=== PATIENT | female | born 1950 | race Caucasian/White ===

== ENCOUNTER → 2017-10-14 | Outpatient (CLI) | payer MEDICARE ==
[2017-10-14 16:10] LABS: HEMATOCRIT 29.8 % (36.0-47.0); HEMOGLOBIN 10.3 g/dL (12.0-15.5); HGB HCT DIFFERENCE 1.1; MEAN CORPUSCULAR HEMOGLOBIN 31.5 pg (27.0-33.4); MEAN CORPUSCULAR HGB CONC 34.5 g/dL (32.0-36.0); MEAN CORPUSCULAR VOLUME 91 fl (80-97); RED BLOOD COUNT 3.27 10^6/uL (3.72-5.28); WHITE BLOOD COUNT 6.5 10^3/uL (4.0-10.5)
[2017-10-14 16:18] LABS: APPEARANCE,URINE CLEAR; BILIRUBIN,URINE NEGATIVE (NEGATIVE); GLUCOSE, URINE 50 mg/dL (NEGATIVE); KETONES,URINE NEGATIVE (NEGATIVE); LEUKOCYTE ESTERASE,URINE NEGATIVE (NEGATIVE); NITRITE,URINE NEGATIVE (NEGATIVE); PROTEIN,URINE NEGATIVE (NEGATIVE); URINE SPECIFIC GRAVITY 1.005; UROBILINOGEN,URINE NEGATIVE mg/dL (<2.0)
[2017-10-14 16:31] LABS: ANION GAP 13 (5-19); BLOOD UREA NITROGEN 40 mg/dL (7-20); CALCIUM 9.9 mg/dL (8.4-10.2); CARBON DIOXIDE 27 mmol/L (22-30); CHLORIDE 99 mmol/L (98-107); CREATININE RESULT 2.53 mg/dL (0.52-1.25); GLUCOSE 91 mg/dL (75-110); POTASSIUM 4.1 mmol/L (3.6-5.0); SODIUM 139.1 mmol/L (137-145)
== END ==
LOC: OD 15:23
PROVIDERS: ATTEND Internal Medicine Nephrology
DX: I12.9 Hypertensive chronic kidney disease with stage 1 through stage 4 chronic kidney disease, or unspecified chronic kidney disease (principal); N18.4 Chronic kidney disease, stage 4 (severe)
CPT/HCPCS: 36415; 80048; 81001; 85027

== ENCOUNTER → 2017-11-11 | Outpatient (CLI) | payer MEDICARE ==
[2017-11-11 18:18] LABS: ABSOLUTE EOSINOPHILS # (AUTO) 0.3 10^3/uL (0.0-0.6); ABSOLUTE LYMPHOCYTES (AUTO) 2.2 10^3/uL (0.5-4.7); ABSOLUTE MONOCYTES (AUTO) 0.4 10^3/uL (0.1-1.4); ABSOLUTE NEUT (AUTO) 3.5 10^3/uL (1.7-8.2); APPEARANCE,URINE SLIGHTLY-CLOUDY; BASOPHILS % (AUTO) 0.7 % (0-2); BILIRUBIN,URINE NEGATIVE (NEGATIVE); EOSINOPHILS % (AUTO) 4.8 % (0-6); GLUCOSE, URINE 50 mg/dL (NEGATIVE); HEMATOCRIT 28.6 % (36.0-47.0); HEMOGLOBIN 9.6 g/dL (12.0-15.5); HGB HCT DIFFERENCE 0.2; KETONES,URINE NEGATIVE (NEGATIVE); LEUKOCYTE ESTERASE,URINE TRACE (NEGATIVE); LYMPHOCYTES % (AUTO) 34.2 % (13-45); MEAN CORPUSCULAR HEMOGLOBIN 31.2 pg (27.0-33.4); MEAN CORPUSCULAR HGB CONC 33.6 g/dL (32.0-36.0); MEAN CORPUSCULAR VOLUME 93 fl (80-97); MONOCYTES % (AUTO) 5.9 % (3-13); NITRITE,URINE NEGATIVE (NEGATIVE); PROTEIN,URINE NEGATIVE (NEGATIVE); RED BLOOD COUNT 3.09 10^6/uL (3.72-5.28); RED CELL DISTRIBUTION WIDTH 16.4 % (11.5-14.0); SEGMENTED NEUTROPHILS % (AUTO) 54.4 % (42-78); URINE SPECIFIC GRAVITY 1.009; UROBILINOGEN,URINE NEGATIVE mg/dL (<2.0); WHITE BLOOD COUNT 6.4 10^3/uL (4.0-10.5)
[2017-11-11 18:35] LABS: ALANINE AMINOTRANSFERASE 22 U/L (9-52); ALKALINE PHOSPHATASE 99 U/L (38-126); ANION GAP 13 (5-19); ASPARTATE AMINO TRANSFERASE 21 U/L (14-36); BILIRUBIN,DIRECT 0.4 mg/dL (0.0-0.4); BILIRUBIN,TOTAL 0.4 mg/dL (0.2-1.3); BLOOD UREA NITROGEN 40 mg/dL (7-20); CALCIUM 10.5 mg/dL (8.4-10.2); CARBON DIOXIDE 27 mmol/L (22-30); CHLORIDE 101 mmol/L (98-107); CREATININE RESULT 2.64 mg/dL (0.52-1.25); GLUCOSE 107 mg/dL (75-110); PHOSPHORUS 4.5 mg/dL (2.5-4.5); POTASSIUM 3.5 mmol/L (3.6-5.0); SODIUM 141.3 mmol/L (137-145); TOTAL PROTEIN 6.8 g/dL (6.3-8.2)
[2017-11-14 15:38] LABS: A/G RATIO 1.3 (0.7-1.7); ALPHA-1-GLOBULIN 2 0.3 g/dL (0.0-0.4); GAMMA GLOBULIN 1.2 g/dL (0.4-1.8); PROTEIN TOTAL SERUM 6.7 g/dL (6.0-8.5)
== END ==
LOC: OD 17:06
PROVIDERS: ATTEND Internal Medicine Nephrology
DX: N18.4 Chronic kidney disease, stage 4 (severe) (principal); D64.9 Anemia, unspecified
CPT/HCPCS: 36415; 80053; 81001; 82728; 83540; 83550; 83970; 84100; 84165; 84443; 85025

== ENCOUNTER 2017-12-01 09:26 | Day surgery (SDC) | payer MEDICARE ==
[2017-12-01] MEDS ORDERED: OXYCODONE-ACETAMINOPHEN 5-325 MG TABLET ONE (09:44)
[2017-12-01] MEDS ORDERED: DIAZEPAM 5 MG TABLET ONE (09:45)
[2017-12-01] MEDS ORDERED: LIDOCAINE 0.5% INJ-PF (5 MG/ML) 50 ML SDV ONE (09:53)
[2017-12-01] MEDS ORDERED: HEPARIN SOD (PORCINE) 5,000 UNIT/ML 1 ML SYRINGE ONE (10:12)
[2017-12-01] MEDS ORDERED: MIDAZOLAM 2 MG/2 ML INJ ONE (10:12)
[2017-12-01] MEDS ORDERED: FENTANYL CITRATE INJ/PF 100 MCG/2 ML AMPUL ONE (10:12)
[2017-12-01 10:21] LABS: HEMOGLOBIN 8.8 g/dL (12.0-15.5); MEAN CORPUSCULAR HGB CONC 33.7 g/dL (32.0-36.0); MEAN CORPUSCULAR VOLUME 95 fl (80-97); PLATELET COUNT 234 10^3/uL (150-450); RED BLOOD COUNT 2.74 10^6/uL (3.72-5.28); RED CELL DISTRIBUTION WIDTH 15.7 % (11.5-14.0); WHITE BLOOD COUNT 6.8 10^3/uL (4.0-10.5)
[2017-12-01 10:43] LABS: ANION GAP 11 (5-19); BLOOD UREA NITROGEN 44 mg/dL (7-20); CALCIUM 10.9 mg/dL (8.4-10.2); CARBON DIOXIDE 26 mmol/L (22-30); CHLORIDE 103 mmol/L (98-107); GLUCOSE 104 mg/dL (75-110); POTASSIUM 3.9 mmol/L (3.6-5.0); SODIUM 139.5 mmol/L (137-145)
[2017-12-01 15:08] VITALS: BP 134/62
--- NOTE | 2017-12-01 15:35 | RADIOLOGY REPORT (SQ) ---
EXAM DESCRIPTION: FISTULAGRAM W/PLASTY; ANGIOPLASTY BRACHIOCEPHALIC COMPLETED DATE/TIME: 12/01/2017 11:53 am; 12/01/2017 11:52 am REASON FOR STUDY: T82.858A T82.858A STENOSIS OF OTHER VASCULAR PROSTH DEV/GRFT, INIT T82.858 STENO SIS OF OTHER VASCULAR PROSTH DEV/GRFT * DO NOT COMPARISON: None. FLUOROSCOPY TIME: 0.8 minutes Multiple fluoroscopic images saved to PACS. TECHNIQUE: Intra-operative images acquired during surgical procedure to evaluate progress. NUMBER OF IMAGES: Multiple fluoroscopic LIMITATIONS: None. FINDINGS: Selected images from left upper extremity arteriogram and angioplasty. IMPRESSION: IMAGE(S) OBTAINED DURING PROCEDURE. COMMENT: Quality ID [id number]: Final reports for procedures using fluoroscopy that document radiation exp osure indices, or exposure time and number of fluorographic images (if radiation exposure indices are not available) Please consult full operative report of the attending physician for description of the procedure. TECHNICAL DOCUMENTATION: JOB ID: [id number] [employer]- All Rights Reserved
--- NOTE | 2017-12-02 18:37 | PDOC DISCHARGE SUMMARY ---
Discharge Summary (SDC) - Discharge Final Diagnosis: #1 malfunctioning AV fistula left brachiocephalic. 2. Chronic kidney disease stage III. 3. COPD. 4. Hypertension. Date of Surgery: 12/02/17 Discharge Date: 12/02/17 Condition: Fair Forms: ASU Anesthesia D/C Instruction, Discharge POC-Surgical Service Referrals: RAJAN TA MD [Primary Care Provider] - MARGO HARTMANN MD [ACTIVE STAFF] - (Follow up with Dr Hartmann as instructed on .) Respiratory Treatments at Home: Deep Breathing/Coughing Discharge Activity: Activity As Tolerated, No Driving Home Care Assistance: Provided by Family Report the Following to Your Physician Immediately: Shortness of Breath, Increase in Pain, Fever over 101 Degrees, Unusual Bleeding, Redness, Swelling, Warmth, Increased Soreness, IV Site Infection Signs
--- NOTE | 2017-12-02 18:43 | Operative Report ---
Operative Report DATE OF SURGERY: 12/02/17 PREOPERATIVE DIAGNOSIS: #1 malfunctioning AV fistula left brachiocephalic. 2. Chronic kidney disease stage III. 3. COPD. 4. Hypertension. POSTOPERATIVE DIAGNOSIS: #1 malfunctioning AV fistula left brachiocephalic. Post angioplasty, central. 2. Chronic kidney disease stage III. 3. COPD. 4. Hypertension. OPERATION: 1. Needle introduction into left arm radiocephalic fistula. 2. Central angioplasty, venous. 3. Angiogram and interpretation. SURGEON: MARGO FOY INCLINOMETER TESTER: None ANESTHESIA: Moderate Sedation TISSUE REMOVED OR ALTERED: Not applicable. COMPLICATIONS: None. ESTIMATED BLOOD LOSS: 2 mL. INTRAOPERATIVE FINDINGS: Of a large, hyper pulsatile brachiocephalic fistula on the left. Well-established. Congruent findings of a covered stent, probably a Viahban brand. Situated in the cephalad cephalic with entry into the subclavian. There was also a larger stent in the innominate left innominate vein, apparently a bare metal. A stenosis was appreciated in the central portion of the innominate stent approximately 70% of the adjacent lumen. This was corrected by angioplasty. Its significance is indicated by the presence of significant collaterals going up into the jugular veins. These did not appreciably change after angioplasty. The patient did require a suture to the entry site of a 7 Japanese introducer. PROCEDURE: PROCEDURE: After verifying the procedure and having obtained informed consent, the patient's left arm was prepared with Chlorhexidine and draped out with sterile linen. Local anesthesia infiltrated. Percutaneous access into the fistula ,[ antegrade], obtained about [6 cm] from the arteriovenous anastomosis using a micro puncture needle followed by micro puncture wire and then a micro puncture catheter. A 0.035 [place] wire was inserted, and over this, a 7 Japanese short introducer was placed.,Angiogram demonstrated the aforementioned findings. Angioplasty was elected. this was followed by a [10-mm] angioplasty balloon . Angioplasty was Done from the superior vena cava up into the innominate stents. Inflating with a 3 mils syringe, for 2 minutes at each location. The balloon was deflated and brought up into the subclavian covered stent junction and gently partially inflated for 1 minutes.]. Completion angiogram demonstrated [satisfactory result]. The instrumentation was now withdrawn over a 5-0 Prolene suture. This was done after initial pressure for 15 minutes was unsuccessful in controlling oozing from the introducer exercise. Dressings applied, procedure concluded. Exposure time: 0.8 minutes Radiation: 10.44 Geeta quiros. Contrast: 10 mL of Isovue-300, low osmolality. DICTATING PHYSICIAN: MARGO HAQUE M.D. cc: MARGO HAQUE M.D. ([id number]) >>
== END 2017-12-01 14:15 | disposition home or self-care (01) ==
LOC: CCL 09:26
PROVIDERS: ATTEND Surgery
PROC: 057F3DZ Dilation of Left Cephalic Vein with Intraluminal Device, Percutaneous Approach (ICD-10-PCS; principal; 2017-12-01)
DX: T82.858A Stenosis of other vascular prosthetic devices, implants and grafts, initial encounter (principal); Y83.2 Surgical operation with anastomosis, bypass or graft as the cause of abnormal reaction of the patient, or of later complication, without mention of misadventure at the time of the procedure; I12.9 Hypertensive chronic kidney disease with stage 1 through stage 4 chronic kidney disease, or unspecified chronic kidney disease; N18.3 Chronic kidney disease, stage 3 (moderate); J44.9 Chronic obstructive pulmonary disease, unspecified; I25.10 Atherosclerotic heart disease of native coronary artery without angina pectoris; F17.210 Nicotine dependence, cigarettes, uncomplicated; Z88.2 Allergy status to sulfonamides; Z79.899 Other long term (current) drug therapy; Z79.82 Long term (current) use of aspirin; Z90.5 Acquired absence of kidney
CPT/HCPCS: 36415; 85027; 80048; 36907; 36902; C1725; C1887; C1894; Q9967; C1769; J2250; J1644 ×2; A9270 ×2; J3010; J3490; C1752

== ENCOUNTER → 2017-12-19 | Outpatient (CLI) | payer MEDICARE ==
--- NOTE | 2017-12-19 13:37 | RADIOLOGY REPORT (SQ) ---
EXAM DESCRIPTION: MRA ABDOMEN WITHOUT COMPLETED DATE/TIME: 12/19/2017 12:58 pm REASON FOR STUDY: CKD STAGE 4 COMPARISON: None. TECHNIQUE: 3D tdzk-of-uuhtor noncontrast MRA exam of the abdominal aorta and renal arteries was perf ormed. Source data, axial T2 limited images, maximum intensity projected images were reviewed. LIMITATIONS: None. FINDINGS: Left kidney surgically absent. On the right side, high-grade stenosis of the proximal right renal artery with a gap in flow signal i s seen at the ostium indicating 80+ percent stenosis. This is best shown on series 502 images 37 thr ough 45. Remainder of the visualized right renal artery is unremarkable. The abdominal aorta is normal caliber at the level of the renal arteries with profound atheroscleroti c change, and luminal irregularity. No dissection is identified. Post cholecystectomy. Large left pleural effusion. There is heterogeneous T2 signal in the right kidney, question infarct anterior half of the right kid adalid. IMPRESSION: Post left nephrectomy High-grade proximal right renal artery stenosis Abnormal increased signal in the ventral half of the right kidney worrisome for infarct. TECHNICAL DOCUMENTATION: JOB ID: [id number] [employer]- All Rights Reserved
== END ==
LOC: RAD 11:46
PROVIDERS: ATTEND Internal Medicine Nephrology
DX: N18.4 Chronic kidney disease, stage 4 (severe) (principal); I70.1 Atherosclerosis of renal artery; Z90.5 Acquired absence of kidney
CPT/HCPCS: C8901

== ENCOUNTER → 2017-12-26 | Outpatient (CLI) | payer MEDICARE ==
[2017-12-26 19:12] LABS: ANION GAP 11 (5-19); BLOOD UREA NITROGEN 49 mg/dL (7-20); CALCIUM 10.4 mg/dL (8.4-10.2); CARBON DIOXIDE 25 mmol/L (22-30); CHLORIDE 99 mmol/L (98-107); GLUCOSE 98 mg/dL (75-110); POTASSIUM 5.3 mmol/L (3.6-5.0); SODIUM 134.6 mmol/L (137-145)
== END ==
LOC: OD 17:48
PROVIDERS: ATTEND Internal Medicine Nephrology
DX: I12.9 Hypertensive chronic kidney disease with stage 1 through stage 4 chronic kidney disease, or unspecified chronic kidney disease (principal); N18.4 Chronic kidney disease, stage 4 (severe); D64.9 Anemia, unspecified
CPT/HCPCS: 36415; 80048

== ENCOUNTER → 2018-01-23 | Outpatient (CLI) | payer MEDICARE ==
[2018-01-23 17:08] LABS: HEMATOCRIT 26.8 % (36.0-47.0); MEAN CORPUSCULAR HEMOGLOBIN 30.8 pg (27.0-33.4); MEAN CORPUSCULAR HGB CONC 33.4 g/dL (32.0-36.0); MEAN CORPUSCULAR VOLUME 92 fl (80-97); PLATELET COUNT 307 10^3/uL (150-450); RED BLOOD COUNT 2.91 10^6/uL (3.72-5.28); RED CELL DISTRIBUTION WIDTH 18.1 % (11.5-14.0); WHITE BLOOD COUNT 7.1 10^3/uL (4.0-10.5)
[2018-01-23 17:38] LABS: ALANINE AMINOTRANSFERASE 13 U/L (9-52); ALBUMIN 3.7 g/dL (3.5-5.0); ALKALINE PHOSPHATASE 97 U/L (38-126); ANION GAP 10 (5-19); ASPARTATE AMINO TRANSFERASE 15 U/L (14-36); BILIRUBIN,DIRECT 0.3 mg/dL (0.0-0.4); BILIRUBIN,TOTAL 0.3 mg/dL (0.2-1.3); BLOOD UREA NITROGEN 37 mg/dL (7-20); CALCIUM 9.8 mg/dL (8.4-10.2); CARBON DIOXIDE 25 mmol/L (22-30); CHLORIDE 102 mmol/L (98-107); GLUCOSE 87 mg/dL (75-110); PHOSPHORUS 4.3 mg/dL (2.5-4.5); POTASSIUM 4.5 mmol/L (3.6-5.0); SODIUM 136.9 mmol/L (137-145); TOTAL PROTEIN 6.5 g/dL (6.3-8.2)
== END ==
LOC: OD 16:09
PROVIDERS: ATTEND Internal Medicine Nephrology
DX: I12.9 Hypertensive chronic kidney disease with stage 1 through stage 4 chronic kidney disease, or unspecified chronic kidney disease (principal); N18.4 Chronic kidney disease, stage 4 (severe); D64.9 Anemia, unspecified
CPT/HCPCS: 36415; 80053; 83970; 84100; 85027

== ENCOUNTER → 2018-02-10 | Outpatient (CLI) | payer MEDICARE ==
[2018-02-10 18:37] LABS: HEMATOCRIT 27.1 % (36.0-47.0); MEAN CORPUSCULAR HEMOGLOBIN 30.8 pg (27.0-33.4); MEAN CORPUSCULAR HGB CONC 33.3 g/dL (32.0-36.0); MEAN CORPUSCULAR VOLUME 92 fl (80-97); PLATELET COUNT 261 10^3/uL (150-450); RED BLOOD COUNT 2.93 10^6/uL (3.72-5.28); WHITE BLOOD COUNT 7.9 10^3/uL (4.0-10.5)
== END ==
LOC: OD 17:55
PROVIDERS: ATTEND Internal Medicine Nephrology
DX: D64.9 Anemia, unspecified (principal); N18.4 Chronic kidney disease, stage 4 (severe)
CPT/HCPCS: 36415; 82728; 83540; 83550; 85027

== ENCOUNTER → 2018-03-24 | Outpatient (CLI) | payer MEDICARE ==
[2018-03-24 17:43] LABS: HEMATOCRIT 28.3 % (36.0-47.0); HEMOGLOBIN 9.4 g/dL (12.0-15.5); MEAN CORPUSCULAR HEMOGLOBIN 32.2 pg (27.0-33.4); MEAN CORPUSCULAR HGB CONC 33.2 g/dL (32.0-36.0); MEAN CORPUSCULAR VOLUME 97 fl (80-97); PLATELET COUNT 239 10^3/uL (150-450); RED BLOOD COUNT 2.92 10^6/uL (3.72-5.28)
[2018-03-24 17:54] LABS: APPEARANCE,URINE SLIGHTLY-CLOUDY; BILIRUBIN,URINE NEGATIVE (NEGATIVE); COLOR,URINE YELLOW; GLUCOSE, URINE 50 mg/dL (NEGATIVE); KETONES,URINE NEGATIVE (NEGATIVE); LEUKOCYTE ESTERASE,URINE NEGATIVE (NEGATIVE); NITRITE,URINE NEGATIVE (NEGATIVE); PROTEIN,URINE 100 mg/dL (NEGATIVE); URINE SPECIFIC GRAVITY 1.011; UROBILINOGEN,URINE NEGATIVE mg/dL (<2.0)
[2018-03-24 18:05] LABS: ANION GAP 18 (5-19); BLOOD UREA NITROGEN 76 mg/dL (7-20); CALCIUM 10.7 mg/dL (8.4-10.2); CARBON DIOXIDE 20 mmol/L (22-30); CHLORIDE 102 mmol/L (98-107); GLUCOSE 90 mg/dL (75-110); POTASSIUM 4.5 mmol/L (3.6-5.0); SODIUM 139.5 mmol/L (137-145)
== END ==
LOC: OD 16:07
PROVIDERS: ATTEND Internal Medicine Nephrology
DX: I12.9 Hypertensive chronic kidney disease with stage 1 through stage 4 chronic kidney disease, or unspecified chronic kidney disease (principal); N18.4 Chronic kidney disease, stage 4 (severe); D64.9 Anemia, unspecified
CPT/HCPCS: 36415; 80048; 81001; 85027

== ENCOUNTER 2018-03-25 15:47 | Emergency (ER) | payer MEDICARE ==
[2018-03-25] MEDS ORDERED: ONDANSETRON HCL INJ/PF 4 MG/2 ML SDV IV ONE (16:02)
[2018-03-25] MEDS ORDERED: NORMAL SALINE 1000 ML 1,000 ML IV ONE (16:02)
--- NOTE | 2018-03-25 16:03 | ER Document Report ---
ED Medical Screen (RME) - General Chief Complaint: Nausea/Vomiting Stated Complaint: WEAKNESS Time Seen by Provider: 03/25/18 15:59 TRAVEL OUTSIDE OF THE [place] IN LAST 30 DAYS: No - HPI Notes: 03/25/18 16:03 Generalized weakness - Related Data Allergies/Adverse Reactions: ASAD Inhibitors Allergy (Verified 11/28/17 13:29) Sulfa (Sulfonamide Antibiotics) Allergy (Verified 11/28/17 13:29) Past Medical History - Past Medical History Cardiac Medical History: Reports: Hx Coronary Artery Disease, Hx Hypertension Denies: Hx Heart Attack Pulmonary Medical History: Reports: Hx COPD Denies: Hx Asthma, Hx Bronchitis, Hx Pneumonia Neurological Medical History: Denies: Hx Cerebrovascular Accident, Hx Seizures Musculoskeltal Medical History: Denies Hx Arthritis - Immunizations Hx Diphtheria, Pertussis, Tetanus Vaccination: No History of Influenza Vaccine for 08/2017 - 01/2018 Season: Yes Influenza Administration Date for 08/2017 - 01/2018 Season: 08/20/17 Review of Systems - Review of Systems Constitutional: Weakness Physical Exam - Vital signs Vitals: Temp Pulse Resp BP Pulse Ox 98.1 F 61 18 179/65 H 94 03/25/18 15:57 03/25/18 15:57 03/25/18 15:57 03/25/18 15:57 03/25/18 15:57 - HEENT Head: Normocephalic Eyes: Normal Conjunctiva: Normal Cornea: Normal Eyelashes: Normal Pupils: PERRL Course - Vital Signs Vital signs: Temp Pulse Resp BP Pulse Ox 98.1 F 61 18 179/65 H 94 03/25/18 15:57 03/25/18 15:57 03/25/18 15:57 03/25/18 15:57 03/25/18 15:57
[2018-03-25 16:57] LABS: ABSOLUTE EOSINOPHILS # (AUTO) 0.2 10^3/uL (0.0-0.6); ABSOLUTE LYMPHOCYTES (AUTO) 1.3 10^3/uL (0.5-4.7); ABSOLUTE MONOCYTES (AUTO) 0.3 10^3/uL (0.1-1.4); ABSOLUTE NEUT (AUTO) 4.3 10^3/uL (1.7-8.2); BASOPHILS % (AUTO) 0.7 % (0-2); EOSINOPHILS % (AUTO) 3.2 % (0-6); HEMATOCRIT 30.1 % (36.0-47.0); LYMPHOCYTES % (AUTO) 21.8 % (13-45); MEAN CORPUSCULAR HEMOGLOBIN 32.1 pg (27.0-33.4); MEAN CORPUSCULAR HGB CONC 33.1 g/dL (32.0-36.0); MEAN CORPUSCULAR VOLUME 97 fl (80-97); MONOCYTES % (AUTO) 4.6 % (3-13); PLATELET COUNT 223 10^3/uL (150-450); RED CELL DISTRIBUTION WIDTH 23.2 % (11.5-14.0); SEGMENTED NEUTROPHILS % (AUTO) 69.7 % (42-78); TOTAL CELLS COUNTED % (AUTO) 100 %; WHITE BLOOD COUNT 6.2 10^3/uL (4.0-10.5)
[2018-03-25 17:18] LABS: ALANINE AMINOTRANSFERASE 9 U/L (9-52); ALBUMIN 3.7 g/dL (3.5-5.0); ALKALINE PHOSPHATASE 82 U/L (38-126); ANION GAP 18 (5-19); ASPARTATE AMINO TRANSFERASE 15 U/L (14-36); BLOOD UREA NITROGEN 76 mg/dL (7-20); CARBON DIOXIDE 20 mmol/L (22-30); CHLORIDE 104 mmol/L (98-107); GLUCOSE 97 mg/dL (75-110); LIPASE 301.5 U/L (23-300); SODIUM 141.8 mmol/L (137-145)
[2018-03-25 17:30] LABS: BILIRUBIN,TOTAL 0.5 mg/dL (0.2-1.3)
[2018-03-25 17:32] LABS: ANISOCYTOSIS 3+; BURR CELLS 1+; OVALOCYTES 1+; PLATELET COMMENT ADEQUATE; POIKILOCYTOSIS 2+; SCHISTOCYTES 2+
[2018-03-25 17:34] LABS: BILIRUBIN,DIRECT 0.5 mg/dL (0.0-0.4); CREATINE KINASE < 20 U/L (30-135)
[2018-03-25 17:45] LABS: APPEARANCE,URINE SLIGHTLY-CLOUDY; BILIRUBIN,URINE NEGATIVE (NEGATIVE); COLOR,URINE YELLOW; GLUCOSE, URINE 50 mg/dL (NEGATIVE); KETONES,URINE NEGATIVE (NEGATIVE); LEUKOCYTE ESTERASE,URINE SMALL (NEGATIVE); NITRITE,URINE NEGATIVE (NEGATIVE); PROTEIN,URINE 100 mg/dL (NEGATIVE); URINE SPECIFIC GRAVITY 1.011; UROBILINOGEN,URINE NEGATIVE mg/dL (<2.0)
--- NOTE | 2018-03-25 17:51 | RADIOLOGY REPORT (SQ) ---
EXAM DESCRIPTION: CHEST SINGLE VIEW COMPLETED DATE/TIME: 03/25/2018 5:43 pm REASON FOR STUDY: weakness COMPARISON: None. EXAM PARAMETERS: NUMBER OF VIEWS: One view. TECHNIQUE: Single frontal radiographic view of the chest acquired. RADIATION DOSE: NA LIMITATIONS: None. FINDINGS: LUNGS AND PLEURA: Consolidative process is identified in the left lower lung field which h as the appearance of a left pleural effusion with associated atelectasis or infiltrate. Remaining natalie ng acosta are clear. MEDIASTINUM AND HILAR STRUCTURES: No masses. Contour normal. HEART AND VASCULAR STRUCTURES: Cardiac silhouette is at the upper limits of normal in size BONES: No acute findings. HARDWARE: Vascular stent is identified overlying the left lung apex. OTHER: No other significant finding. IMPRESSION: Left basilar density as noted above. TECHNICAL DOCUMENTATION: JOB ID: [id number] [employer]- All Rights Reserved Reading location - IP/workstation name: [email or web address]
--- NOTE | 2018-03-25 18:19 | EKG REPORT ---
SEVERITY:- ABNORMAL ECG - SINUS RHYTHM FIRST DEGREE AV BLOCK RBBB AND LAFB TALL PEAKED T WAVES , NEED TO R/O HYPERKALEMIA : Confirmed by: Favio Alva MD 25-Mar-2018 18:18:37
[2018-03-25 18:26] LABS: VENOUS BLOOD HCO3 18.7 mmol/L (20-32); VENOUS BLOOD PCO2 48.5 mmHg (35-63); VENOUS BLOOD PH 7.21 (7.30-7.42)
--- NOTE | 2018-03-25 18:53 | ER Document Report ---
ED General <HAKAN VILLARREAL - Last Filed: 03/26/18 02:47> - General Mode of Arrival: Ambulatory Information source: Patient TRAVEL OUTSIDE OF THE [place]. IN LAST 30 DAYS: No <CLAUDIA PRICE - Last Filed: 03/30/18 21:59> - General Chief Complaint: Nausea/Vomiting Stated Complaint: WEAKNESS Time Seen by Provider: 03/25/18 15:59 Notes: Patient is a 67 year old female with a history of end renal disease, CAD, 2 renal stents, cardiac stents, GERD and hypertension presents to the emergency department complaining of worsening weakness onset 3 weeks. Patient states she saw her Technical Staff Assistant, Dr. Abdullahi today and was sent to the ER for further work up. According to [facility] records, patient had a creatinine of 2.35 on January 23, 2018 and 6.13 yesterday. Patient states she had a shunt placed in her left upper arm 3 years ago. Patient is currently prescribed Clonidine and oral nitrates. Patient's primary care physician is Dr. Ta. (CLAUDIA PRICE) - Related Data Allergies/Adverse Reactions: ASAD Inhibitors Allergy (Verified 03/25/18 17:52) Sulfa (Sulfonamide Antibiotics) Allergy (Verified 03/25/18 17:52) Past Medical History - General Information source: Patient - Social History Smoking Status: Current Every Day Smoker Cigarette use (# per day): Yes - over 1 pack a day. Chew tobacco use (# tins/day): No Frequency of alcohol use: None Drug Abuse: None Family History: Reviewed & Not Pertinent Patient has suicidal ideation: No Patient has homicidal ideation: No - Past Medical History Cardiac Medical History: Reports: Hx Coronary Artery Disease, Hx Hypertension Pulmonary Medical History: Reports: Hx COPD - Immunizations Hx Diphtheria, Pertussis, Tetanus Vaccination: No <CLAUDIA PRICE - Last Filed: 03/30/18 21:59> Review of Systems - Review of Systems Constitutional: See HPI, Weakness EENT: No symptoms reported Cardiovascular: No symptoms reported Respiratory: No symptoms reported Gastrointestinal: No symptoms reported Genitourinary: No symptoms reported Female Genitourinary: No symptoms reported Musculoskeletal: No symptoms reported Skin: No symptoms reported Hematologic/Lymphatic: No symptoms reported Neurological/Psychological: No symptoms reported -: Yes All other systems reviewed and negative <CLAUDIA PRICE - Last Filed: 03/30/18 21:59> Physical Exam <HAKAN VILLARREAL - Last Filed: 03/26/18 02:47> <CLAUDIA PRICE - Last Filed: 03/30/18 21:59> - Vital signs Vitals: Temp Pulse Resp BP Pulse Ox 98.1 F 61 18 179/65 H 94 03/25/18 15:57 03/25/18 15:57 03/25/18 15:57 03/25/18 15:57 03/25/18 15:57 - Notes Notes: GENERAL: Alert, interacts well. No acute distress. Cachetic. HEAD: Normocephalic, atraumatic. EYES: Pupils equal, round, and reactive to light. Extraocular movements intact. ENT: Oral mucosa moist, tongue midline. NECK: Full range of motion. Supple. Trachea midline. LUNGS: Rhonchi and wheezes. Decreased breath sounds in the left lower lobe. No respiratory distress. HEART: Regular rate and rhythm. No murmurs, gallops, or rubs. ABDOMEN: Soft, non-tender. Non-distended. Bowel sounds present in all 4 quadrants. EXTREMITIES: Moves all 4 extremities spontaneously. Tremors in the BUE, patient states this is new onset, due to her not feeling well. 1+ pitting edema in BLE. Radial and dorsalis pedis pulses 2/4 bilaterally. No cyanosis. NEUROLOGICAL: Alert and oriented x3. Normal speech. PSYCH: Normal affect, normal mood. SKIN: Warm, dry, normal turgor. No rashes or lesions noted. (CLAUDIA PRICE) Course - Laboratory Result Diagrams: 03/25/18 16:39 03/25/18 16:39 - Diagnostic Test Radiology reviewed: Image reviewed, Reports reviewed - Borderline enlarged heart , left basilar density appears to be pleural effusion with possible atelectasis - EKG Interpretation by Me EKG shows normal: Sinus rhythm, [place], Intervals, QRS Complexes, ST-T Waves Rate: Normal - 66 [place]/QRS: RBBB, LAHB/LAFB Heart block present: 1st Degree When compared to previous EKG there are: Previous EKG unavailable - Consults Dr. Abdullahi Time consulted: 19:20 Consulted provider: will see as inpatient - Request PCP admission, renal ultrasound with Dopplers Dr. Zamudio Consulted provider: other <HAKAN VILLARREAL - Last Filed: 03/26/18 02:47> - Laboratory Result Diagrams: 03/25/18 16:39 03/25/18 16:39 <CLAUDIA PRICE - Last Filed: 03/30/18 21:59> - Re-evaluation Re-evalutation: 03/25/18 22:50 Radiology results were discussed with Dr. Abdullahi. The dialysis schedule for [facility] is packed tomorrow. Patient most likely needs to be seen by interventional radiology for possible renal artery stent recannulization. We will transfer to [facility] where she had her renal artery stents earlier this year. 03/26/18 01:34 Transport is here for the patient at this time. Her blood pressure has been trending up so she has been getting doses of hydralazine IV. He was having some heartburn type symptoms which she related was due to her empty stomach, she was given a GI cocktail which improved those symptoms. (HAKAN VILLARREAL) - Vital Signs Vital signs: Temp Pulse Resp BP Pulse Ox 97.8 F 61 20 185/65 H 98 03/26/18 01:25 03/25/18 15:57 03/26/18 01:25 03/26/18 01:25 03/26/18 01:25 - Laboratory Laboratory results interpreted by me: 03/25/18 03/25/18 03/25/18 16:39 16:39 17:26 RBC 3.10 L Hgb 10.0 L Hct 30.1 L RDW 23.2 H VBG pH VBG HCO3 Carbon Dioxide 20 L BUN 76 H Creatinine 6.14 H Est GFR ( Amer) 8 L Est GFR (Non-Af Amer) 7 L Calcium 11.0 H Direct Bilirubin 0.5 H Creatine Kinase < 20 L Lipase 301.5 H Urine Protein 100 H Urine Glucose (UA) 50 H Ur Leukocyte Esterase SMALL H 03/25/18 18:00 RBC Hgb Hct RDW VBG pH 7.21 L VBG HCO3 18.7 L Carbon Dioxide BUN Creatinine Est GFR ( Amer) Est GFR (Non-Af Amer) Calcium Direct Bilirubin Creatine Kinase Lipase Urine Protein Urine Glucose (UA) Ur Leukocyte Esterase Critical Care Note - Critical Care Note Total time excluding time spent on procedures (mins): 35 <HAKAN VILLARREAL - Last Filed: 03/26/18 02:47> Discharge <HAKAN VILLARREAL - Last Filed: 03/26/18 02:47> <CLAUDIA PRICE - Last Filed: 03/30/18 21:59> - Discharge Clinical Impression: Renal artery stenosis, Solitary kidney, acquired Acute renal failure Qualifiers: Acute renal failure type: unspecified Qualified Code(s): N17.9 - Acute kidney failure, unspecified COPD (chronic obstructive pulmonary disease) Qualifiers: COPD type: unspecified COPD Qualified Code(s): J44.9 - Chronic obstructive pulmonary disease, unspecified High blood pressure Qualifiers: Hypertension type: renovascular hypertension Qualified Code(s): I15.0 - Renovascular hypertension Condition: Stable Disposition: Critical access hospital Referrals: RAJAN TA MD [Primary Care Provider] - Follow up as needed Scribe Attestation: 03/25/18 19:27 I personally performed the services described in the documentation, reviewed and edited the documentation which was dictated to the scribe in my presence, and it accurately records my words and actions. (HAKAN VILLARREAL) Scribe Documentation - Scribe Written by Luis Albertoibe:: Taj Medina, 03/25/2018 18:56 acting as scribe for :: Ysabel <CLAUDIA PRICE - Last Filed: 03/30/18 21:59>
--- NOTE | 2018-03-25 21:22 | RADIOLOGY REPORT (SQ) ---
EXAM DESCRIPTION: U/S RETROPERITON LTD COMPLETED DATE/TIME: 03/25/2018 9:11 pm REASON FOR STUDY: w/ doppler--acute creatinine rise COMPARISON: None. TECHNIQUE: Dynamic and static grayscale images acquired of the kidneys and bladder and recorded on P ACS. Additional selected color Doppler and spectral images recorded. LIMITATIONS: None. FINDINGS: RIGHT KIDNEY: Normal size, 10.8 cm. Normal echogenicity. No solid or suspicious ryan s. No hydronephrosis. No calcifications. LEFT KIDNEY: Left nephrectomy. BLADDER: The bladder was not filled and not evaluated. OTHER FINDINGS: No other significant finding. IMPRESSION: Normal right renal ultrasound. TECHNICAL DOCUMENTATION: JOB ID: [id number] [employer]- All Rights Reserved Reading location - IP/workstation name: [email or web address]
--- NOTE | 2018-03-25 21:25 | RADIOLOGY REPORT (SQ) ---
EXAM DESCRIPTION: U/S LTD DUPLEX ART/NOEL FLOW COMPLETED DATE/TIME: 03/25/2018 9:11 pm REASON FOR STUDY: ACUTE CREATININE RISE COMPARISON: Resistive index in kidneys TECHNIQUE: Realtime and static grayscale images acquired. Selected color Doppler, velocities and spe ctral images recorded. LIMITATIONS: None. FINDINGS: Limited arterial evaluation of the right kidney shows normal arterial flow. IMPRESSION: Arterial flow was present in the right kidney. TECHNICAL DOCUMENTATION: JOB ID: [id number] [employer]- All Rights Reserved Reading location - IP/workstation name: [email or web address]
[2018-03-25] MEDS ORDERED: HYDRALAZINE HCL INJ/PF 20 MG/1 ML SDV IV ONE (22:53)
[2018-03-26] MEDS ORDERED: LIDOCAINE 2% VISCOUS SOLN 20 ML UDCUP PO ONE (01:09)
[2018-03-26] MEDS ORDERED: HYDRALAZINE HCL INJ/PF 20 MG/1 ML SDV IV ONE (01:09)
[2018-03-26] MEDS ORDERED: MAG HYDROX/AL HYDROX/SIMETH SUSP 30 ML UDCUP PO ONE (01:09)
[2018-03-26 01:35] VITALS: BP 185/65
== END 2018-03-26 01:38 | disposition short-term general hospital (02) ==
LOC: ER 15:47
DX: I70.1 Atherosclerosis of renal artery (principal); I12.0 Hypertensive chronic kidney disease with stage 5 chronic kidney disease or end stage renal disease; N18.6 End stage renal disease; N17.9 Acute kidney failure, unspecified; Z90.5 Acquired absence of kidney; I25.10 Atherosclerotic heart disease of native coronary artery without angina pectoris; J44.9 Chronic obstructive pulmonary disease, unspecified; F17.210 Nicotine dependence, cigarettes, uncomplicated; R11.2 Nausea with vomiting, unspecified; R53.1 Weakness; Z95.5 Presence of coronary angioplasty implant and graft; Z96.0 Presence of urogenital implants
CPT/HCPCS: 93005; 96376; 99285; 96361; 96374; 96375; 36415; 82550; 83690; 85025; 80053; 81001; 82803; 71045; 76775; 93976; 93010; J0360; J3490; J2405; J7030

== ENCOUNTER → 2018-05-29 | Outpatient (CLI) | payer MEDICARE ==
[2018-05-29 13:52] LABS: ABSOLUTE BASOPHILS # (AUTO) 0.1 10^3/uL (0.0-0.2); ABSOLUTE EOSINOPHILS # (AUTO) 0.2 10^3/uL (0.0-0.6); ABSOLUTE LYMPHOCYTES (AUTO) 2.1 10^3/uL (0.5-4.7); ABSOLUTE MONOCYTES (AUTO) 0.6 10^3/uL (0.1-1.4); ABSOLUTE NEUT (AUTO) 4.5 10^3/uL (1.7-8.2); BASOPHILS % (AUTO) 0.7 % (0-2); EOSINOPHILS % (AUTO) 2.9 % (0-6); HEMATOCRIT 39.7 % (36.0-47.0); HEMOGLOBIN 13.4 g/dL (12.0-15.5); MEAN CORPUSCULAR HEMOGLOBIN 33.3 pg (27.0-33.4); MEAN CORPUSCULAR HGB CONC 33.8 g/dL (32.0-36.0); MEAN CORPUSCULAR VOLUME 99 fl (80-97); MONOCYTES % (AUTO) 8.1 % (3-13); PLATELET COUNT 270 10^3/uL (150-450); RED BLOOD COUNT 4.02 10^6/uL (3.72-5.28); RED CELL DISTRIBUTION WIDTH 15.6 % (11.5-14.0); SEGMENTED NEUTROPHILS % (AUTO) 60.3 % (42-78); TOTAL CELLS COUNTED % (AUTO) 100 %; WHITE BLOOD COUNT 7.5 10^3/uL (4.0-10.5)
--- NOTE | 2018-05-29 14:02 | RADIOLOGY REPORT (SQ) ---
EXAM DESCRIPTION: CHEST SINGLE VIEW COMPLETED DATE/TIME: 05/29/2018 1:39 pm REASON FOR STUDY: PNEUMOTHORAX, UNSPECIFIED COMPARISON: 03/25/2018 EXAM PARAMETERS: NUMBER OF VIEWS: One view. TECHNIQUE: Single frontal radiographic view of the chest acquired. RADIATION DOSE: NA LIMITATIONS: None. FINDINGS: LUNGS AND PLEURA: Small bilateral pleural effusions with improvement in left effusion sinc e prior study. No evidence of pneumothorax. Mild increased interstitial densities most prominently in the upper lobes which appear more prominent than on the prior study suggesting interstitial edema or interstitial pneumonitis rather than chronic interstitial change. Apical pleural thickening. MEDIASTINUM AND HILAR STRUCTURES: No masses. Contour normal. HEART AND VASCULAR STRUCTURES: Mild cardiomegaly. Vasculature within normal limits. BONES: No acute findings. HARDWARE: Left brachiocephalic and left subclavian stents. OTHER: No other significant finding. IMPRESSION: 1. Mild cardiomegaly, small bilateral effusion and mild interstitial changes suggesting mild congestive failure. No pneumothorax. TECHNICAL DOCUMENTATION: JOB ID: [id number] [employer]- All Rights Reserved Reading location - IP/workstation name: [email or web address]
[2018-05-29 14:14] LABS: ALANINE AMINOTRANSFERASE 17 U/L (9-52); ALBUMIN 3.8 g/dL (3.5-5.0); ALKALINE PHOSPHATASE 93 U/L (38-126); ANION GAP 15 (5-19); ASPARTATE AMINO TRANSFERASE 18 U/L (14-36); BILIRUBIN,DIRECT 0.6 mg/dL (0.0-0.4); BILIRUBIN,TOTAL 0.6 mg/dL (0.2-1.3); BLOOD UREA NITROGEN 28 mg/dL (7-20); CALCIUM 9.7 mg/dL (8.4-10.2); CARBON DIOXIDE 29 mmol/L (22-30); CHLORIDE 94 mmol/L (98-107); CHOLESTEROL 140.28 mg/dL (0-200); GLUCOSE 106 mg/dL (75-110); POTASSIUM 3.8 mmol/L (3.6-5.0); SODIUM 137.9 mmol/L (137-145); TRIGLYCERIDES 80 mg/dL (<150)
[2018-05-29 14:29] LABS: DIRECT LDL 63 mg/dL (<100)
== END ==
LOC: OD 13:14
PROVIDERS: ATTEND Internal Medicine
DX: N18.9 Chronic kidney disease, unspecified (principal); I25.10 Atherosclerotic heart disease of native coronary artery without angina pectoris; R60.9 Edema, unspecified; J44.9 Chronic obstructive pulmonary disease, unspecified
CPT/HCPCS: 36415; 71045; 80053; 80061; 84443; 85025

== ENCOUNTER 2018-06-01 06:09 | Day surgery (SDC) | payer MEDICARE ==
[2018-06-01 07:18] LABS: INTERNATIONAL RATION (INR) 0.95; PROTHROMBIN TIME 13.2 SEC (11.4-15.4)
[2018-06-01 07:19] LABS: PARTIAL THROMBOPLASTIN TIME 36.3 SEC (23.5-35.8)
[2018-06-01 07:59] LABS: ABSOLUTE BASOPHILS # (AUTO) 0.1 10^3/uL (0.0-0.2); ABSOLUTE EOSINOPHILS # (AUTO) 0.4 10^3/uL (0.0-0.6); ABSOLUTE LYMPHOCYTES (AUTO) 2.2 10^3/uL (0.5-4.7); ABSOLUTE MONOCYTES (AUTO) 0.6 10^3/uL (0.1-1.4); ABSOLUTE NEUT (AUTO) 3.4 10^3/uL (1.7-8.2); BASOPHILS % (AUTO) 0.8 % (0-2); EOSINOPHILS % (AUTO) 5.6 % (0-6); HEMATOCRIT 38.7 % (36.0-47.0); LYMPHOCYTES % (AUTO) 32.4 % (13-45); MEAN CORPUSCULAR HGB CONC 33.6 g/dL (32.0-36.0); MEAN CORPUSCULAR VOLUME 98 fl (80-97); MONOCYTES % (AUTO) 9.5 % (3-13); PLATELET COUNT 258 10^3/uL (150-450); RED BLOOD COUNT 3.94 10^6/uL (3.72-5.28); RED CELL DISTRIBUTION WIDTH 15.8 % (11.5-14.0); SEGMENTED NEUTROPHILS % (AUTO) 51.7 % (42-78); TOTAL CELLS COUNTED % (AUTO) 100 %; WHITE BLOOD COUNT 6.6 10^3/uL (4.0-10.5)
[2018-06-01 08:00] LABS: ANION GAP 14 (5-19); BLOOD UREA NITROGEN 39 mg/dL (7-20); CALCIUM 9.9 mg/dL (8.4-10.2); CARBON DIOXIDE 28 mmol/L (22-30); CHLORIDE 96 mmol/L (98-107); GLUCOSE 103 mg/dL (75-110); POTASSIUM 3.5 mmol/L (3.6-5.0); SODIUM 137.6 mmol/L (137-145)
[2018-06-01] MEDS ORDERED: HEPARIN SOD (PORCINE) 5,000 UNIT/ML 1 ML SYRINGE ONE (08:09)
[2018-06-01] MEDS ORDERED: FENTANYL CITRATE INJ/PF 100 MCG/2 ML AMPUL ONE (08:09)
[2018-06-01] MEDS ORDERED: MIDAZOLAM 2 MG/2 ML INJ ONE (08:09)
[2018-06-01] MEDS ORDERED: LIDOCAINE 0.5% INJ-PF (5 MG/ML) 50 ML SDV ONE (08:10)
--- NOTE | 2018-06-01 09:51 | EKG REPORT ---
SEVERITY:- ABNORMAL ECG - SINUS RHYTHM FIRST DEGREE AV BLOCK RBBB AND LAFB LEFT VENTRICULAR HYPERTROPHY : Confirmed by: Sameer Causey 01-Jun-2018 09:51:34
--- NOTE | 2018-06-01 09:58 | Discharge Summary ---
Discharge Summary (SDC) - Discharge Final Diagnosis: #1 malfunctioning arteriovenous fistula. 2. End-stage renal disease on hemodialysis Date of Surgery: 06/01/18 Discharge Date: 06/01/18 Condition: Fair Treatment or Instructions: Discharge home [after recovery per ASU criteria]. Diet , [renal],as tolerated, when fully awake advance as tolerated. Activities within moderation encouraged. Follow up in my office by appointment in about 1 month. Call for appointment. Leave wounds [covered], [keep clean and dry, until hemodialysis]. Hold of on school/work [until evaluation in office]. Meds per med rec. May shower [in 48 hrs], [try to keep operated area as dry as possible]. Referrals: RJAAN TA MD [Primary Care Provider] - Discharge Diet: Other (Comments) - Renal. Respiratory Treatments at Home: Deep Breathing/Coughing Discharge Activity: Activity As Tolerated Report the Following to Your Physician Immediately: Unusual Bleeding
--- NOTE | 2018-06-01 10:06 | Operative Report ---
Operative Report DATE OF SURGERY: 06/01/18 PREOPERATIVE DIAGNOSIS: #1 malfunctioning arteriovenous fistula. 2. End-stage renal disease on hemodialysis POSTOPERATIVE DIAGNOSIS: #1 malfunctioning arteriovenous fistula. 2. End- stage renal disease on hemodialysis OPERATION: 1. Needle access and AV fistula left brachiocephalic. 2. Angioplasty, central, drug-eluting balloon. 3. Angiogram and interpretation. SURGEON: MARGO FOY SILK PRESSER: None. ANESTHESIA: Moderate Sedation TISSUE REMOVED OR ALTERED: Not applicable. COMPLICATIONS: None. ESTIMATED BLOOD LOSS: 2 mL. INTRAOPERATIVE FINDINGS: Of a well founded, hyper pulsatile AV fistula, left brachiocephalic. Somewhat tortuous. 3 stents noted. 1 probably covered in the proximal cephalic and subclavian. 2, bare-metal in the left innominate. Culprit lesion is just central to the innominate stent estimated 70% stenosis of the upper SVC, proximal left innominate. Marked reflux noted cephalad to stent. Much improved with balloon dilatation up to 12 mm and use of a drug- eluting balloon. Some residual rebound appreciated. The fistula was appropriately softer after balloon dilatation of these affected lesions. The covered stents is widely patent. PROCEDURE: PROCEDURE: After verifying the procedure and having obtained informed consent, the patient's left arm was prepared with Chlorhexidine and draped out with sterile linen. Local anesthesia infiltrated. Percutaneous access into the fistula ,[ antegrade], obtained about 10 cm] from the arteriovenous anastomosis using a micro puncture needle followed by micro puncture wire and then a micro puncture catheter. . A 0.035 [place] wire was inserted, and over this, a 7 [place] short introducer was placed, this was followed by a [place] cath which allowed central angioplasty of the peripheral angioplasty through the introducer. A 10-mm] by 6 angioplasty balloon, high-pressure was inserted. Angioplasty was serially done fr at the culprit area. Inflating using a 3 mils syringe.]. Completion angiogram demonstrated [satisfactory result]. A 9 Cym[place] introducer was now substituted and a 12 mm angioplasty balloon, 6 mm length placed over the cold lesion and inflated for 3 minutes using an insufflator. The catheter was now replaced with a drug-eluting catheter 12 mm x 4 mm. Balloon was placed at the culprit lesion and inflated to 11 inocencia and sustained for 3 minutes. A completion angiogram was done and the results accepted. The instrumentation was now withdrawn over hand pressure for 10 minutes. Dressings applied, procedure concluded. Exposure time: 2.8 minutes Radiation: 53.78 Geeta quiros. Contrast: 25 mL of Isovue-300, low osmolality. DICTATING PHYSICIAN: MARGO HAQUE M.D. cc: MARGO HAQUE M.D. ([id number]) >>
[2018-06-01 11:13] VITALS: BP 167/84
--- NOTE | 2018-06-01 16:43 | RADIOLOGY REPORT (SQ) ---
EXAM DESCRIPTION: FISTULAGRAM W/PLASTY COMPLETED DATE/TIME: 06/01/2018 11:39 am REASON FOR STUDY: T82.858A T82.858A STENOSIS OF OTHER VASCULAR PROSTH DEV/GRFT, INIT Z79.01 LONG T ERM (CURRENT) USE OF ANTICOAGULANTS COMPARISON: 12/01/2017 FLUOROSCOPY TIME: 2.8 minutes 212 images saved to PACS. TECHNIQUE: Intra-operative images acquired during surgical procedure to evaluate progress. NUMBER OF IMAGES: 212 images saved to pac's LIMITATIONS: None. FINDINGS: Intra procedural imaging and fluoro during left upper extremity dialysis access and plasty by Dr. Hartmann IMPRESSION: Intra procedural imaging and fluoro. Please see the operative report for further detail s COMMENT: Quality ID 145: Final reports for procedures using fluoroscopy that document radiation exp osure indices, or exposure time and number of fluorographic images (if radiation exposure indices are not available) Please consult full operative report of the attending physician for description of the procedure. TECHNICAL DOCUMENTATION: JOB ID: [id number] [employer]- All Rights Reserved Reading location - IP/workstation name: [email or web address]
== END 2018-06-01 11:00 | disposition home or self-care (01) ==
LOC: CCL 06:09
PROVIDERS: ATTEND Surgery
DX: T82.858A Stenosis of other vascular prosthetic devices, implants and grafts, initial encounter (principal); Y83.2 Surgical operation with anastomosis, bypass or graft as the cause of abnormal reaction of the patient, or of later complication, without mention of misadventure at the time of the procedure; N18.6 End stage renal disease; F17.210 Nicotine dependence, cigarettes, uncomplicated; Z79.01 Long term (current) use of anticoagulants; Z99.2 Dependence on renal dialysis
CPT/HCPCS: 36415; 85025; 85610; 85730; 80048; 36907; 36902; 93005; 93010; C1725; C1752; C1887; C1894; Q9967; C1769; J2250; J1644 ×2; J3010; J3490

== ENCOUNTER → 2018-06-17 | Outpatient (CLI) | payer MEDICARE ==
[~2018-06-17] MED LIST: REGADENOSON INJ 0.4 MG/5 ML DISP.SYRIN IV ONE
--- NOTE | 2018-06-23 23:27 | DRAGON STRESS TEST REPORT ---
Intravenous Lexiscan Cardiolite stress test using single photon emmision computerized tomography. Date of procedure: 06/17/2018. Ordering Provider: Dr. Ginger Mayer. Patient's status: Out Patient. Indication: Chest pain. Coronary risk factors: Age, hypertension, dyslipidemia , and end-stage renal disease on dialysis. Resting EKG: Sinus Rhythm. LVH by voltage. Stress EKG: No changes of ischemia. The patient had no chest pain or discomfort, and there were no arrhythmias seen. Reason for termination: Protocol. Conclusions: Normal EKG and hemodynamic response to IV Lexiscan. Nuclear data: At rest the patient was given 10.90 millicuries of technetium 99m sestamibi injected intravenously. As per protocol rest non gated SPECT images were obtained. Subsequently the patient was given intravenous Lexiscan at a dose of 0.4 mg in 5 mL intravenously, followed by flush with normal saline. Subsequently the stress dose of 31.8 millicuries of technetium 99m sestamibi was injected intravenously. As per protocol stress gated images were obtained. Nuclear interpretation: Review of images showed that all segments of the myocardium had normal perfusion at rest, and normal perfusion post stress with IV Lexiscan. All segments of the myocardium had normal motion, contraction, and thickening by gated study. T. I D. ratio was normal at 0.91. Computer read rest, and stress left ventricular ejection fraction were 62 %, and 60 %, respectively. Conclusion: 1. There is no scintigraphic evidence of Lexiscan induced myocardial ischemia. 2. There is no scintigraphic evidence of myocardial infarction/scar. Recommendations: Aggressive risk factor modification, and treating the underlying co- morbidities. MTDD
== END ==
LOC: RAD 08:28
PROVIDERS: ATTEND Specialist
DX: R07.9 Chest pain, unspecified (principal)
CPT/HCPCS: 93017; 78452; A9500; J2785; Q9969

== ENCOUNTER → 2018-06-22 | Outpatient (CLI) | payer MEDICARE ==
--- NOTE | 2018-06-22 19:42 | XCELERA REPORT ---
[address] [address] Transthoracic Echocardiogram Report Name: JUSTINE CHRISTENSEN Age: 67 yrs Gender: Female : 1950 Patient Status: Outpatient Patient Location: Study Date: 06/22/2018 10:30 AM Height: 66 in Weight: 94 lb BSA: 1.5 m2 Procedure: A two-dimensional transthoracic echocardiogram with color flow Doppler was performed. Study Quality: Fair. Reason For Study: CP History: Chest pain. Ordering Physician: RONALD DUARTE Performed By: Yogesh Bundy Interpretation Summary The left ventricle is normal in size. There is mild concentric left ventricular hypertrophy. LV EF is >than 60% Doppler measurements suggest impaired left ventricular relaxation, which is associated with grade I/IV or mild diastolic dysfunction The left ventricular wall motion is normal. There is no thrombus. There is no ventricular septal defect visualized. The right ventricle is normal in size and function. The right atrium is normal. The left atrial size is normal. The interatrial septum is intact with no evidence for an atrial septal defect. There is mild mitral annular calcification. There is no evidence of mitral valve prolapse. There is no mitral valve stenosis. There is a mild amount of mitral regurgitation The aortic valve is trileaflet. The aortic valve opens well. The aortic valve is mildly calcified There is no aortic valvular vegetation. There is mild aortic stenosis There is a peak gradient of 18 mm of Hg. There is no LVOT obstruction. No hemodynamically significant valvular aortic stenosis. There is a trace amount of aortic regurgitation There is no tricuspid stenosis. There is a trace amount of tricuspid regurgitation Right ventricular systolic pressure is normal. RVSP is 22 to 27 mm of Hg , with RA mean of 5 to 10. There is no pulmonic valvular stenosis. There is a trace amount of pulmonic regurgitation The aortic root is normal size. There is no pericardial effusion. MMode/2D Measurements & Calculations RVDd: 2.5 cm LVIDd: 5.0 cmFS: 34.5 % Ao root diam: 2.8 cm IVSd: 1.2 cm LVIDs: 3.3 cmEDV(Teich): 119.0 ml LVPWd: 1.2 cmESV(Teich): 43.5 ml Ao root area: 6.1 cm2 EF(Teich): 63.4 % LA dimension: 3.5 cm LVOT diam: 1.9 cm LVOT area: 3.0 cm2 Doppler Measurements & Calculations MV E max zeny: MV P1/2t max zeny: Ao V2 max: LV V1 max P.9 cm/sec 97.7 cm/sec 210.7 cm/sec 6.3 mmHg MV A max zeny: MV P1/2t: 94.4 msec Ao max PG: LV V1 max: 111.6 cm/sec MVA(P1/2t): 2.3 cm2 17.8 mmHg 125.4 cm/sec MV E/A: 0.79 MV dec slope: ERNESTO(V,D): 1.8 cm2 303.3 cm/sec2 MV dec time: 0.23 sec PA V2 max: PI end-d zeny: TR max zeny: 112.3 cm/sec 71.2 cm/sec 208.5 cm/sec PA max PG: TR max P.0 mmHg 17.4 mmHg Left Ventricle The left ventricle is normal in size. There is mild concentric left ventricular hypertrophy. LV EF is >than 60%. Left ventricular systolic function is normal. Doppler measurements suggest impaired left ventricular relaxation, which is associated with grade I/IV or mild diastolic dysfunction. The left ventricular wall motion is normal. There is no thrombus. There is no ventricular septal defect visualized. Right Ventricle The right ventricle is normal in size and function. Atria The right atrium is normal. The left atrial size is normal. The interatrial septum is intact with no evidence for an atrial septal defect. Mitral Valve There is mild mitral annular calcification. There is no evidence of mitral valve prolapse. There is no vegetation seen on the mitral valve. There is no mitral valve stenosis. There is a mild amount of mitral regurgitation. Aortic Valve The aortic valve is trileaflet. The aortic valve opens well. The aortic valve is mildly calcified. There is no aortic valvular vegetation. There is mild aortic stenosis. There is a peak gradient of 18 mm of Hg. There is no LVOT obstruction. No hemodynamically significant valvular aortic stenosis. There is a trace amount of aortic regurgitation. Tricuspid Valve There is no tricuspid stenosis. There is a trace amount of tricuspid regurgitation. Right ventricular systolic pressure is normal. RVSP is 22 to 27 mm of Hg , with RA mean of 5 to 10. Pulmonic Valve There is no pulmonic valvular stenosis. There is a trace amount of pulmonic regurgitation. Great Vessels The aortic root is normal size. Effusions There is no pericardial effusion. : RONALD DUARTE > Darius Hartmann
== END ==
LOC: SP 10:07
PROVIDERS: ATTEND Specialist
DX: R07.9 Chest pain, unspecified (principal)
CPT/HCPCS: 93306

== ENCOUNTER 2018-08-24 11:41 | Day surgery (SDC) | payer MEDICARE ==
[~2018-08-24 11:41] MED LIST changes: +DIAZEPAM 5 MG TABLET PO PRN; +OXYCODONE-ACETAMINOPHEN 5-325 MG TABLET PO PRN; -REGADENOSON INJ 0.4 MG/5 ML DISP.SYRIN IV ONE
[2018-08-24] MEDS ORDERED: DIAZEPAM 5 MG TABLET ONE (12:17)
[2018-08-24] MEDS ORDERED: OXYCODONE-ACETAMINOPHEN 5-325 MG TABLET ONE (12:18)
[2018-08-24 12:23] LABS: HEMATOCRIT 35.3 % (36.0-47.0); HEMOGLOBIN 11.9 g/dL (12.0-15.5); MEAN CORPUSCULAR HEMOGLOBIN 33.7 pg (27.0-33.4); MEAN CORPUSCULAR HGB CONC 33.7 g/dL (32.0-36.0); MEAN CORPUSCULAR VOLUME 100 fl (80-97); PLATELET COUNT 207 10^3/uL (150-450); RED BLOOD COUNT 3.53 10^6/uL (3.72-5.28); RED CELL DISTRIBUTION WIDTH 18.9 % (11.5-14.0); WHITE BLOOD COUNT 6.9 10^3/uL (4.0-10.5)
[2018-08-24 13:00] LABS: ANION GAP 12 (5-19); BLOOD UREA NITROGEN 32 mg/dL (7-20); CALCIUM 9.8 mg/dL (8.4-10.2); CARBON DIOXIDE 29 mmol/L (22-30); CHLORIDE 98 mmol/L (98-107); GLUCOSE 103 mg/dL (75-110); POTASSIUM 3.8 mmol/L (3.6-5.0); SODIUM 138.5 mmol/L (137-145)
[2018-08-24] MEDS ORDERED: LIDOCAINE 0.5% INJ-PF (5 MG/ML) 50 ML SDV ONE (13:06)
[2018-08-24] MEDS ORDERED: MIDAZOLAM 2 MG/2 ML INJ ONE (13:10)
[2018-08-24] MEDS ORDERED: FENTANYL CITRATE INJ/PF 100 MCG/2 ML AMPUL ONE (13:10)
[2018-08-24] MEDS ORDERED: HEPARIN SOD (PORCINE) 5,000 UNIT/ML 1 ML SYRINGE ONE (13:11)
--- NOTE | 2018-08-24 14:31 | Discharge Summary ---
Discharge Summary (SDC) - Discharge Final Diagnosis: #1 malfunctioning arteriovenous fistula, left brachiocephalic. 2. End-stage renal disease on hemodialysis 3. COPD. 4. Coronary artery disease. 5. Hypertension. Date of Surgery: 08/24/18 Discharge Date: 08/24/18 Condition: Fair Treatment or Instructions: Discharge home [after recovery per ASU criteria]. Diet , [renal],as tolerated, when fully awake advance as tolerated. Activities within moderation encouraged. Follow up in my office by appointment in about [1 week]. Call for appointment. Leave wounds [covered], [keep clean and dry, until hemodialysis. May remove suture in hemodialysis tomorrow.]. Hold of on school/work [until evaluation in office]. Meds per med rec. May shower [in 48 hrs], [try to keep operated area as dry as possible]. Referrals: RAJAN TA MD [Primary Care Provider] - Discharge Diet: Other (Comments) - Renal. Respiratory Treatments at Home: Deep Breathing/Coughing Discharge Activity: Activity As Tolerated Report the Following to Your Physician Immediately: Unusual Bleeding
--- NOTE | 2018-08-24 14:36 | Operative Report ---
Operative Report DATE OF SURGERY: 08/24/18 PREOPERATIVE DIAGNOSIS: #1 malfunctioning arteriovenous fistula, left brachiocephalic. 2. End-stage renal disease on hemodialysis. 3. COPD. 4. Coronary artery disease. 5. Hypertension. POSTOPERATIVE DIAGNOSIS: #1 malfunctioning arteriovenous fistula, left brachiocephalic. 2. End-stage renal disease on hemodialysis. 3. COPD. 4. Coronary artery disease. 5. Hypertension. OPERATION: 1. Needle introduction into the fistula. 2. Balloon angioplasty and central veins. 3. Angiogram and interpretation. SURGEON: MARGO FOY MARKETING ADMINISTRATOR: None. ANESTHESIA: Moderate Sedation TISSUE REMOVED OR ALTERED: Not applicable. COMPLICATIONS: None. ESTIMATED BLOOD LOSS: 5 mL. INTRAOPERATIVE FINDINGS: Of a quite high pressure arteriovenous fistula as evidenced by firmness and vigorous backflow. This was partially ameliorated by angioplasty. The culprit lesions are about 1 cm area at the end just distal to the most central part of an apparent bare-metal stent. Just about at the upper superior vena cava. This was resolved with angioplasty of the 12 mm. A secondary stenosis in the mid subclavian was also addressed with a 10 mm successfully. This area may well need to be addressed in the future and consideration to be given to using a 12 or even 14 mm drug-eluting balloon. The objective would be prolonged successful use of fistula. PROCEDURE: PROCEDURE: After verifying the procedure and having obtained informed consent, the patient's left arm was prepared with Chlorhexidine and draped out with sterile linen. Local anesthesia infiltrated. Percutaneous access into the fistula ,[ antegrade], obtained about [2 cm] from the arteriovenous anastomosis using a micro puncture needle followed by micro puncture wire and then a micro puncture catheter. A 0.035 [place] wire was inserted, and over this, a 7 Fijian short introducer was placed., Angiogram demonstrated the aforementioned findings. Angioplasty was elected.this was followed by a [10 -mm] angioplasty balloon . Angioplasty was serially done f at the culprit areas starting centrally and working peripherally. Inflating up to 18 atmospheres for 2 minutes at the time. Residual stenosis was noted in the innominate/superior vena cava area. A 12 mm angioplasty balloon was therefore inserted over the Glidewire, after switching up to a 9 Fijian introducer. This allowed angioplasty of the central culprit region up to 16 inocencia for 2 minutes. A waist was noted right at the most central part of the bare-metal stent and this was completely resolved by angioplasty. Completion angiogram demonstrated [satisfactory result]. The instrumentation was now withdrawn over a short piece of catheter and a 4-0 Prolene suture. Dressings applied, procedure concluded. Exposure time: 2 minutes. Radiation: 9.63 dawson-quiros. Contrast: 25 mils of Isovue-300, low osmolality. DICTATING PHYSICIAN: MARGO HAQUE M.D. cc: MARGO HAQUE M.D. ([id number]) >>
--- NOTE | 2018-08-24 14:40 | PDOC H&P ---
General Chief Complaint: This patient was referred across from the dialysis center because of malfunctioning arteriovenous fistula. She is known to have a covered stent cephalad cephalic vein and the omental stents centrally in the left innominate and into the superior vena cava. She was last intervened in May 2018 including with a 12 mm drug-eluting balloon. - Diagnosis (1) Dialysis AV fistula malfunction Is this a Current Diagnosis?: Yes (2) End-stage renal disease on hemodialysis Is this a Current Diagnosis?: Yes - Current Medications/Allergies Home Medications: Carvedilol 25 mg PO BID 11/28/17 Clonazepam 0.5 tab PO BID PRN 11/28/17 Famotidine [Pepcid 10 mg Tablet] 10 mg PO DAILY 11/28/17 Hydralazine HCl 100 mg PO TID 11/28/17 Pravastatin Sodium 40 mg PO QHS 11/28/17 Clonidine HCl 0.3 mg PO 5XD 03/25/18 Loratadine [Claritin] 10 mg PO DAILY PRN 03/25/18 Sertraline HCl 100 mg PO DAILY 03/25/18 Umeclidinium Brm/Vilanterol Tr [Anoro Ellipta 62.5-25 Mcg INH] 1 puff IH DAILY 08/21/18 Allergies/Adverse Reactions: ASAD Inhibitors Allergy (Verified 06/01/18 06:45) "Red from chin to chest" Sulfa (Sulfonamide Antibiotics) Allergy (Verified 06/01/18 06:45) Hives Past Medical History Cardiac Medical History: Reports: Coronary Artery Disease, Hypertension Denies: Myocardial Infarction Pulmonary Medical History: Reports: Chronic Obstructive Pulmonary Disease (COPD ) - "slight", Pneumonia - "Years ago" Denies: Asthma, Bronchitis Neurological Medical History: Denies: Seizures Musculoskeltal Medical History: Denies: Arthritis Hematology: Reports: Anemia - r/t kidney failure Family History Family History: Reviewed & Not Pertinent Parental Family History Reviewed: No Children Family History Reviewed: No Sibling(s) Family History Reviewed.: No Social History Smoking Status: Current Every Day Smoker Physical Exam Vital Signs: Temp Pulse Resp BP Pulse Ox 98.4 F 66 16 178/78 H 97 08/24/18 12:53 08/24/18 12:53 08/24/18 12:53 08/24/18 12:53 08/24/18 12:53 Intake & Output 08/23/18 08/24/18 08/25/18 06:59 06:59 06:59 Weight 43.545 kg Additional comments: Constitutional: Well-developed well-nourished lady. No apparent acute distress. Eyes: Mucous membranes pink and moist, pupils equal and reactive to light. Conjunctiva normal. Cornea normal. ENT: Hearing grossly normal. External pinna normal to inspection. Teeth intact. Tongue normal to inspection. Cardiac: Heart sounds normal. Respiratory breath sounds are present bilaterally, normal. Normal respiratory effort. Psychiatric: Judgment, memory, insight seem normal. Mood is pleasant and appropriate. Extremities: Upper extremities show normal range of movement. Pulses present noted to the radial arteries. Capillary refill normal. No cyanosis noted. No muscle wasting noted. Left arm, tortuous brachiocephalic fistula noted. Impression/Plan Plan: In this patient with a left brachiobasilic vein and several stents, intervention is warranted as higher pressures of been noted on dialysis recently. The procedure, its risks, benefits, expected outcome and alternatives are familiar to the patient who was had several such interventions. She wishes to proceed.
--- NOTE | 2018-08-24 14:53 | RADIOLOGY REPORT (SQ) ---
EXAM DESCRIPTION: FISTULAGRAM W/PLASTY COMPLETED DATE/TIME: 08/24/2018 2:30 pm REASON FOR STUDY: T82.858A T82.858A STENOSIS OF OTHER VASCULAR PROSTH DEV/GRFT, INIT COMPARISON: 06/01/2018 FLUOROSCOPY TIME: 2 minutes 60 digital images saved to PACS. TECHNIQUE: Intra-operative images acquired during surgical procedure to evaluate progress. NUMBER OF IMAGES: 60 digital images saved to pac's LIMITATIONS: None. FINDINGS: Intra procedural imaging and fluoro during evaluation and plasty of left upper extremity d ialysis access by Dr. Hartmann IMPRESSION: Intra procedural imaging and fluoro COMMENT: Quality ID [id number]: Final reports for procedures using fluoroscopy that document radiation exp osure indices, or exposure time and number of fluorographic images (if radiation exposure indices are not available) Please consult full operative report of the attending physician for description of the procedure. TECHNICAL DOCUMENTATION: JOB ID: [id number] [employer]- All Rights Reserved Reading location - IP/workstation name: [email or web address]
[2018-08-24 16:12] VITALS: BP 156/69
--- NOTE | 2018-08-24 18:04 | EKG REPORT ---
SEVERITY:- ABNORMAL ECG - SINUS RHYTHM FIRST DEGREE AV BLOCK PROBABLE LEFT ATRIAL ABNORMALITY RBBB AND LAFB LEFT VENTRICULAR HYPERTROPHY : Confirmed by: Ginger Mayer MD 24-Aug-2018 18:03:48
== END 2018-08-24 16:10 | disposition home or self-care (01) ==
LOC: CCL 11:41
PROVIDERS: ATTEND Surgery
DX: T82.858A Stenosis of other vascular prosthetic devices, implants and grafts, initial encounter (principal); Y83.2 Surgical operation with anastomosis, bypass or graft as the cause of abnormal reaction of the patient, or of later complication, without mention of misadventure at the time of the procedure; I12.0 Hypertensive chronic kidney disease with stage 5 chronic kidney disease or end stage renal disease; N18.6 End stage renal disease; Z99.2 Dependence on renal dialysis; I25.10 Atherosclerotic heart disease of native coronary artery without angina pectoris; F17.210 Nicotine dependence, cigarettes, uncomplicated; J44.9 Chronic obstructive pulmonary disease, unspecified; Z79.899 Other long term (current) drug therapy; Z88.8 Allergy status to other drugs, medicaments and biological substances; Z88.2 Allergy status to sulfonamides; Z79.82 Long term (current) use of aspirin; Z01.818 Encounter for other preprocedural examination; Z90.5 Acquired absence of kidney
CPT/HCPCS: 36415; 85027; 80048; 36907; 36902; 93005; 93010; C1725; C1894; Q9967; C1769; J2250; J1644 ×2; A9270 ×2; J3010; J3490

== ENCOUNTER 2018-09-09 21:00 | Emergency (ER) | payer MEDICARE ==
--- NOTE | 2018-09-09 22:37 | EKG REPORT ---
SEVERITY:- ABNORMAL ECG - SINUS RHYTHM VENTRICULAR PREMATURE COMPLEX FIRST DEGREE AV BLOCK RBBB AND LAFB LEFT VENTRICULAR HYPERTROPHY : Confirmed by: Sameer Causey 09-Sep-2018 22:37:01
[2018-09-09] MEDS ORDERED: CLONIDINE HCL 0.1 MG TABLET PO ONE (22:38)
--- NOTE | 2018-09-09 22:41 | ER Document Report ---
ED General - General Chief Complaint: High Blood Pressure Stated Complaint: BLOOD PRESSURE PROBLEM Time Seen by Provider: 09/09/18 22:26 Mode of Arrival: Ambulatory Information source: Patient Notes: 67 year old female with a history of hypertension and chronic renal failure presents emergency department with hypertension. Patient states that she has been taking her blood pressure throughout the day and has noticed it to be elevated. Patient is currently on clonidine and hydralazine. Patient states that she is been taking her medication as directed but her blood pressure remains increased. Patient states that she was just taken off clonazepam on Friday. She states that she has been on this medication for the last 4 years. Patient is concerned that she is having withdrawals. She denies any chest pain , shortness of breath, nausea, vomiting, diarrhea, abdominal pain. Patient does go to dialysis. She is scheduled Friday, , Friday. Patient states that she missed her Friday appointment and had dialysis today. She is scheduled for dialysis tomorrow morning as well. TRAVEL OUTSIDE OF THE [place] IN LAST 30 DAYS: No - HPI Onset: This afternoon Onset/Duration: Gradual Severity: None Pain Level: Denies Associated symptoms: None Exacerbated by: Denies Relieved by: Denies Similar symptoms previously: No Recently seen / treated by doctor: Yes - Related Data Allergies/Adverse Reactions: ASAD Inhibitors Allergy (Verified 06/01/18 06:45) "Red from chin to chest" Sulfa (Sulfonamide Antibiotics) Allergy (Verified 06/01/18 06:45) Hives Past Medical History - Social History Smoking Status: Current Every Day Smoker Family History: Reviewed & Not Pertinent - Past Medical History Cardiac Medical History: Reports: Hx Coronary Artery Disease, Hx Hypertension Denies: Hx Heart Attack Pulmonary Medical History: Reports: Hx COPD - "slight", Hx Pneumonia - "Years ago" Denies: Hx Asthma, Hx Bronchitis Neurological Medical History: Denies: Hx Cerebrovascular Accident, Hx Seizures Renal/ Medical History: Denies: Hx Peritoneal Dialysis Musculoskeletal Medical History: Denies Hx Arthritis - Immunizations Hx Diphtheria, Pertussis, Tetanus Vaccination: Yes Review of Systems - Review of Systems Constitutional: No symptoms reported EENT: No symptoms reported Cardiovascular: No symptoms reported Respiratory: No symptoms reported Gastrointestinal: No symptoms reported Genitourinary: No symptoms reported Female Genitourinary: No symptoms reported Musculoskeletal: No symptoms reported Skin: No symptoms reported Hematologic/Lymphatic: No symptoms reported Neurological/Psychological: No symptoms reported -: Yes All other systems reviewed and negative Physical Exam - Vital signs Vitals: Temp Pulse Resp BP Pulse Ox 98.6 F 76 16 210/72 H 92 09/09/18 21:06 09/09/18 21:06 09/09/18 21:06 09/09/18 21:06 09/09/18 21:06 - General Notes: PHYSICAL EXAMINATION: GENERAL: Frail. Cachetic. HEAD: Atraumatic, normocephalic. EYES: Pupils equal round and reactive to light, extraocular movements intact, conjunctiva are normal. ENT: Nares patent, oropharynx clear without exudates. Moist mucous membranes. NECK: Normal range of motion, supple without lymphadenopathy LUNGS: Breath sounds clear to auscultation bilaterally and equal. No wheezes rales or rhonchi. HEART: Regular rate and rhythm without murmurs ABDOMEN: Soft, nontender, nondistended abdomen. No guarding, no rebound. No masses appreciated. Female : deferred Musculoskeletal: Normal range of motion, no pitting or edema. No cyanosis. NEUROLOGICAL: Cranial nerves grossly intact. Normal speech, normal gait. Normal sensory, motor exams PSYCH: Normal mood, normal affect. SKIN: Warm, Dry, normal turgor, no rashes or lesions noted. Course - Re-evaluation Re-evalutation: 09/09/18 22:44 EKG: Ventricular rate 70, AL interval 232, castration 168, QTc 484, sinus rhythm , premature ventricular complexes, EKG similar to 08/24/18 09/10/18 00:10 Patient given clonidine and ativan in the ED. On re-evaluation, patient says she 's feeling better. BP is decreasing. Currently 185/61. Labs drawn to evaluate for potassium as the patient gets dialysis. Potassium is normal. I will discharge the patient home. She has an appointment in the AM for dialysis. I instructed her to go to dialysis as scheduled, to take her medication as directed, and to follow up with her PCP this week regarding her clonazepam prescription and HTN. Patient is agreeable with the plan of care. 09/10/18 00:15 - Vital Signs Vital signs: Temp Pulse Resp BP Pulse Ox 98.6 F 76 25 H 204/72 H 95 09/09/18 21:06 09/09/18 21:06 09/10/18 00:00 09/09/18 23:02 09/10/18 00:00 - Laboratory Result Diagrams: 09/09/18 22:50 09/09/18 22:50 Laboratory results interpreted by me: 09/09/18 09/09/18 22:50 22:50 RBC 3.67 L MCV 100 H RDW 15.5 H BUN 21 H Creatinine 2.50 H Est GFR ( Amer) 23 L Est GFR (Non-Af Amer) 19 L Direct Bilirubin 0.5 H Discharge - Discharge Clinical Impression: Benzodiazepine dependence Hypertension Qualifiers: Hypertension type: unspecified Qualified Code(s): I10 - Essential (primary) hypertension Condition: Good Disposition: HOME, SELF-CARE Instructions: Clonidine (Catapres) ([facility]LY [facility], 1928–1983), High Blood Pressure, Requiring Treatment (FORM[facility]LY [facility], 1928–1983), Benzodiazepines (FORM[facility]LY [facility], 1928–1983) Referrals: RAJAN TA MD [Primary Care Provider] - Follow up as needed
[2018-09-09 23:07] LABS: ABSOLUTE EOSINOPHILS # (AUTO) 0.1 10^3/uL (0.0-0.6); ABSOLUTE LYMPHOCYTES (AUTO) 1.6 10^3/uL (0.5-4.7); ABSOLUTE MONOCYTES (AUTO) 0.5 10^3/uL (0.1-1.4); ABSOLUTE NEUT (AUTO) 4.3 10^3/uL (1.7-8.2); BASOPHILS % (AUTO) 0.6 % (0-2); EOSINOPHILS % (AUTO) 1.3 % (0-6); HEMATOCRIT 36.8 % (36.0-47.0); HEMOGLOBIN 12.2 g/dL (12.0-15.5); MEAN CORPUSCULAR HEMOGLOBIN 33.3 pg (27.0-33.4); MEAN CORPUSCULAR HGB CONC 33.3 g/dL (32.0-36.0); MEAN CORPUSCULAR VOLUME 100 fl (80-97); MONOCYTES % (AUTO) 7.5 % (3-13); PLATELET COUNT 224 10^3/uL (150-450); RED BLOOD COUNT 3.67 10^6/uL (3.72-5.28); RED CELL DISTRIBUTION WIDTH 15.5 % (11.5-14.0); SEGMENTED NEUTROPHILS % (AUTO) 65.6 % (42-78); TOTAL CELLS COUNTED % (AUTO) 100 %; WHITE BLOOD COUNT 6.5 10^3/uL (4.0-10.5)
[2018-09-09 23:24] LABS: ALANINE AMINOTRANSFERASE 11 U/L (9-52); ALBUMIN 3.6 g/dL (3.5-5.0); ALKALINE PHOSPHATASE 111 U/L (38-126); ANION GAP 14 (5-19); ASPARTATE AMINO TRANSFERASE 22 U/L (14-36); BILIRUBIN,DIRECT 0.5 mg/dL (0.0-0.4); BILIRUBIN,TOTAL 0.6 mg/dL (0.2-1.3); BLOOD UREA NITROGEN 21 mg/dL (7-20); CALCIUM 9.2 mg/dL (8.4-10.2); CARBON DIOXIDE 24 mmol/L (22-30); CHLORIDE 100 mmol/L (98-107); GLUCOSE 109 mg/dL (75-110); POTASSIUM 3.8 mmol/L (3.6-5.0); SODIUM 138.4 mmol/L (137-145); TOTAL PROTEIN 6.5 g/dL (6.3-8.2)
[2018-09-09] MEDS ORDERED: HYDRALAZINE HCL INJ/PF 20 MG/1 ML SDV IV ONE (23:55)
[2018-09-09] MEDS ORDERED: LORAZEPAM INJ 2 MG/1 ML VIAL IV ONE (23:55)
[2018-09-10 00:31] VITALS: BP 179/58
== END 2018-09-10 00:31 | disposition home or self-care (01) ==
LOC: ER 21:00
DX: I10 Essential (primary) hypertension (principal); Z79.899 Other long term (current) drug therapy; F17.200 Nicotine dependence, unspecified, uncomplicated; I25.10 Atherosclerotic heart disease of native coronary artery without angina pectoris; F19.10 Other psychoactive substance abuse, uncomplicated; N18.9 Chronic kidney disease, unspecified; Z99.2 Dependence on renal dialysis
CPT/HCPCS: 93005; 99284; 96374; 36415; 85025; 80053; 93010; A9270; J2060

== ENCOUNTER → 2018-10-16 | Outpatient (CLI) | payer MEDICARE ==
--- NOTE | 2018-10-16 14:36 | RADIOLOGY REPORT (SQ) ---
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 TECHNIQUE: CT scan performed of the chest without intravenous contrast. Images reviewed with lung, soft tissue and bone windows. Reconstructed coronal and sagittal MPR images reviewed. All images st ored on PACS. All CT scanners at this facility use dose modulation, iterative reconstruction, and/or weight based d osing when appropriate to reduce radiation dose to as low as reasonably achievable (ALARA). [facility]: Dose Right [facility]: CareDose [facility]: Dose Right [facility]: Teradose 4D [facility]: [employer] RADIATION DOSE: CT Rad equipment meets quality standard of care and radiation dose reduction techniq ues were employed. CTDIvol: 3.0 mGy. DLP: 124 mGy-cm. mGy. LIMITATIONS: No technical limitations. FINDINGS: LUNGS AND PLEURA: There is bilateral subpleural interstitial airspace disease. There are emphysematous changes. There is a masslike infiltrate in the right upper lobe. This could be neopla stic, scarring or infectious. Probable scarring in the left lung apex. There are subpleural blebs. There is collapse of the right lower lobe with a small right pleural effusion. There appears to be mucous plugging in the right lower lobe. HILAR AND MEDIASTINAL STRUCTURES: No identified masses or abnormal nodes. No obvious aneurysm. HEART AND VASCULAR STRUCTURES: No aneurysm. No pericardial effusion. UPPER ABDOMEN: No significant findings. Limited exam. THYROID AND OTHER SOFT TISSUES: No masses. No adenopathy. BONES: No significant finding. HARDWARE: None in the chest. OTHER: No other significant findings. IMPRESSION: 1. COPD with mild subpleural fibrosis. This is most marked in the apices. 2. Masslike pleural-based opacity in the right upper lobe. This could represent scar, neoplasm or i nfectious process. 3. Collapse of the right lower lobe with what appears to be mucous plugging and a moderate right pleu ral effusion. TECHNICAL DOCUMENTATION: JOB ID: [id number] Quality ID # [id number]: Final reports with documentation of one or more dose reduction techniques (e.g., Au tomated exposure control, adjustment of the mA and/or kV according to patient size, use of iterative reconstruction technique) 2010 [employer]- All Rights Reserved Reading location - IP/workstation name: [email or web address]
== END ==
LOC: RAD 12:56
PROVIDERS: ATTEND Internal Medicine Pulmonary Disease
DX: J84.9 Interstitial pulmonary disease, unspecified (principal)
CPT/HCPCS: 71250

== ENCOUNTER → 2018-11-15 | Outpatient (CLI) | payer MEDICARE ==
--- NOTE | 2018-11-16 09:29 | RADIOLOGY REPORT (SQ) ---
EXAM DESCRIPTION: PET CT SKULL/THIGH COMPLETED DATE/TIME: 11/15/2018 6:24 pm REASON FOR STUDY: ABNORMAL FINDINGS OF LUNG FIELD R91.8 OTHER NONSPECIFIC ABNORMAL FINDING OF LUNG FIELD COMPARISON: CT chest dated 10/16/2018. RADIONUCLIDE AND DOSE: 10 mCi F18 FDG The route of agent administration: Intravenous FASTING BLOOD SUGAR: 106 mg/dl CONTRAST TYPE AND DOSE: No CT contrast given. TECHNIQUE: Blood glucose level was verified. Above dose of FDG was injected intravenously. 2-D seg mented attenuation correction images were obtained from the base of the skull to the midthighs. Nonc ontrast CT images were obtained for attenuation correction and fusion with emission images. CT image s were performed without oral or intravenous contrast and are not sensitive for parenchymal lesions. A series of overlapping emission PET images were obtained. Images reviewed and manipulated at [email or web address] work station by the radiologist. Images stored on PACS. LIMITATIONS: None. FINDINGS: HEAD AND NECK: No areas of abnormal metabolic activity in the soft tissues of the head and neck. CHEST: No areas of abnormal metabolic activity in the chest. Again seen are chronic emphysematous ch anges with scarring, particularly in the right upper lobe. Moderately large right pleural effusion. There is right lower lobe collapse with improved aeration compared to the previous chest CT. ABDOMEN AND PELVIS: No areas of abnormal metabolic activity in the abdomen or pelvis. Expected physi ologic activity is present in the genitourinary system and bowel. PROXIMAL LOWER EXTREMITIES: No areas of abnormal metabolic activity in the soft tissues of the lower extremities. BONES: No abnormal metabolic activity in the visualized skeleton. ADDITIONAL CT FINDINGS: Vascular calcifications. Left subclavian stent. 2.5 cm low-attenuation nodu le in the left lobe of the thyroid. OTHER: No other significant findings. IMPRESSION: 1. UNREMARKABLE PET SCAN. NO AREAS OF ABNORMAL ACTIVITY. AGAIN SEEN ARE EMPHYSEMATOUS CHANGES WITH SCARRING, PARTICULARLY IN THE RIGHT UPPER LOBE. MODERATE RIGHT PLEURAL EFFUSION WITH RIGHT LOWER LOB E COLLAPSE WHICH HAS IMPROVED. NO ACTIVITY ON PET IMAGING AND THEREFORE INVOLVEMENT WITH MALIGNANCY OR SIGNIFICANT INFECTION UNLIKELY. 2. 2.5 CM LOW-ATTENUATION NODULE IN THE LEFT LOBE OF THE THYROID. SHOULD CONSIDER ULTRASOUND OF THE THYROID IF THIS IS NOT BEEN PREVIOUSLY EVALUATED ELSEWHERE. TECHNICAL DOCUMENTATION: JOB ID: [id number] [employer]- All Rights Reserved Reading location - IP/workstation name: [facility]
== END ==
LOC: RAD 15:49
PROVIDERS: ATTEND Internal Medicine Pulmonary Disease
DX: R91.8 Other nonspecific abnormal finding of lung field (principal); J90 Pleural effusion, not elsewhere classified; E04.1 Nontoxic single thyroid nodule; J98.4 Other disorders of lung
CPT/HCPCS: 78815; A9552

== ENCOUNTER → 2018-12-16 | Outpatient (CLI) | payer MEDICARE | LOC: OD 15:48 | PROVIDERS: ATTEND Family Medicine | DX: E04.1 Nontoxic single thyroid nodule (principal) | CPT/HCPCS: 36415; 84443 ==

== ENCOUNTER → 2018-12-18 | Outpatient (CLI) | payer MEDICARE ==
--- NOTE | 2018-12-18 14:52 | RADIOLOGY REPORT (SQ) ---
EXAM DESCRIPTION: U/S THYROID/SFT TISS HD NECK COMPLETED DATE/TIME: 12/18/2018 2:42 pm REASON FOR STUDY: E04.1 NONTOXIC SINGLE THYROID NODULE E04.1 NONTOXIC SINGLE THYROID NODULE COMPARISON: None. TECHNIQUE: Dynamic and static quiros-scale images acquired of the thyroid gland. Selected additional c olor/power Doppler images recorded. All images stored to PACS. LIMITATIONS: None. FINDINGS: RIGHT LOBE: Normal size. Heterogeneous echotexture. No cystic or solid masses. LEFT LOBE: Normal size. Heterogeneous echotexture. There is a complex nodule in left lobe measured 4.1 x 2.8 x 2.0 cm. ISTHMUS: Normal size. Homogeneous echotexture. No cystic or solid masses. OTHER: No other significant finding. IMPRESSION: Complex 4.1 x 2.8 x 2.0 cm nodule in the left lobe of the thyroid gland. Further evalua tion with FNA is recommended. TECHNICAL DOCUMENTATION: JOB ID: [id number] [employer]- All Rights Reserved Reading location - IP/workstation name: [email or web address]
== END ==
LOC: RAD 14:15
PROVIDERS: ATTEND Family Medicine
DX: E04.1 Nontoxic single thyroid nodule (principal)
CPT/HCPCS: 76536

== ENCOUNTER → 2019-01-27 | Day surgery (SDC) | payer MEDICARE ==
--- NOTE | 2019-01-27 12:33 | RADIOLOGY REPORT (SQ) ---
EXAM DESCRIPTION: U/S BIOPSY THYROID COMPLETED DATE/TIME: 01/27/2019 12:02 pm REASON FOR STUDY: NONTOXIC SINGLE THYROID NODULE (E04.1) E04.1 NONTOXIC SINGLE THYROID NODULE COMPARISON: 12/18/2018. TECHNIQUE: The procedure was discussed with the patient and written informed consent obtained. A ti meout was performed to confirm the procedure and patient's identity. The skin of the neck was preppe d and draped in sterile fashion and 10 mL 1% lidocaine administered for local anesthesia. Under sono graphic guidance, fine needle aspiration biopsy was performed of the mass in the left lobe of the thy roid. Three separate aspirations were performed. The samples were evaluated in the room by the cytotechnol ogist and Dr. Montague for adequacy. Hemostasis was obtained with direct manual compression. There wer e no immediate complications. LIMITATIONS: None. FINDINGS: PATHOLOGY: Pending. IMPRESSION: ULTRASOUND-GUIDED BIOPSY PERFORMED OF A MASS IN THE LEFT LOBE OF THE THYROID. PATHOLOGY PENDING AT THE TIME OF DICTATION. COMMENT: Patient medication list reviewed: Yes- Quality ID# [id number]:Eligible professional attests to doc umenting in the medical record they obtained, updated, or reviewed the patient's current medications. TECHNICAL DOCUMENTATION: JOB ID: [id number] [employer] All Rights Reserved Reading location - IP/workstation name: [email or web address]
== END ==
LOC: RAD 09:46
PROVIDERS: ATTEND Otolaryngology
DX: E04.1 Nontoxic single thyroid nodule (principal)
CPT/HCPCS: 60100; 88173

== ENCOUNTER → 2019-02-09 | Outpatient (CLI) | payer MEDICARE ==
--- NOTE | 2019-02-10 08:59 | RADIOLOGY REPORT (SQ) ---
EXAM DESCRIPTION: CHEST 2 VIEWS COMPLETED DATE/TIME: 02/09/2019 6:11 pm REASON FOR STUDY: J18.1 LOBAR PNEUMONIA, UNSPECIFIED ORGANISM COMPARISON: Chest films 05/29/2018, 03/25/2018 PET-CT 11/15/2018 EXAM PARAMETERS: NUMBER OF VIEWS: two views TECHNIQUE: Digital Frontal and Lateral radiographic views of the chest acquired. RADIATION DOSE: NA LIMITATIONS: none FINDINGS: LUNGS AND PLEURA: Small chronic right pleural effusion, similar compared to PET-CT 018. Adjacent basilar airspace disease is present likely atelectasis. Pneumonia could not entirely be excluded. There is persistent right apical nodular pleuroparenchymal scarring, similar compared to 11/15/2018. On the left side, there is interval development of a trace pleural effusion. No airspace disease. S table left apical pleural thickening. MEDIASTINUM AND HILAR STRUCTURES: No masses or contour abnormalities. HEART AND VASCULAR STRUCTURES: No cardiomegaly. Old left subclavian and brachiocephalic vein stents BONES: Osteopenic HARDWARE: None in the chest. OTHER: No other significant finding. IMPRESSION: New trace left pleural effusion Chronic appearing small right pleural effusion with basilar atelectasis and right apical nodular scar ring TECHNICAL DOCUMENTATION: JOB ID: [id number] [employer]- All Rights Reserved Reading location - IP/workstation name: [email or web address]
== END ==
LOC: RAD 17:56
PROVIDERS: ATTEND Internal Medicine
DX: J18.1 Lobar pneumonia, unspecified organism (principal); J90 Pleural effusion, not elsewhere classified
CPT/HCPCS: 71046

== ENCOUNTER 2019-03-01 21:11 | Emergency (ER) | payer MEDICARE ==
[2019-03-01] MEDS ORDERED: ASPIRIN 81 MG TABLET, CHEWABLE PO ONE (21:20)
--- NOTE | 2019-03-01 21:46 | RADIOLOGY REPORT (SQ) ---
EXAM DESCRIPTION: XR CHEST 1 VIEW COMPLETED DATE/TME: 03/01/2019 21:20 CLINICAL HISTORY: 68 years, Female, cp Compared to chest radiograph dated 02/09/2019. Findings: Heart is mildly enlarged. No consolidation. Moderate right pleural effusion is mildly worse than the prior study. No pneumothorax. No pulmonary edema. Left upper chest vascular stents noted in place. IMPRESSION: Moderate right pleural effusion is worse.
--- NOTE | 2019-03-01 22:02 | ER Document Report ---
ED General - General Chief Complaint: Shortness Of Breath Stated Complaint: Shortness of breath Time Seen by Provider: 03/01/19 21:42 Primary Care Provider: VANNESA VICK MD [ACTIVE STAFF] - Follow up as needed Notes: Patient is a 68-year-old female with past medical history of end-stage renal disease with dialysis dependency, COPD, actively smokes but does not use home oxygen who presents with concerns of shortness of breath. Patient states that she knows her blood pressure was very high at home, felt like her fluid is not being retained and that she needed to come to the hospital. States her shortness of breath was gradual onset regards that is being moderate to severe. She states that has improved somewhat since she took her blood pressure medications. No obvious worsening factor. States this feels similar to when she has had pulmonary edema in the past. Has not seen her primary care doctor regarding today's concerns. She is scheduled for dialysis tomorrow morning. No fever or constitutional symptoms. Denies any cough. TRAVEL OUTSIDE OF THE [place] IN LAST 30 DAYS: No - Related Data Allergies/Adverse Reactions: ASAD Inhibitors Allergy (Verified 03/01/19 21:47) "Red from chin to chest" Sulfa (Sulfonamide Antibiotics) Allergy (Verified 03/01/19 21:47) Hives Past Medical History - General Information source: Patient - Social History Smoking Status: Current Every Day Smoker Frequency of alcohol use: None Drug Abuse: None Lives with: Family Family History: Reviewed & Not Pertinent Patient has suicidal ideation: No Patient has homicidal ideation: No - Past Medical History Cardiac Medical History: Reports: Hx Congestive Heart Failure - during renal failure, Hx Coronary Artery Disease, Hx Hypertension Denies: Hx Heart Attack Pulmonary Medical History: Reports: Hx COPD - "slight", no home O2, Hx Pneumonia - "Years ago" Denies: Hx Asthma, Hx Bronchitis Neurological Medical History: Denies: Hx Cerebrovascular Accident, Hx Seizures Renal/ Medical History: Reports: Hx End Stage Renal DiseaseComment Only: Hx Peritoneal Dialysis - [facility] Musculoskeletal Medical History: Denies Hx Arthritis Past Surgical History: Reports: Hx Cholecystectomy - Immunizations Hx Diphtheria, Pertussis, Tetanus Vaccination: Yes Review of Systems - Review of Systems Notes: Constitutional: Negative for fever. HENT: Negative for sore throat. Eyes: Negative for visual changes. Cardiovascular: Negative for chest pain. Respiratory: Positive for shortness of breath. Gastrointestinal: Negative for abdominal pain, vomiting or diarrhea. Genitourinary: Negative for dysuria. Musculoskeletal: Negative for back pain. Skin: Negative for rash. Neurological: Negative for headaches, weakness or numbness. 10 point ROS negative except as marked above and in HPI. Physical Exam - Vital signs Vitals: Temp Pulse Resp BP Pulse Ox 98.3 F 86 26 H 203/65 H 88 L 03/01/19 21:24 03/01/19 21:24 03/01/19 21:24 03/01/19 21:24 03/01/19 21:24 Interpretation: Hypoxic, Tachypneic Notes: PHYSICAL EXAMINATION: GENERAL: Elderly female, somewhat frail but in no acute distress HEAD: Atraumatic, normocephalic. EYES: Pupils equal round and reactive to light, extraocular movements intact, sclera anicteric, conjunctiva are normal. ENT: nares patent, oropharynx clear without exudates. Moderately dry mucous membranes. NECK: Normal range of motion, supple without lymphadenopathy LUNGS: Slightly diminished at the right base otherwise unremarkable HEART: Regular rate and rhythm without murmurs ABDOMEN: Soft, nontender, normoactive bowel sounds. No guarding, no rebound. No masses appreciated. EXTREMITIES: Normal range of motion, no pitting or edema. No cyanosis. NEUROLOGICAL: No focal neurological deficits. Moves all extremities spontaneously and on command. PSYCH: Normal mood, normal affect. SKIN: Warm, Dry, normal turgor, no rashes or lesions noted. Course - Re-evaluation Re-evalutation: 03/01/19 22:01 Patient presents with chest tightness, feeling short of breath started earlier today and got progressively worse. Patient was initially noted to be mildly hypoxic to 88% on room air. Does not usually use home oxygen at home. On exam the patient is on BiPAP that was placed by nursing staff talking in complete sentences, in no distress. BiPAP was removed as patient did not appear to need this, placed on nasal cannula at 2 L and now saturating 99%. Her heart rate is normal, blood pressure has down trended significantly to 161/60 without intervention. Chest x-ray shows moderate platelet right pleural effusion somewhat worse than in January labs otherwise pending. Will obtain labs, EKG, reassess the patient. 03/02/19 03:07 VQ scan obtained given patient's complaint of chest discomfort with breathing and is noted to be normal. Repeat troponin remains negative. Patient has been maintaining saturations on room air between 92 and 93% which is her baseline. If she falls asleep her saturations do fall to 8889% which I do suspect is baseline given her underlying COPD as well as her moderate right pleural effusion which will hopefully decrease in size after she receives dialysis tomorrow. She states she overall feels much better. Exact etiology of the patient's presentation is uncertain but she appears to be acting at her baseline states that she feels like her normal self. She is requesting to go home stating she would rather go home and follow-up for dialysis in the morning then remain in the hospital. Hospitalization was offered and declined. We did revie w her mild hypoxemia when she sleeps she states that she is willing to accept that risk and would very much so prefer to go home. At this time will discharge with return precautions and follow-up recommendations. Verbal discharge instructions given a the bedside and opportunity for questions given. Medication warnings reviewed. Patient is in agreement with this plan and has verbalized understanding of return precautions and the need for primary care doctor in the next 24 hours. - Vital Signs Vital signs: Temp Pulse Resp BP Pulse Ox 98.2 F 86 9 L 147/57 H 91 L 03/02/19 01:28 03/01/19 21:24 03/02/19 03:01 03/02/19 03:01 03/02/19 03:23 - Laboratory Result Diagrams: 03/01/19 21:35 03/01/19 21:35 Laboratory results interpreted by me: 03/01/19 03/01/19 21:35 21:35 RBC 3.47 L Hgb 11.6 L Hct 34.5 L MCV 99 H RDW 16.9 H Chloride 96 L Carbon Dioxide 31 H BUN 52 H Creatinine 3.49 H Est GFR ( Amer) 16 L Est GFR (Non-Af Amer) 13 L Glucose 115 H Direct Bilirubin 0.6 H Alkaline Phosphatase 133 H Creatine Kinase < 20 L - Diagnostic Test Radiology reviewed: Image reviewed, Reports reviewed Radiology results interpreted by me: 03/02/19 03:08 Chest x-ray: Right pleural effusion somewhat worse than previous scan 2 weeks ago Discharge - Discharge Clinical Impression: Pleural effusion, right, End-stage renal disease on hemodialysis COPD (chronic obstructive pulmonary disease) Qualifiers: COPD type: unspecified COPD Qualified Code(s): J44.9 - Chronic obstructive pulmonary disease, unspecified Condition: Stable Disposition: HOME, SELF-CARE Additional Instructions: Please follow-up with your primary doctor within the next 24-48 hours. Please return if you worsening pain, increased shortness of breath, pass out, develop a fever, or have any other symptoms that are worrisome to you. Referrals: VANNESA VICK MD [ACTIVE STAFF] - Follow up as needed
[2019-03-01 22:09] LABS: ABSOLUTE EOSINOPHILS # (AUTO) 0.3 10^3/uL (0.0-0.6); ABSOLUTE LYMPHOCYTES (AUTO) 1.9 10^3/uL (0.5-4.7); ABSOLUTE MONOCYTES (AUTO) 0.6 10^3/uL (0.1-1.4); ABSOLUTE NEUT (AUTO) 4.2 10^3/uL (1.7-8.2); BASOPHILS % (AUTO) 0.6 % (0-2); EOSINOPHILS % (AUTO) 4.3 % (0-6); HEMATOCRIT 34.5 % (36.0-47.0); HEMOGLOBIN 11.6 g/dL (12.0-15.5); LYMPHOCYTES % (AUTO) 27.3 % (13-45); MEAN CORPUSCULAR HEMOGLOBIN 33.3 pg (27.0-33.4); MEAN CORPUSCULAR HGB CONC 33.6 g/dL (32.0-36.0); MEAN CORPUSCULAR VOLUME 99 fl (80-97); MONOCYTES % (AUTO) 8.1 % (3-13); PLATELET COUNT 310 10^3/uL (150-450); RED BLOOD COUNT 3.47 10^6/uL (3.72-5.28); RED CELL DISTRIBUTION WIDTH 16.9 % (11.5-14.0); SEGMENTED NEUTROPHILS % (AUTO) 59.7 % (42-78); TOTAL CELLS COUNTED % (AUTO) 100 %
[2019-03-01 22:16] LABS: ALANINE AMINOTRANSFERASE 13 U/L (9-52); ALBUMIN 3.8 g/dL (3.5-5.0); ALKALINE PHOSPHATASE 133 U/L (38-126); ANION GAP 10 (5-19); ASPARTATE AMINO TRANSFERASE 24 U/L (14-36); BILIRUBIN,DIRECT 0.6 mg/dL (0.0-0.4); BILIRUBIN,TOTAL 0.6 mg/dL (0.2-1.3); BLOOD UREA NITROGEN 52 mg/dL (7-20); CALCIUM 9.8 mg/dL (8.4-10.2); CARBON DIOXIDE 31 mmol/L (22-30); CHLORIDE 96 mmol/L (98-107); GLUCOSE 115 mg/dL (75-110); POTASSIUM 3.9 mmol/L (3.6-5.0); SODIUM 137.3 mmol/L (137-145); TOTAL PROTEIN 7.5 g/dL (6.3-8.2)
[2019-03-01 22:18] LABS: CREATINE KINASE < 20 U/L (30-135)
[2019-03-01 22:28] LABS: CREATINE KINASE MB 0.57 ng/mL (<4.55)
[2019-03-01 22:31] LABS: TROPONIN I < 0.012 ng/mL
--- NOTE | 2019-03-02 01:40 | RADIOLOGY REPORT (SQ) ---
EXAM DESCRIPTION: NM LUNG VENTILATION PERFUSION COMPLETED DATE/TME: 03/01/2019 23:07 CLINICAL HISTORY: 68 years, Female, sob COMPARISON: Chest x-ray 03/01/2019. RADIONUCLIDE AND DOSE: 30 mCi of technetium 99 M DTPA, 5 mCi technetium 99m MAA ADDITIONAL DRUGS AND DOSES: None TECHNIQUE: Following the IV administration of technetium 99m AA and inhalation of technetium 99m DTPA aerosol, a VQ scan was performed with multiple projections over both lung acosta. RADIATION DOSE: Unknown LIMITATIONS: None. FINDINGS: There is significantly poor radiotracer uptake on the ventilation portion of the exam reflecting severe air trapping. No definitive ventilation/perfusion mismatch. Linear, matched defect in the right midlung. IMPRESSION: Low probability for PE. Severe air trapping. copyright 2010 [employer]- All Rights Reserved
[2019-03-02 04:03] VITALS: BP 156/60
--- NOTE | 2019-03-02 10:13 | EKG REPORT ---
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
== END 2019-03-02 04:29 | disposition home or self-care (01) ==
LOC: ER 21:11
DX: J90 Pleural effusion, not elsewhere classified (principal); J44.9 Chronic obstructive pulmonary disease, unspecified; I13.2 Hypertensive heart and chronic kidney disease with heart failure and with stage 5 chronic kidney disease, or end stage renal disease; N18.6 End stage renal disease; I50.9 Heart failure, unspecified; Z99.2 Dependence on renal dialysis; R06.02 Shortness of breath; F17.200 Nicotine dependence, unspecified, uncomplicated
CPT/HCPCS: 93005; 99285; 36415; 82553; 82550; 85025; 80053; 84484; 71045; 78582; 93010; 94660; A9540; A9567; Q9969

== ENCOUNTER → 2019-03-08 | Outpatient (CLI) | payer MEDICARE | LOC: OD 14:11 | PROVIDERS: ATTEND Family Medicine Geriatric Medicine | DX: Z53.9 Procedure and treatment not carried out, unspecified reason (principal) ==

== ENCOUNTER → 2019-03-10 | Outpatient (CLI) | payer MEDICARE ==
[2019-03-10 11:15] LABS: ANION GAP 9 (5-19); BLOOD UREA NITROGEN 35 mg/dL (7-20); CALCIUM 9.3 mg/dL (8.4-10.2); CARBON DIOXIDE 30 mmol/L (22-30); CHLORIDE 97 mmol/L (98-107); GLUCOSE 100 mg/dL (75-110); POTASSIUM 4.2 mmol/L (3.6-5.0); SODIUM 136.1 mmol/L (137-145)
== END ==
LOC: OD 09:47
PROVIDERS: ATTEND Family Medicine Geriatric Medicine
DX: N18.6 End stage renal disease (principal)
CPT/HCPCS: 36415; 80048

== ENCOUNTER 2019-03-14 22:42 | Observation (INO) | payer MEDICARE ==
[2019-03-15] MEDS ORDERED: ONDANSETRON HCL INJ/PF 4 MG/2 ML SDV IV ONE (00:44)
[2019-03-15] MEDS ORDERED: MORPHINE SULFATE 10 MG/ML INJ IV ONE (00:45)
--- NOTE | 2019-03-15 01:03 | ER Document Report ---
ED GI/ <RICKI LEON - Last Filed: 03/15/19 03:05> - General Information source: Patient TRAVEL OUTSIDE OF THE [place] IN LAST 30 DAYS: No <MARICARMEN HUBER - Last Filed: 03/15/19 07:11> - General Chief Complaint: Abdominal Pain >50 Stated Complaint: ABDOMINAL PAIN Time Seen by Provider: 03/15/19 00:29 - HPI Notes: 03/15/19 00:59 Patient is a 68-year-old female with a history of end-stage renal disease with dialysis and hypertension who presents to the emergency department with a chief complaint of "severe abdominal pain." States that the abdominal pain started yesterday and has gradually gotten worse. Patient states it is located in the mid to lower abdomen. Patient states that she has been constipated. States she has had 2 bowel movements today with first movement she describes as hard and very small. Patient states the second one started out hard but change to her normal soft. Patient does complain of nausea. Patient denies vomiting. Patient states she did not notice attempted to take Gas-X and Tums with no relief. Patient did have a left kidney removed in 2015. Patient does state that she produces urine and has had frequent urination. Patient is a dialysis patient receives treatment Tuesdays and Saturdays patient did receive dialysis yesterday. 03/15/19 Patient is a 68-year-old female presents to the emergency department with a 24-hour history of abdominal pain. Patient reports that it is a throbbing constant type pain. States that she has similar pain in the past when she had colitis. Patient has had nausea, which she took her prescription of Zofran for, and has had no vomiting. Patient reports that she feels like she is constipated. Patient had 2 small bowel movements a day. Patient states the first 1 was light brown and "hard "the second one was "hard, but towards the end it was normal."Patient does report a history of constipation as well as kidney stones. Patient is a dialysis patient and has dialysis Tuesdays and Saturdays. Her last dialysis was yesterday for the full treatment. Patient does have one kidney on the right. States that she had her left kidney removed in 2015 due to "swelling of her kidney."Patient denies fever. Patient did attempt to take [id number] Gas-X and Tums without relief. Patient reports of belching. Patient also states she has had urinary frequency. Her primary care physician prescribed her Levaquin which she just finished 1 day ago. Denies blood in her stool or dark tarry stools. (MARICARMEN HUBER) - Related Data Allergies/Adverse Reactions: ASAD Inhibitors Allergy (Verified 03/01/19 21:47) "Red from chin to chest" Sulfa (Sulfonamide Antibiotics) Allergy (Verified 03/01/19 21:47) Hives Past Medical History - General Information source: Patient - Social History Smoking Status: Current Every Day Smoker Frequency of alcohol use: None Drug Abuse: None Family History: Reviewed & Not Pertinent - Past Medical History Cardiac Medical History: Reports: Hx Congestive Heart Failure - during renal failure, Hx Coronary Artery Disease, Hx Hypertension Denies: Hx Heart Attack Pulmonary Medical History: Reports: Hx COPD - "slight", no home O2, Hx Pneumonia - "Years ago" Denies: Hx Asthma, Hx Bronchitis Neurological Medical History: Denies: Hx Cerebrovascular Accident, Hx Seizures Endocrine Medical History: Reports: None Renal/ Medical History: Reports: Hx End Stage Renal DiseaseComment Only: Hx Peritoneal Dialysis - Jab-Ajdh-Anys Malignancy Medical History: Reports: None GI Medical History: Reports: Hx Diverticulitis Musculoskeletal Medical History: Reports None, Denies Hx Arthritis Skin Medical History: Reports None Psychiatric Medical History: Reports: None Traumatic Medical History: Reports: None Infectious Medical History: Reports: None Past Surgical History: Reports: Hx Cholecystectomy - Immunizations Hx Diphtheria, Pertussis, Tetanus Vaccination: Yes <MARICARMEN HUBER - Last Filed: 03/15/19 07:11> Review of Systems - Review of Systems Constitutional: See HPI EENT: No symptoms reported Cardiovascular: No symptoms reported Respiratory: No symptoms reported Gastrointestinal: See HPI Genitourinary: See HPI Female Genitourinary: No symptoms reported Musculoskeletal: No symptoms reported Skin: No symptoms reported Hematologic/Lymphatic: No symptoms reported Neurological/Psychological: No symptoms reported <MARICARMEN HUBER - Last Filed: 03/15/19 07:11> Physical Exam - Vital signs Interpretation: Hypertensive <MARICARMEN HUBER - Last Filed: 03/15/19 07:11> - Vital signs Vitals: Temp Pulse Resp BP Pulse Ox 98.4 F 74 20 165/61 H 97 04/28/19 23:04 03/14/19 23:04 03/14/19 23:04 03/14/19 23:04 03/14/19 23:04 - Notes Notes: GENERAL: Ill-appearing, uncomfortable HEAD: Atraumatic, normocephalic. EYES: Pupils equal round and reactive to light, extraocular movements intact, sclera anicteric, conjunctiva are normal. ENT: TMs normal, nares patent, oropharynx clear without exudates. Moist mucous membranes. NECK: Normal range of motion, supple without lymphadenopathy or JVD. LUNGS: Breath sounds clear to auscultation bilaterally and equal. No wheezes rales or rhonchi. HEART: Regular rate and rhythm without murmurs, rubs or gallops. ABDOMEN: Distended, firm, lower abdominal tenderness, hypoactive bowel sounds. No masses appreciated. EXTREMITIES: Normal range of motion, no pitting or edema. No clubbing or cyanosis. NEUROLOGICAL: Cranial nerves II through XII grossly intact. Normal speech PSYCH: Normal mood, normal affect. SKIN: Warm, Dry, normal turgor, no rashes or lesions noted. (MARICARMEN HUBER) Course - Laboratory Result Diagrams: 03/15/19 00:54 03/15/19 00:54 <RICKI LEON - Last Filed: 03/15/19 03:05> - Laboratory Result Diagrams: 03/15/19 00:54 03/15/19 00:54 - Diagnostic Test Radiology reviewed: Image reviewed, Reports reviewed <MARICARMEN HUBER - Last Filed: 03/15/19 07:11> - Re-evaluation Re-evalutation: 03/15/19 03:05 Patient has significant abdominal pain. She does require further CT scan imaging to determine why she has some much abdominal pain. Would like to do with IV contrast. interventional radiology technologist says that he gets protocol to scan her with IV contrast wanted to go to be more than 124 hours before her next dialysis. I did call and speak with [facility] and informed her that the patient drinks almost no urine and therefore I am not concerned about doing further damage her kidneys as she is already end-stage renal disease and on dialysis and therefore this does not make sense to withhold contrast at this time. She says that she is still not allowed to give the contrast despite me requesting it even if I went to sign a form taking responsibility for her. She said it would have to be cleared by her call center operations manager. She did try to call her call center operations manager who was not picking up their phone and therefore the interventional radiology technologist says that she is not allowed to give the patient contrast and therefore despite my best efforts there is nothing I can do about it and the patient cannot receive it per the hospital protocol. Patient therefore will be scanned without IV contrast. (RICKI LEON) - Vital Signs Vital signs: Temp Pulse Resp BP Pulse Ox 98.3 F 74 17 152/58 H 95 03/15/19 04:31 03/14/19 23:04 03/15/19 06:01 03/15/19 06:01 03/15/19 06:01 - Laboratory Laboratory results interpreted by me: 03/15/19 03/15/19 03/15/19 00:54 00:54 02:14 WBC 11.8 H MCV 99 H RDW 17.2 H Absolute Neutrophils 9.0 H Chloride 95 L Carbon Dioxide 32 H BUN 44 H Creatinine 3.04 H Est GFR ( Amer) 18 L Est GFR (Non-Af Amer) 15 L Lactic Acid 0.6 L Calcium 10.5 H Direct Bilirubin 0.6 H Alkaline Phosphatase 149 H Urine Protein Urine Glucose (UA) Ur Leukocyte Esterase 03/15/19 03:23 WBC MCV RDW Absolute Neutrophils Chloride Carbon Dioxide BUN Creatinine Est GFR ( Amer) Est GFR (Non-Af Amer) Lactic Acid Calcium Direct Bilirubin Alkaline Phosphatase Urine Protein 100 H Urine Glucose (UA) 50 H Ur Leukocyte Esterase TRACE H - Diagnostic Test Radiology results interpreted by me: 03/15/19 CT impression reveals colitis, which is likely to be infectious. It also shows mild increased stool in the colon suggesting constipation. Also showed a chronic right pleural effusion minimal left pleural effusion. Soon as CT results were back consulted with Dr. Haddad the hospitalist who was in the emergency department. After receiving dose of fentanyl patient more comfortable but remains in pain. Dr. Haddad at bedside for patient evaluation. (MARICARMEN HUBER) Discharge <RICKI LEON - Last Filed: 03/15/19 03:05> - Discharge Admitting Provider: Boo (Hospitalist) Unit Admitted: Telemetry <MARICARMEN HUBER - Last Filed: 04/29/19 07:11> - Discharge Clinical Impression: Colitis Abdominal pain Qualifiers: Abdominal location: lower abdomen, unspecified Qualified Code(s): R10.30 - Lower abdominal pain, unspecified Constipation Qualifiers: Constipation type: other constipation type Qualified Code(s): K59.09 - Other constipation Condition: Stable Disposition: ADMITTED INPATIENT
[2019-03-15 01:12] LABS: ABSOLUTE BASOPHILS # (AUTO) 0.1 10^3/uL (0.0-0.2); ABSOLUTE EOSINOPHILS # (AUTO) 0.2 10^3/uL (0.0-0.6); ABSOLUTE LYMPHOCYTES (AUTO) 1.6 10^3/uL (0.5-4.7); ABSOLUTE MONOCYTES (AUTO) 0.9 10^3/uL (0.1-1.4); EOSINOPHILS % (AUTO) 1.8 % (0-6); LYMPHOCYTES % (AUTO) 13.2 % (13-45); MEAN CORPUSCULAR HEMOGLOBIN 32.3 pg (27.0-33.4); MEAN CORPUSCULAR HGB CONC 32.5 g/dL (32.0-36.0); MEAN CORPUSCULAR VOLUME 99 fl (80-97); MONOCYTES % (AUTO) 7.9 % (3-13); PLATELET COUNT 224 10^3/uL (150-450); RED BLOOD COUNT 3.72 10^6/uL (3.72-5.28); RED CELL DISTRIBUTION WIDTH 17.2 % (11.5-14.0); SEGMENTED NEUTROPHILS % (AUTO) 76.1 % (42-78); TOTAL CELLS COUNTED % (AUTO) 100 %; WHITE BLOOD COUNT 11.8 10^3/uL (4.0-10.5)
[2019-03-15 01:27] LABS: ALANINE AMINOTRANSFERASE 13 U/L (9-52); ALBUMIN 3.9 g/dL (3.5-5.0); ALKALINE PHOSPHATASE 149 U/L (38-126); ANION GAP 11 (5-19); ASPARTATE AMINO TRANSFERASE 23 U/L (14-36); BILIRUBIN,DIRECT 0.6 mg/dL (0.0-0.4); BILIRUBIN,TOTAL 0.6 mg/dL (0.2-1.3); BLOOD UREA NITROGEN 44 mg/dL (7-20); CALCIUM 10.5 mg/dL (8.4-10.2); CARBON DIOXIDE 32 mmol/L (22-30); CHLORIDE 95 mmol/L (98-107); GLUCOSE 107 mg/dL (75-110); LIPASE 47.2 U/L (23-300); POTASSIUM 3.8 mmol/L (3.6-5.0); SODIUM 138.1 mmol/L (137-145); TOTAL PROTEIN 7.4 g/dL (6.3-8.2)
[2019-03-15] MEDS ORDERED: FENTANYL CITRATE INJ/PF 100 MCG/2 ML AMPUL IV ONE (03:31)
--- NOTE | 2019-03-15 03:42 | RADIOLOGY REPORT (SQ) ---
CT abdomen and pelvis without contrast on 03/15/2019 at 3:09 AM CLINICAL INDICATION: Generalized abdominal pain, constipation TECHNIQUE: Multiple axial images are obtained throughout the abdomen and pelvis without the administration of contrast. This exam was performed according to our departmental dose-optimization program, which includes automated exposure control, adjustment of the mA and/or kV according to patient size and/or use of iterative reconstruction technique. Total DLP is 233.33 mGy*cm. COMPARISON: PET/CT from 11/15/2018 FINDINGS: Abdomen: There is small to moderate-sized chronic right pleural effusion with adjacent rounded atelectasis in the right lower lobe. There is trace left pleural effusion with minimal left basilar atelectasis. Vascular calcifications are noted. The patient is status post cholecystectomy. The patient is status post left nephrectomy. No right-sided renal or ureteral stone or hydronephrosis is noted. There is bowel wall thickening of the descending colon consistent with a left-sided colitis. Most likely this represents an infectious colitis with Crohn's disease or ischemia also possible. Mild increased stool in the colon is suggestive of mild constipation. The abdominal portion of the GI tract is otherwise unremarkable. Pelvis: No free fluid is noted in the pelvis. Pelvic organs appear unremarkable by unenhanced CT. There is no pelvic adenopathy. Pelvic portion of the GI tract including the appendix is otherwise unremarkable. Degenerative changes are noted in the spine. IMPRESSION: 1. Findings consistent with a left-sided colitis, most likely an infectious colitis but please correlate clinically. 2. Mild increased stool in the colon suggesting constipation. 3. Chronic right pleural effusion with adjacent rounded atelectasis with minimal left pleural effusion.
[2019-03-15 03:50] LABS: APPEARANCE,URINE CLEAR; BILIRUBIN,URINE NEGATIVE (NEGATIVE); COLOR,URINE YELLOW; GLUCOSE, URINE 50 mg/dL (NEGATIVE); KETONES,URINE NEGATIVE (NEGATIVE); LEUKOCYTE ESTERASE,URINE TRACE (NEGATIVE); NITRITE,URINE NEGATIVE (NEGATIVE); PROTEIN,URINE 100 mg/dL (NEGATIVE); URINE SPECIFIC GRAVITY 1.013; UROBILINOGEN,URINE NEGATIVE mg/dL (<2.0)
[2019-03-15] MEDS ORDERED: LACTULOSE SYRUP 20 GM/30 ML UDCUP PR ONE (04:25)
[2019-03-15] MEDS ORDERED: SIMETHICONE 125 MG PO PRN (04:29)
[2019-03-15] MEDS: CIPROFLOXACIN 400 MG/D5W RTU 400 MG/200 ML RTUPB IV SCH ×4 (04:32→18:23)
[2019-03-15] MEDS: METRONIDAZOLE 500 MG/NS RTU 500 MG/100 ML RTUPB IV SCH ×5 (04:32→19:53)
[2019-03-15] MEDS ORDERED: NORMAL SALINE 1000 ML 1,000 ML IV ONE (05:20)
--- NOTE | 2019-03-15 05:32 | PDOC H&P ---
History of Present Illness Admission Date/PCP: 03/15/19 04:18 ORTEGA LEWIS MD Patient complains of: Abdominal pain History of Present Illness: JUSTINE CHRISTENSEN is a 68 year old female with a past medical history of nonoliguric end-stage renal failure with hemodialysis Friday, COPD, tobacco dependence, malignant hypertension, chronic right pleural effusion, chronic constipation and recent diagnosis of UTI prescribed ciprofloxacin. She presents with 48 hours of abdominal pain which is dull in nature, associated with nausea without vomiting or diarrhea, nonradiating, exacerbated by p.o. intake she has attempted several [id number] me dications without relief prompting her to seek evaluation in the emergency room where she is found to have significant constipation with colitis. She is referred to the hospitalist for admission. Past Medical History Cardiac Medical History: Reports: Congestive Heart Failure - during renal failure, Coronary Artery Disease, Hypertension Denies: Myocardial Infarction Pulmonary Medical History: Reports: Chronic Obstructive Pulmonary Disease (COPD) - "slight", no home O2, Pneumonia - "Years ago" Denies: Asthma, Bronchitis Neurological Medical History: Denies: Seizures Endocrine Medical History: Reports: None Renal/ Medical History: Reports: End Stage Renal Disease, Other - Status post nephrectomy Malignancy Medical History: Reports: None GI Medical History: Reports: Diverticulitis Musculoskeltal Medical History: Reports: None Denies: Arthritis Skin Medical History: Reports: None Psychiatric Medical History: Reports: None Traumatic Medical History: Reports: None Hematology: Reports: Anemia - r/t kidney failure Infectious Medical History: Reports: None Past Surgical History Past Surgical History: Reports: Cholecystectomy, Vascular Surgery, Other - Status post nephrectomy Social History Information Source: Patient Smoking Status: Current Every Day Smoker Frequency of Alcohol Use: None Drugs: None - Advance Directive Resuscitation Status: Full Code Family History Family History: Hypertension Parental Family History Reviewed: Yes Children Family History Reviewed: Yes Sibling(s) Family History Reviewed.: Yes Medication/Allergy Home Medications: Aspirin [Adult Low Dose Aspirin EC] 81 mg PO DAILY 03/02/19 Carvedilol 25 mg PO BID 03/02/19 Clonazepam [Klonopin] 0.25 mg PO TID 03/02/19 Clonidine HCl 0.3 mg PO Q4H 03/02/19 Doxazosin Mesylate [Cardura] 2 mg PO BID 03/02/19 Gabapentin [Neurontin 100 mg Capsule] 100 mg PO TID 03/02/19 Hydralazine HCl 100 mg PO TID 03/02/19 Loratadine 10 mg PO DAILY 03/02/19 Neomy Sulf/Polymyx B Sulf/Hc [Vuiuyfab-Udemgnxil-Gs Ear Susp] 4 drop OT TID 03/02/19 Ondansetron HCl [Zofran 4 mg Tablet] 1 - 2 tab PO Q4H PRN 03/02/19 Pravastatin Sodium 40 mg PO DAILY 03/02/19 Sertraline HCl 150 mg PO DAILY 03/02/19 Simethicone 125 mg PO ASDIR PRN 03/02/19 Torsemide [Demadex 20 mg Tablet] 20 mg PO BID 03/02/19 Vit B Comp No.3/Folic/C/Biotin [Nephro-Bernard Rx Tablet] 1 each PO DAILY 03/02/19 Allergies/Adverse Reactions: ASAD Inhibitors Allergy (Verified 03/01/19 21:47) "Red from chin to chest" Sulfa (Sulfonamide Antibiotics) Allergy (Verified 03/01/19 21:47) Hives Review of Systems Constitutional: PRESENT: as per HPI, anorexia, fatigue. ABSENT: chills, fever(s), headache(s), weight gain, weight loss Eyes: ABSENT: visual disturbances Ears: ABSENT: hearing changes Cardiovascular: ABSENT: chest pain, dyspnea on exertion, edema, orthropnea, palpitations Respiratory: ABSENT: cough, hemoptysis Gastrointestinal: PRESENT: as per HPI, abdominal pain, bloating, constipation, nausea. ABSENT: diarrhea, hematemesis, hematochezia, vomiting Genitourinary: PRESENT: as per HPI. ABSENT: difficulty urinating, dysuria, hem aturia Musculoskeletal: ABSENT: joint swelling Integumentary: ABSENT: rash, wounds Neurological: ABSENT: abnormal gait, abnormal speech, confusion, dizziness, focal weakness, syncope Psychiatric: ABSENT: anxiety, depression, homidical ideation, suicidal ideation Endocrine: ABSENT: cold intolerance, heat intolerance, polydipsia, polyuria Hematologic/Lymphatic: ABSENT: easy bleeding, easy bruising Physical Exam Vital Signs: Temp Pulse Resp BP Pulse Ox 98.4 F 74 10 L 143/59 H 97 03/14/19 23:04 03/14/19 23:04 03/15/19 05:01 03/15/19 05:01 03/15/19 05:01 Intake & Output 03/13/19 03/14/19 03/15/19 11:59 11:59 11:59 Weight 42.3 kg General appearance: PRESENT: cooperative, mild distress, thin. ABSENT: disheveled Head exam: PRESENT: atraumatic, normocephalic Eye exam: PRESENT: conjunctiva pink, EOMI, PERRLA. ABSENT: scleral icterus Ear exam: PRESENT: normal external ear exam Mouth exam: PRESENT: moist, tongue midline Neck exam: ABSENT: carotid bruit, JVD, lymphadenopathy, thyromegaly Respiratory exam: PRESENT: clear to auscultation irina. ABSENT: rales, rhonchi, wheezes Cardiovascular exam: PRESENT: RRR. ABSENT: diastolic murmur, rubs, systolic murmur Pulses: PRESENT: normal dorsalis pedis pul Vascular exam: PRESENT: normal capillary refill GI/Abdominal exam: PRESENT: diminished bowel sounds, distended, hypoactive bowel sounds, soft, tenderness. ABSENT: firm, guarding, rigid Rectal exam: PRESENT: deferred Extremities exam: PRESENT: full ROM. ABSENT: calf tenderness, clubbing, pedal edema Neurological exam: PRESENT: alert, awake, oriented to person, oriented to place, oriented to time, oriented to situation, CN II-XII grossly intact. ABSENT: motor sensory deficit Psychiatric exam: PRESENT: appropriate affect, normal mood. ABSENT: homicidal ideation, suicidal ideation Skin exam: PRESENT: dry, intact, warm. ABSENT: cyanosis, rash Results Laboratory Results: 03/15/19 00:54 03/15/19 00:54 03/15/19 03/15/19 03/15/19 00:54 00:54 02:14 WBC 11.8 H RBC 3.72 Hgb 12.0 Hct 37.0 MCV 99 H MCH 32.3 MCHC 32.5 RDW 17.2 H Plt Count 224 Seg Neutrophils % 76.1 Lymphocytes % 13.2 Monocytes % 7.9 Eosinophils % 1.8 Basophils % 1.0 Absolute Neutrophils 9.0 H Absolute Lymphocytes 1.6 Absolute Monocytes 0.9 Absolute Eosinophils 0.2 Absolute Basophils 0.1 Sodium 138.1 Potassium 3.8 Chloride 95 L Carbon Dioxide 32 H Anion Gap 11 BUN 44 H Creatinine 3.04 H Est GFR ( Amer) 18 L Est GFR (Non-Af Amer) 15 L Glucose 107 Lactic Acid 0.6 L Calcium 10.5 H Total Bilirubin 0.6 AST 23 ALT 13 Alkaline Phosphatase 149 H Total Protein 7.4 Albumin 3.9 Lipase 47.2 Urine Color Urine Appearance Urine pH Ur Specific [place] Urine Protein Urine Glucose (UA) Urine Ketones Urine Blood Urine Nitrite Ur Leukocyte Esterase Urine WBC (Auto) Urine RBC (Auto) 03/15/19 03:23 WBC RBC Hgb Hct MCV MCH MCHC RDW Plt Count Seg Neutrophils % Lymphocytes % Monocytes % Eosinophils % Basophils % Absolute Neutrophils Absolute Lymphocytes Absolute Monocytes Absolute Eosinophils Absolute Basophils Sodium Potassium Chloride Carbon Dioxide Anion Gap BUN Creatinine Est GFR ( Amer) Est GFR (Non-Af Amer) Glucose Lactic Acid Calcium Total Bilirubin AST ALT Alkaline Phosphatase Total Protein Albumin Lipase Urine Color YELLOW Urine Appearance CLEAR Urine pH 7.0 Ur Specific [place] 1.013 Urine Protein 100 H Urine Glucose (UA) 50 H Urine Ketones NEGATIVE Urine Blood NEGATIVE Urine Nitrite NEGATIVE Ur Leukocyte Esterase TRACE H Urine WBC (Auto) 8 Urine RBC (Auto) 1 Impressions: Abdomen/Pelvis CT 03/15/19 02:10 IMPRESSION: 1. Findings consistent with a left-sided colitis, most likely an infectious colitis but please correlate clinically. 2. Mild increased stool in the colon suggesting constipation. 3. Chronic right pleural effusion with adjacent rounded atelectasis with minimal left pleural effusion. Assessment and Plan - Diagnosis (1) Colitis Is this a current diagnosis for this admission?: Yes Plan: Complicated by constipation, bowel rest, lactulose enema, IV Cipro and Flagyl. Follow-up CBC and blood culture (2) COPD (chronic obstructive pulmonary disease) Qualifiers: COPD type: unspecified COPD Qualified Code(s): J44.9 - Chronic obstructive pulmonary disease, unspecified Is this a current diagnosis for this admission?: Yes Plan: Incentive spirometry, albuterol and Atrovent, continue outpatient regiment (3) End-stage renal disease on hemodialysis Is this a current diagnosis for this admission?: Yes Plan: Nephrology consult if inpatient dialysis anticipated Friday schedule. - Time Time Spent with patient: 35 or more minutes - Inpatient Certification Medical Necessity: Need Close Monitoring Due to Risk of Patient Decompensation
[2019-03-15] MEDS ORDERED: IPRATROPIUM/ALBUTEROL 0.5-2.5 MG/3 ML AMPUL NEB PRN (05:33)
[2019-03-15] MEDS: DOXAZOSIN MESYLATE 2 MG TABLET PO SCH ×3 (07:09→18:31)
[2019-03-15] MEDS: CLONIDINE HCL 0.2 MG TABLET PO SCH ×5 (07:18→22:31)
[2019-03-15] MEDS: IPRATROPIUM/ALBUTEROL 0.5-2.5 MG/3 ML AMPUL NEB SCH ×2 (08:15→20:11)
[2019-03-15] MEDS ORDERED: SIMETHICONE 80 MG TAB.CHEW PO PRN (09:54)
[2019-03-15] MEDS ORDERED: HYDRALAZINE HCL 50 MG TABLET PO SCH (10:00)
[2019-03-15] MEDS ORDERED: CARVEDILOL 12.5 MG TABLET PO SCH (10:00)
[2019-03-15] MEDS ORDERED: GABAPENTIN 100 MG CAPSULE PO SCH (10:00)
[2019-03-15] MEDS ORDERED: CIPROFLOXACIN 400 MG/D5W RTU 400 MG/200 ML RTUPB IV SCH (10:00)
[2019-03-15] MEDS: OXYCODONE-ACETAMINOPHEN 5-325 MG TABLET PO PRN ×2 (10:32→19:53)
[2019-03-15] MEDS: ASPIRIN 81 MG TABLET, ENT COATED PO SCH (10:32)
[2019-03-15] MEDS: LACTULOSE SYRUP 20 GM/30 ML UDCUP PR SCH ×2 (10:32→22:34)
[2019-03-15] MEDS: SERTRALINE HCL 50 MG TABLET PO SCH (10:33)
[2019-03-15] MEDS: CLONAZEPAM 1 MG TABLET PO SCH ×3 (10:33→18:23)
[2019-03-15] MEDS: CARVEDILOL 12.5 MG TABLET PO SCH ×2 (10:33→22:33)
[2019-03-15] MEDS: TORSEMIDE 20 MG TABLET PO SCH ×2 (10:40→18:31)
--- NOTE | 2019-03-15 13:11 | Physician Advisory Note ---
Physician Advisor ProgressNote .: Pursuant to the plan for Kush Caballero, I have reviewed the medical record for this patient. Physician Advisor Statement: Pt 68yo with BMI 16.0. GLIM criteria for malnutrition state age 70+ w/BMI <20 indicates severe malnutrition when there is consistent hx. 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 DOcumentation this adm states PMH "CHF" with renal failure. ECHO 06/2018 = LV EF >60%, mild conc LVH, gr 1 diast dysfn. Attending, please document: 1. whether or not you feel pt has (mild/mod/sev) malnutrition. 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 Is she cachectic? 2. type CHF present (chronic diastolic CHF? or ...?) - Do you believe "chronic Pleural Effusion(s), suspect due to " is present, or not? (CT report) Thanks! CK Status: approp to start as Obs today (Medicare pt, no MNs captured yet), discharging or changing to Inpatient on 03/16 depending on response to tx.
[2019-03-15] MEDS: GABAPENTIN 100 MG CAPSULE PO SCH ×3 (13:53→22:00)
[2019-03-15] MEDS: HYDRALAZINE HCL 50 MG TABLET PO SCH ×2 (13:54→22:32)
[2019-03-16] MEDS: METRONIDAZOLE 500 MG/NS RTU 500 MG/100 ML RTUPB IV SCH ×4 (00:59→18:38)
[2019-03-16] MEDS: CLONIDINE HCL 0.2 MG TABLET PO SCH ×6 (02:04→21:29)
[2019-03-16] MEDS: OXYCODONE-ACETAMINOPHEN 5-325 MG TABLET PO PRN (02:10)
[2019-03-16] MEDS: HYDRALAZINE HCL 50 MG TABLET PO SCH ×3 (05:21→21:29)
[2019-03-16] MEDS: GABAPENTIN 100 MG CAPSULE PO SCH ×3 (05:31→21:30)
[2019-03-16 06:10] LABS: ABSOLUTE EOSINOPHILS # (AUTO) 0.3 10^3/uL (0.0-0.6); ABSOLUTE LYMPHOCYTES (AUTO) 1.9 10^3/uL (0.5-4.7); ABSOLUTE MONOCYTES (AUTO) 0.5 10^3/uL (0.1-1.4); ABSOLUTE NEUT (AUTO) 5.8 10^3/uL (1.7-8.2); BASOPHILS % (AUTO) 0.3 % (0-2); EOSINOPHILS % (AUTO) 3.1 % (0-6); HEMATOCRIT 31.6 % (36.0-47.0); HEMOGLOBIN 10.2 g/dL (12.0-15.5); LYMPHOCYTES % (AUTO) 22.6 % (13-45); MEAN CORPUSCULAR HEMOGLOBIN 32.5 pg (27.0-33.4); MEAN CORPUSCULAR HGB CONC 32.3 g/dL (32.0-36.0); MEAN CORPUSCULAR VOLUME 101 fl (80-97); MONOCYTES % (AUTO) 6.2 % (3-13); PLATELET COUNT 168 10^3/uL (150-450); RED BLOOD COUNT 3.14 10^6/uL (3.72-5.28); RED CELL DISTRIBUTION WIDTH 17.1 % (11.5-14.0); SEGMENTED NEUTROPHILS % (AUTO) 67.8 % (42-78); TOTAL CELLS COUNTED % (AUTO) 100 %; WHITE BLOOD COUNT 8.6 10^3/uL (4.0-10.5)
[2019-03-16] MEDS: CIPROFLOXACIN 400 MG/D5W RTU 400 MG/200 ML RTUPB IV SCH ×2 (06:24→17:36)
[2019-03-16 06:37] LABS: ALANINE AMINOTRANSFERASE 16 U/L (9-52); ALBUMIN 2.6 g/dL (3.5-5.0); ALKALINE PHOSPHATASE 118 U/L (38-126); ANION GAP 11 (5-19); ASPARTATE AMINO TRANSFERASE 16 U/L (14-36); BILIRUBIN,DIRECT 0.5 mg/dL (0.0-0.4); BILIRUBIN,TOTAL 0.5 mg/dL (0.2-1.3); BLOOD UREA NITROGEN 53 mg/dL (7-20); CALCIUM 8.8 mg/dL (8.4-10.2); CARBON DIOXIDE 26 mmol/L (22-30); CHLORIDE 98 mmol/L (98-107); GLUCOSE 81 mg/dL (75-110); PHOSPHORUS 5.3 mg/dL (2.5-4.5); POTASSIUM 4.1 mmol/L (3.6-5.0); SODIUM 135.2 mmol/L (137-145); TOTAL PROTEIN 5.2 g/dL (6.3-8.2)
[2019-03-16] MEDS: IPRATROPIUM/ALBUTEROL 0.5-2.5 MG/3 ML AMPUL NEB SCH ×2 (08:18→20:33)
--- NOTE | 2019-03-16 09:33 | PDOC CONSULTATION ---
Consultation Consult Date: 03/16/19 Attending physician:: GUERLINE SANTA Consult reason:: I was asked to see the patient to supervised hemodialysis while here in the hospital. History of Present Illness Admission Date/PCP: 03/15/19 04:18 ORTEGA LEWIS MD History of Present Illness: JUSTINE CHRISTENSEN is a 68 year old female known to me with end-stage renal disease on maintenance hemodialysis on Tuesdays, , and Saturdays, COPD, hypertension, chronic right pleural effusion, and chronic constipation who presented to the emergency room on Friday night because of severe abdominal pain. Patient relates that she experience progressively worsening and severe abdominal pain after dialysis 3 days ago last Friday. This was associated with nausea without vomiting nor diarrhea, nonradiating and exacerbated by oral intake. She also has severe constipation. She tried [id number] medic ations but provided no relief. She took her Zofran for the nausea. She denied any fever. When she could not bear the pain anymore she went to the emergency room. CT scan of the abdomen without contrast revealed left-sided colitis and confirmed constipation. She was started on antibiotics yesterday with IV IV ciprofloxacin and metronidazole. She also had enema and has had good bowel movement. Today she tells me that she feels much better. She reports she is passing gas. She said her abdomen is still sore but unlike what she experienced. She just feels tired today. Patient's last hemodialysis treatment was last Friday. She does make some urine and tells me that she at least goes to make urine about 6 times a day. Her labs today did not reveal any electrolyte abnormalities or severe acidosis other than the elevated BUN and creatinine. She is otherwise feeling okay. He does not have any shortness of breathing nor any signs of fluid overload. Past Medical History Cardiac Medical History: Reports: CHF-Diastolic, Coronary Artery Disease, Hypertension-primary Pulmonary Medical History: Reports: Chronic Obstructive Pulmonary Disease (COPD) - "slight", no home O2, Pneumonia - "Years ago" Renal/ Medical History: Reports: End Stage Renal Disease, Other - Status post nephrectomy, 2016 GI Medical History: Reports: Diverticulitis Musculoskeltal Medical History: Reports: None Denies: Arthritis Hematology Medical History: Reports Anemia of Chronic Kidney Disease Past Surgical History Past Surgical History: Reports: Cholecystectomy, Dialysis Access Surgery AVF, Nephrectomy - 2016 Social History Information Source: Patient Smoking Status: Current Every Day Smoker Number of Years Smokin Last Time Smoked: 03/14/19 Frequency of Alcohol Use: None Hx Recreational Drug Use: No Drugs: None Hx Prescription Drug Abuse: No - Advance Directive Resuscitation Status: Do Not Resuscitate Family History Family History: Hypertension Parental Family History Reviewed: Yes Children Family History Reviewed: Yes Sibling(s) Family History Reviewed.: Yes Medication/Allergy Home Medications: Aspirin [Adult Low Dose Aspirin EC] 81 mg PO DAILY 03/02/19 Carvedilol 25 mg PO Q12 03/02/19 Clonazepam [Klonopin] 0.25 mg PO Q8HP PRN MDD 2 MG 03/02/19 Clonidine HCl 0.3 mg PO 6XD 03/02/19 Doxazosin Mesylate [Cardura] 2 mg PO Q12 03/02/19 Hydralazine HCl 100 mg PO Q8 03/02/19 Loratadine 10 mg PO DAILY 03/02/19 Ondansetron HCl [Zofran 4 mg Tablet] 4 mg PO Q6HP PRN 03/02/19 Pravastatin Sodium 40 mg PO DAILY 03/02/19 Sertraline HCl 150 mg PO DAILY 03/02/19 Torsemide [Demadex 20 mg Tablet] 20 mg PO BID 03/02/19 Parenteral Amino Acid 15% No.5 [Clinisol] 500 ml IV .DIALYSIS 03/15/19 Umeclidinium Brm/Vilanterol Tr [Anoro Ellipta 62.5-25 Mcg INH] 1 puff IH DAILY 03/15/19 Allergies/Adverse Reactions: ASAD Inhibitors Allergy (Verified 03/01/19 21:47) "Red from chin to chest" Sulfa (Sulfonamide Antibiotics) Allergy (Verified 03/01/19 21:47) Hives Review of Systems All systems: reviewed and no additional remarkable complaints except as stated Review of Systems: Constitutional: ABSENT: chills, fatigue, fever(s), headache(s), weight gain, weight loss Eyes: ABSENT: visual disturbances Ears: ABSENT: hearing changes Cardiovascular: ABSENT: chest pain, dyspnea on exertion, edema, orthropnea, palpitations Respiratory: ABSENT: cough, dyspnea, hemoptysis Gastrointestinal: ABSENT: Diarrhea, hematemesis, hematochezia, vomiting; admits abdominal pain, constipation, and nausea Genitourinary: ABSENT: dysuria, hematuria Musculoskeletal: ABSENT: joint swelling Integumentary: ABSENT: rash, wounds Neurological: ABSENT: abnormal gait, abnormal speech, confusion, dizziness, focal weakness, numbness, syncope Psychiatric: ABSENT: anxiety, depression Endocrine: ABSENT: cold intolerance, heat intolerance, polydipsia, polyuria Hematologic/Lymphatic: ABSENT: easy bleeding, easy bruising, lymphadenopathy Physical Exam Vital Signs: Temp Pulse Resp BP Pulse Ox 97.9 F 58 L 16 116/45 L 95 03/16/19 03:04 03/16/19 08:18 03/16/19 08:18 03/16/19 03:04 03/16/19 08:18 Intake & Output 03/15/19 03/16/19 03/17/19 06:59 06:59 06:59 Intake Total 2630 200 Output Total 4 Balance 2626 200 Weight 45.1 kg 45.9 kg Exam: General appearance: No acute distress, cooperative, well-developed, well- nourished Head exam: PRESENT: atraumatic, normocephalic Eye exam: PRESENT: Conjunctiva [place], EOMI, PERRLA. ABSENT: conjunctival injection, scleral icterus Mouth exam: PRESENT: moist, neck supple, tongue midline Neck exam: PRESENT: full ROM. Left carotid bruit ABSENT: carotid bruit, JVD, lymphadenopathy, thyromegaly Respiratory exam: PRESENT: Diminished to auscultation bilaterally. ABSENT: rales, rhonchi, stridor, wheezes Cardiovascular exam: PRESENT: RRR, +S1, +S2. Grade 2/6 systolic murmur Pulses: PRESENT: normal radial pulses, normal dorsalis pedis pulses GI/Abdominal exam: PRESENT: normal bowel sounds, soft. Positive tenderness to palpation on the whole left side of the abdomen, epigastric area and suprapubic area, positive soft abdominal bruit ABSENT: guarding, mass Rectal exam: Deferred Extremities exam: PRESENT: full ROM. ABSENT: calf tenderness, pedal edema Musculoskeletal: PRESENT: full ROM. ABSENT: deformity Neurological exam: PRESENT: alert, Awake, Oriented to person, Oriented to place, Oriented to time, reflexes normal, CN II-XII grossly intact. ABSENT: motor sensory deficit Psychiatric exam: PRESENT: appropriate affect, normal mood. ABSENT: homicidal ideation, suicidal ideation Skin exam: PRESENT: intact, dry, warm. ABSENT: rash Results Laboratory Results: 03/16/19 05:15 03/16/19 05:15 03/16/19 03/16/19 05:15 05:15 WBC 8.6 RBC 3.14 L Hgb 10.2 L Hct 31.6 L MCV 101 H MCH 32.5 MCHC 32.3 RDW 17.1 H Plt Count 168 Seg Neutrophils % 67.8 Lymphocytes % 22.6 Monocytes % 6.2 Eosinophils % 3.1 Basophils % 0.3 Absolute Neutrophils 5.8 Absolute Lymphocytes 1.9 Absolute Monocytes 0.5 Absolute Eosinophils 0.3 Absolute Basophils 0.0 Sodium 135.2 L Potassium 4.1 Chloride 98 Carbon Dioxide 26 Anion Gap 11 BUN 53 H Creatinine 3.51 H Est GFR ( Amer) 16 L Est GFR (Non-Af Amer) 13 L Glucose 81 Calcium 8.8 Phosphorus 5.3 H Magnesium 1.8 Total Bilirubin 0.5 AST 16 ALT 16 Alkaline Phosphatase 118 Total Protein 5.2 L Albumin 2.6 L Impressions: Abdomen/Pelvis CT 03/15/19 02:10 IMPRESSION: 1. Findings consistent with a left-sided colitis, most likely an infectious colitis but please correlate clinically. 2. Mild increased stool in the colon suggesting constipation. 3. Chronic right pleural effusion with adjacent rounded atelectasis with minimal left pleural effusion. Assessment & Plan - Diagnosis (1) Colitis Is this a current diagnosis for this admission?: Yes Plan: Patient currently on IV metronidazole and ciprofloxacin with appropriate doses. Continue current management. (2) End-stage renal disease on hemodialysis Is this a current diagnosis for this admission?: Yes Plan: There is no urgent indication for acute emergent hemodialysis treatment today. We only do emergency dialysis on Tuesdays and here in the hospital. We will plan to do dialysis treatment tomorrow. (3) Anemia in chronic kidney disease (CKD) Is this a current diagnosis for this admission?: Yes (4) Hypertension Is this a current diagnosis for this admission?: Yes Plan: Currently controlled. (5) Hyperphosphatemia Is this a current diagnosis for this admission?: Yes - Notes Notes: Thank you very much for this consultation. We will supervise the hemodialysis with the patient's [facility]. - Time Time Spent: 50 to 70 Minutes
[2019-03-16] MEDS: SERTRALINE HCL 50 MG TABLET PO SCH (10:25)
[2019-03-16] MEDS: CARVEDILOL 12.5 MG TABLET PO SCH ×2 (10:25→21:29)
[2019-03-16] MEDS: ASPIRIN 81 MG TABLET, ENT COATED PO SCH (10:27)
[2019-03-16] MEDS: CLONAZEPAM 1 MG TABLET PO SCH ×3 (10:27→17:37)
[2019-03-16] MEDS: LACTULOSE SYRUP 20 GM/30 ML UDCUP PR SCH (10:28)
[2019-03-16] MEDS: DOXAZOSIN MESYLATE 2 MG TABLET PO SCH ×2 (10:32→17:38)
[2019-03-16] MEDS: TORSEMIDE 20 MG TABLET PO SCH ×2 (11:08→18:38)
--- NOTE | 2019-03-16 14:04 | PDOC PROGRESS REPORT ---
Subjective Progress Note for:: 03/16/19 Subjective:: 89 y.o. F with a PMH of CHF, COPD (no home O2), ESRD, anemia. She is admitted to the hospitalist service for colitis. The patient was seen this morning on rounds, she is resting comfortably in bed on room air. The patient endorses "feeling much better" today. According to nursing staff, the patient had 2 bowel movements overnight. She continues to receive Flagyl and Cipro for her colitis. The patient was seen by Dr. Garza this morning, who recommends dialysis tomorrow. Lab work relatively benign today. Vital signs remain WNL. Plan for dialysis tomorrow and likely discharge home. Reason For Visit: COLITIS Physical Exam Vital Signs: Temp Pulse Resp BP Pulse Ox 97.5 F 72 16 155/60 H 94 03/16/19 11:17 03/16/19 11:17 03/16/19 11:17 03/16/19 11:17 03/16/19 11:17 Intake & Output 03/15/19 03/16/19 03/17/19 06:59 06:59 06:59 Intake Total 2630 437 Output Total 4 Balance 2626 437 Weight 45.1 kg 45.9 kg General appearance: PRESENT: thin Eye exam: PRESENT: PERRLA Mouth exam: PRESENT: moist, tongue midline Teeth exam: PRESENT: poor dentation Neck exam: PRESENT: full ROM Respiratory exam: PRESENT: clear to auscultation irina, symmetrical, unlabored Cardiovascular exam: PRESENT: RRR Pulses: PRESENT: normal radial pulses, normal dorsalis pedis pul Vascular exam: PRESENT: normal capillary refill GI/Abdominal exam: PRESENT: soft. ABSENT: distended, tenderness Rectal exam: PRESENT: deferred Extremities exam: PRESENT: full ROM. ABSENT: pedal edema Musculoskeletal exam: PRESENT: ambulatory, full ROM Neurological exam: PRESENT: alert, awake, oriented to person, oriented to place, oriented to time, oriented to situation Psychiatric exam: PRESENT: appropriate affect Skin exam: PRESENT: dry, intact, normal color Results Laboratory Results: 03/16/19 05:15 03/16/19 05:15 03/16/19 03/16/19 05:15 05:15 WBC 8.6 RBC 3.14 L Hgb 10.2 L Hct 31.6 L MCV 101 H MCH 32.5 MCHC 32.3 RDW 17.1 H Plt Count 168 Seg Neutrophils % 67.8 Lymphocytes % 22.6 Monocytes % 6.2 Eosinophils % 3.1 Basophils % 0.3 Absolute Neutrophils 5.8 Absolute Lymphocytes 1.9 Absolute Monocytes 0.5 Absolute Eosinophils 0.3 Absolute Basophils 0.0 Sodium 135.2 L Potassium 4.1 Chloride 98 Carbon Dioxide 26 Anion Gap 11 BUN 53 H Creatinine 3.51 H Est GFR ( Amer) 16 L Est GFR (Non-Af Amer) 13 L Glucose 81 Calcium 8.8 Phosphorus 5.3 H Magnesium 1.8 Total Bilirubin 0.5 AST 16 ALT 16 Alkaline Phosphatase 118 Total Protein 5.2 L Albumin 2.6 L Impressions: Abdomen/Pelvis CT 03/15/19 02:10 IMPRESSION: 1. Findings consistent with a left-sided colitis, most likely an infectious colitis but please correlate clinically. 2. Mild increased stool in the colon suggesting constipation. 3. Chronic right pleural effusion with adjacent rounded atelectasis with minimal left pleural effusion. Status: Imported from PACS Assessment and Plan - Diagnosis (1) Colitis Is this a current diagnosis for this admission?: Yes Plan: Seen on CT - bowel wall thickening of the descending colon, consistent with left-sided colitis Mild/amount of stool in the colon Abdomen is S/ND but LUQ & LLQ TTP Afebrile. No leukocytosis Continue Cipro & Flagyl Administered lactulose enema yesterday, 2 BM in last 24hrs (2) COPD (chronic obstructive pulmonary disease) Qualifiers: COPD type: unspecified COPD Qualified Code(s): J44.9 - Chronic obstructive pulmonary disease, unspecified Is this a current diagnosis for this admission?: Yes Plan: History of COPD She is currently without exacerbation PRN albuterol and Atrovent Patient is currently on Anoro Ellipta, unfortunately not on formulary Initiate scheduled Spiriva and Serevent (3) End-stage renal disease on hemodialysis Is this a current diagnosis for this admission?: Yes Plan: Consult Dr. Garza Plan for dialysis tomorrow Creatinine 3.5 today, patient's range in last 2 years is 2.2-6.1 Avoid nephrotoxic medications - Time Time Spent with patient: 15-24 minutes Medications reviewed and adjusted accordingly: Yes Anticipated discharge: Home Within: within 24 hours, within 48 hours - Inpatient Certification Based on my medical assessment, after consideration of the patient's comor bidities, presenting symptoms, or acuity I expect that the services needed warrant INPATIENT care.: Yes I certify that my determination is in accordance with my understanding of Medicare's requirements for reasonable and necessary INPATIENT services [42 CFR 412.3e].: Yes Medical Necessity: Need for IV Antibiotics
[2019-03-16] MEDS: TIOTROPIUM BROMIDE DPI 5 CAP/KIT (18 MCG/CAP) IH SCH (15:55)
[2019-03-16] MEDS: ACETAMINOPHEN 325 MG TABLET PO PRN (18:45)
[2019-03-16] MEDS: SALMETEROL XINAFOATE DISKUS 50 MCG/1 DOSE 28 DOSE IH SCH (21:31)
[2019-03-17] MEDS: METRONIDAZOLE 500 MG/NS RTU 500 MG/100 ML RTUPB IV SCH ×3 (00:39→12:11)
[2019-03-17] MEDS: CLONIDINE HCL 0.2 MG TABLET PO SCH ×4 (02:04→14:39)
[2019-03-17] MEDS: ACETAMINOPHEN 325 MG TABLET PO PRN (03:37)
[2019-03-17] MEDS ORDERED: NORMAL SALINE 1000 ML 1,000 ML IV PRN (05:00)
[2019-03-17 06:30] LABS: ABSOLUTE EOSINOPHILS # (AUTO) 0.3 10^3/uL (0.0-0.6); ABSOLUTE LYMPHOCYTES (AUTO) 1.5 10^3/uL (0.5-4.7); ABSOLUTE MONOCYTES (AUTO) 0.6 10^3/uL (0.1-1.4); ABSOLUTE NEUT (AUTO) 5.1 10^3/uL (1.7-8.2); BASOPHILS % (AUTO) 0.4 % (0-2); EOSINOPHILS % (AUTO) 3.7 % (0-6); HEMATOCRIT 32.1 % (36.0-47.0); HEMOGLOBIN 10.5 g/dL (12.0-15.5); MEAN CORPUSCULAR HEMOGLOBIN 32.7 pg (27.0-33.4); MEAN CORPUSCULAR HGB CONC 32.5 g/dL (32.0-36.0); MEAN CORPUSCULAR VOLUME 100 fl (80-97); PLATELET COUNT 165 10^3/uL (150-450); RED CELL DISTRIBUTION WIDTH 16.9 % (11.5-14.0); SEGMENTED NEUTROPHILS % (AUTO) 67.9 % (42-78); TOTAL CELLS COUNTED % (AUTO) 100 %; WHITE BLOOD COUNT 7.5 10^3/uL (4.0-10.5)
[2019-03-17] MEDS: CIPROFLOXACIN 400 MG/D5W RTU 400 MG/200 ML RTUPB IV SCH (06:38)
[2019-03-17] MEDS: HYDRALAZINE HCL 50 MG TABLET PO SCH ×2 (06:38→14:39)
[2019-03-17 06:50] LABS: ANION GAP 14 (5-19); BLOOD UREA NITROGEN 57 mg/dL (7-20); CALCIUM 8.6 mg/dL (8.4-10.2); CARBON DIOXIDE 22 mmol/L (22-30); CHLORIDE 98 mmol/L (98-107); GLUCOSE 117 mg/dL (75-110); POTASSIUM 3.7 mmol/L (3.6-5.0); SODIUM 133.9 mmol/L (137-145)
[2019-03-17] MEDS: GABAPENTIN 100 MG CAPSULE PO SCH ×2 (07:36→14:41)
--- NOTE | 2019-03-17 09:32 | PDOC PROGRESS REPORT ---
Subjective Progress Note for:: 03/17/19 Subjective:: I am seeing the patient urine dialysis treatment this morning. She said she is still feeling much better. Her abdomen is sore but not painful compared to when she came in. She denies any nausea or vomiting. She does not like the hospital food so she is not eating much here but she claims she will eat better at home and wanted to go home. Currently she is tolerating dialysis without any problems. Her weight is almost at her dry weight so her not getting ultr afiltration. Reason For Visit: COLITIS Physical Exam Vital Signs: Temp Pulse Resp BP Pulse Ox 98.4 F 65 18 145/56 H 90 L 03/17/19 03:34 03/17/19 07:00 03/17/19 03:34 03/17/19 03:34 03/17/19 03:34 Intake & Output 03/16/19 03/17/19 03/18/19 06:59 06:59 06:59 Intake Total 2630 1037 Output Total 4 300 Balance 2626 737 Weight 45.9 kg 46.2 kg Vitals during dialysis: Blood pressure 172/74, heart rate of 62, blood flow rate of 400 mL/min, dialysate flow rate of 800 mL/min. Exam: General appearance: PRESENT: no acute distress, cooperative, well-developed, well-nourished Head exam: PRESENT: atraumatic, normocephalic Eye exam: PRESENT: conjunctiva slightly pale, PERRLA. ABSENT: scleral icterus Neck exam: ABSENT: JVD Respiratory exam: PRESENT: Diminished breath sounds. ABSENT: crackles, rales, rhonchi, unlabored, wheezes Cardiovascular exam: PRESENT: Regular rate rhythm -+S1, +S2. Grade 3/6 systolic murmur GI/Abdominal exam: PRESENT: normal bowel sounds, soft. Mild tenderness in the left upper and lower quadrants. ABSENT: guarding, mass, tenderness Extremities exam: ABSENT: No edema Neurological exam: PRESENT: alert, awake, oriented to person, place and time. Skin exam: PRESENT: dry, warm, Results Laboratory Results: 03/17/19 06:00 03/17/19 06:00 03/17/19 03/17/19 06:00 06:00 WBC 7.5 RBC 3.20 L Hgb 10.5 L Hct 32.1 L MCV 100 H MCH 32.7 MCHC 32.5 RDW 16.9 H Plt Count 165 Seg Neutrophils % 67.9 Lymphocytes % 20.0 Monocytes % 8.0 Eosinophils % 3.7 Basophils % 0.4 Absolute Neutrophils 5.1 Absolute Lymphocytes 1.5 Absolute Monocytes 0.6 Absolute Eosinophils 0.3 Absolute Basophils 0.0 Sodium 133.9 L Potassium 3.7 Chloride 98 Carbon Dioxide 22 Anion Gap 14 BUN 57 H Creatinine 3.75 H Est GFR ( Amer) 14 L Est GFR (Non-Af Amer) 12 L Glucose 117 H Calcium 8.6 Impressions: Abdomen/Pelvis CT 03/15/19 02:10 IMPRESSION: 1. Findings consistent with a left-sided colitis, most likely an infectious colitis but please correlate clinically. 2. Mild increased stool in the colon suggesting constipation. 3. Chronic right pleural effusion with adjacent rounded atelectasis with minimal left pleural effusion. Assessment & Plan - Diagnosis (1) End-stage renal disease on hemodialysis Is this a current diagnosis for this admission?: Yes Plan: We will do dialysis today for 2.5 hours, using the patient's AV fistula, with 3 potassium bath, blood flow rate of 400 mL per minute, dialysate flow rate of 800 mL per minute, ultrafiltration none, no heparin and no Procrit. Treatment plan discussed with her dialysis nurse. Patient will be monitored throughout dialysis treatment. If patient will be discharged home today as she wanted to, her next outpatient dialysis treatment will be tomorrow on her regular scheduled time at [facility]. If she stays here in the hospital her next dialysis will be Friday. From nephrology standpoint there is no contraindication for her to go home if everything else is stable. (2) Colitis Is this a current diagnosis for this admission?: Yes Plan: Continue antibiotics. (3) Anemia in chronic kidney disease (CKD) Is this a current diagnosis for this admission?: Yes (4) Hypertension Is this a current diagnosis for this admission?: Yes Plan: Suboptimally controlled. Continue home blood pressure medications. (5) Hyperphosphatemia Is this a current diagnosis for this admission?: Yes Plan: Patient to resume her phosphorus binders once she is eating well. - Time Time with patient: 15-25 minutes
[2019-03-17] MEDS: IPRATROPIUM/ALBUTEROL 0.5-2.5 MG/3 ML AMPUL NEB SCH (09:53)
[2019-03-17] MEDS: CLONAZEPAM 1 MG TABLET PO SCH ×2 (12:04→14:40)
[2019-03-17] MEDS: ASPIRIN 81 MG TABLET, ENT COATED PO SCH (12:05)
[2019-03-17] MEDS: CARVEDILOL 12.5 MG TABLET PO SCH (12:05)
[2019-03-17] MEDS: SERTRALINE HCL 50 MG TABLET PO SCH (12:05)
[2019-03-17] MEDS: TORSEMIDE 20 MG TABLET PO SCH (12:06)
[2019-03-17] MEDS: DOXAZOSIN MESYLATE 2 MG TABLET PO SCH (12:10)
[2019-03-17] MEDS: SALMETEROL XINAFOATE DISKUS 50 MCG/1 DOSE 28 DOSE IH SCH (12:11)
[2019-03-17] MEDS: TIOTROPIUM BROMIDE DPI 5 CAP/KIT (18 MCG/CAP) IH SCH (12:11)
[2019-03-17] MEDS ORDERED: ONDANSETRON 4 MG TAB.RAPDIS PO ONE (14:00)
[2019-03-17 15:24] VITALS: BP 145/56
--- NOTE | 2019-03-26 13:33 | PDOC DISCHARGE SUMMARY ---
General - Admit/Disc Date/PCP Admission Date/Primary Care Provider: 03/15/19 04:18 ORTEGA LEWIS MD Discharge Date: 03/17/19 - Discharge Diagnosis (1) Colitis Is this a current diagnosis for this admission?: Yes (2) COPD (chronic obstructive pulmonary disease) Is this a current diagnosis for this admission?: Yes (3) End-stage renal disease on hemodialysis Is this a current diagnosis for this admission?: Yes - Additional Information Resuscitation Status: Do Not Resuscitate Discharge Diet: As Tolerated Discharge Activity: Activity As Tolerated, Balance Activity w/Rest Prescriptions: Ciprofloxacin HCl [Cipro 500 mg Tablet] 500 mg PO BID #9 tablet Metronidazole [Flagyl 500 mg Tablet] 500 mg PO TID #9 tablet Home Medications: Aspirin [Adult Low Dose Aspirin EC] 81 mg PO DAILY 03/02/19 Carvedilol 25 mg PO Q12 03/02/19 Clonazepam [Klonopin] 0.25 mg PO Q8HP PRN MDD 2 MG 03/02/19 Clonidine HCl 0.3 mg PO 6XD 03/02/19 Doxazosin Mesylate [Cardura] 2 mg PO Q12 03/02/19 Hydralazine HCl 100 mg PO Q8 03/02/19 Loratadine 10 mg PO DAILY 03/02/19 Ondansetron HCl [Zofran 4 mg Tablet] 4 mg PO Q6HP PRN 03/02/19 Pravastatin Sodium 40 mg PO DAILY 03/02/19 Sertraline HCl 150 mg PO DAILY 03/02/19 Torsemide [Demadex 20 mg Tablet] 20 mg PO BID 03/02/19 Parenteral Amino Acid 15% No.5 [Clinisol] 500 ml IV .DIALYSIS 03/15/19 Umeclidinium Brm/Vilanterol Tr [Anoro Ellipta 62.5-25 Mcg INH] 1 puff IH DAILY 03/15/19 Ciprofloxacin HCl [Cipro 500 mg Tablet] 500 mg PO BID #9 tablet 03/17/19 Gabapentin [Neurontin 100 mg Capsule] 100 mg PO Q8 capsule 03/17/19 Metronidazole [Flagyl 500 mg Tablet] 500 mg PO TID #9 tablet 03/17/19 Simethicone [Mylicon 80 mg Chewable Tablet] 160 mg PO QIDP PRN tab.chew 03/17/19 History of Present Illness History of Present Illness: JUSTINE CHRISTENSEN is a 68 year old female with a past medical history of nonoliguric end-stage renal failure with hemodialysis Friday, COPD, tobacco dependence, malignant hypertension, chronic right pleural effusion, chronic constipation and recent diagnosis of UTI prescribed ciprofloxacin. She presents with 48 hours of abdominal pain which is dull in nature, associated with nausea without vomiting or diarrhea, nonradiating, exacerbated by p.o. intake she has attempted several [id number] medications without relief prompting her to seek evaluation in the emergency room where she is found to have significant constipation with colitis. She is referred to the hospitalist for admission. Hospital Course Hospital Course: 68 y.o. F with a PMH of CHF, COPD (no home O2), ESRD, anemia. The patient pr esented with a chief complaint of abdominal pain. CT Abd/Pelvis indicative of bowel wall thickening in the area of the descending colon, consistent with colitis. The patient is admitted to the hospitalist service for colitis and started on Cipro & Flagyl. She was seen by Dr. Garza while inpatient. Ms. Christensen normally receives HD Fri//Fri. She was unable to receive HD on Friday (day of admission) so she was scheduled to be dialyzed on Saturday 03/17. The patient reported feeling 'much better.' Her abdominal pain and nausea had subsided by hospital day #2. She was discharged home following her dialysis session. Of note, the patient was told to keep her scheduled HD appt. She was sent home with prescriptions for Cipro and Flagyl to complete her antibiotic treatment regimen. Physical Exam Vital Signs: Temp Pulse Resp BP Pulse Ox 98.5 F 64 20 145/56 H 95 03/17/19 15:22 03/17/19 15:22 03/17/19 15:22 03/17/19 15:22 03/17/19 15:22 General appearance: PRESENT: thin Head exam: PRESENT: atraumatic Eye exam: PRESENT: conjunctiva pink, PERRLA Mouth exam: PRESENT: moist, tongue midline Teeth exam: PRESENT: poor dentation Neck exam: PRESENT: full ROM Respiratory exam: PRESENT: clear to auscultation [place], symmetrical, unlabored Cardiovascular exam: PRESENT: RRR Pulses: PRESENT: normal radial pulses GI/Abdominal exam: PRESENT: soft, tenderness - mild. ABSENT: distended, firm Rectal exam: PRESENT: deferred Extremities exam: PRESENT: full ROM Musculoskeletal exam: PRESENT: ambulatory, full ROM Neurological exam: PRESENT: alert, awake, oriented to person, oriented to place, oriented to time, oriented to situation Psychiatric exam: PRESENT: appropriate affect Skin exam: PRESENT: dry, intact, normal color Results Laboratory Results: 03/17/19 06:00 03/17/19 06:00 Impressions: Abdomen/Pelvis CT 03/15/19 02:10 IMPRESSION: 1. Findings consistent with a left-sided colitis, most likely an infectious colitis but please correlate clinically. 2. Mild increased stool in the colon suggesting constipation. 3. Chronic right pleural effusion with adjacent rounded atelectasis with minimal left pleural effusion. Qualifiers - * PATIENT BEING DISCHARGED WITH ANY OF THE FOLLOWING DIAGNOSIS: No Acute Heart Failure Is this a Heart Failure Patient?: No
== END 2019-03-17 16:16 | disposition home or self-care (01) ==
LOC: ER 22:42 → EH 03-15 04:18 → INTOOBSV 03-15 04:18 → 3W 03-15 06:21
PROVIDERS: ADMIT Internal Medicine; ATTEND Internal Medicine
PROC: 5A1D70Z Performance of Urinary Filtration, Intermittent, Less than 6 Hours Per Day (ICD-10-PCS; principal; 2019-03-17)
DX: K52.9 Noninfective gastroenteritis and colitis, unspecified (principal); J44.9 Chronic obstructive pulmonary disease, unspecified; N18.6 End stage renal disease; I13.2 Hypertensive heart and chronic kidney disease with heart failure and with stage 5 chronic kidney disease, or end stage renal disease; I50.30 Unspecified diastolic (congestive) heart failure; K59.09 Other constipation; J90 Pleural effusion, not elsewhere classified; I25.10 Atherosclerotic heart disease of native coronary artery without angina pectoris; E83.39 Other disorders of phosphorus metabolism; D63.1 Anemia in chronic kidney disease; R63.0 Anorexia; Z99.2 Dependence on renal dialysis; R14.2 Eructation; R35.0 Frequency of micturition; Z66 Do not resuscitate; Z79.82 Long term (current) use of aspirin; Z79.899 Other long term (current) drug therapy; Z87.440 Personal history of urinary (tract) infections; Z90.49 Acquired absence of other specified parts of digestive tract; F17.210 Nicotine dependence, cigarettes, uncomplicated; Z90.5 Acquired absence of kidney; Z82.49 Family history of ischemic heart disease and other diseases of the circulatory system; Z87.442 Personal history of urinary calculi
CPT/HCPCS: 99285; 96374; 96375; 36415 ×3; 87040; 83605; 83690; 83735; 84100; 85025 ×3; 80048; 80053 ×2; 81001; 74176; 94799; 94640 ×3; G0378 ×3; A9270 ×32; J3010; J3490 ×2; J2270; J2405; J7030; J0744 ×2; G0257; J7620; S0119

== ENCOUNTER → 2019-04-19 | Outpatient (CLI) | payer MEDICARE ==
--- NOTE | 2019-04-19 19:56 | XCELERA REPORT ---
[address] [address] Transthoracic Echocardiogram Report Name: JUSTINE CHRISTENSEN Age: 68 yrs Gender: Female : 1950 Patient Status: Outpatient Patient Location: [facility] Study Date: 04/19/2019 11:14 AM Height: 66 in Weight: 94 lb BSA: 1.5 m2 Procedure: A two-dimensional transthoracic echocardiogram with color flow and Doppler was performed. Study Quality: Fair. Reason For Study: SEALS History: SEALS. Ordering Physician: GINGER DUARTE Performed By: Patricia Carty Interpretation Summary The left ventricle is normal in size. There is mild concentric left ventricular hypertrophy. LV EF is 65% Left ventricular systolic function is normal. Doppler measurements suggest normal left ventricular diastolic function The left ventricular wall motion is normal. There is no thrombus. There is no ventricular septal defect visualized. The right ventricle is normal in size and function. The right atrium is normal. The left atrial size is normal. The interatrial septum is intact with no evidence for an atrial septal defect. There is no Doppler evidence for an interatrial shunt There is no evidence of mitral valve prolapse. There is no vegetation seen on the mitral valve. There is no mitral valve stenosis. There is a trace amount of mitral regurgitation There is no aortic valvular vegetation. There is mild aortic stenosis There is a peak gradient of 21 mm of Hg. No hemodynamically significant valvular aortic stenosis. There is no LVOT obstruction. There is a trace amount of aortic regurgitation There is no tricuspid stenosis. There is a trace amount of tricuspid regurgitation There is mild pulmonary hypertension by echo RVSP is 33 to 38 mm of Hg , with RA mean of 5 to 10. There is no pulmonic valvular stenosis. There is no pulmonic valvular regurgitation. The aortic root is normal size. The inferior vena cava appeared normal and decreased > 50% with respiration (RAP 5-10 mmHg) There is no pericardial effusion. MMode/2D Measurements & Calculations RVDd: 2.4 cm LVIDd: 4.3 cm FS: 35.0 % Ao root diam: 3.1 cm IVSd: 1.0 cm LVIDs: 2.8 cm EDV(Teich): LVPWd: 1.4 cm 83.5 ml Ao root area: ESV(Teich): 7.7 cm2 29.6 ml EF(Teich): 64.5 % EDV(MOD-sp4): SV(MOD-sp4): 137.9 ml 69.0 ml ESV(MOD-sp4): 68.9 ml EF(MOD-sp4): 50.0 % Doppler Measurements & Calculations MV E max zeny: MV dec slope: Ao V2 max: LV V1 max P.1 cm/sec 229.6 cm/sec 5.0 mmHg MV A max zeny: 402.1 cm/sec2 Ao max PG: LV V1 max: 94.1 cm/sec MV dec time: 0.24 sec 21.1 mmHg 111.3 cm/sec MV E/A: 1.0 PA V2 max: TR max zeny: 97.6 cm/sec 250.4 cm/sec PA max P.8 mmHgTR max P.3 mmHg Left Ventricle The left ventricle is normal in size. There is mild concentric left ventricular hypertrophy. LV EF is 65%. Left ventricular systolic function is normal. Doppler measurements suggest normal left ventricular diastolic function. The left ventricular wall motion is normal. There is no thrombus. There is no ventricular septal defect visualized. Right Ventricle The right ventricle is normal in size and function. Atria The right atrium is normal. The left atrial size is normal. The interatrial septum is intact with no evidence for an atrial septal defect. There is no Doppler evidence for an interatrial shunt. Mitral Valve There is no evidence of mitral valve prolapse. There is no vegetation seen on the mitral valve. There is no mitral valve stenosis. There is a trace amount of mitral regurgitation. Aortic Valve There is no aortic valvular vegetation. There is mild aortic stenosis. There is a peak gradient of 21 mm of Hg. No hemodynamically significant valvular aortic stenosis. There is no LVOT obstruction. There is a trace amount of aortic regurgitation. Tricuspid Valve There is no tricuspid stenosis. There is a trace amount of tricuspid regurgitation. There is mild pulmonary hypertension by echo. RVSP is 33 to 38 mm of Hg , with RA mean of 5 to 10. Pulmonic Valve There is no pulmonic valvular stenosis. There is no pulmonic valvular regurgitation. Great Vessels The aortic root is normal size. The inferior vena cava appeared normal and decreased > 50% with respiration (RAP 5-10 mmHg). Effusions There is no pericardial effusion. : GINGER DUARTE > Ginger Duarte
== END ==
LOC: SP 10:47
PROVIDERS: ATTEND Specialist
DX: R06.00 Dyspnea, unspecified (principal)
CPT/HCPCS: 93306

== ENCOUNTER 2019-04-22 15:39 | Emergency (ER) | payer MEDICARE ==
--- NOTE | 2019-04-22 17:07 | ER Document Report ---
ED Medical Screen (RME) - General Chief Complaint: Palpitations Stated Complaint: PALPITATIONS Time Seen by Provider: 04/22/19 16:53 Primary Care Provider: RONALD DUARTE MD [Primary Care Provider] - Follow up as needed Mode of Arrival: Ambulatory Information source: Patient Notes: Patient is a 68-year-old female dialysis patient who skipped dialysis today markos use she was having palpitations. Patient denies any chest pain but states that she is been having fatigue lately. She states she called Dr. Shanks's office and explained her symptoms and they told her to come to the emergency department. Exam: Skin pale. Patient alert, oriented and answering all questions appropriately. I have greeted and performed a rapid initial assessment of this patient. A comprehensive ED assessment and evaluation of the patient, analysis of test results and completion of the medical decision making process will be conducted by additional ED providers. Dictation of this chart was performed using voice recognition software; therefore, there may be some unintended grammatical errors. TRAVEL OUTSIDE OF THE [place] IN LAST 30 DAYS: No - Related Data Allergies/Adverse Reactions: ASAD Inhibitors Allergy (Verified 04/22/19 15:41) "Red from chin to chest" Sulfa (Sulfonamide Antibiotics) Allergy (Verified 04/22/19 15:41) Hives Past Medical History - Past Medical History Cardiac Medical History: Reports: Hx Congestive Heart Failure - during renal failure, Hx Coronary Artery Disease, Hx Hypertension Denies: Hx Heart Attack Pulmonary Medical History: Reports: Hx COPD - "slight", no home O2, Hx Pneumonia - "Years ago" Denies: Hx Asthma, Hx Bronchitis Neurological Medical History: Denies: Hx Cerebrovascular Accident, Hx Seizures Renal/ Medical History: Reports: Hx End Stage Renal Disease. Denies: Hx Peritoneal Dialysis GI Medical History: Reports: Hx Diverticulitis Musculoskeltal Medical History: Denies Hx Arthritis Psychiatric Medical History: Reports: Hx Depression Past Surgical History: Reports: Hx Cholecystectomy, Hx Vascular Surgery, Other - Status post nephrectomy - Immunizations Hx Diphtheria, Pertussis, Tetanus Vaccination: Yes History of Influenza Vaccine for 08/2017 - 01/2018 Season: Yes Influenza Administration Date for 08/2017 - 01/2018 Season: 08/17/17 Physical Exam - Vital signs Vitals: Temp Pulse Resp BP Pulse Ox 98.0 F 63 16 144/61 H 92 04/22/19 15:42 04/22/19 15:42 04/22/19 15:42 04/22/19 15:42 04/22/19 15:42 Course - Vital Signs Vital signs: Temp Pulse Resp BP Pulse Ox 98.0 F 63 16 144/61 H 92 04/22/19 15:42 04/22/19 15:42 04/22/19 15:42 04/22/19 15:42 04/22/19 15:42 Doctor's Discharge - Discharge Referrals: RONALD DUARTE MD [Primary Care Provider] - Follow up as needed
[2019-04-22 17:52] LABS: ABSOLUTE EOSINOPHILS # (AUTO) 0.2 10^3/uL (0.0-0.6); ABSOLUTE LYMPHOCYTES (AUTO) 1.7 10^3/uL (0.5-4.7); ABSOLUTE MONOCYTES (AUTO) 0.4 10^3/uL (0.1-1.4); ABSOLUTE NEUT (AUTO) 3.6 10^3/uL (1.7-8.2); BASOPHILS % (AUTO) 0.6 % (0-2); EOSINOPHILS % (AUTO) 3.5 % (0-6); HEMATOCRIT 35.2 % (36.0-47.0); HEMOGLOBIN 11.4 g/dL (12.0-15.5); LYMPHOCYTES % (AUTO) 28.3 % (13-45); MEAN CORPUSCULAR HEMOGLOBIN 31.2 pg (27.0-33.4); MEAN CORPUSCULAR HGB CONC 32.4 g/dL (32.0-36.0); MEAN CORPUSCULAR VOLUME 96 fl (80-97); MONOCYTES % (AUTO) 7.3 % (3-13); PLATELET COUNT 193 10^3/uL (150-450); RED BLOOD COUNT 3.66 10^6/uL (3.72-5.28); RED CELL DISTRIBUTION WIDTH 16.2 % (11.5-14.0); SEGMENTED NEUTROPHILS % (AUTO) 60.3 % (42-78); TOTAL CELLS COUNTED % (AUTO) 100 %; WHITE BLOOD COUNT 5.9 10^3/uL (4.0-10.5)
[2019-04-22 18:10] LABS: ALANINE AMINOTRANSFERASE 17 U/L (9-52); ALBUMIN 3.8 g/dL (3.5-5.0); ALKALINE PHOSPHATASE 123 U/L (38-126); ANION GAP 11 (5-19); ASPARTATE AMINO TRANSFERASE 20 U/L (14-36); BILIRUBIN,DIRECT 0.5 mg/dL (0.0-0.4); BILIRUBIN,TOTAL 0.5 mg/dL (0.2-1.3); BLOOD UREA NITROGEN 42 mg/dL (7-20); CALCIUM 9.6 mg/dL (8.4-10.2); CARBON DIOXIDE 28 mmol/L (22-30); CHLORIDE 99 mmol/L (98-107); GLUCOSE 79 mg/dL (75-110); POTASSIUM 3.9 mmol/L (3.6-5.0); SODIUM 138.3 mmol/L (137-145); TOTAL PROTEIN 7.1 g/dL (6.3-8.2)
--- NOTE | 2019-04-22 18:16 | RADIOLOGY REPORT (SQ) ---
EXAM DESCRIPTION: CHEST SINGLE VIEW COMPLETED DATE/TIME: 04/22/2019 5:42 pm REASON FOR STUDY: chest pain COMPARISON: 03/01/2019 NUMBER OF VIEWS: One view. TECHNIQUE: Single frontal radiographic image of the chest acquired. LIMITATIONS: None. FINDINGS: LUNGS AND PLEURA: Stable appearance. Chronic right lower lobe collapse. Chronic right pl eural effusion. Unchanged pleural-based density right apex. Unchanged bilateral apical pleural thic kening. MEDIASTINUM AND HEART: Stable heart size and mediastinal structures. BONY STRUCTURES: No acute findings. HARDWARE: None. OTHER: Unchanged vascular stents. IMPRESSION: Stable, chronic changes. TECHNICAL DOCUMENTATION: JOB ID: [id number] Reading location - IP/workstation name: [email or web address]
--- NOTE | 2019-04-22 19:43 | ER Document Report ---
ED Cardiac - General Chief Complaint: Palpitations Stated Complaint: PALPITATIONS Time Seen by Provider: 04/22/19 16:53 Primary Care Provider: RONALD DUARTE MD [ACTIVE STAFF] - Follow up as needed Mode of Arrival: Ambulatory Information source: Patient Notes: Patient is a 68-year-old female dialysis patient who skipped dialysis today because she was having palpitations. Patient denies any chest pain but states that she is been having fatigue lately. She states she called Dr. Shanks's office and explained her symptoms and they told her to come to the emergency department. TRAVEL OUTSIDE OF THE [place] IN LAST 30 DAYS: No - Related Data Allergies/Adverse Reactions: ASAD Inhibitors Allergy (Verified 04/22/19 15:41) "Red from chin to chest" Sulfa (Sulfonamide Antibiotics) Allergy (Verified 04/22/19 15:41) Hives Past Medical History - General Information source: Patient - Social History Smoking Status: Former Smoker Frequency of alcohol use: None Drug Abuse: None Family History: Reviewed & Not Pertinent Patient has suicidal ideation: No Patient has homicidal ideation: No - Past Medical History Cardiac Medical History: Reports: Hx Congestive Heart Failure - during renal failure, Hx Coronary Artery Disease, Hx Hypertension Denies: Hx Heart Attack Pulmonary Medical History: Reports: Hx COPD - "slight", no home O2, Hx Pneumonia - "Years ago" Denies: Hx Asthma, Hx Bronchitis Neurological Medical History: Denies: Hx Cerebrovascular Accident, Hx Seizures Renal/ Medical History: Reports: Hx End Stage Renal Disease. Denies: Hx Perit [facility] Dialysis GI Medical History: Reports: Hx Diverticulitis Musculoskeletal Medical History: Denies Hx Arthritis Psychiatric Medical History: Reports: Hx Depression Past Surgical History: Reports: Hx Cholecystectomy, Hx Vascular Surgery, Other - Status post nephrectomy - Immunizations Hx Diphtheria, Pertussis, Tetanus Vaccination: Yes Hx Pneumococcal Vaccination: 11/17/14 Review of Systems - Review of Systems Constitutional: Other - fatigue EENT: No symptoms reported Cardiovascular: Palpitations Respiratory: No symptoms reported Gastrointestinal: No symptoms reported Genitourinary: No symptoms reported Female Genitourinary: No symptoms reported Musculoskeletal: No symptoms reported Skin: No symptoms reported Hematologic/Lymphatic: No symptoms reported Neurological/Psychological: No symptoms reported Physical Exam - Vital signs Vitals: Temp Pulse Resp BP Pulse Ox 98.0 F 63 16 144/61 H 92 04/22/19 15:42 04/22/19 15:42 04/22/19 15:42 04/22/19 15:42 04/22/19 15:42 - Notes Notes: PHYSICAL EXAMINATION: GENERAL: Cachectic. HEAD: Atraumatic, normocephalic. EYES: Pupils equal round and reactive to light, extraocular movements intact, conjunctiva are normal. ENT: Nares patent, oropharynx clear without exudates. NECK: Normal range of motion, supple without lymphadenopathy LUNGS: Breath sounds clear to auscultation bilaterally and equal. No wheezes rales or rhonchi. HEART: Regular rate and rhythm without murmurs ABDOMEN: Soft, nontender, nondistended abdomen. No guarding, no rebound. No masses appreciated. Female : No CVA tenderness. Musculoskeletal: Normal range of motion, no pitting or edema. No cyanosis. NEUROLOGICAL: Cranial nerves grossly intact. Normal speech, normal gait. Normal sensory, motor exams PSYCH: Normal mood, normal affect. SKIN: Warm, Dry, normal turgor, no rashes or lesions noted. Course - Re-evaluation Re-evalutation: CBC is unremarkable. CMP shows an elevated creatinine however this is at baseline for the patient. Chest x-ray is negative. Patient requesting to go home. I did call and speak with patient's open end spinning operator, Dr. Duarte who agrees that patient can be discharged home. Patient will follow-up with him in his office in the next 1 to 2 days. Patient given strict ED return precautions. - Vital Signs Vital signs: Temp Pulse Resp BP Pulse Ox 97.6 F 61 16 148/51 H 92 04/22/19 19:32 04/22/19 19:32 04/22/19 15:42 04/22/19 19:32 04/22/19 19:32 - Laboratory Result Diagrams: 04/22/19 17:34 04/22/19 17:34 Laboratory results interpreted by me: 04/22/19 04/22/19 17:34 17:34 RBC 3.66 L Hgb 11.4 L Hct 35.2 L RDW 16.2 H BUN 42 H Creatinine 3.26 H Est GFR ( Amer) 17 L Est GFR (Non-Af Amer) 14 L Direct Bilirubin 0.5 H - Diagnostic Test Radiology reviewed: Image reviewed, Reports reviewed - EKG Interpretation by Me EKG shows normal: Sinus rhythm Rate: Normal [place]/QRS: RBBB When compared to previous EKG there are: No significant change - From February 2019 EKG Discharge - Discharge Clinical Impression: Palpitation Condition: Stable Disposition: HOME, SELF-CARE Additional Instructions: Palpitations (Irregular/Rapid Heartrate) Irregular or rapid heartbeat is called "palpitation." To diagnose the cause of palpitation, we have to "catch it in the act" with an EKG. Sinus Tachycardia: This is a rapid (but NORMAL) rhythm that can be due to fever, pain, anxiety, lack of sleep, over-exertion, or drugs. Cold medications, caffeine, and diet pills are particularly likely to cause tachycardia. Usually, all that's required is rest, reassurance, and avoiding caffeine, alcohol, nicotine, and unnecessary medicines. Paroxysmal Atrial Tachycardia (PAT): This abnormally rapid heartbeat is caused by a "short circuit" in the electrical system of the heart. It is not dangerous, unless other heart disease is present. These attacks of PAT may occur occasionally for years. Medication is available for treatment. Paroxysmal Atrial Fibrillation or Atrial Flutter: This is irregular electrical activity in the upper heart chamber. These abnormal rhythms often occur with valve disease or in hearts damaged by hardening of the arteries. These rhythms usually require further testing, for example a cardiac echo. Premature Beats: Extra beats occur more commonly after caffeine, nicotine, alcohol, cold pills, diet pills. Emotional stress or fatigue also provoke them. Extra beats are only dangerous when heart disease is present. They usually need no treatment. If they're frequent, or if evidence of heart disease develop s, medication can be given to suppress them. If we were unable to "catch" the palpitations on EKG, you should try to get an EKG immediately if the symptoms begin again. Contact the physician at once if you develop persistent lightheadedness, shortness of breath, chest pain, or swelling of the ankles. Please call Dr. bowden office in the morning to schedule a follow-up. Return to the emergency department with any new or worsening symptoms. Referrals: RONALD DUARTE MD [ACTIVE STAFF] - Follow up as needed
[2019-04-22 20:09] VITALS: BP 148/51
--- NOTE | 2019-04-23 22:08 | EKG REPORT ---
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
== END 2019-04-22 19:50 | disposition home or self-care (01) ==
LOC: ER 15:39
DX: R00.2 Palpitations (principal); R53.83 Other fatigue; I13.11 Hypertensive heart and chronic kidney disease without heart failure, with stage 5 chronic kidney disease, or end stage renal disease; N18.6 End stage renal disease; Z99.2 Dependence on renal dialysis; Z90.49 Acquired absence of other specified parts of digestive tract; Z87.891 Personal history of nicotine dependence; Z88.2 Allergy status to sulfonamides; Z90.5 Acquired absence of kidney
CPT/HCPCS: 36415; 71045; 80053; 84484; 85025; 93005; 93010; 99285

== ENCOUNTER 2019-04-26 07:13 | Day surgery (SDC) | payer MEDICARE ==
[~2019-04-26 07:13] MED LIST changes: -DIAZEPAM 5 MG TABLET PO PRN; +DIAZEPAM 5 MG TABLET PO SCH; -OXYCODONE-ACETAMINOPHEN 5-325 MG TABLET PO PRN
[2019-04-26 09:01] LABS: HEMATOCRIT 31.6 % (36.0-47.0); HEMOGLOBIN 10.4 g/dL (12.0-15.5); MEAN CORPUSCULAR HEMOGLOBIN 31.7 pg (27.0-33.4); MEAN CORPUSCULAR HGB CONC 32.9 g/dL (32.0-36.0); MEAN CORPUSCULAR VOLUME 97 fl (80-97); PLATELET COUNT 174 10^3/uL (150-450); RED BLOOD COUNT 3.27 10^6/uL (3.72-5.28); RED CELL DISTRIBUTION WIDTH 16.5 % (11.5-14.0); WHITE BLOOD COUNT 6.1 10^3/uL (4.0-10.5)
[2019-04-26 09:18] LABS: ANION GAP 10 (5-19); BLOOD UREA NITROGEN 41 mg/dL (7-20); CALCIUM 9.7 mg/dL (8.4-10.2); CARBON DIOXIDE 26 mmol/L (22-30); CHLORIDE 101 mmol/L (98-107); GLUCOSE 124 mg/dL (75-110); POTASSIUM 3.7 mmol/L (3.6-5.0)
[2019-04-26] MEDS ORDERED: LIDOCAINE 0.5% INJ-PF (5 MG/ML) 50 ML SDV ONE (09:41)
[2019-04-26] MEDS ORDERED: MIDAZOLAM 2 MG/2 ML INJ ONE (09:41)
[2019-04-26] MEDS ORDERED: HEPARIN SOD (PORCINE) 5,000 UNIT/ML 1 ML SYRINGE ONE (09:42)
[2019-04-26] MEDS ORDERED: FENTANYL CITRATE INJ/PF 100 MCG/2 ML AMPUL ONE (09:42)
--- NOTE | 2019-04-26 11:29 | Discharge Summary ---
Discharge Summary (SDC) - Discharge Final Diagnosis: #1 malfunctioning AV fistula, left brachiocephalic. 2. End-stage renal disease on hemodialysis. 3. Hypertension. 4. Multiple comorbidities. Date of Surgery: 04/26/19 Discharge Date: 04/26/19 Condition: Poor Treatment or Instructions: Discharge home [after recovery per ASU criteria]. Diet , [renal],as tolerated, when fully awake advance as tolerated. Activities within moderation encouraged. Follow up in my office by appointment on Friday or of this week for suture removal. Call for appointment. Leave wounds [covered], [keep clean and dry, until office visit this week]. Meds per med rec. May shower [in 48 hrs], [try to keep operated area as dry as possible]. Referrals: ESTEFANÍA TREVINO MD [Primary Care Provider] - Discharge Diet: Other (Comments) - Renal. Respiratory Treatments at Home: Deep Breathing/Coughing Discharge Activity: Activity As Tolerated Report the Following to Your Physician Immediately: Shortness of Breath, Unusual Bleeding
--- NOTE | 2019-04-26 11:32 | Operative Report ---
Operative Report DATE OF SURGERY: 04/26/19 PREOPERATIVE DIAGNOSIS: #1 malfunctioning AV fistula, left brachiocephalic. 2. End-stage renal disease on hemodialysis. 3. Hypertension. 4. Multiple comorbidities. POSTOPERATIVE DIAGNOSIS: #1 malfunctioning AV fistula, left brachiocephalic. 2. End-stage renal disease on hemodialysis. 3. Hypertension. 4. Multiple comorbidities. OPERATION: 1. Needle access into the fistula. 2. Central venous angioplasty. 3. Peripheral angioplasty. 4. Angiogram and interpretation. SURGEON: MARGO FOY NEGATIVE SPOTTER: None. ANESTHESIA: Moderate Sedation TISSUE REMOVED OR ALTERED: Not applicable. COMPLICATIONS: None. ESTIMATED BLOOD LOSS: 2 mL. INTRAOPERATIVE FINDINGS: Of a well founded left brachiocephalic fistula. Tortuous and ectatic. Very firm suggestive of cephalad stenosis. Findings and angiogram consisted of collaterals noted suggestive of central stenosis. Central stenosis noted at the position of the bare-metal stent in the left innominate and superior vena cava. Particularly innominate arch. Also stenosis in the cephalic arch, where a covered stent is in place. Angioplasty with a 10 mm balloon throughout the stents and 12 mm drug-eluting millimeters balloon in the bare-metal stent improved the flow with less prominent collaterals and elimination of the waist in the left innominate.
--- NOTE | 2019-04-26 11:58 | RADIOLOGY REPORT (SQ) ---
EXAM DESCRIPTION: FISTULAGRAM W/PLASTY; ANGIOPLASTY BRACHIOCEPHALIC COMPLETED DATE/TIME: 04/26/2019 11:00 am REASON FOR STUDY: T82.858A T82.858A STENOSIS OF OTHER VASCULAR PROSTH DEV/GRFT, INIT COMPARISON: None. FLUOROSCOPY TIME: 3.2 minute. 158 images saved to PACS. TECHNIQUE: Intra-operative images acquired during surgical procedure to evaluate progress. NUMBER OF IMAGES: 158 images. LIMITATIONS: None. FINDINGS: Imaging in fluoroscopy during left upper extremity dialysis access evaluation and plasty b y Dr. Hartmann . Please refer to the operative report for further details. IMPRESSION: INTRA PROCEDURAL IMAGING ABOVE . COMMENT: Quality ID [id number]: Final reports for procedures using fluoroscopy that document radiation exp osure indices, or exposure time and number of fluorographic images (if radiation exposure indices are not available) Please consult full operative report of the attending physician for description of the procedure. TECHNICAL DOCUMENTATION: JOB ID: [id number] [employer]- All Rights Reserved Reading location - IP/workstation name: [email or web address]
--- NOTE | 2019-04-26 11:58 | RADIOLOGY REPORT (SQ) ---
EXAM DESCRIPTION: FISTULAGRAM W/PLASTY; ANGIOPLASTY BRACHIOCEPHALIC COMPLETED DATE/TIME: 04/26/2019 11:00 am REASON FOR STUDY: T82.858A T82.858A STENOSIS OF OTHER VASCULAR PROSTH DEV/GRFT, INIT COMPARISON: None. FLUOROSCOPY TIME: 3.2 minute. 158 images saved to PACS. TECHNIQUE: Intra-operative images acquired during surgical procedure to evaluate progress. NUMBER OF IMAGES: 158 images. LIMITATIONS: None. FINDINGS: Imaging in fluoroscopy during left upper extremity dialysis access evaluation and plasty b y Dr. Hartmann . Please refer to the operative report for further details. IMPRESSION: INTRA PROCEDURAL IMAGING ABOVE . COMMENT: Quality ID [id number]: Final reports for procedures using fluoroscopy that document radiation exp osure indices, or exposure time and number of fluorographic images (if radiation exposure indices are not available) Please consult full operative report of the attending physician for description of the procedure. TECHNICAL DOCUMENTATION: JOB ID: [id number] [employer]- All Rights Reserved Reading location - IP/workstation name: [email or web address]
[2019-04-26 13:19] VITALS: BP 144/65
== END 2019-04-26 12:20 | disposition home or self-care (01) ==
LOC: CCL 07:13
PROVIDERS: ATTEND Surgery
DX: T82.858A Stenosis of other vascular prosthetic devices, implants and grafts, initial encounter (principal); Y83.2 Surgical operation with anastomosis, bypass or graft as the cause of abnormal reaction of the patient, or of later complication, without mention of misadventure at the time of the procedure; I12.0 Hypertensive chronic kidney disease with stage 5 chronic kidney disease or end stage renal disease; N18.6 End stage renal disease; Z99.2 Dependence on renal dialysis; F17.210 Nicotine dependence, cigarettes, uncomplicated; Z79.899 Other long term (current) drug therapy; Z79.82 Long term (current) use of aspirin; I25.10 Atherosclerotic heart disease of native coronary artery without angina pectoris; Z01.818 Encounter for other preprocedural examination; J44.9 Chronic obstructive pulmonary disease, unspecified; R60.9 Edema, unspecified; N28.9 Disorder of kidney and ureter, unspecified; Z90.5 Acquired absence of kidney
CPT/HCPCS: 36415; 85027; 80048; 36907; 36902; C1725; C2623; C1752; C1887; Q9967; C1769; J2250; J1644 ×2; J3010; J3490

== ENCOUNTER 2019-05-06 13:12 | Emergency (ER) | payer MEDICARE ==
--- NOTE | 2019-05-06 14:23 | ER Document Report ---
ED Medical Screen (RME) - General Chief Complaint: Weakness Stated Complaint: WEAKNESS Time Seen by Provider: 05/06/19 14:20 Primary Care Provider: ESTEFANÍA TREVINO MD [Primary Care Provider] - Follow up as needed Mode of Arrival: Wheelchair Information source: Patient Notes: Patient presents emergency department with complaints of weakness dizzy high blood pressure and loss of bladder this morning. Patient also reports she takes clonazepam and recently found out her prescription was not getting refilled so she is been cutting in half and thinks she may be going through withdrawals. Patient O2 sat was 89% on palmar arrival on room air. Went up to 100% on 3 L nasal cannula. Patient does not use home O2. I have greeted and performed a rapid initial assessment of this patient. A comprehensive ED assessment and evaluation of the patient, analysis of test results and completion of the medical decision making process will be conducted by additional ED providers. Dictation of this chart was performed using voice recognition software; therefore, there may be some unintended grammatical errors. TRAVEL OUTSIDE OF THE [place] IN LAST 30 DAYS: No - Related Data Allergies/Adverse Reactions: ASAD Inhibitors Allergy (Verified 05/06/19 13:17) "Red from chin to chest" Sulfa (Sulfonamide Antibiotics) Allergy (Verified 05/06/19 13:17) Hives Past Medical History - Past Medical History Cardiac Medical History: Reports: Hx Congestive Heart Failure - during renal failure, Hx Coronary Artery Disease, Hx Hypertension Denies: Hx Heart Attack Pulmonary Medical History: Reports: Hx COPD - "slight", no home O2, Hx Pneumonia - "Years ago" Denies: Hx Asthma, Hx Bronchitis Neurological Medical History: Denies: Hx Cerebrovascular Accident, Hx Seizures Renal/ Medical History: Reports: Hx End Stage Renal Disease. Denies: Hx Peritoneal Dialysis GI Medical History: Reports: Hx Diverticulitis Musculoskeltal Medical History: Denies Hx Arthritis Psychiatric Medical History: Reports: Hx Depression Past Surgical History: Reports: Hx Cholecystectomy, Hx Vascular Surgery, Other - Status post nephrectomy - Immunizations Hx Diphtheria, Pertussis, Tetanus Vaccination: Yes History of Influenza Vaccine for 08/2017 - 01/2018 Season: Yes Influenza Administration Date for 08/2017 - 01/2018 Season: 08/17/17 Physical Exam - Vital signs Vitals: Temp Pulse Resp BP Pulse Ox 97.6 F 67 20 157/52 H 90 L 05/06/19 13:23 05/06/19 13:23 05/06/19 13:23 05/06/19 13:23 05/06/19 13:23 Course - Vital Signs Vital signs: Temp Pulse Resp BP Pulse Ox 97.6 F 67 20 157/52 H 90 L 05/06/19 13:23 05/06/19 13:23 05/06/19 13:23 05/06/19 13:23 05/06/19 13:23 Doctor's Discharge - Discharge Referrals: ESTEFANÍA TREVINO MD [Primary Care Provider] - Follow up as needed
[2019-05-06 15:17] LABS: ABSOLUTE BASOPHILS # (AUTO) 0.1 10^3/uL (0.0-0.2); ABSOLUTE EOSINOPHILS # (AUTO) 0.2 10^3/uL (0.0-0.6); ABSOLUTE LYMPHOCYTES (AUTO) 1.3 10^3/uL (0.5-4.7); ABSOLUTE MONOCYTES (AUTO) 0.4 10^3/uL (0.1-1.4); ABSOLUTE NEUT (AUTO) 5.4 10^3/uL (1.7-8.2); BASOPHILS % (AUTO) 1.3 % (0-2); EOSINOPHILS % (AUTO) 2.4 % (0-6); HEMATOCRIT 34.2 % (36.0-47.0); LYMPHOCYTES % (AUTO) 17.6 % (13-45); MEAN CORPUSCULAR HEMOGLOBIN 31.7 pg (27.0-33.4); MEAN CORPUSCULAR HGB CONC 32.2 g/dL (32.0-36.0); MEAN CORPUSCULAR VOLUME 99 fl (80-97); MONOCYTES % (AUTO) 4.8 % (3-13); PLATELET COUNT 210 10^3/uL (150-450); RED BLOOD COUNT 3.47 10^6/uL (3.72-5.28); RED CELL DISTRIBUTION WIDTH 17.8 % (11.5-14.0); SEGMENTED NEUTROPHILS % (AUTO) 73.9 % (42-78); TOTAL CELLS COUNTED % (AUTO) 100 %; WHITE BLOOD COUNT 7.3 10^3/uL (4.0-10.5)
[2019-05-06 15:35] LABS: ALANINE AMINOTRANSFERASE 12 U/L (9-52); ALBUMIN 3.6 g/dL (3.5-5.0); ALKALINE PHOSPHATASE 131 U/L (38-126); ANION GAP 8 (5-19); ASPARTATE AMINO TRANSFERASE 16 U/L (14-36); BILIRUBIN,DIRECT 0.4 mg/dL (0.0-0.4); BILIRUBIN,TOTAL 0.4 mg/dL (0.2-1.3); BLOOD UREA NITROGEN 31 mg/dL (7-20); CALCIUM 9.7 mg/dL (8.4-10.2); CARBON DIOXIDE 30 mmol/L (22-30); CHLORIDE 98 mmol/L (98-107); GLUCOSE 108 mg/dL (75-110); POTASSIUM 4.6 mmol/L (3.6-5.0); SODIUM 135.9 mmol/L (137-145); TOTAL PROTEIN 6.8 g/dL (6.3-8.2)
--- NOTE | 2019-05-06 16:44 | ER Document Report ---
ED General - General Chief Complaint: Weakness Stated Complaint: WEAKNESS Time Seen by Provider: 05/06/19 14:20 Primary Care Provider: ESTEFANÍA TREVINO MD [Primary Care Provider] - Follow up in 3-5 days Mode of Arrival: Wheelchair Information source: Patient Notes: This is a 68-year-old female with a history of end-stage renal disease (Friday, , Friday), hypertension, COPD (1/2 pack/day smoker) who presents to the emergency room with weakness, shakiness, cough and some wheezing. TRAVEL OUTSIDE OF THE [place] IN LAST 30 DAYS: No - HPI Onset: This morning Onset/Duration: Gradual Quality of pain: No pain Severity: None Pain Level: Denies Associated symptoms: denies: Chest pain, Fever, Shortness of breath Exacerbated by: Denies Relieved by: Denies Similar symptoms previously: No Recently seen / treated by doctor: No - Related Data Allergies/Adverse Reactions: ASAD Inhibitors Allergy (Verified 05/06/19 13:17) "Red from chin to chest" Sulfa (Sulfonamide Antibiotics) Allergy (Verified 05/06/19 13:17) Hives Past Medical History - General Information source: Patient - Social History Smoking Status: Current Every Day Smoker Cigarette use (# per day): Yes - 1 pack/day Chew tobacco use (# tins/day): No Frequency of alcohol use: None Drug Abuse: None Lives with: Family Family History: Reviewed & Not Pertinent Patient has suicidal ideation: No Patient has homicidal ideation: No - Past Medical History Cardiac Medical History: Reports: Hx Congestive Heart Failure - during renal failure, Hx Coronary Artery Disease, Hx Hypertension Denies: Hx Heart Attack Pulmonary Medical History: Reports: Hx COPD - "slight", no home O2, Hx Pneumonia - "Years ago" Denies: Hx Asthma, Hx Bronchitis Neurological Medical History: Denies: Hx Cerebrovascular Accident, Hx Seizures Renal/ Medical History: Reports: Hx End Stage Renal Disease. Denies: Hx Peritoneal Dialysis GI Medical History: Reports: Hx Diverticulitis Musculoskeletal Medical History: Denies Hx Arthritis Psychiatric Medical History: Reports: Hx Depression Past Surgical History: Reports: Hx Cholecystectomy, Hx Vascular Surgery, Other - Status post nephrectomy - Immunizations Hx Diphtheria, Pertussis, Tetanus Vaccination: Yes Hx Pneumococcal Vaccination: 11/17/14 Review of Systems - Review of Systems Constitutional: denies: Chills, Fever EENT: No symptoms reported Cardiovascular: No symptoms reported Respiratory: No symptoms reported Gastrointestinal: No symptoms reported Genitourinary: See HPI Female Genitourinary: No symptoms reported Musculoskeletal: No symptoms reported Skin: No symptoms reported Hematologic/Lymphatic: No symptoms reported Neurological/Psychological: See HPI, Weakness Physical Exam - Vital signs Vitals: Temp Pulse Resp BP Pulse Ox 97.6 F 67 20 157/52 H 90 L 05/06/19 13:23 05/06/19 13:23 05/06/19 13:23 05/06/19 13:23 05/06/19 13:23 Notes: Physical exam: GENERAL: 68-year-old female, alert and oriented x3, chronically ill-appearing, does appear weak. HEAD: Atraumatic, normocephalic. EYES: Pupils equal round and reactive to light, extraocular movements intact, sclera anicteric, conjunctiva are normal. ENT: TMs normal, nares patent, oropharynx clear without exudates. Moist mucous membranes. NECK: Normal range of motion, supple without obvious mass or JVD. LUNGS: Bilateral wheezes HEART: Regular rate and rhythm without murmurs, rubs or gallops. ABDOMEN: Soft, normoactive bowel sounds. No tenderness to palpation. No guarding, no rebound. No masses appreciated. EXTREMITIES: AV fistula in the left upper extremity: Good thrill. NEUROLOGICAL: Cranial nerves II through XII grossly intact. Normal speech, moving all extremities. PSYCH: Normal mood, normal affect. SKIN: Warm, Dry, normal turgor, no rashes or lesions noted. Course - Vital Signs Vital signs: Temp Pulse Resp BP Pulse Ox 98.4 F 67 20 149/67 H 95 05/06/19 20:48 05/06/19 13:23 05/06/19 20:48 05/06/19 20:48 05/06/19 20:48 - Laboratory Result Diagrams: 05/06/19 14:42 05/06/19 14:42 Laboratory results interpreted by me: 05/06/19 05/06/19 05/06/19 14:42 14:42 14:42 RBC 3.47 L Hgb 11.0 L Hct 34.2 L MCV 99 H RDW 17.8 H Sodium 135.9 L BUN 31 H Creatinine 3.04 H Est GFR ( Amer) 18 L Est GFR (Non-Af Amer) 15 L Alkaline Phosphatase 131 H NT-Pro-B Natriuret Pep 6200 H Urine Protein Urine Glucose (UA) Ur Leukocyte Esterase 05/06/19 19:05 RBC Hgb Hct MCV RDW Sodium BUN Creatinine Est GFR ( Amer) Est GFR (Non-Af Amer) Alkaline Phosphatase NT-Pro-B Natriuret Pep Urine Protein 100 H Urine Glucose (UA) 50 H Ur Leukocyte Esterase TRACE H - Diagnostic Test Radiology reviewed: Image reviewed, Reports reviewed - Chest x-ray shows no infiltrates - EKG Interpretation by Me Rate: Normal Rhythm: NSR - EKG shows normal sinus rhythm with a ventricular rate of 70, left anterior fascicular block, right bundle branch block, no acute ST-T wave changes. Patient does have a history of a left anterior fascicular block and a right bundle branch block. Discharge - Discharge Clinical Impression: Weakness, UTI Condition: Stable Disposition: HOME, SELF-CARE Additional Instructions: As we discussed, your labs look good today. Your urine showed a mild early UTI. Your chest x-ray look good. Take the antibiotics as prescribed Follow-up with dialysis tomorrow. Return to the ER for worsening weakness or any concerns or getting worse. Follow-up with your primary care doctor. Prescriptions: Cephalexin Monohydrate [Keflex 500 mg Capsule] 500 mg PO QID #20 capsule Referrals: ESTEFANÍA TREVINO MD [Primary Care Provider] - Follow up in 3-5 days
[2019-05-06] MEDS ORDERED: IPRATROPIUM/ALBUTEROL 0.5-2.5 MG/3 ML AMPUL NEB ONE (16:45)
--- NOTE | 2019-05-06 17:27 | RADIOLOGY REPORT (SQ) ---
EXAM DESCRIPTION: CHEST SINGLE VIEW COMPLETED DATE/TIME: 05/06/2019 5:09 pm REASON FOR STUDY: cough COMPARISON: 04/22/2019 EXAM PARAMETERS: NUMBER OF VIEWS: One view. TECHNIQUE: Single frontal radiographic view of the chest acquired. RADIATION DOSE: NA LIMITATIONS: None. FINDINGS: LUNGS AND PLEURA: Persistent right pleural effusion. Cannot exclude a minimal left pleura l effusion. The lungs are hyperexpanded. No focal infiltrate or mass. MEDIASTINUM AND HILAR STRUCTURES: No masses. Contour normal. HEART AND VASCULAR STRUCTURES: Cardiomegaly BONES: No acute findings. HARDWARE: Left subclavian/ axillary stent. OTHER: No other significant finding. IMPRESSION: Cardiomegaly without pulmonary edema. Persistent right pleural effusion. Chronic lung changes. TECHNICAL DOCUMENTATION: JOB ID: [id number] [email or web address]- All Rights Reserved Reading location - IP/workstation name: [email or web address]
--- NOTE | 2019-05-06 19:34 | EKG REPORT ---
SEVERITY:- ABNORMAL ECG - SINUS RHYTHM FIRST DEGREE AV BLOCK RBBB AND LAFB PROBABLE LEFT VENTRICULAR HYPERTROPHY : Confirmed by: Ginger Mayer MD 06-May-2019 19:33:44
[2019-05-06 19:47] LABS: APPEARANCE,URINE CLEAR; BILIRUBIN,URINE NEGATIVE (NEGATIVE); COLOR,URINE YELLOW; GLUCOSE, URINE 50 mg/dL (NEGATIVE); KETONES,URINE NEGATIVE (NEGATIVE); LEUKOCYTE ESTERASE,URINE TRACE (NEGATIVE); NITRITE,URINE NEGATIVE (NEGATIVE); PROTEIN,URINE 100 mg/dL (NEGATIVE); URINE SPECIFIC GRAVITY 1.008; UROBILINOGEN,URINE NEGATIVE mg/dL (<2.0)
[2019-05-06] MEDS ORDERED: CEPHALEXIN 500 MG CAPSULE PO ONE (20:15)
[2019-05-06 20:52] VITALS: BP 149/67
== END 2019-05-06 20:55 | disposition home or self-care (01) ==
LOC: ER 13:12
DX: N39.0 Urinary tract infection, site not specified (principal); I12.0 Hypertensive chronic kidney disease with stage 5 chronic kidney disease or end stage renal disease; N18.6 End stage renal disease; Z99.2 Dependence on renal dialysis; J44.9 Chronic obstructive pulmonary disease, unspecified; I45.2 Bifascicular block; R53.1 Weakness; R05 Cough; F17.210 Nicotine dependence, cigarettes, uncomplicated; I25.10 Atherosclerotic heart disease of native coronary artery without angina pectoris; Z88.8 Allergy status to other drugs, medicaments and biological substances; Z88.2 Allergy status to sulfonamides
CPT/HCPCS: 93005; 94640; 99285; 36415; 85025; 80053; 81001; 83880; 71045; 93010; A9270 ×2; J7620

== ENCOUNTER 2019-05-11 08:48 | Observation (INO) | payer MEDICARE ==
[2019-05-11 09:23] LABS: ABSOLUTE EOSINOPHILS # (AUTO) 0.1 10^3/uL (0.0-0.6); ABSOLUTE LYMPHOCYTES (AUTO) 1.2 10^3/uL (0.5-4.7); ABSOLUTE MONOCYTES (AUTO) 0.4 10^3/uL (0.1-1.4); ABSOLUTE NEUT (AUTO) 4.4 10^3/uL (1.7-8.2); BASOPHILS % (AUTO) 0.6 % (0-2); EOSINOPHILS % (AUTO) 2.2 % (0-6); HEMATOCRIT 33.6 % (36.0-47.0); HEMOGLOBIN 10.9 g/dL (12.0-15.5); MEAN CORPUSCULAR HEMOGLOBIN 32.1 pg (27.0-33.4); MEAN CORPUSCULAR HGB CONC 32.5 g/dL (32.0-36.0); MEAN CORPUSCULAR VOLUME 99 fl (80-97); MONOCYTES % (AUTO) 5.8 % (3-13); PLATELET COUNT 215 10^3/uL (150-450); RED BLOOD COUNT 3.41 10^6/uL (3.72-5.28); RED CELL DISTRIBUTION WIDTH 17.4 % (11.5-14.0); SEGMENTED NEUTROPHILS % (AUTO) 72.4 % (42-78); TOTAL CELLS COUNTED % (AUTO) 100 %; WHITE BLOOD COUNT 6.1 10^3/uL (4.0-10.5)
--- NOTE | 2019-05-11 09:29 | RADIOLOGY REPORT (SQ) ---
EXAM DESCRIPTION: CHEST SINGLE VIEW COMPLETED DATE/TIME: 05/11/2019 9:13 am REASON FOR STUDY: SOB COMPARISON: CT chest 10/16/2018 PET-CT 11/15/2018 Chest films 03/01/2019, 04/22/2019, 05/06/2019 EXAM PARAMETERS: NUMBER OF VIEWS: One view. TECHNIQUE: Single frontal radiographic view of the chest acquired. RADIATION DOSE: NA LIMITATIONS: None. FINDINGS: LUNGS AND PLEURA: Stable small right pleural effusion blunting the lateral costophrenic younger lcus. Chronic consolidation in the medial right lung base. Lungs are otherwise well inflated and clear. Stable biapical pleural-parenchymal scarring. No pneum othorax. No acute infiltrates MEDIASTINUM AND HILAR STRUCTURES: No masses. Contour normal. HEART AND VASCULAR STRUCTURES: Stable mild cardiomegaly. Normal vasculature. BONES: No acute findings. HARDWARE: Left-sided brachiocephalic, subclavian and axillary vascular stents OTHER: No other significant finding. IMPRESSION: Stable right small pleural effusion with chronic pleural thickening and basilar consolid ation. TECHNICAL DOCUMENTATION: JOB ID: [id number] [employer]- All Rights Reserved Reading location - IP/workstation name: [email or web address]
[2019-05-11 09:48] LABS: ALANINE AMINOTRANSFERASE 14 U/L (9-52); ALBUMIN 3.5 g/dL (3.5-5.0); ALKALINE PHOSPHATASE 111 U/L (38-126); ANION GAP 9 (5-19); ASPARTATE AMINO TRANSFERASE 22 U/L (14-36); BILIRUBIN,DIRECT 0.6 mg/dL (0.0-0.4); BILIRUBIN,TOTAL 0.6 mg/dL (0.2-1.3); BLOOD UREA NITROGEN 41 mg/dL (7-20); CALCIUM 9.4 mg/dL (8.4-10.2); CARBON DIOXIDE 30 mmol/L (22-30); CHLORIDE 97 mmol/L (98-107); GLUCOSE 114 mg/dL (75-110); POTASSIUM 4.6 mmol/L (3.6-5.0); SODIUM 136.1 mmol/L (137-145); TOTAL PROTEIN 6.8 g/dL (6.3-8.2)
[2019-05-11] MEDS ORDERED: METHYLPREDNISOLONE INJ 125 MG/2 ML SDV IV ONE (10:02)
[2019-05-11] MEDS ORDERED: IPRATROPIUM/ALBUTEROL 0.5-2.5 MG/3 ML AMPUL NEB ONE (10:02)
[2019-05-11] MEDS ORDERED: ACETAMINOPHEN 325 MG TABLET PO PRN (12:00)
[2019-05-11] MEDS ORDERED: PROMETHAZINE HCL INJ 25 MG/1 ML VIAL IV PRN (12:00)
[2019-05-11] MEDS ORDERED: TEMAZEPAM 15 MG CAPSULE PO PRN (12:00)
--- NOTE | 2019-05-11 12:14 | PDOC H&P ---
History of Present Illness Admission Date/PCP: ESTEFANÍA TREVINO MD History of Present Illness: JUSTINE CHRISTENSEN is a 68 year old female patient with past medical history of end-stage renal disease on hemodialysis on Friday, , and Friday anemia of CKD, hypertension, tobacco dependence, anxiety depression, coronary artery disease and chronic right pleural effusion noted with chief complaint of shortness of breath. Patient reports that she has been at her baseline baseline state of up until this morning when she her shortness of breath gets worse and she activated EMS by the time EMS found her O2 saturation was in the lower 70s started her on oxygen. Patient denies any fever, chills, chest pain, palpitation or diaphoresis. She does not have any nausea, vomiting, abdominal pain or diarrhea. She does not have also any urinary complaints. Chest x-ray shows chronic right pleural effusion. Her CBC is within normal limits and her BMP shows elevated creatinine and BUN due to her end-stage renal disease. Her primary edge inker Dr. Abdullahi was contacted by our attending and he plan to dialyze her tomorrow. Past Medical History Cardiac Medical History: Reports: Congestive Heart Failure - during renal failure, Coronary Artery Disease, Hypertension Denies: Myocardial Infarction Pulmonary Medical History: Reports: Chronic Obstructive Pulmonary Disease (COPD) - "slight", no home O2, Pneumonia - "Years ago" Denies: Asthma, Bronchitis Neurological Medical History: Denies: Seizures Renal/ Medical History: Reports: End Stage Renal Disease GI Medical History: Reports: Diverticulitis Musculoskeltal Medical History: Denies: Arthritis Psychiatric Medical History: Reports: Depression Hematology: Denies: Anemia Past Surgical History Past Surgical History: Reports: Cholecystectomy, Vascular Surgery, Other - Status post nephrectomy Social History Smoking Status: Current Every Day Smoker Frequency of Alcohol Use: None Hx Recreational Drug Use: No Drugs: None Hx Prescription Drug Abuse: No - Advance Directive Resuscitation Status: Do Not Resuscitate Family History Family History: Reviewed & Not Pertinent Parental Family History Reviewed: Yes Children Family History Reviewed: Yes Sibling(s) Family History Reviewed.: Yes Medication/Allergy Home Medications: Aspirin [Adult Low Dose Aspirin EC] 81 mg PO DAILY 03/02/19 Carvedilol 25 mg PO Q12 03/02/19 Clonazepam [Klonopin] 0.25 mg PO Q8HP PRN MDD 2 MG 03/02/19 Clonidine HCl 0.3 mg PO 6XD 03/02/19 Doxazosin Mesylate [Cardura] 2 mg PO Q12 03/02/19 Hydralazine HCl 100 mg PO Q8 03/02/19 Loratadine 10 mg PO DAILY 03/02/19 Ondansetron HCl [Zofran 4 mg Tablet] 4 mg PO Q6HP PRN 03/02/19 Pravastatin Sodium 40 mg PO DAILY 03/02/19 Sertraline HCl 150 mg PO DAILY 03/02/19 Torsemide [Demadex 20 mg Tablet] 20 mg PO BID 03/02/19 Parenteral Amino Acid 15% No.5 [Clinisol] 500 ml IV .DIALYSIS 03/15/19 Umeclidinium Brm/Vilanterol Tr [Anoro Ellipta 62.5-25 Mcg INH] 1 puff IH DAILY 03/15/19 Ciprofloxacin HCl [Cipro 500 mg Tablet] 500 mg PO BID #9 tablet 03/17/19 Simethicone [Mylicon 80 mg Chewable Tablet] 160 mg PO QIDP PRN tab.chew 03/17/19 Cephalexin Monohydrate [Keflex 500 mg Capsule] 500 mg PO QID #20 capsule 05/06/19 Allergies/Adverse Reactions: ASAD Inhibitors Allergy (Verified 05/11/19 09:12) "Red from chin to chest" Sulfa (Sulfonamide Antibiotics) Allergy (Verified 05/11/19 09:12) Hives Review of Systems Constitutional: PRESENT: as per HPI Eyes: PRESENT: as per HPI Cardiovascular: PRESENT: as per HPI Respiratory: PRESENT: as per HPI Gastrointestinal: PRESENT: as per HPI Musculoskeletal: PRESENT: as per HPI Integumentary: PRESENT: as per HPI Neurological: PRESENT: as per HPI Psychiatric: PRESENT: as per HPI Physical Exam Vital Signs: Temp Pulse Resp BP Pulse Ox 97.8 F 11 L 142/64 H 97 05/11/19 08:52 05/11/19 11:01 05/11/19 11:01 05/11/19 11:01 Intake & Output 05/10/19 05/11/19 05/12/19 06:59 06:59 06:59 Weight 41.277 kg General appearance: PRESENT: mild distress, thin Head exam: PRESENT: atraumatic Eye exam: PRESENT: conjunctiva pink Neck exam: ABSENT: carotid bruit, JVD, lymphadenopathy, thyromegaly Respiratory exam: PRESENT: decreased breath sounds, wheezes - Bilateral Cardiovascular exam: PRESENT: RRR. ABSENT: diastolic murmur, rubs, systolic murmur GI/Abdominal exam: PRESENT: normal bowel sounds, soft. ABSENT: distended, guarding, mass, organolmegaly, rebound, tenderness Neurological exam: PRESENT: alert, awake, oriented to person, oriented to place, oriented to time, oriented to situation Psychiatric exam: PRESENT: normal mood Results Laboratory Results: 05/11/19 09:06 05/11/19 09:06 05/11/19 05/11/19 09:06 09:06 WBC 6.1 RBC 3.41 L Hgb 10.9 L Hct 33.6 L MCV 99 H MCH 32.1 MCHC 32.5 RDW 17.4 H Plt Count 215 Seg Neutrophils % 72.4 Lymphocytes % 19.0 Monocytes % 5.8 Eosinophils % 2.2 Basophils % 0.6 Absolute Neutrophils 4.4 Absolute Lymphocytes 1.2 Absolute Monocytes 0.4 Absolute Eosinophils 0.1 Absolute Basophils 0.0 Sodium 136.1 L Potassium 4.6 Chloride 97 L Carbon Dioxide 30 Anion Gap 9 BUN 41 H Creatinine 3.34 H Est GFR ( Amer) 16 L Est GFR (Non-Af Amer) 14 L Glucose 114 H Calcium 9.4 Total Bilirubin 0.6 AST 22 ALT 14 Alkaline Phosphatase 111 Total Protein 6.8 Albumin 3.5 Impressions: Chest X-Ray 05/11/19 08:49 IMPRESSION: Stable right small pleural effusion with chronic pleural thickening and basilar consolidation. Assessment and Plan - Diagnosis (1) Acute hypoxemic respiratory failure Is this a current diagnosis for this admission?: Yes Plan: Due to #2 (2) COPD exacerbation Is this a current diagnosis for this admission?: Yes Plan: It has been started on supplemental oxygen, (3) End-stage renal disease on hemodialysis Is this a current diagnosis for this admission?: Yes Plan: Management per her primary edge inker. (4) Anemia in CKD (chronic kidney disease) Qualifiers: Chronic kidney disease stage: on chronic dialysis Qualified Code(s): N18.6 - End stage renal disease; D63.1 - Anemia in chronic kidney disease; Z99.2 - Dependence on renal dialysis Is this a current diagnosis for this admission?: Yes Plan: Management per her primary edge inker. (5) Hypertension Qualifiers: Hypertension type: essential hypertension Qualified Code(s): I10 - Essential (primary) hypertension Is this a current diagnosis for this admission?: Yes Plan: Continue her home medication
--- NOTE | 2019-05-11 12:21 | ADVANCED CARE ---
Resuscitation Status: Do Not Resuscitate Discussion: I discouraged her CODE STATUS extensively and she states she does not want any aggressive measures including CPR intubation and mechanical ventilation. She states that she wants to get all available medical treatment except CPR and intubation. Care Planning Goals: DNR/DNI. Only conservative management.
[2019-05-11] MEDS ORDERED: TIOTROPIUM BROMIDE DPI 5 CAP/KIT (18 MCG/CAP) IH ONE (13:00)
[2019-05-11 13:09] LABS: ARTERIAL BLOOD BASE EXCESS 0.6 mmol/L; ARTERIAL BLOOD FIO2 1L; ARTERIAL BLOOD H2CO3 2.22 mmol/L (1.05-1.35); ARTERIAL BLOOD HCO3 29.8 mmol/L (20-24); ARTERIAL BLOOD O2 SATURATION 91.9 % (94-98); ARTERIAL BLOOD PH 7.22 (7.35-7.45); ARTERIAL BLOOD PO2 75.8 mmHg (80-100); ARTERIAL BLOOD TOTAL CO2 32.1 mmol/L (21-25)
[2019-05-11 13:10] LABS: ARTERIAL BLOOD PCO2 73.9 mmHg (35-45)
--- NOTE | 2019-05-11 13:23 | ER Document Report ---
ED General - General Chief Complaint: Breathing Difficulty Stated Complaint: SHORTNESS OF BREATH Time Seen by Provider: 05/11/19 09:00 TRAVEL OUTSIDE OF THE [place] IN LAST 30 DAYS: No - HPI Patient complains to provider of: Difficulty breathing Notes: Patient presents today with shortness of breath. Patient states shortness breath of the last few days. Patient states called EMS upon their arrival found oxygenation 70 to the 80s. Patient with history of end-stage renal disease but is to have dialysis today and today at 12:00. Patient is compliant with her dialysis. Patient does have a history of COPD continues to smoke. Upon entering the room patient remains heavily filled with a smell of cigarette smoke. Patient received breathing treatment at home states feeling better however still requiring oxygen which she does not wear at home. Patient otherwise denies fever chills nausea vomiting diarrhea denies any chest pain. - Related Data Allergies/Adverse Reactions: ASAD Inhibitors Allergy (Verified 05/11/19 09:12) "Red from chin to chest" Sulfa (Sulfonamide Antibiotics) Allergy (Verified 05/11/19 09:12) Hives Past Medical History - Social History Smoking Status: Current Every Day Smoker Family History: Reviewed & Not Pertinent Patient has suicidal ideation: No Patient has homicidal ideation: No - Past Medical History Cardiac Medical History: Reports: Hx Congestive Heart Failure - during renal failure, Hx Coronary Artery Disease, Hx Hypertension Denies: Hx Heart Attack Pulmonary Medical History: Reports: Hx COPD - "slight", no home O2, Hx Pneumonia - "Years ago" Denies: Hx Asthma, Hx Bronchitis Neurological Medical History: Denies: Hx Cerebrovascular Accident, Hx Seizures Renal/ Medical History: Reports: Hx End Stage Renal Disease, Hx Peritoneal Dialysis GI Medical History: Reports: Hx Diverticulitis Musculoskeletal Medical History: Denies Hx Arthritis Psychiatric Medical History: Reports: Hx Depression Past Surgical History: Reports: Hx Cholecystectomy, Hx Vascular Surgery, Other - Status post nephrectomy - Immunizations Hx Diphtheria, Pertussis, Tetanus Vaccination: Yes Hx Pneumococcal Vaccination: 11/17/14 Review of Systems - Review of Systems Constitutional: No symptoms reported EENT: No symptoms reported Cardiovascular: No symptoms reported Respiratory: Short of breath Gastrointestinal: No symptoms reported Genitourinary: No symptoms reported Female Genitourinary: No symptoms reported Musculoskeletal: No symptoms reported Skin: No symptoms reported Hematologic/Lymphatic: No symptoms reported Neurological/Psychological: No symptoms reported -: Yes All other systems reviewed and negative Physical Exam - Vital signs Vitals: Temp Pulse Ox 97.8 F 100 05/11/19 08:52 05/11/19 08:52 Interpretation: Normal - General General appearance: Appears well, Alert - HEENT Head: Normocephalic, Atraumatic Eyes: Normal Pupils: PERRL - Respiratory Respiratory status: Respiratory distress Chest status: Nontender Breath sounds: Rhonchi, Wheezing Chest palpation: Normal - Cardiovascular Rhythm: Regular Heart sounds: Normal auscultation Murmur: No - Abdominal Inspection: Normal Distension: No distension Bowel sounds: Normal Tenderness: Nontender Organomegaly: No organomegaly - Back Back: Normal, Nontender - Extremities General upper extremity: Normal inspection, Nontender, Normal color, Normal ROM, Normal temperature General lower extremity: Normal inspection, Nontender, Normal color, Normal ROM, Normal temperature, Normal weight bearing. No: Lucy's sign - Neurological Neuro grossly intact: Yes Cognition: Normal Orientation: AAOx4 Dai Coma Scale Eye Opening: Spontaneous Garibaldi Coma Scale Verbal: Oriented Dai Coma Scale Motor: Obeys Commands Dai Coma Scale Total: 15 Speech: Normal Motor strength normal: LUE, RUE, LLE, RLE Sensory: Normal - Psychological Associated symptoms: Normal affect, Normal mood - Skin Skin Temperature: Warm Skin Moisture: Dry Skin Color: Normal Course - Re-evaluation Re-evalutation: 05/11/19 14:02 Patient coming in for hypoxic respiratory distress patient was given a breathing treatment magnesium site Medrol better. Chest x-ray did not show any signs of fulminant fluid overload. Did discuss with nephrology team Dr. Abdullahi agrees to dialysis tomorrow he did not need emergent dialysis discussed with hospital staff will admit the patient for respiratory failure. - Vital Signs Vital signs: Temp Pulse Resp BP Pulse Ox 97.8 F 17 168/69 H 95 05/11/19 08:52 05/11/19 13:27 05/11/19 13:21 05/11/19 13:27 - Laboratory Result Diagrams: 05/11/19 09:06 05/11/19 09:06 Laboratory results interpreted by me: 05/11/19 05/11/19 05/11/19 09:06 09:06 12:53 RBC 3.41 L Hgb 10.9 L Hct 33.6 L MCV 99 H RDW 17.4 H Carbonic Acid 2.22 H ABG pH 7.22 L ABG pCO2 73.9 H* ABG pO2 75.8 L ABG HCO3 29.8 H ABG Total CO2 32.1 H ABG O2 Saturation 91.9 L Sodium 136.1 L Chloride 97 L BUN 41 H Creatinine 3.34 H Est GFR ( Amer) 16 L Est GFR (Non-Af Amer) 14 L Glucose 114 H Direct Bilirubin 0.6 H Critical Care Note - Critical Care Note Total time excluding time spent on procedures (mins): 35 Comments: Multiple evaluations for respiratory distress Discharge - Discharge Clinical Impression: End-stage renal disease on hemodialysis, Acute hypoxemic respiratory failure Anemia in chronic kidney disease (CKD) Qualifiers: Chronic kidney disease stage: on chronic dialysis Qualified Code(s): N18.6 - End stage renal disease COPD (chronic obstructive pulmonary disease) Qualifiers: COPD type: unspecified COPD Qualified Code(s): J44.9 - Chronic obstructive pulmonary disease, unspecified Coronary artery disease Qualifiers: Coronary Disease-Associated Artery/Lesion type: unspecified vessel or lesion type [place] vs. transplanted heart: [place] heart Associated angina: without angina Qualified Code(s): I25.10 - Atherosclerotic heart disease of [place] coronary artery without angina pectoris Condition: Good Disposition: HOME, SELF-CARE Admitting Provider: Aroldo (Hospitalist) Unit Admitted: Telemetry
[2019-05-11] MEDS: HEPARIN SOD (PORCINE) 5,000 UNIT/ML 1 ML SYRINGE SUBCUT SCH ×2 (15:24→21:34)
[2019-05-11] MEDS: METHYLPREDNISOLONE INJ 40 MG/1 ML SDV IV SCH ×2 (15:24→21:31)
[2019-05-11] MEDS: IPRATROPIUM/ALBUTEROL 0.5-2.5 MG/3 ML AMPUL NEB SCH ×3 (16:26→23:42)
[2019-05-11 17:04] LABS: APPEARANCE,URINE SLIGHTLY-CLOUDY; BILIRUBIN,URINE NEGATIVE (NEGATIVE); COLOR,URINE YELLOW; GLUCOSE, URINE 50 mg/dL (NEGATIVE); KETONES,URINE NEGATIVE (NEGATIVE); LEUKOCYTE ESTERASE,URINE TRACE (NEGATIVE); NITRITE,URINE NEGATIVE (NEGATIVE); PROTEIN,URINE 100 mg/dL (NEGATIVE); URINE SPECIFIC GRAVITY 1.013; UROBILINOGEN,URINE NEGATIVE mg/dL (<2.0)
[2019-05-11] MEDS ORDERED: CEFTRIAXONE 2 GM/D5W RTU 2 GM/50 ML RTUPB IV ONE ×2 (18:43→22:00)
[2019-05-11] MEDS ORDERED: (PENDING PHARMACY ID) (Ondansetron Hcl [Zofran 4 Mg Tablet] 4 MG) PO PRN (18:44)
[2019-05-11] MEDS: FAMOTIDINE 20 MG TABLET PO SCH (19:40)
--- NOTE | 2019-05-11 20:25 | EKG REPORT ---
SEVERITY:- ABNORMAL ECG - SINUS RHYTHM FIRST DEGREE AV BLOCK LEFT ATRIAL ABNORMALITY RBBB AND LAFB LEFT VENTRICULAR HYPERTROPHY : Confirmed by: Sameer Causey 11-May-2019 20:23:34
[2019-05-11] MEDS ORDERED: ONDANSETRON 4 MG TAB.RAPDIS PO PRN (20:42)
[2019-05-11] MEDS: CARVEDILOL 12.5 MG TABLET PO SCH (21:32)
[2019-05-11] MEDS: DOXAZOSIN MESYLATE 2 MG TABLET PO SCH (21:33)
[2019-05-11] MEDS: ATORVASTATIN CALCIUM 10 MG TABLET PO SCH (21:33)
[2019-05-11] MEDS: CLONAZEPAM 1 MG TABLET PO SCH (21:35)
[2019-05-11] MEDS ORDERED: (PENDING PHARMACY ID) (Carvedilol [Carvedilol] 25 MG) PO SCH (22:00)
[2019-05-11] MEDS ORDERED: (PENDING PHARMACY ID) (Pravastatin Sodium [Pravastatin Sodium] 40 MG) PO SCH (22:00)
[2019-05-11] MEDS ORDERED: FAMOTIDINE 20 MG TABLET PO SCH (22:00)
[2019-05-12] MEDS: IPRATROPIUM/ALBUTEROL 0.5-2.5 MG/3 ML AMPUL NEB SCH ×5 (04:06→20:27)
[2019-05-12] MEDS: METHYLPREDNISOLONE INJ 40 MG/1 ML SDV IV SCH ×3 (06:05→22:13)
[2019-05-12] MEDS: HEPARIN SOD (PORCINE) 5,000 UNIT/ML 1 ML SYRINGE SUBCUT SCH ×3 (06:08→22:11)
[2019-05-12 06:23] LABS: HEMATOCRIT 34.3 % (36.0-47.0); HEMOGLOBIN 11.1 g/dL (12.0-15.5); MEAN CORPUSCULAR HEMOGLOBIN 32.1 pg (27.0-33.4); MEAN CORPUSCULAR HGB CONC 32.5 g/dL (32.0-36.0); MEAN CORPUSCULAR VOLUME 99 fl (80-97); PLATELET COUNT 200 10^3/uL (150-450); RED BLOOD COUNT 3.47 10^6/uL (3.72-5.28); RED CELL DISTRIBUTION WIDTH 17.7 % (11.5-14.0); WHITE BLOOD COUNT 4.5 10^3/uL (4.0-10.5)
[2019-05-12 06:46] LABS: ANION GAP 11 (5-19); BLOOD UREA NITROGEN 44 mg/dL (7-20); CARBON DIOXIDE 27 mmol/L (22-30); CHLORIDE 98 mmol/L (98-107); GLUCOSE 99 mg/dL (75-110); SODIUM 136.2 mmol/L (137-145)
[2019-05-12] MEDS: CLONAZEPAM 1 MG TABLET PO SCH ×2 (09:09→22:09)
[2019-05-12] MEDS ORDERED: (PENDING PHARMACY ID) (Umeclidinium Brm/Vilanterol Tr [Anoro Ellipta 62.5-25 Mcg Inh] 1 PU IH SCH (10:00)
[2019-05-12] MEDS ORDERED: VITAMIN B COMP W C PO SCH (10:00)
[2019-05-12] MEDS ORDERED: (PENDING PHARMACY ID) (Loratadine [Loratadine] 10 MG) PO SCH (10:00)
[2019-05-12] MEDS ORDERED: (PENDING PHARMACY ID) (Cholecalciferol (Vitamin D3) [Vitamin D3] 1,000 UNIT) PO SCH (10:00)
[2019-05-12] MEDS ORDERED: SERTRALINE HCL 200 MG PO SCH (10:00)
[2019-05-12] MEDS ORDERED: FOLIC ACID PO SCH (10:00)
[2019-05-12] MEDS ORDERED: CLONIDINE HCL 0.1 MG TABLET PO ONE (10:30)
[2019-05-12] MEDS: TORSEMIDE 20 MG TABLET PO SCH ×2 (11:17→17:04)
[2019-05-12] MEDS: CARVEDILOL 12.5 MG TABLET PO SCH ×2 (11:18→22:10)
[2019-05-12] MEDS: CHOLECALCIFEROL (D3) 1,000 UNIT (25 MCG) TABLET PO SCH (11:18)
[2019-05-12] MEDS: DOXAZOSIN MESYLATE 2 MG TABLET PO SCH ×2 (11:18→22:10)
[2019-05-12] MEDS: FOLIC ACID/VITAMIN B COMP W-C CAPSULE PO SCH (11:18)
[2019-05-12] MEDS: SERTRALINE HCL 50 MG TABLET PO SCH (11:18)
[2019-05-12] MEDS: GABAPENTIN 100 MG CAPSULE PO SCH ×3 (11:18→17:03)
[2019-05-12] MEDS: TIOTROPIUM BROMIDE DPI 5 CAP/KIT (18 MCG/CAP) IH SCH (11:19)
[2019-05-12] MEDS: LORATADINE 10 MG TABLET PO SCH (11:19)
[2019-05-12] MEDS: ASPIRIN 81 MG TABLET, ENT COATED PO SCH (11:19)
[2019-05-12] MEDS: CLONIDINE HCL 0.1 MG TABLET PO SCH (17:02)
[2019-05-12] MEDS: FAMOTIDINE 20 MG TABLET PO SCH (17:02)
--- NOTE | 2019-05-12 17:23 | PDOC CONSULTATION ---
Consultation Consult Date: 05/12/19 Provider Consulted: Lenin POLANCO Consult reason:: Hemodialysis. History of Present Illness Admission Date/PCP: 05/11/19 13:48 ESTEFANÍA TREVINO MD History of Present Illness: JUSTINE CHRISTENSEN is a 68 year old female patient with past medical history of end-stage renal disease on hemodialysis on Friday, , and Friday, in the background of Hypertension, COPD and continuing tobacco dependence, anxiety depression, coronary artery disease and chronic right pleural effusion was admitted with progressive shortness of breath of 1-2 days duration. Patient reports that she has been at her baseline baseline state of up until previous night when she her shortness of breath began to get worse and by the morning of her admission it was bad and she activated EMS who found her O2 saturation was in the lower 70s started her on oxygen. Patient denies any fever, chills, chest pain. She does not have any nausea, vomiting, abdominal pain or diarrhea. She does not have also any urinary complaints. Evaluations in the ER revealed that she had acute exacerbation of COPD and she was begun on appropriate treatments and presently today she is feeling somewhat better. Chest x-ray shows chronic right pleural effusion. Currently undergoing dialysis without any issues. Vital signs are stable. Labs and medications were reviewed with the patient and the treating dialysis nurse. Dialysis orders were reviewed with the treating dialysis nurse. Past Medical History Cardiac Medical History: Reports: CHF-Diastolic, Coronary Artery Disease, Hypertension-primary Denies: Myocardial Infarction Pulmonary Medical History: Reports: Chronic Obstructive Pulmonary Disease (COPD) - "slight", no home O2, Pneumonia - "Years ago" Denies: Asthma, Bronchitis Neurological Medical History: Denies: Seizures Renal/ Medical History: Reports: End Stage Renal Disease, Secondary Hyperparathyroidism GI Medical History: Reports: Diverticulitis Musculoskeltal Medical History: Denies: Arthritis Psychiatric Medical History: Reports: Depression Hematology Medical History: Reports Anemia of Chronic Kidney Disease Past Surgical History Past Surgical History: Reports: Cholecystectomy, Dialysis Access Surgery AVF, Nephrectomy - 2016, Vascular Surgery, Other - Status post nephrectomy Social History Smoking Status: Current Every Day Smoker Frequency of Alcohol Use: None Hx Recreational Drug Use: No Drugs: None Hx Prescription Drug Abuse: No - Advance Directive Resuscitation Status: Do Not Intubate Family History Parental Family History Reviewed: Yes - Negative for ESRD Children Family History Reviewed: No Sibling(s) Family History Reviewed.: No Medication/Allergy Home Medications: Aspirin [Adult Low Dose Aspirin EC] 81 mg PO DAILY 03/02/19 Carvedilol 25 mg PO Q12 03/02/19 Clonazepam [Klonopin] 0.5 mg PO Q8HP PRN MDD 2 MG 03/02/19 Clonidine HCl 0.3 mg PO 6XD 03/02/19 Doxazosin Mesylate [Cardura] 2 mg PO Q12 03/02/19 Loratadine 10 mg PO DAILY 03/02/19 Ondansetron HCl [Zofran 4 mg Tablet] 4 mg PO Q6HP PRN 03/02/19 Pravastatin Sodium 40 mg PO QHS 03/02/19 Sertraline HCl 200 mg PO DAILY 03/02/19 Torsemide [Demadex 20 mg Tablet] 20 mg PO BID 03/02/19 Umeclidinium Brm/Vilanterol Tr [Anoro Ellipta 62.5-25 Mcg INH] 1 puff IH DAILY 03/15/19 Simethicone [Mylicon 80 mg Chewable Tablet] 160 mg PO QIDP PRN tab.chew 03/17/19 Cephalexin Monohydrate [Keflex 500 mg Capsule] 500 mg PO QID #20 capsule 05/06/19 Acetaminophen [Tylenol Extra Strength 500 mg Tablet] 1 tab PO DAILYP PRN 05/11/19 Cholecalciferol (Vitamin D3) [Vitamin D3] 1,000 unit PO DAILY 05/11/19 Famotidine [Acid Controller] 20 mg PO DAILYP PRN 05/11/19 Folic Acid/Vitamin B Comp W-C [Nephro-Bernard Tablet] 0.8 mg PO DAILY 05/11/19 Gabapentin [Neurontin 100 mg Capsule] 100 mg PO TID 05/11/19 Levalbuterol HCl [Xopenex] 1 vial IH Q8 05/11/19 Sennosides/Docusate Sodium [Stool Softener-Laxative Tablet] 1 each PO DAILYP PRN 05/11/19 Allergies/Adverse Reactions: ASAD Inhibitors Allergy (Verified 05/11/19 09:12) "Red from chin to chest" Sulfa (Sulfonamide Antibiotics) Allergy (Verified 05/11/19 09:12) Hives Review of Systems Constitutional: PRESENT: anorexia, fatigue, weakness. ABSENT: chills, fever(s), headache(s), night sweats Ears: ABSENT: hearing changes Nose, Mouth, and Throat: ABSENT: mouth pain, sore throat, vertigo Cardiovascular: PRESENT: dyspnea on exertion. ABSENT: chest pain, edema, orthropnea, palpitations Gastrointestinal: ABSENT: abdominal pain, bloating, diarrhea, dysphagia, heartburn, hematemesis, nausea, vomiting Genitourinary: ABSENT: dysuria, hematuria Musculoskeletal: ABSENT: deformity, joint swelling Integumentary: ABSENT: erythema, lesions, pruritus, rash Neurological: ABSENT: abnormal movements, abnormal speech, confusion, focal weakness, frequent falls, numbness Psychiatric: ABSENT: hallucinations, suicidal ideation Endocrine: ABSENT: cold intolerance Hematologic/Lymphatic: ABSENT: easy bleeding, easy bruising, lymphadenopathy Physical Exam Vital Signs: Temp Pulse Resp BP Pulse Ox 98.8 F 79 22 H 169/57 H 91 L 05/12/19 15:39 05/12/19 15:39 05/12/19 15:39 05/12/19 15:39 05/12/19 15:39 Intake & Output 05/11/19 05/12/19 05/13/19 06:59 06:59 06:59 Intake Total 110 287 Output Total 100 Balance 110 187 Weight 46.2 kg General appearance: PRESENT: mild distress Eye exam: PRESENT: conjunctiva pink, EOMI, PERRLA Ear exam: PRESENT: normal external ear exam Mouth exam: PRESENT: moist, neck supple Neck exam: ABSENT: lymphadenopathy, meningismus, tenderness, thyromegaly, tracheal deviation Respiratory exam: PRESENT: clear to auscultation irina, decreased breath sounds, prolonged expiratory phas, tachypnea. ABSENT: crackles, rhonchi Cardiovascular exam: PRESENT: +S1, +S2, systolic murmur GI/Abdominal exam: PRESENT: normal bowel sounds, soft. ABSENT: organomegaly, tenderness Extremities exam: ABSENT: pedal edema Neurological exam: PRESENT: alert, awake, oriented to person, oriented to place, oriented to time Skin exam: ABSENT: cyanosis, erythema, mottled, rash Results Laboratory Results: 05/12/19 05:46 05/12/19 05:46 05/12/19 05/12/19 05:46 05:46 WBC 4.5 RBC 3.47 L Hgb 11.1 L Hct 34.3 L MCV 99 H MCH 32.1 MCHC 32.5 RDW 17.7 H Plt Count 200 Sodium 136.2 L Potassium 5.0 Chloride 98 Carbon Dioxide 27 Anion Gap 11 BUN 44 H Creatinine 3.78 H Est GFR ( Amer) 14 L Est GFR (Non-Af Amer) 12 L Glucose 99 Calcium 9.0 Impressions: Chest X-Ray 05/11/19 08:49 IMPRESSION: Stable right small pleural effusion with chronic pleural thickening and basilar consolidation. Assessment & Plan - Diagnosis (1) End-stage renal disease on hemodialysis Is this a current diagnosis for this admission?: Yes Plan: Patient currently undergoing dialysis without any issues. Vital signs are stable but for uncontrolled hypertension. Ordering clonidine 0.3 now which she should have had that before dialysis as usual. Will monitor closely during and postdialysis.. Dialysis is being supervised to ensure safe and smooth procedure. Plan to remove approximately 1 L of fluid. Dialysis orders were reviewed with the treating dialysis nurse. (2) Acute hypoxemic respiratory failure Is this a current diagnosis for this admission?: Yes Plan: Secondary to worsening COPD and continuing to smoke unfortunately. (3) COPD exacerbation Is this a current diagnosis for this admission?: Yes Plan: On appropriate treatment by hospitalist. On continuous oxygen now. (4) Hypertension Qualifiers: Hypertension type: essential hypertension Qualified Code(s): I10 - Essential (primary) hypertension Is this a current diagnosis for this admission?: Yes Plan: Uncontrolled. Patient not on home medications. Will start her with 0.3 mg of clonidine now followed by qid. Monitor during and postdialysis. (5) Anemia in chronic kidney disease (CKD) Plan: No indications for erythropoietin today. Monitor.
[2019-05-12 18:27] LABS: ARTERIAL BLOOD BASE EXCESS 3.9 mmol/L; ARTERIAL BLOOD H2CO3 1.83 mmol/L (1.05-1.35); ARTERIAL BLOOD PCO2 60.7 mmHg (35-45); ARTERIAL BLOOD PH 7.33 (7.35-7.45); ARTERIAL BLOOD PO2 121.3 mmHg (80-100); ARTERIAL BLOOD TOTAL CO2 32.9 mmol/L (21-25)
[2019-05-12 18:28] LABS: ARTERIAL BLOOD FIO2 2L
[2019-05-12] MEDS: ATORVASTATIN CALCIUM 10 MG TABLET PO SCH (22:10)
[2019-05-13] MEDS: IPRATROPIUM/ALBUTEROL 0.5-2.5 MG/3 ML AMPUL NEB SCH ×5 (00:05→16:15)
[2019-05-13] MEDS: CLONIDINE HCL 0.1 MG TABLET PO SCH ×2 (01:20→05:36)
[2019-05-13] MEDS: METHYLPREDNISOLONE INJ 40 MG/1 ML SDV IV SCH ×2 (05:36→13:06)
[2019-05-13] MEDS: HEPARIN SOD (PORCINE) 5,000 UNIT/ML 1 ML SYRINGE SUBCUT SCH ×2 (05:37→13:06)
--- NOTE | 2019-05-13 06:03 | PDOC PROGRESS REPORT ---
Subjective Progress Note for:: 05/12/19 Subjective:: Despite audible congested cough the patient reports that she is feeling better and actually asked about going home. Reason For Visit: COPD EXACERBATION Physical Exam Vital Signs: Temp Pulse Resp BP Pulse Ox 99.1 F 74 16 161/54 H 96 05/12/19 19:28 05/12/19 20:27 05/12/19 20:27 05/12/19 19:28 05/12/19 20:27 Intake & Output 05/11/19 05/12/19 05/13/19 06:59 06:59 06:59 Intake Total 110 764 Output Total 100 Balance 110 664 Weight 46.2 kg General appearance: PRESENT: cooperative, mild distress, thin, well-developed Head exam: PRESENT: atraumatic, normocephalic Ear exam: PRESENT: normal external ear exam Respiratory exam: PRESENT: clear to auscultation irina, decreased breath sounds - Right base, symmetrical, other - Very congested cough. ABSENT: accessory muscle use, rhonchi, tachypnea, wheezes Cardiovascular exam: PRESENT: RRR, +S1, +S2, systolic murmur - 3/6 GI/Abdominal exam: PRESENT: normal bowel sounds, soft. ABSENT: distended, tenderness Rectal exam: PRESENT: deferred Extremities exam: ABSENT: pedal edema, tenderness Musculoskeletal exam: PRESENT: ambulatory, other - Decreased muscle mass Neurological exam: PRESENT: alert, awake, oriented to person, oriented to place, oriented to time, oriented to situation, CN II-XII grossly intact Psychiatric exam: PRESENT: flat affect. ABSENT: agitated, anxious Focused psych exam: ABSENT: delusional, restlessness Results Laboratory Results: 05/12/19 05:46 05/12/19 05:46 05/12/19 05/12/19 05/12/19 05:46 05:46 18:05 WBC 4.5 RBC 3.47 L Hgb 11.1 L Hct 34.3 L MCV 99 H MCH 32.1 MCHC 32.5 RDW 17.7 H Plt Count 200 Carbonic Acid 1.83 H HCO3/H2CO3 Ratio 16:1 ABG pH 7.33 L ABG pCO2 60.7 H ABG pO2 121.3 H ABG HCO3 31.0 H ABG O2 Saturation 98.0 ABG Base Excess 3.9 FiO2 2L Sodium 136.2 L Potassium 5.0 Chloride 98 Carbon Dioxide 27 Anion Gap 11 BUN 44 H Creatinine 3.78 H Est GFR ( Amer) 14 L Est GFR (Non-Af Amer) 12 L Glucose 99 Calcium 9.0 Impressions: Chest X-Ray 05/11/19 08:49 IMPRESSION: Stable right small pleural effusion with chronic pleural thickening and basilar consolidation. Assessment and Plan - Diagnosis (1) Acute hypoxemic respiratory failure Is this a current diagnosis for this admission?: Yes Plan: Due to #2 05/12/2019-despite her very congested cough the patient states that she feels to be at her baseline. Typically she is not on oxygen at home. We did try her on room air (the nurse states that she takes her oxygen off frequently) and her saturations dropped to 85%. Her chest x-ray shows a chronic right pleural effusion as well as COPD. Her acute failure is likely due to a combination of her COPD and the pleural effusion. (2) Anemia in CKD (chronic kidney disease) Qualifiers: Chronic kidney disease stage: on chronic dialysis Qualified Code(s): N18.6 - End stage renal disease; D63.1 - Anemia in chronic kidney disease; Z99.2 - Dependence on renal dialysis Is this a current diagnosis for this admission?: Yes Plan: Management per her primary salesperson [employer]. 05/12/2019-hemoglobin is slightly better today at 11.1. Defer management to the salesperson [employer] but continue to monitor hemoglobin. (3) COPD exacerbation Is this a current diagnosis for this admission?: Yes Plan: It has been started on supplemental oxygen, 05/12/2019-she is currently on scheduled duo nebs with [employer]. Continue this regimen for the time being. She is also on Solu-Medrol. As noted above she requires supplemental oxygen. BiPAP is available if needed. (4) End-stage renal disease on hemodialysis Is this a current diagnosis for this admission?: Yes Plan: Management per her primary salesperson [employer]. 05/12/2019-the patient continues on hemodialysis on Friday, Friday and Friday as an inpatient. I believe her outpatient regimen is Friday, and Friday. Continue hemodialysis per the salesperson [employer]. (5) Hypertension Qualifiers: Hypertension type: essential hypertension Qualified Code(s): I10 - Essential (primary) hypertension Is this a current diagnosis for this admission?: Yes Plan: Continue her home medication 05/12/2019-patient is on clonidine 0.3 mg every 6 hours per nephrology. Review of her records indicates that she is on this medication 6 times a day at home. They do hold her clonidine before dialysis. She does have very labile hypertension. It is likely that she ranges high systolic blood pressures regularly. (6) Pleural effusion, right Is this a current diagnosis for this admission?: Yes Plan: 05/12/2019-I did review previous x-rays. The patient did have the right pleural effusion in February. She is on torsemide 20 mg twice daily. Hemodialysis also helps manage fluid balance. An echocardiogram obtained earlier this month reveals no systolic or diastolic failure. She does have mild pulmonary h ypertension. If her symptoms worsen consider thoracentesis. - Time Time Spent with patient: 15-24 minutes Medications reviewed and adjusted accordingly: Yes Anticipated discharge: Home
[2019-05-13] MEDS ORDERED: ACETAMINOPHEN 325 MG TABLET PO PRN (07:25)
[2019-05-13] MEDS ORDERED: PROMETHAZINE HCL INJ 25 MG/1 ML VIAL IV PRN (07:30)
[2019-05-13] MEDS ORDERED: (PENDING PHARMACY ID) (Clonidine Hcl [Clonidine Hcl] 0.3 MG) PO SCH (08:00)
[2019-05-13] MEDS: CARVEDILOL 12.5 MG TABLET PO SCH (09:19)
[2019-05-13] MEDS: LORATADINE 10 MG TABLET PO SCH (09:19)
[2019-05-13] MEDS: DOXAZOSIN MESYLATE 2 MG TABLET PO SCH (09:19)
[2019-05-13] MEDS: ASPIRIN 81 MG TABLET, ENT COATED PO SCH (09:20)
[2019-05-13] MEDS: TORSEMIDE 20 MG TABLET PO SCH (09:20)
[2019-05-13] MEDS: FOLIC ACID/VITAMIN B COMP W-C CAPSULE PO SCH (09:21)
[2019-05-13] MEDS: CLONAZEPAM 1 MG TABLET PO SCH (09:21)
[2019-05-13] MEDS: GABAPENTIN 100 MG CAPSULE PO SCH ×2 (09:21→13:06)
[2019-05-13] MEDS: CLONIDINE HCL 0.2 MG TABLET PO SCH ×4 (09:22→14:54)
[2019-05-13] MEDS: TIOTROPIUM BROMIDE DPI 5 CAP/KIT (18 MCG/CAP) IH SCH (09:22)
[2019-05-13] MEDS: CHOLECALCIFEROL (D3) 1,000 UNIT (25 MCG) TABLET PO SCH (09:22)
[2019-05-13] MEDS: SERTRALINE HCL 50 MG TABLET PO SCH (09:22)
[2019-05-13 17:50] VITALS: BP 165/88
--- NOTE | 2019-05-14 06:39 | PDOC DISCHARGE SUMMARY ---
General - Admit/Disc Date/PCP Admission Date/Primary Care Provider: 05/11/19 13:48 ESTEFANÍA TREVINO MD Discharge Date: 05/13/19 - Discharge Diagnosis (1) Acute hypoxemic respiratory failure Is this a current diagnosis for this admission?: Yes Summary: The failure in fact is actually acute on chronic as she has a history of COPD. She admits that she is not as compliant with her inhaler regimen as she could be. She is also a current everyday smoker. She did respond nicely to the aggressive regimen. She also is end-stage kidney disease, dialysis dependent and has a chronic right pleural effusion. These likely contributed to her failure. We did wean her to room air during hospitalization and in fact she was discharged without the need for oxygen. (2) Anemia in CKD (chronic kidney disease) Is this a current diagnosis for this admission?: Yes Summary: The patient has chronic anemia related to her kidney disease. Her hemoglobin remained stable and she did not require any intervention. (3) COPD exacerbation Is this a current diagnosis for this admission?: Yes Summary: See above. At the time of discharge the patient did report that she understands the importance of compliance with her regimen and in fact promises to be better. (4) End-stage renal disease on hemodialysis Is this a current diagnosis for this admission?: Yes Summary: The patient did undergo dialysis during her hospitalization. She is typically on a Friday, and Friday schedule. She will resume her dialysis on Friday. They are only able to remove 100 mL of fluid on Friday. She states that her net fluid removal varies anywhere from 0 to over 1 L depending on her intake during the interval between dialysis. She does have the chronic right pleural effusion that was noted in February. She will continue her dialysis as an outpatient. (5) Hypertension Is this a current diagnosis for this admission?: Yes Summary: The patient notes that she has significant hypertension. She is allergic to ASAD inhibitors and so her regimen consists of very high dose clonidine and very high-dose hydralazine and carvedilol. She is also on torsemide. She will return to her preadmission regimen. Nephrology and her primary care provider follow her hypertension as an outpatient. (6) Pleural effusion, right Is this a current diagnosis for this admission?: Yes Summary: The right pleural effusion was noted on previous x-rays. It was there in February. No acute intervention at this time. - Additional Information Resuscitation Status: Do Not Intubate Prescriptions: Prednisone [Deltasone 5 mg Tablet] 5 mg PO ASDIR PRN 12 Days #42 tablet PRN Reason: Home Medications: Aspirin [Adult Low Dose Aspirin EC] 81 mg PO DAILY 03/02/19 Carvedilol 25 mg PO Q12 03/02/19 Clonazepam [Klonopin] 0.5 mg PO Q8HP PRN MDD 2 MG 03/02/19 Clonidine HCl 0.3 mg PO 6XD 03/02/19 Doxazosin Mesylate [Cardura] 2 mg PO Q12 03/02/19 Loratadine 10 mg PO DAILY 03/02/19 Ondansetron HCl [Zofran 4 mg Tablet] 4 mg PO Q6HP PRN 03/02/19 Pravastatin Sodium 40 mg PO QHS 03/02/19 Sertraline HCl 200 mg PO DAILY 03/02/19 Torsemide [Demadex 20 mg Tablet] 20 mg PO BID 03/02/19 Umeclidinium Brm/Vilanterol Tr [Anoro Ellipta 62.5-25 Mcg INH] 1 puff IH DAILY 03/15/19 Simethicone [Mylicon 80 mg Chewable Tablet] 160 mg PO QIDP PRN tab.chew 03/17/19 Acetaminophen [Tylenol Extra Strength 500 mg Tablet] 1 tab PO DAILYP PRN 05/11/19 Cholecalciferol (Vitamin D3) [Vitamin D3] 1,000 unit PO DAILY 05/11/19 Famotidine [Acid Controller] 20 mg PO DAILYP PRN 05/11/19 Folic Acid/Vitamin B Comp W-C [Nephro-Bernard Tablet] 0.8 mg PO DAILY 05/11/19 Gabapentin [Neurontin 100 mg Capsule] 100 mg PO TID 05/11/19 Levalbuterol HCl [Xopenex] 1 vial IH Q8 05/11/19 Sennosides/Docusate Sodium [Stool Softener-Laxative Tablet] 1 each PO DAILYP PRN 05/11/19 Prednisone [Deltasone 5 mg Tablet] 5 mg PO ASDIR PRN 12 Days #42 tablet 05/13/19 History of Present Illness Patient complains of: Increased shortness of breath History of Present Illness: JUSTINE CHRISTENSEN is a 68 year old female with multiple comorbidities. She developed acute worsening of her shortness of breath on the morning of admission. Her oxygen saturation was in the low 70s upon arrival by EMS at home. She was placed on supplemental oxygen. She was admitted by the hospitalist service and dialysis was planned for Friday. Hospital Course Hospital Course: See above Physical Exam Vital Signs: Temp Pulse Resp BP Pulse Ox 98.8 F 65 19 148/61 H 93 05/13/19 15:57 05/13/19 15:57 05/13/19 15:57 05/13/19 15:57 05/13/19 15:57 Intake & Output 05/12/19 05/13/19 05/14/19 06:59 06:59 06:59 Intake Total 110 1524 699 Output Total 100 Balance 110 1424 699 Weight 46.2 kg 44.3 kg General appearance: PRESENT: no acute distress, cooperative, thin, well- developed Head exam: PRESENT: atraumatic, normocephalic Eye exam: PRESENT: conjunctiva pink. ABSENT: scleral icterus Respiratory exam: PRESENT: decreased breath sounds - At the right base, rales - Faint rales on the right, symmetrical, unlabored. ABSENT: accessory muscle use, rhonchi, tachypnea, wheezes Cardiovascular exam: PRESENT: RRR, +S1, +S2, systolic murmur - 3/6 GI/Abdominal exam: PRESENT: normal bowel sounds, soft. ABSENT: distended, guarding, tenderness Rectal exam: PRESENT: deferred Gentrourinary exam: ABSENT: indwelling catheter Extremities exam: PRESENT: full ROM. ABSENT: calf tenderness, pedal edema Musculoskeletal exam: PRESENT: ambulatory, normal inspection Neurological exam: PRESENT: alert, awake, oriented to person, oriented to place, oriented to time, oriented to situation, CN II-XII grossly intact. ABSENT: motor sensory deficit Psychiatric exam: PRESENT: appropriate affect, normal mood. ABSENT: agitated, anxious Focused psych exam: ABSENT: delusional, restlessness Skin exam: PRESENT: dry, normal color, warm Results Laboratory Results: 05/12/19 05:46 05/12/19 05:46 05/12/19 18:05 Carbonic Acid 1.83 H HCO3/H2CO3 Ratio 16:1 ABG pH 7.33 L ABG pCO2 60.7 H ABG pO2 121.3 H ABG HCO3 31.0 H ABG O2 Saturation 98.0 ABG Base Excess 3.9 FiO2 2L Impressions: Chest X-Ray 05/11/19 08:49 IMPRESSION: Stable right small pleural effusion with chronic pleural thickening and basilar consolidation. Qualifiers - * PATIENT BEING DISCHARGED WITH ANY OF THE FOLLOWING DIAGNOSIS: No Acute Heart Failure - Is this a Heart Failure Patient?: No Plan Discharge Plan: Continue dialysis as an outpatient. Follow-up with primary care and nephrology as previously scheduled. Dialysis is scheduled for Friday. Time Spent: Greater than 30 Minutes
== END 2019-05-13 18:40 | disposition home or self-care (01) ==
LOC: ER 08:48 → INTOOBSV 13:48 → EH 13:48 → 5 17:29
PROVIDERS: ADMIT Internal Medicine; ATTEND Internal Medicine
PROC: 5A1D70Z Performance of Urinary Filtration, Intermittent, Less than 6 Hours Per Day (ICD-10-PCS; principal; 2019-05-12)
DX: J96.01 Acute respiratory failure with hypoxia (principal); J44.1 Chronic obstructive pulmonary disease with (acute) exacerbation; I13.2 Hypertensive heart and chronic kidney disease with heart failure and with stage 5 chronic kidney disease, or end stage renal disease; N18.6 End stage renal disease; I50.9 Heart failure, unspecified; D63.1 Anemia in chronic kidney disease; Z99.2 Dependence on renal dialysis; I25.10 Atherosclerotic heart disease of native coronary artery without angina pectoris; Z66 Do not resuscitate; F32.9 Major depressive disorder, single episode, unspecified; F17.200 Nicotine dependence, unspecified, uncomplicated; Z90.49 Acquired absence of other specified parts of digestive tract; Z79.82 Long term (current) use of aspirin; Z79.899 Other long term (current) drug therapy; Z88.2 Allergy status to sulfonamides; Z88.8 Allergy status to other drugs, medicaments and biological substances
CPT/HCPCS: 93005; 94640 ×4; 99285; 96374; 36415 ×2; 82803 ×2; 85025; 85027; 80048; 80053; 81001; 71045; 93010; 36600; 94660 ×3; A9270 ×35; J1644 ×3; J3490 ×3; J2920 ×3; J2930; J0696; G0378; J7620; S0119

== ENCOUNTER 2019-06-28 16:44 | Inpatient (IN) | payer MEDICARE ==
[2019-06-28 17:24] LABS: ABSOLUTE EOSINOPHILS # (AUTO) 0.3 10^3/uL (0.0-0.6); ABSOLUTE LYMPHOCYTES (AUTO) 1.8 10^3/uL (0.5-4.7); ABSOLUTE MONOCYTES (AUTO) 0.4 10^3/uL (0.1-1.4); ABSOLUTE NEUT (AUTO) 3.6 10^3/uL (1.7-8.2); BASOPHILS % (AUTO) 0.6 % (0-2); EOSINOPHILS % (AUTO) 4.3 % (0-6); HEMATOCRIT 36.6 % (36.0-47.0); HEMOGLOBIN 11.9 g/dL (12.0-15.5); LYMPHOCYTES % (AUTO) 29.3 % (13-45); MEAN CORPUSCULAR HEMOGLOBIN 32.1 pg (27.0-33.4); MEAN CORPUSCULAR HGB CONC 32.5 g/dL (32.0-36.0); MEAN CORPUSCULAR VOLUME 99 fl (80-97); MONOCYTES % (AUTO) 7.3 % (3-13); PLATELET COUNT 204 10^3/uL (150-450); RED BLOOD COUNT 3.71 10^6/uL (3.72-5.28); RED CELL DISTRIBUTION WIDTH 16.9 % (11.5-14.0); SEGMENTED NEUTROPHILS % (AUTO) 58.5 % (42-78); TOTAL CELLS COUNTED % (AUTO) 100 %; WHITE BLOOD COUNT 6.1 10^3/uL (4.0-10.5)
[2019-06-28 17:29] LABS: INTERNATIONAL RATION (INR) 1.14; PROTHROMBIN TIME 14.7 SEC (11.4-15.4)
[2019-06-28] MEDS ORDERED: AZITHROMYCIN INJ 500 MG VIAL IV ONE (17:30)
[2019-06-28] MEDS ORDERED: CEFTRIAXONE 2 GM/D5W RTU 2 GM/50 ML RTUPB IV ONE (17:30)
[2019-06-28 17:44] LABS: ALBUMIN 3.5 g/dL (3.5-5.0); ALKALINE PHOSPHATASE 105 U/L (38-126); ANION GAP 9 (5-19); ASPARTATE AMINO TRANSFERASE 15 U/L (14-36); BILIRUBIN,DIRECT 0.5 mg/dL (0.0-0.4); BILIRUBIN,TOTAL 0.5 mg/dL (0.2-1.3); BLOOD UREA NITROGEN 39 mg/dL (7-20); CALCIUM 9.4 mg/dL (8.4-10.2); CARBON DIOXIDE 29 mmol/L (22-30); CHLORIDE 97 mmol/L (98-107); GLUCOSE 96 mg/dL (75-110); POTASSIUM 3.9 mmol/L (3.6-5.0); TOTAL PROTEIN 6.4 g/dL (6.3-8.2)
--- NOTE | 2019-06-28 17:55 | ER Document Report ---
ED General - General Chief Complaint: Abdominal Pain Stated Complaint: ABDOMINAL PAIN Time Seen by Provider: 06/28/19 17:18 Mode of Arrival: Ambulatory Information source: Patient TRAVEL OUTSIDE OF THE [place] IN LAST 30 DAYS: No - HPI Notes: Patient presents complaining of abdominal pain. She states the abdominal pain has been present for 2 to 3 days. Has been constant. It has been moderate in intensity. It is worse with movement and better with rest. Patient states that it does not radiate. She is also had some cough and congestion. No vomiting but she has been nauseous. No problems with stool. She states she is a dialysis patient and she is due to dialyze tomorrow. - Related Data Allergies/Adverse Reactions: ASAD Inhibitors Allergy (Verified 05/11/19 09:12) "Red from chin to chest" Sulfa (Sulfonamide Antibiotics) Allergy (Verified 05/11/19 09:12) Hives Past Medical History - General Information source: Patient - Social History Smoking Status: Current Every Day Smoker Cigarette use (# per day): Yes Frequency of alcohol use: None Drug Abuse: None Family History: Reviewed & Not Pertinent - Past Medical History Cardiac Medical History: Reports: Hx Congestive Heart Failure - during renal failure, Hx Coronary Artery Disease, Hx Hypertension Denies: Hx Heart Attack Pulmonary Medical History: Reports: Hx COPD - "slight", no home O2, Hx Pneumonia - "Years ago" Denies: Hx Asthma, Hx Bronchitis Neurological Medical History: Denies: Hx Cerebrovascular Accident, Hx Seizures Renal/ Medical History: Reports: Hx End Stage Renal Disease, Hx Peritoneal Dialysis GI Medical History: Reports: Hx Diverticulitis Musculoskeletal Medical History: Denies Hx Arthritis Psychiatric Medical History: Reports: Hx Depression Past Surgical History: Reports: Hx Cholecystectomy, Hx Vascular Surgery, Other - Status post nephrectomy - Immunizations Hx Diphtheria, Pertussis, Tetanus Vaccination: Yes Hx Pneumococcal Vaccination: 11/17/14 Review of Systems - Review of Systems Constitutional: Malaise, Weakness Respiratory: Cough, Short of breath Gastrointestinal: Abdominal pain, Nausea, Vomiting -: Yes All other systems reviewed and negative Physical Exam - Vital signs Vitals: Pulse Ox 94 06/28/19 16:57 Interpretation: Normal - General General appearance: Appears well, Alert - HEENT Head: Normocephalic, Atraumatic Eyes: Normal Pupils: PERRL - Respiratory Respiratory status: No respiratory distress Chest status: Nontender Breath sounds: Rhonchi Chest palpation: Normal - Cardiovascular Rhythm: Regular Heart sounds: Normal auscultation Murmur: No - Abdominal Inspection: Normal Distension: Distended Bowel sounds: Hypoactive Tenderness: Tender - Abdomen is diffusely tender but without peritoneal signs. Organomegaly: No organomegaly - Back Back: Normal, Nontender - Extremities General upper extremity: Normal inspection, Nontender, Normal color, Normal ROM, Normal temperature General lower extremity: Normal inspection, Nontender, Normal color, Normal ROM, Normal temperature, Normal weight bearing. No: Lucy's sign - Neurological Neuro grossly intact: Yes Cognition: Normal Orientation: AAOx4 Dai Coma Scale Eye Opening: Spontaneous Dai Coma Scale Verbal: Oriented Dai Coma Scale Motor: Obeys Commands [place] Coma Scale Total: 15 Speech: Normal Motor strength normal: LUE, RUE, LLE, RLE Sensory: Normal - Psychological Associated symptoms: Normal affect, Normal mood - Skin Skin Temperature: Warm Skin Moisture: Dry Skin Color: Normal Course - Vital Signs Vital signs: Temp Pulse Resp BP Pulse Ox 98.1 F 71 20 163/59 H 96 06/28/19 20:23 06/28/19 20:23 06/28/19 20:23 06/28/19 20:23 06/28/19 20:23 - Laboratory Result Diagrams: 06/28/19 17:17 06/28/19 17:17 Laboratory results interpreted by me: 06/28/19 06/28/19 06/28/19 17:17 17:17 17:17 RBC 3.71 L Hgb 11.9 L MCV 99 H RDW 16.9 H Sodium 134.6 L Chloride 97 L BUN 39 H Creatinine 3.15 H Est GFR ( Amer) 18 L Est GFR (Non-Af Amer) 15 L Direct Bilirubin 0.5 H Creatine Kinase < 20 L 06/28/19 22:10 Laboratory 06/28/19 06/28/19 06/28/19 17:17 17:17 17:17 WBC 6.1 RBC 3.71 L Hgb 11.9 L Hct 36.6 MCV 99 H MCH 32.1 MCHC 32.5 RDW 16.9 H Plt Count 204 Seg Neutrophils % 58.5 Lymphocytes % 29.3 Monocytes % 7.3 Eosinophils % 4.3 Basophils % 0.6 Absolute Neutrophils 3.6 Absolute Lymphocytes 1.8 Absolute Monocytes 0.4 Absolute Eosinophils 0.3 Absolute Basophils 0.0 PT 14.7 INR 1.14 Sodium 134.6 L Potassium 3.9 Chloride 97 L Carbon Dioxide 29 Anion Gap 9 BUN 39 H Creatinine 3.15 H Est GFR ( Amer) 18 L Est GFR (Non-Af Amer) 15 L Glucose 96 Calcium 9.4 Total Bilirubin 0.5 Direct Bilirubin 0.5 H Neonat Total Bilirubin Not Reportable Neonat Direct Bilirubin Not Reportable Neonat Indirect Bili Not Reportable AST 15 ALT 5 Alkaline Phosphatase 105 Creatine Kinase CK-MB (CK-2) Troponin I Total Protein 6.4 Albumin 3.5 06/28/19 06/28/19 17:17 17:17 WBC RBC Hgb Hct MCV MCH MCHC RDW Plt Count Seg Neutrophils % Lymphocytes % Monocytes % Eosinophils % Basophils % Absolute Neutrophils Absolute Lymphocytes Absolute Monocytes Absolute Eosinophils Absolute Basophils PT INR Sodium Potassium Chloride Carbon Dioxide Anion Gap BUN Creatinine Est GFR ( Amer) Est GFR (Non-Af Amer) Glucose Calcium Total Bilirubin Direct Bilirubin Neonat Total Bilirubin Neonat Direct Bilirubin Neonat Indirect Bili AST ALT Alkaline Phosphatase Creatine Kinase < 20 L CK-MB (CK-2) 0.68 Troponin I 0.012 Total Protein Albumin - Diagnostic Test Radiology reviewed: Image reviewed, Reports reviewed Radiology results interpreted by me: 06/28/19 22:10 Abdomen/Pelvis CT 06/28/19 17:51 IMPRESSION: 1. Wall thickening of the descending and sigmoid colon. These findings suggest colitis this could be of infectious, inflammatory, or ischemic etiology. 2. Possible mild wall thickening involving the body of the stomach. This may be related to distention however gastritis or other etiology are considerations. 3. Small amount of free fluid. 4. 2.7 cm abdominal aortic aneurysm. Recommend follow-up every 5 years. Reference: J Am Joe Radiol 2013;10:789-794. 5. Right basilar airspace opacity may be related to atelectasis or developing pneumonic process. Small right pleural effusion. This exam was performed according to our departmental dose-optimization program, which includes automated exposure control, adjustment of the mA and/or kV according to patient size and/or use of iterative reconstruction technique. Discharge - Discharge Clinical Impression: Colitis, Abdominal pain, End-stage renal disease on hemodialysis Condition: Serious Disposition: ADMITTED INPATIENT Admitting Provider: Dusty (Hospitalist) Unit Admitted: Telemetry
[2019-06-28] MEDS ORDERED: ACETAMINOPHEN 325 MG TABLET PO PRN (18:03)
[2019-06-28] MEDS ORDERED: IPRATROPIUM/ALBUTEROL 0.5-2.5 MG/3 ML AMPUL NEB PRN (18:03)
[2019-06-28] MEDS ORDERED: NORMAL SALINE 1000 ML 1,000 ML IV PRN (18:03)
[2019-06-28] MEDS ORDERED: ONDANSETRON HCL INJ/PF 4 MG/2 ML SDV IV PRN (18:03)
[2019-06-28] MEDS ORDERED: PIPERACILLIN/TAZOBACTAM 3.375 GM VIAL IV ONE (18:08)
[2019-06-28] MEDS ORDERED: SODIUM POLYSTYRENE SULFONATE 15 GM/60 ML PO ONE (18:08)
--- NOTE | 2019-06-28 18:22 | PDOC H&P ---
History of Present Illness Admission Date/PCP: ORTEGA MONTAGUE MD Patient complains of: Abdominal pain associated with vomitings History of Present Illness: JUSTINE CHRISTENSEN is a 68 year old female with history of hypertension, ESRD on hemodialysis Friday, history of depression, history of congestive heart failure, coronary artery disease with status post stent placement, history of cholecystectomy came to the emergency room with complaints of abnormal pain she was referred by Dr. Montague for abdominal CT [address] of the abdomen pelvis suggestive of early pneumonia and small right pleural effusion. Medical consult was called for admission Dr. Abdullahi agreed for hospital admission. Patient last dialysis on Friday. Given the history of abdominal pain 03/26 today it started last Friday and she vomited on Friday. Last bowel movement is on Friday night. denies any fever denies any headaches dizziness denies any falls denies any rashes. Past Medical History Cardiac Medical History: Reports: Congestive Heart Failure - during renal failure, Coronary Artery Disease, Hypertension Denies: Myocardial Infarction Pulmonary Medical History: Reports: Chronic Obstructive Pulmonary Disease (COPD) - "slight", no home O2, Pneumonia - "Years ago" Denies: Asthma, Bronchitis Neurological Medical History: Denies: Seizures Renal/ Medical History: Reports: End Stage Renal Disease GI Medical History: Reports: Diverticulitis Musculoskeltal Medical History: Denies: Arthritis Psychiatric Medical History: Reports: Depression Hematology: Denies: Anemia Past Surgical History Past Surgical History: Reports: Cholecystectomy, Vascular Surgery, Other - Status post nephrectomy Social History Information Source: Patient Lives with: Family Smoking Status: Current Every Day Smoker Frequency of Alcohol Use: None Hx Recreational Drug Use: No Drugs: None Hx Prescription Drug Abuse: No - Advance Directive Resuscitation Status: Full Code Surrogate healthcare decision maker:: son Family History Family History: Reviewed & Not Pertinent Parental Family History Reviewed: Yes - family history of hypertension renal artery disease Children Family History Reviewed: Yes Sibling(s) Family History Reviewed.: Yes Medication/Allergy Home Medications: Aspirin [Adult Low Dose Aspirin EC] 81 mg PO DAILY 03/02/19 Carvedilol 25 mg PO Q12 03/02/19 Clonazepam [Klonopin] 0.5 mg PO Q8HP PRN MDD 2 MG 03/02/19 Clonidine HCl 0.3 mg PO 6XD 03/02/19 Doxazosin Mesylate [Cardura] 2 mg PO Q12 03/02/19 Loratadine 10 mg PO DAILY 03/02/19 Ondansetron HCl [Zofran 4 mg Tablet] 4 mg PO Q6HP PRN 03/02/19 Pravastatin Sodium 40 mg PO QHS 03/02/19 Sertraline HCl 200 mg PO DAILY 03/02/19 Torsemide [Demadex 20 mg Tablet] 20 mg PO BID 03/02/19 Umeclidinium Brm/Vilanterol Tr [Anoro Ellipta 62.5-25 Mcg INH] 1 puff IH DAILY 03/15/19 Simethicone [Mylicon 80 mg Chewable Tablet] 160 mg PO QIDP PRN tab.chew 03/17/19 Acetaminophen [Tylenol Extra Strength 500 mg Tablet] 1 tab PO DAILYP PRN 05/11/19 Cholecalciferol (Vitamin D3) [Vitamin D3] 1,000 unit PO DAILY 05/11/19 Famotidine [Acid Controller] 20 mg PO DAILYP PRN 05/11/19 Folic Acid/Vitamin B Comp W-C [Nephro-Bernard Tablet] 0.8 mg PO DAILY 05/11/19 Gabapentin [Neurontin 100 mg Capsule] 100 mg PO TID 05/11/19 Levalbuterol HCl [Xopenex] 1 vial IH Q8 05/11/19 Sennosides/Docusate Sodium [Stool Softener-Laxative Tablet] 1 each PO DAILYP PRN 05/11/19 Prednisone [Deltasone 5 mg Tablet] 5 mg PO ASDIR PRN 12 Days #42 tablet 05/13/19 Allergies/Adverse Reactions: ASAD Inhibitors Allergy (Verified 05/11/19 09:12) "Red from chin to chest" Sulfa (Sulfonamide Antibiotics) Allergy (Verified 05/11/19 09:12) Hives Review of Systems Constitutional: PRESENT: fatigue, headache(s), weakness. ABSENT: fever(s), night sweats Eyes: ABSENT: visual disturbances Ears: ABSENT: hearing changes Nose, Mouth, and Throat: ABSENT: sore throat Cardiovascular: ABSENT: chest pain, dyspnea on exertion, palpitations Respiratory: PRESENT: cough. ABSENT: dyspnea Gastrointestinal: PRESENT: abdominal pain, constipation, nausea. ABSENT: diarrhea, vomiting Musculoskeletal: ABSENT: joint swelling Neurological: ABSENT: abnormal gait, abnormal speech, confusion, dizziness, focal weakness, syncope Psychiatric: ABSENT: anxiety, depression, homidical ideation, suicidal ideation Physical Exam Vital Signs: Temp Pulse Resp BP Pulse Ox 98 F 30 H 161/64 H 96 06/28/19 17:06 06/28/19 17:06 06/28/19 17:06 06/28/19 17:06 General appearance: PRESENT: no acute distress, cooperative, disheveled Head exam: PRESENT: atraumatic Eye exam: PRESENT: PERRLA Mouth exam: PRESENT: moist, tongue midline Teeth exam: PRESENT: poor dentation Neck exam: ABSENT: carotid bruit, JVD, lymphadenopathy, thyromegaly Respiratory exam: PRESENT: decreased breath sounds Cardiovascular exam: PRESENT: RRR. ABSENT: diastolic murmur, rubs, systolic murmur GI/Abdominal exam: PRESENT: normal bowel sounds, tenderness Rectal exam: PRESENT: deferred Extremities exam: PRESENT: full ROM, other - AV fistula present. ABSENT: calf tenderness, clubbing, pedal edema Neurological exam: PRESENT: alert, awake, oriented to person, oriented to place, oriented to time, oriented to situation, CN II-XII grossly intact. ABSENT: motor sensory deficit Psychiatric exam: PRESENT: anxious Results Laboratory Results: 06/28/19 17:17 06/28/19 17:17 06/28/19 06/28/19 17:17 17:17 WBC 6.1 RBC 3.71 L Hgb 11.9 L Hct 36.6 MCV 99 H MCH 32.1 MCHC 32.5 RDW 16.9 H Plt Count 204 Seg Neutrophils % 58.5 Lymphocytes % 29.3 Monocytes % 7.3 Eosinophils % 4.3 Basophils % 0.6 Absolute Neutrophils 3.6 Absolute Lymphocytes 1.8 Absolute Monocytes 0.4 Absolute Eosinophils 0.3 Absolute Basophils 0.0 Sodium 134.6 L Potassium 3.9 Chloride 97 L Carbon Dioxide 29 Anion Gap 9 BUN 39 H Creatinine 3.15 H Est GFR ( Amer) 18 L Est GFR (Non-Af Amer) 15 L Glucose 96 Calcium 9.4 Total Bilirubin 0.5 AST 15 Alkaline Phosphatase 105 Total Protein 6.4 Albumin 3.5 Assessment and Plan - Diagnosis (1) Abdominal pain Is this a current diagnosis for this admission?: Yes Plan: 06/28/2019-patient is going to be admitted for abdominal pain it started 3 days ago pain scale today is 5/10. Associated nausea and vomiting's last emesis was 3 days ago. She is also complaining of constipation last bowel movement was 3 days ago. Denies any blood in the stool. Denies any blood in the vomitus. And is going to be admitted to IM and GI prophylaxis was initiated started on morphine 2 mg IV every 6 as needed for pain and Kayexalate 30 g 1 dose today. Started on heparin 4000 units subcu every 12 hours. Last dialysis on Friday Next dialysis tomorrow. Consultation with Dr. Abdullahi was requested. pt is going for CT abdomen and pelvis with oral contrast as per Dr. Pandya. (2) Pneumonia Is this a current diagnosis for this admission?: Yes Plan: 06/28/2019-patient is going to be admitted for community-acquired pneumonia and she received IV Rocephin and Zithromax in the emergency room blood cultures are pending sputum cultures are pending to start on Zosyn every 6 hours. Sputum cultures blood cultures are requested. Patient was placed on oxygen. Most likely gram-positive organisms are responsible. (3) End-stage renal disease on hemodialysis Is this a current diagnosis for this admission?: Yes Plan: 06/28/2019-patient is on end-stage renal disease on dialysis end-stage renal disease secondary to hypertension. Last dialysis Friday. Her regular schedule is Friday. Consultation with Dr. Abdullahi was requested. (4) Anemia in chronic kidney disease (CKD) Is this a current diagnosis for this admission?: No Plan: 06/28/2019-patient hemoglobin is low [address] 1.6 stable. Plan is to continue to closely monitor the hemoglobin. (5) Coronary artery disease Qualifiers: Coronary Disease-Associated Artery/Lesion type: unspecified vessel or lesion type [place] vs. transplanted heart: [place] heart Associated angina: without angina Qualified Code(s): I25.10 - Atherosclerotic heart disease of [place] coronary artery without angina pectoris Is this a current diagnosis for this admission?: No Plan: 06/28/2019-patient has history of coronary artery disease with stent placement no complaints of chest pains today. Plan is to resume her home medications. (6) Hypertension Qualifiers: Hypertension type: essential hypertension Qualified Code(s): I10 - Essential (primary) hypertension Is this a current diagnosis for this admission?: Yes Plan: 06/28/2019-patient has history of essential hypertension, blood pressure today is 161/64 to resume her home medications. (7) Constipation Qualifiers: Constipation type: other constipation type Qualified Code(s): K59.09 - Other constipation Is this a current diagnosis for this admission?: Yes Plan: 06/28/2019-patient is complaining of constipation associated with abdominal pain last bowel movement was 3 days ago. To give Kayexalate 30 g 1 dose. (8) Tobacco abuse Is this a current diagnosis for this admission?: Yes Plan: 06/28/2019-patient is current day smoker smoking counseling was provided for more than 15 minutes patient refused nicotine patches. - Time Time Spent with patient: 25-34 minutes Smoking Cessation Education: over 10 minutes Medications reviewed and adjusted accordingly: Yes Anticipated discharge: Home
[2019-06-28] MEDS ORDERED: ONDANSETRON HCL INJ/PF 4 MG/2 ML SDV IV ONE (18:29)
--- NOTE | 2019-06-28 18:52 | PDOC CONSULTATION ---
Consultation Consult Date: 06/28/19 Attending physician:: ANDI CASTILLO Provider Consulted: TIM WHITEHEAD Consult reason:: Abdominal pain History of Present Illness Admission Date/PCP: 06/28/19 18:13 ORTEGA LEWIS MD Patient complains of: Abdominal pain History of Present Illness: JUSTINE CHRISTENSEN is a 68 year old female Comes to the emergency department via ground rescue from Dr. Lewis's office with a 3-day history of abdominal pain, crampy, associated constipation; patient took laxatives over the weekend with some results. Patient has a long history of chronic abdominal pain, constipation, history of colitis with admission oralia ier this year for nonspecific colitis managed with IV antibiotics. Patient states last colonoscopy was 3 years ago, reportedly normal. Emergency department she was found to be slightly dehydrated, and had a CT scan of the abdomen pelvis without oral and without IV contrast which showed constipation and minimal fluid in the abdomen. Surgery was consulted. Patient was admitted to the medicine service for further evaluation. Surgery instructed emergency department to repeat CAT scan with oral contrast. Past Medical History Cardiac Medical History: Reports: Congestive Heart Failure - during renal failure, Coronary Artery Disease, Hypertension Denies: Myocardial Infarction Pulmonary Medical History: Reports: Chronic Obstructive Pulmonary Disease (COPD) - "slight", no home O2, Pneumonia - "Years ago" Denies: Asthma, Bronchitis Neurological Medical History: Denies: Seizures Renal/ Medical History: Reports: End Stage Renal Disease GI Medical History: Reports: Diverticulitis Musculoskeltal Medical History: Denies: Arthritis Psychiatric Medical History: Reports: Depression Hematology: Denies: Anemia Past Surgical History Past Surgical History: Reports: Cholecystectomy, Vascular Surgery, Other - Status post nephrectomy Social History Lives with: Family Smoking Status: Current Every Day Smoker Frequency of Alcohol Use: None Hx Recreational Drug Use: No Drugs: None Hx Prescription Drug Abuse: No - Advance Directive Resuscitation Status: Full Code Family History Family History: Reviewed & Not Pertinent Parental Family History Reviewed: Yes Children Family History Reviewed: Yes Sibling(s) Family History Reviewed.: Yes - Patient smokes a pack and a half of cigarettes a day Medication/Allergy Allergies/Adverse Reactions: ASAD Inhibitors Allergy (Verified 05/11/19 09:12) "Red from chin to chest" Sulfa (Sulfonamide Antibiotics) Allergy (Verified 05/11/19 09:12) Hives Review of Systems Constitutional: PRESENT: as per HPI Eyes: ABSENT: visual disturbances Ears: ABSENT: hearing changes Cardiovascular: PRESENT: other - Occasional patient Respiratory: PRESENT: cough, dyspnea, sputum Gastrointestinal: PRESENT: as per HPI, other Genitourinary: ABSENT: dysuria, hematuria Musculoskeletal: PRESENT: muscle weakness Physical Exam Vital Signs: Temp Pulse Resp BP Pulse Ox 98 F 30 H 161/64 H 96 06/28/19 17:06 06/28/19 17:06 06/28/19 17:06 06/28/19 17:06 Intake & Output 06/27/19 06/28/19 06/29/19 06:59 06:59 06:59 Intake Total 50 Balance 50 General appearance: PRESENT: thin, other - Poorly nourished Head exam: PRESENT: normocephalic Eye exam: PRESENT: EOMI Mouth exam: PRESENT: dry mucosa Neck exam: PRESENT: full ROM Respiratory exam: PRESENT: rhonchi, wheezes Cardiovascular exam: PRESENT: RRR Pulses: PRESENT: normal carotid pulses, normal radial pulses, normal femoral pulses GI/Abdominal exam: PRESENT: diminished bowel sounds, tenderness, other - Diffuse abdominal tenderness but no rigidity no guarding no distention. Rectal exam: PRESENT: deferred Extremities exam: PRESENT: full ROM Musculoskeletal exam: PRESENT: ambulatory Neurological exam: PRESENT: awake, oriented to person, oriented to place, oriented to time, oriented to situation Psychiatric exam: PRESENT: appropriate affect Results Laboratory Results: 06/28/19 17:17 06/28/19 17:17 06/28/19 06/28/19 17:17 17:17 WBC 6.1 RBC 3.71 L Hgb 11.9 L Hct 36.6 MCV 99 H MCH 32.1 MCHC 32.5 RDW 16.9 H Plt Count 204 Seg Neutrophils % 58.5 Lymphocytes % 29.3 Monocytes % 7.3 Eosinophils % 4.3 Basophils % 0.6 Absolute Neutrophils 3.6 Absolute Lymphocytes 1.8 Absolute Monocytes 0.4 Absolute Eosinophils 0.3 Absolute Basophils 0.0 Sodium 134.6 L Potassium 3.9 Chloride 97 L Carbon Dioxide 29 Anion Gap 9 BUN 39 H Creatinine 3.15 H Est GFR ( Amer) 18 L Est GFR (Non-Af Amer) 15 L Glucose 96 Calcium 9.4 Total Bilirubin 0.5 AST 15 Alkaline Phosphatase 105 Total Protein 6.4 Albumin 3.5 Assessment & Plan - Diagnosis (1) Abdominal pain Is this a current diagnosis for this admission?: Yes Plan: Impression: Subacute abdominal pain, recurrent, likely due to constipation; cannot rule out colitis, or less likely intestinal ischemia. Patient has severe aorta iliac atherosclerotic disease likely coronary and distal peripheral vascular Recommendations: 1. At this moment the patient does not have an acute abdomen. CT scan is essentially nondiagnostic due to the absence of contrast, and negligible body fat to serve as contrasting tissue. Therefore I have suggested repeat CT scan with oral contrast, if patient can take it PO. 2. Patient appears constipated, and would likely benefit from cathartics. 3. Clinically she also appears dehydrated; gentle hydration in light of chronic renal failure suggested 4. We will follow patient while hospitalized in a consulting capacity. (2) Constipation Qualifiers: Constipation type: other constipation type Qualified Code(s): K59.09 - Other constipation Is this a current diagnosis for this admission?: Yes (3) Tobacco abuse Is this a current diagnosis for this admission?: Yes Plan: Patient still smoking a pack and a half of cigarettes per day (4) COPD (chronic obstructive pulmonary disease) Qualifiers: COPD type: unspecified COPD Qualified Code(s): J44.9 - Chronic obstructive pulmonary disease, unspecified (5) End-stage renal disease on hemodialysis Is this a current diagnosis for this admission?: Yes Plan: On Friday dialysis through left upper extremity AV fistula currently functioning satisfactorily (6) Hypertension Qualifiers: Hypertension type: essential hypertension Qualified Code(s): I10 - Essential (primary) hypertension Is this a current diagnosis for this admission?: Yes (7) Pleural effusion, right Is this a current diagnosis for this admission?: Yes Plan: Chronic finding - Time Time Spent: 30 to 50 Minutes Smoking Cessation Education: 3 to 10 minutes Medications reviewed and adjusted accordingly: Yes Anticipated discharge: Home - Inpatient Certification Based on my medical assessment, after consideration of the patient's comorbidities, presenting symptoms, or acuity I expect that the services needed warrant INPATIENT care.: Yes I certify that my determination is in accordance with my understanding of Medicare's requirements for reasonable and necessary INPATIENT services [42 CFR 412.3e].: Yes Medical Necessity: Need For IV Fluids, Need for IV Antibiotics
[2019-06-28 19:02] LABS: CREATINE KINASE MB 0.68 ng/mL (<4.55); TROPONIN I 0.012 ng/mL
--- NOTE | 2019-06-28 20:25 | RADIOLOGY REPORT (SQ) ---
EXAM DESCRIPTION: CT ABDOMEN PELVIS WITHOUT IV CONTRAST COMPLETED DATE/TME: 06/28/2019 17:51 CLINICAL HISTORY: Lower abdominal pain. COMPARISON: Same day. TECHNIQUE: CT of the abdomen and pelvis without IV contrast. Evaluation of the solid organs and vasculature is suboptimal due to lack of IV contrast. Oral contrast administered. DLP: 235.72 mGy-cm FINDINGS: Lung Bases: Basilar airspace opacity and small right pleural effusion. Cardiomegaly. Coronary artery atherosclerosis. Bones: Degenerative change of the spine. Abdomen: Liver: The liver has normal size and density. Gallbladder: Prior cholecystectomy. Spleen, Pancreas, and Adrenal Glands: The spleen, pancreas, and adrenal glands are unremarkable. Kidneys: Punctate nonobstructing right nephrolithiasis. No obstructing right ureteral calculi. No hydronephrosis. Prior left nephrectomy. Vasculature: Aortoiliac atherosclerosis. 2.7 cm infrarenal abdominal aortic aneurysm. IVC is unremarkable. Stomach: Possible mild wall thickening of the body of the stomach. Other: No free intraperitoneal air. Small amount of free fluid. Pelvis: Bladder: Urinary bladder is unremarkable. Bowel: Moderate amount stool throughout the colon. No dilated loops of large or small bowel. Mild wall thickening of the sigmoid and descending colon. Appendix: Not identified. Pelvis: Uterus is not enlarged. IMPRESSION: 1. Wall thickening of the descending and sigmoid colon. These findings suggest colitis this could be of infectious, inflammatory, or ischemic etiology. 2. Possible mild wall thickening involving the body of the stomach. This may be related to distention however gastritis or other etiology are considerations. 3. Small amount of free fluid. 4. 2.7 cm abdominal aortic aneurysm. Recommend follow-up every 5 years. Reference: J Am Joe Radiol 2013;10:789-794. 5. Right basilar airspace opacity may be related to atelectasis or developing pneumonic process. Small right pleural effusion. This exam was performed according to our departmental dose-optimization program, which includes automated exposure control, adjustment of the mA and/or kV according to patient size and/or use of iterative reconstruction technique.
[2019-06-28] MEDS: MORPHINE SULFATE 10 MG/ML INJ IV PRN (20:56)
[2019-06-28] MEDS ORDERED: FAMOTIDINE 20 MG TABLET PO PRN (21:37)
[2019-06-28] MEDS ORDERED: LORATADINE 10 MG TABLET PO PRN (21:37)
[2019-06-28] MEDS ORDERED: PIPERACILLIN SODIUM/TAZOBACTAM 3.375 GM in NORMAL SALINE 100 ML IV ONE (22:00)
[2019-06-28] MEDS ORDERED: ASPIRIN 81 MG TABLET, ENT COATED PO SCH (22:00)
[2019-06-28] MEDS: HYDRALAZINE HCL 50 MG TABLET PO SCH (22:39)
[2019-06-28] MEDS: CARVEDILOL 12.5 MG TABLET PO SCH (22:39)
[2019-06-28] MEDS: DOXAZOSIN MESYLATE 2 MG TABLET PO SCH (22:40)
[2019-06-28] MEDS: HEPARIN SOD (PORCINE) 5,000 UNIT/ML 1 ML VIAL SUBCUT SCH (22:41)
[2019-06-28] MEDS ORDERED: SODIUM POLYSTYRENE SULFONATE 15 GM/60 ML ONE ×2 (22:45→22:49)
[2019-06-28] MEDS: LEVALBUTEROL HCL NEB 1.25 MG/3 ML AMPUL NEB SCH (23:33)
[2019-06-29] MEDS: CLONIDINE HCL 0.1 MG TABLET PO SCH ×4 (01:06→17:44)
[2019-06-29 01:22] LABS: CREATINE KINASE MB 0.73 ng/mL (<4.55)
[2019-06-29 01:24] LABS: TROPONIN I < 0.012 ng/mL
[2019-06-29] MEDS: MORPHINE SULFATE 10 MG/ML INJ IV PRN (04:55)
[2019-06-29] MEDS: HYDRALAZINE HCL 50 MG TABLET PO SCH ×2 (05:08→13:54)
[2019-06-29] MEDS: HEPARIN SOD (PORCINE) 5,000 UNIT/ML 1 ML VIAL SUBCUT SCH ×2 (05:10→13:55)
[2019-06-29] MEDS: PANTOPRAZOLE SODIUM 40 MG TABLET.DR PO SCH ×2 (05:10→17:44)
[2019-06-29 07:42] LABS: ABSOLUTE BASOPHILS # (AUTO) 0.1 10^3/uL (0.0-0.2); ABSOLUTE EOSINOPHILS # (AUTO) 0.4 10^3/uL (0.0-0.6); ABSOLUTE LYMPHOCYTES (AUTO) 2.6 10^3/uL (0.5-4.7); ABSOLUTE MONOCYTES (AUTO) 0.6 10^3/uL (0.1-1.4); ABSOLUTE NEUT (AUTO) 4.5 10^3/uL (1.7-8.2); BASOPHILS % (AUTO) 0.8 % (0-2); HEMATOCRIT 37.3 % (36.0-47.0); HEMOGLOBIN 12.2 g/dL (12.0-15.5); LYMPHOCYTES % (AUTO) 31.8 % (13-45); MEAN CORPUSCULAR HEMOGLOBIN 32.1 pg (27.0-33.4); MEAN CORPUSCULAR HGB CONC 32.6 g/dL (32.0-36.0); MEAN CORPUSCULAR VOLUME 98 fl (80-97); MONOCYTES % (AUTO) 7.6 % (3-13); PLATELET COUNT 230 10^3/uL (150-450); RED BLOOD COUNT 3.79 10^6/uL (3.72-5.28); RED CELL DISTRIBUTION WIDTH 16.4 % (11.5-14.0); SEGMENTED NEUTROPHILS % (AUTO) 54.8 % (42-78); TOTAL CELLS COUNTED % (AUTO) 100 %; WHITE BLOOD COUNT 8.2 10^3/uL (4.0-10.5)
[2019-06-29 08:04] LABS: ALBUMIN 3.5 g/dL (3.5-5.0); ALKALINE PHOSPHATASE 109 U/L (38-126); ANION GAP 12 (5-19); ASPARTATE AMINO TRANSFERASE 18 U/L (14-36); BILIRUBIN,DIRECT 0.4 mg/dL (0.0-0.4); BILIRUBIN,TOTAL 0.4 mg/dL (0.2-1.3); BLOOD UREA NITROGEN 41 mg/dL (7-20); CALCIUM 9.3 mg/dL (8.4-10.2); CARBON DIOXIDE 26 mmol/L (22-30); CHLORIDE 101 mmol/L (98-107); GLUCOSE 92 mg/dL (75-110); POTASSIUM 4.1 mmol/L (3.6-5.0); TOTAL PROTEIN 6.5 g/dL (6.3-8.2); TRIGLYCERIDES 148 mg/dL (<150)
[2019-06-29 08:15] LABS: DIRECT LDL 91 mg/dL (<100)
[2019-06-29 08:16] LABS: CREATINE KINASE < 20 U/L (30-135); CREATINE KINASE MB 0.81 ng/mL (<4.55); TROPONIN I 0.016 ng/mL
[2019-06-29] MEDS: LEVALBUTEROL HCL NEB 1.25 MG/3 ML AMPUL NEB SCH ×2 (09:10→16:40)
[2019-06-29] MEDS: DOXAZOSIN MESYLATE 2 MG TABLET PO SCH (09:38)
[2019-06-29] MEDS: CARVEDILOL 12.5 MG TABLET PO SCH (09:38)
[2019-06-29] MEDS ORDERED: CHOLECALCIFEROL (D3) 1,000 UNIT (25 MCG) TABLET PO SCH (10:00)
--- NOTE | 2019-06-29 10:45 | PDOC PROGRESS REPORT ---
Subjective Progress Note for:: 06/29/19 Subjective:: After multiple bowel movements patient states that she feels much better. Abdomen back to baseline. Reason For Visit: PNEUMONIA/ABD PAIN Physical Exam Vital Signs: Temp Pulse Resp BP Pulse Ox 97.6 F 77 16 187/73 H 92 06/29/19 07:56 06/29/19 07:56 06/29/19 07:56 06/29/19 07:56 06/29/19 07:56 Intake & Output 06/28/19 06/29/19 06/30/19 06:59 06:59 06:59 Intake Total 750 Balance 750 Weight 42.5 kg General appearance: PRESENT: no acute distress, cooperative GI/Abdominal exam: PRESENT: other - Soft, nondistended, nontender to palpation. Results Laboratory Results: 06/29/19 07:25 06/29/19 07:25 06/28/19 06/28/19 06/28/19 17:17 17:17 19:30 WBC 6.1 RBC 3.71 L Hgb 11.9 L Hct 36.6 MCV 99 H MCH 32.1 MCHC 32.5 RDW 16.9 H Plt Count 204 Seg Neutrophils % 58.5 Lymphocytes % 29.3 Monocytes % 7.3 Eosinophils % 4.3 Basophils % 0.6 Absolute Neutrophils 3.6 Absolute Lymphocytes 1.8 Absolute Monocytes 0.4 Absolute Eosinophils 0.3 Absolute Basophils 0.0 Sodium 134.6 L Potassium 3.9 Chloride 97 L Carbon Dioxide 29 Anion Gap 9 BUN 39 H Creatinine 3.15 H Est GFR ( Amer) 18 L Est GFR (Non-Af Amer) 15 L Glucose 96 Lactic Acid 0.7 Calcium 9.4 Magnesium Total Bilirubin 0.5 AST 15 Alkaline Phosphatase 105 Total Protein 6.4 Albumin 3.5 Triglycerides Cholesterol LDL Cholesterol Direct VLDL Cholesterol HDL Cholesterol TSH 06/29/19 06/29/19 06/29/19 07:25 07:25 07:25 WBC 8.2 RBC 3.79 Hgb 12.2 Hct 37.3 MCV 98 H MCH 32.1 MCHC 32.6 RDW 16.4 H Plt Count 230 Seg Neutrophils % 54.8 Lymphocytes % 31.8 Monocytes % 7.6 Eosinophils % 5.0 Basophils % 0.8 Absolute Neutrophils 4.5 Absolute Lymphocytes 2.6 Absolute Monocytes 0.6 Absolute Eosinophils 0.4 Absolute Basophils 0.1 Sodium 138.7 Potassium 4.1 Chloride 101 Carbon Dioxide 26 Anion Gap 12 BUN 41 H Creatinine 3.30 H Est GFR ( Amer) 17 L Est GFR (Non-Af Amer) 14 L Glucose 92 Lactic Acid Calcium 9.3 Magnesium 1.8 Total Bilirubin 0.4 AST 18 Alkaline Phosphatase 109 Total Protein 6.5 Albumin 3.5 Triglycerides 148 Cholesterol 147.80 LDL Cholesterol Direct 91 VLDL Cholesterol 30.0 HDL Cholesterol 41 TSH 4.14 06/28/19 06/28/19 06/29/19 17:17 17:17 00:40 Creatine Kinase < 20 L < 20 L CK-MB (CK-2) 0.68 Troponin I 0.012 NT-Pro-B Natriuret Pep 06/29/19 06/29/19 06/29/19 00:40 07:25 07:25 Creatine Kinase < 20 L CK-MB (CK-2) 0.73 0.81 Troponin I < 0.012 0.016 NT-Pro-B Natriuret Pep [id number] H Impressions: Abdomen/Pelvis CT 06/28/19 17:51 IMPRESSION: 1. Wall thickening of the descending and sigmoid colon. These findings suggest colitis this could be of infectious, inflammatory, or ischemic etiology. 2. Possible mild wall thickening involving the body of the stomach. This may be related to distention however gastritis or other etiology are considerations. 3. Small amount of free fluid. 4. 2.7 cm abdominal aortic aneurysm. Recommend follow-up every 5 years. Reference: J Am Joe Radiol 2013;10:789-794. 5. Right basilar airspace opacity may be related to atelectasis or developing pneumonic process. Small right pleural effusion. This exam was performed according to our departmental dose-optimization program, which includes automated exposure control, adjustment of the mA and/or kV according to patient size and/or use of iterative reconstruction technique. Assessment & Plan - Diagnosis (1) Abdominal pain Is this a current diagnosis for this admission?: Yes Plan: Resolved abdominal pain after bowel movements. May have been just simply related with constipation. I do not see any role for surgical intervention. I do recommend strongly gastroenterology for consultation as an outpatient for colonoscopy. May discharge when tolerating diet well. Surgical service signing off. Call us for any problems.
[2019-06-29] MEDS ORDERED: METRONIDAZOLE 500 MG/NS RTU 500 MG/100 ML RTUPB IV SCH ×2 (13:00→15:00)
[2019-06-29] MEDS ORDERED: LEVOFLOXACIN 500 MG/D5W RTU 500 MG/100 ML RTUPB IV SCH ×2 (13:00→15:00)
[2019-06-29] MEDS ORDERED: CEFTRIAXONE 2 GM/D5W RTU 2 GM/50 ML RTUPB IV SCH (13:00)
--- NOTE | 2019-06-29 14:45 | PDOC CONSULTATION ---
Consultation Consult Date: 06/29/19 Provider Consulted: Lenin POLANCO Consult reason:: ESRD for HD History of Present Illness Admission Date/PCP: 06/28/19 18:13 ORTEGA MONTAGUE MD History of Present Illness: JUSTINE CHRISTENSEN is a 68 year old female with history of Severe COPD, ESRD on hemodialysis Friday, Hypertension, history of congestive heart failure, coronary artery disease with status post stent placement came to the emergency room with complaints of abdominal pain and constipation. She was referred by Dr. Montague for abdominal CT [address] of the abdomen pelvis suggestive of early pneumonia and small right pleural effusion. Last bowel movement is on Friday night. She denies any fever denies any headaches dizziness denies any falls denies any rashes.Today when I see her she has had laxatives and has had good bowel movements and abdominal pain is almost completely gone.Labs and medications were reviewed. Her last dialysis was Friday. She still makes decent amounts of urine. Past Medical History Cardiac Medical History: Reports: CHF-Diastolic, Coronary Artery Disease, Hypertension-primary Denies: Myocardial Infarction Pulmonary Medical History: Reports: Chronic Obstructive Pulmonary Disease (COPD) - "slight", no home O2, Pneumonia - "Years ago" Denies: Asthma, Bronchitis Neurological Medical History: Denies: Seizures Renal/ Medical History: Reports: End Stage Renal Disease, Secondary Hyperparathyroidism GI Medical History: Reports: Diverticulitis Musculoskeltal Medical History: Denies: Arthritis Psychiatric Medical History: Reports: Depression Hematology Medical History: Reports Anemia of Chronic Kidney Disease Past Surgical History Past Surgical History: Reports: Cholecystectomy, Dialysis Access Surgery AVF, Nephrectomy - 2016, Vascular Surgery, Other - Status post nephrectomy Social History Lives with: Family Smoking Status: Current Every Day Smoker Cigarettes Packs Per Day: 1 Number of Years Smokin Last Time Smoked: 06/28/19 Frequency of Alcohol Use: None Hx Recreational Drug Use: No Drugs: None Hx Prescription Drug Abuse: No - Advance Directive Resuscitation Status: Full Code Family History Parental Family History Reviewed: Yes - Negative for ESRD Children Family History Reviewed: No Sibling(s) Family History Reviewed.: No Medication/Allergy Home Medications: Aspirin [Adult Low Dose Aspirin EC] 81 mg PO QHS 06/28/19 Carvedilol [Coreg] 25 mg PO Q12 06/28/19 Cholecalciferol (Vitamin D3) [Vitamin D3 1000 Unit Tablet] 1,000 unit PO DAILY 06/28/19 Clonazepam [Klonopin] 0.25 mg PO Q8HP PRN 06/28/19 Clonidine HCl [Catapres 0.3 mg Tablet] 0.3 mg PO Q4 06/28/19 Doxazosin Mesylate [Cardura 2 mg Tablet] 2 mg PO Q12 06/28/19 Famotidine [Pepcid 20 mg Tablet] 20 mg PO DAILYP PRN 06/28/19 Hydralazine HCl 100 mg PO Q8 06/28/19 Levalbuterol HCl [Xopenex Neb 1.25 mg/3 ml Ampul] 1.25 mg NEB RTQ8 06/28/19 Loratadine [Claritin] 10 mg PO DAILYP PRN 06/28/19 Pravastatin Sodium [Pravachol] 40 mg PO QHS 06/28/19 Sennosides/Docusate Sodium [Senna Plus Tablet] 1 each PO DAILYP PRN 06/28/19 Sertraline HCl [Zoloft] 200 mg PO DAILY 06/28/19 Simethicone [Mylicon 80 mg Chewable Tablet] 160 mg PO QIDP PRN 06/28/19 Umeclidinium Brm/Vilanterol Tr [Anoro Ellipta 62.5-25 Mcg INH] 1 puff IH DAILY 06/28/19 Vit B Comp No.3/Folic/C/Biotin [Nephro-Bernard Rx Tablet] 1 each PO DAILY 06/28/19 Allergies/Adverse Reactions: ASAD Inhibitors Allergy (Verified 05/11/19 09:12) "Red from chin to chest" Sulfa (Sulfonamide Antibiotics) Allergy (Verified 05/11/19 09:12) Hives Review of Systems Constitutional: PRESENT: anorexia, weakness. ABSENT: chills, fatigue, fever(s), headache(s), night sweats Nose, Mouth, and Throat: ABSENT: mouth pain, sore throat Cardiovascular: PRESENT: dyspnea on exertion. ABSENT: chest pain, edema, orthropnea, palpitations Gastrointestinal: PRESENT: abdominal pain, bloating, constipation, nausea, vomiting. ABSENT: coffee ground emesis, diarrhea, dysphagia, heartburn, hematemesis, hematochezia Genitourinary: ABSENT: difficulty urinating, dysuria, hematuria Musculoskeletal: ABSENT: deformity, joint swelling Integumentary: ABSENT: erythema, lesions, pruritus, rash Neurological: ABSENT: abnormal speech, confusion, convulsions, focal weakness, frequent falls, lack of coordination Psychiatric: PRESENT: anxiety, depression Hematologic/Lymphatic: ABSENT: easy bleeding, lymphadenopathy Physical Exam Vital Signs: Temp Pulse Resp BP Pulse Ox 97.6 F 77 16 187/73 H 92 06/29/19 07:56 06/29/19 07:56 06/29/19 07:56 06/29/19 07:56 06/29/19 07:56 Intake & Output 06/28/19 06/29/19 06/30/19 06:59 06:59 06:59 Intake Total 750 Balance 750 Weight 42.5 kg General appearance: PRESENT: mild distress Eye exam: PRESENT: EOMI, PERRLA Mouth exam: PRESENT: moist Neck exam: ABSENT: lymphadenopathy, meningismus, tenderness, thyromegaly, tracheal deviation Respiratory exam: PRESENT: clear to auscultation irina, decreased breath sounds. ABSENT: crackles Cardiovascular exam: PRESENT: +S1, +S2 GI/Abdominal exam: PRESENT: normal bowel sounds, soft. ABSENT: organomegaly, tenderness Extremities exam: ABSENT: pedal edema Neurological exam: PRESENT: alert, awake, oriented to person, oriented to place, oriented to time Psychiatric exam: PRESENT: anxious Skin exam: ABSENT: cyanosis, erythema, mottled, rash Results Laboratory Results: 06/29/19 07:25 06/29/19 07:25 06/28/19 06/28/19 06/28/19 17:17 17:17 19:30 WBC 6.1 RBC 3.71 L Hgb 11.9 L Hct 36.6 MCV 99 H MCH 32.1 MCHC 32.5 RDW 16.9 H Plt Count 204 Seg Neutrophils % 58.5 Lymphocytes % 29.3 Monocytes % 7.3 Eosinophils % 4.3 Basophils % 0.6 Absolute Neutrophils 3.6 Absolute Lymphocytes 1.8 Absolute Monocytes 0.4 Absolute Eosinophils 0.3 Absolute Basophils 0.0 Sodium 134.6 L Potassium 3.9 Chloride 97 L Carbon Dioxide 29 Anion Gap 9 BUN 39 H Creatinine 3.15 H Est GFR ( Amer) 18 L Est GFR (Non-Af Amer) 15 L Glucose 96 Lactic Acid 0.7 Calcium 9.4 Magnesium Total Bilirubin 0.5 AST 15 Alkaline Phosphatase 105 Total Protein 6.4 Albumin 3.5 Triglycerides Cholesterol LDL Cholesterol Direct VLDL Cholesterol HDL Cholesterol TSH 06/29/19 06/29/19 06/29/19 07:25 07:25 07:25 WBC 8.2 RBC 3.79 Hgb 12.2 Hct 37.3 MCV 98 H MCH 32.1 MCHC 32.6 RDW 16.4 H Plt Count 230 Seg Neutrophils % 54.8 Lymphocytes % 31.8 Monocytes % 7.6 Eosinophils % 5.0 Basophils % 0.8 Absolute Neutrophils 4.5 Absolute Lymphocytes 2.6 Absolute Monocytes 0.6 Absolute Eosinophils 0.4 Absolute Basophils 0.1 Sodium 138.7 Potassium 4.1 Chloride 101 Carbon Dioxide 26 Anion Gap 12 BUN 41 H Creatinine 3.30 H Est GFR ( Amer) 17 L Est GFR (Non-Af Amer) 14 L Glucose 92 Lactic Acid Calcium 9.3 Magnesium 1.8 Total Bilirubin 0.4 AST 18 Alkaline Phosphatase 109 Total Protein 6.5 Albumin 3.5 Triglycerides 148 Cholesterol 147.80 LDL Cholesterol Direct 91 VLDL Cholesterol 30.0 HDL Cholesterol 41 TSH 4.14 06/28/19 06/28/19 06/29/19 17:17 17:17 00:40 Creatine Kinase < 20 L < 20 L CK-MB (CK-2) 0.68 Troponin I 0.012 NT-Pro-B Natriuret Pep 06/29/19 06/29/19 06/29/19 00:40 07:25 07:25 Creatine Kinase < 20 L CK-MB (CK-2) 0.73 0.81 Troponin I < 0.012 0.016 NT-Pro-B Natriuret Pep [id number] H Impressions: Abdomen/Pelvis CT 06/28/19 17:51 IMPRESSION: 1. Wall thickening of the descending and sigmoid colon. These findings suggest colitis this could be of infectious, inflammatory, or ischemic etiology. 2. Possible mild wall thickening involving the body of the stomach. This may be related to distention however gastritis or other etiology are considerations. 3. Small amount of free fluid. 4. 2.7 cm abdominal aortic aneurysm. Recommend follow-up every 5 years. Reference: J Am Joe Radiol 2013;10:789-794. 5. Right basilar airspace opacity may be related to atelectasis or developing pneumonic process. Small right pleural effusion. This exam was performed according to our departmental dose-optimization program, which includes automated exposure control, adjustment of the mA and/or kV according to patient size and/or use of iterative reconstruction technique. Assessment & Plan - Diagnosis (1) Abdominal pain Is this a current diagnosis for this admission?: Yes Plan: Secondary to constipation and seems to have relieved with the resolution of her constipation. (2) End-stage renal disease on hemodialysis Is this a current diagnosis for this admission?: Yes Plan: Not seen indication for renal replacements today. If she is discharged then she could probably have next hemodialysis on as an outpatient. If she is staying in the hospital then she will have a renal replacements tomorrow for which I placed orders. (3) Constipation Qualifiers: Constipation type: other constipation type Qualified Code(s): K59.09 - Other constipation Is this a current diagnosis for this admission?: Yes (4) Hypertension Plan: Controlled.
[2019-06-29] MEDS ORDERED: CLONAZEPAM 1 MG TABLET PO PRN (15:11)
--- NOTE | 2019-06-29 16:12 | PDOC PROGRESS REPORT ---
Subjective Progress Note for:: 06/29/19 Subjective:: This is 72 old female patient with past medical history of CHF, coronary artery disease status post stent placement, COPD, end-stage renal disease on hemodialysis and history of diverticulitis presented with chief complaint of nausea vomiting and abdominal pain. CT scan of the abdomen reported as wall thickening of the descending and sigmoid colon which is suggestive of colitis inflammatory or infectious origin. On the same CT also reported that she has right basilar airspace opacity may be related to atelectasis versus developing pneumonia. Patient has been on ceftriaxone. I discontinue the ceftriaxone and start her on Levaquin and Flagyl. The Levaquin will take care of the colitis as well as the suspected pneumonia. Reason For Visit: PNEUMONIA/ABD PAIN Physical Exam Vital Signs: Temp Pulse Resp BP Pulse Ox 98.1 F 88 16 187/70 H 92 06/29/19 11:18 06/29/19 14:00 06/29/19 11:18 06/29/19 11:18 06/29/19 11:18 Intake & Output 06/28/19 06/29/19 06/30/19 06:59 06:59 06:59 Intake Total 750 Balance 750 Weight 42.5 kg Results Laboratory Results: 06/29/19 07:25 06/29/19 07:25 06/28/19 06/28/19 06/28/19 17:17 17:17 19:30 WBC 6.1 RBC 3.71 L Hgb 11.9 L Hct 36.6 MCV 99 H MCH 32.1 MCHC 32.5 RDW 16.9 H Plt Count 204 Seg Neutrophils % 58.5 Lymphocytes % 29.3 Monocytes % 7.3 Eosinophils % 4.3 Basophils % 0.6 Absolute Neutrophils 3.6 Absolute Lymphocytes 1.8 Absolute Monocytes 0.4 Absolute Eosinophils 0.3 Absolute Basophils 0.0 Sodium 134.6 L Potassium 3.9 Chloride 97 L Carbon Dioxide 29 Anion Gap 9 BUN 39 H Creatinine 3.15 H Est GFR ( Amer) 18 L Est GFR (Non-Af Amer) 15 L Glucose 96 Lactic Acid 0.7 Calcium 9.4 Magnesium Total Bilirubin 0.5 AST 15 Alkaline Phosphatase 105 Total Protein 6.4 Albumin 3.5 Triglycerides Cholesterol LDL Cholesterol Direct VLDL Cholesterol HDL Cholesterol TSH 06/29/19 06/29/19 06/29/19 07:25 07:25 07:25 WBC 8.2 RBC 3.79 Hgb 12.2 Hct 37.3 MCV 98 H MCH 32.1 MCHC 32.6 RDW 16.4 H Plt Count 230 Seg Neutrophils % 54.8 Lymphocytes % 31.8 Monocytes % 7.6 Eosinophils % 5.0 Basophils % 0.8 Absolute Neutrophils 4.5 Absolute Lymphocytes 2.6 Absolute Monocytes 0.6 Absolute Eosinophils 0.4 Absolute Basophils 0.1 Sodium 138.7 Potassium 4.1 Chloride 101 Carbon Dioxide 26 Anion Gap 12 BUN 41 H Creatinine 3.30 H Est GFR ( Amer) 17 L Est GFR (Non-Af Amer) 14 L Glucose 92 Lactic Acid Calcium 9.3 Magnesium 1.8 Total Bilirubin 0.4 AST 18 Alkaline Phosphatase 109 Total Protein 6.5 Albumin 3.5 Triglycerides 148 Cholesterol 147.80 LDL Cholesterol Direct 91 VLDL Cholesterol 30.0 HDL Cholesterol 41 TSH 4.14 06/28/19 06/28/19 06/29/19 17:17 17:17 00:40 Creatine Kinase < 20 L < 20 L CK-MB (CK-2) 0.68 Troponin I 0.012 NT-Pro-B Natriuret Pep 06/29/19 06/29/19 06/29/19 00:40 07:25 07:25 Creatine Kinase < 20 L CK-MB (CK-2) 0.73 0.81 Troponin I < 0.012 0.016 NT-Pro-B Natriuret Pep [id number] H Impressions: Abdomen/Pelvis CT 06/28/19 17:51 IMPRESSION: 1. Wall thickening of the descending and sigmoid colon. These findings suggest colitis this could be of infectious, inflammatory, or ischemic etiology. 2. Possible mild wall thickening involving the body of the stomach. This may be related to distention however gastritis or other etiology are considerations. 3. Small amount of free fluid. 4. 2.7 cm abdominal aortic aneurysm. Recommend follow-up every 5 years. Reference: J Am Joe Radiol 2013;10:789-794. 5. Right basilar airspace opacity may be related to atelectasis or developing pneumonic process. Small right pleural effusion. This exam was performed according to our departmental dose-optimization program, which includes automated exposure control, adjustment of the mA and/or kV according to patient size and/or use of iterative reconstruction technique. Assessment and Plan - Diagnosis (1) Colitis Is this a current diagnosis for this admission?: Yes Plan: Which might be the reason for her nausea vomiting and abdominal pain. Patient has been started on Levaquin and Flagyl. (2) Suspected pneumonia Is this a current diagnosis for this admission?: Yes Plan: CT scan of the chest reported as right basilar airspace opacity may be related to atelectasis versus developing pneumonia. Ceftriaxone is switched to Levaquin. (3) End-stage renal disease on hemodialysis Is this a current diagnosis for this admission?: Yes Plan: Management per Dr. Abdullahi (4) COPD (chronic obstructive pulmonary disease) Qualifiers: Emphysema type: unspecified Is this a current diagnosis for this admission?: Yes Plan: Continue PRN bronchodilators. (5) Anemia in CKD (chronic kidney disease) Qualifiers: Chronic kidney disease stage: on chronic dialysis Qualified Code(s): N18.6 - End stage renal disease; D63.1 - Anemia in chronic kidney disease; Z99.2 - Dependence on renal dialysis Is this a current diagnosis for this admission?: Yes Plan: Management per Dr. Abdullahi. (6) Coronary artery disease Is this a current diagnosis for this admission?: Yes Plan: No anginal symptoms (7) Tobacco dependence Is this a current diagnosis for this admission?: Yes Plan: Patient counseled and encouraged to quit smoking but she does not have any intention to quit. She is offered nicotine patch but refused
[2019-06-29 20:07] VITALS: BP 187/63
--- NOTE | 2019-06-30 09:27 | Left Against Medical Advice ---
Against Medical Advice Admission Date/Time: 06/28/19 18:13 Primary Care Provider: ORTEGA LEWIS MD Date of Patient Emigration: 06/29/19 - Diagnosis: (1) Colitis Is this a current diagnosis for this admission?: Yes (2) Suspected pneumonia Is this a current diagnosis for this admission?: Yes (3) End-stage renal disease on hemodialysis Is this a current diagnosis for this admission?: Yes (4) COPD (chronic obstructive pulmonary disease) Is this a current diagnosis for this admission?: Yes (5) Anemia in CKD (chronic kidney disease) Is this a current diagnosis for this admission?: Yes (6) Coronary artery disease Is this a current diagnosis for this admission?: Yes (7) Tobacco dependence Is this a current diagnosis for this admission?: Yes - Summary: Summary: Dr. Scott Smith the night on-call physician reported to me that patient left AMA. Per nurse caring for this patient "[id number] pt asks to leave ama d/t poor control of bp. pt reminded that the physician did not want prn meds, as they were wanting to gain control with her po meds. pt states that at home she takes extra half doses when it is high and that ivan, jorge, and addison are aware and accepting. pt complaining of severe nausea. pt refused to let me re-check bp or acquire meds for nausea. pt strongly advised against leaving, and reminded that dialysis is in the morning. she states her bp is not affected by her kidneys, and states she doesnt want more information because she knows her body. pt also concerned that klonopin dose is not frequent enough. also concerned that abx are building in system. iv removed, paperwork signed, monitor removed, and pt promptly leaves with son who is also in disagreement with her departure. pt refusing to allow nurse to contact physician about bp dosing, she would rather industrial hygiene manager her health at home. pt walking with weak gait, dropping bags. hands very shaky. [id number] pt leaves on elevator".
== END 2019-06-29 22:45 | disposition left against medical advice (07) | DRG 391 ==
LOC: ER 16:44 → EH 18:13 → 3W 20:01
PROVIDERS: ADMIT Internal Medicine; ATTEND Internal Medicine
DX: K52.9 Noninfective gastroenteritis and colitis, unspecified (principal); J18.9 Pneumonia, unspecified organism; N18.6 End stage renal disease; I13.2 Hypertensive heart and chronic kidney disease with heart failure and with stage 5 chronic kidney disease, or end stage renal disease; I50.32 Chronic diastolic (congestive) heart failure; D63.1 Anemia in chronic kidney disease; I25.10 Atherosclerotic heart disease of native coronary artery without angina pectoris; Z99.2 Dependence on renal dialysis; Z95.5 Presence of coronary angioplasty implant and graft; K59.00 Constipation, unspecified; E21.3 Hyperparathyroidism, unspecified; F32.9 Major depressive disorder, single episode, unspecified; Z90.49 Acquired absence of other specified parts of digestive tract; F17.210 Nicotine dependence, cigarettes, uncomplicated; Z79.82 Long term (current) use of aspirin; Z79.899 Other long term (current) drug therapy; Z88.2 Allergy status to sulfonamides; Z88.8 Allergy status to other drugs, medicaments and biological substances; E86.0 Dehydration
CPT/HCPCS: 36415; 74176; 80053; 80061; 82550; 82553; 83036; 83605; 83735; 83880; 84443; 84484; 85025; 85610; 87040; 94640; 96360; 99285; J0456; J0696; J2270; J2405; J2543; J3490; J7030; J7050

== ENCOUNTER → 2019-06-28 | Outpatient (CLI) | payer MEDICARE ==
--- NOTE | 2019-06-28 16:10 | RADIOLOGY REPORT (SQ) ---
EXAM DESCRIPTION: CT ABD/PELVIS NO ORAL OR IV COMPLETED DATE/TIME: 06/28/2019 3:36 pm REASON FOR STUDY: K57.32 DVTRCLI OF LG INT W/O PERFORATION OR ABSCESS W/O BLEEDING K57.32 DVTRCLI O F LG INT W/O PERFORATION OR ABSCESS W/O BLEE COMPARISON: 03/15/2019 TECHNIQUE: CT scan of the abdomen and pelvis performed without intravenous or oral contrast. Images reviewed with lung, soft tissue, and bone windows. Reconstructed coronal and sagittal MPR images revi ewed. All images stored on PACS. All CT scanners at this facility use dose modulation, iterative reconstruction, and/or weight based d osing when appropriate to reduce radiation dose to as low as reasonably achievable (ALARA). [facility]: Dose Right [facility]: CareDose [facility]: Dose Right [facility]: Teradose 4D [facility]: [employer] RADIATION DOSE: CT Rad equipment meets quality standard of care and radiation dose reduction techniq ues were employed. CTDIvol: 2.5 mGy. DLP: 123 mGy-cm.mGy. LIMITATIONS: Paucity of intra-abdominal fat. Lack of contrast. FINDINGS: LOWER CHEST: Small right pleural effusion. There is limited opacification in the right lo wer lobe. NON-CONTRASTED LIVER, SPLEEN, ADRENALS: Evaluation limited by lack of IV contrast. No identified sign ificant masses. PANCREAS: No masses. No peripancreatic inflammatory changes. GALLBLADDER: No identified stones by CT criteria. No inflammatory changes to suggest cholecystitis. RIGHT KIDNEY AND URETER: No suspicious masses. Assessment limited by lack of IV contrast. No signif icant calcifications. No hydronephrosis or hydroureter. LEFT KIDNEY AND URETER: No suspicious masses. Assessment limited by lack of IV contrast. No signifi cant calcifications. No hydronephrosis or hydroureter. AORTA AND RETROPERITONEUM: No aneurysm. No retroperitoneal masses or adenopathy. BOWEL AND PERITONEAL CAVITY: There is no evidence of diverticulitis. No obvious bowel mass. There i s minimal amount of free fluid around the tip of the liver. APPENDIX: Not identified. PELVIS, BLADDER, AND ABDOMINAL WALL:No abnormal masses. No free fluid. Bladder normal. BONES: No significant findings. OTHER: No other significant finding. IMPRESSION: 1. Small right pleural effusion. Limited airspace disease in the right lower lobe, pne umonia versus atelectasis. 2. There is no evidence of diverticulitis. No abdominal abscess is identified. 3. There is a small amount of free fluid in the abdomen. COMMENT: Quality ID # [id number]: Final reports with documentation of one or more dose reduction techniques (e.g., Automated exposure control, adjustment of the mA and/or kV according to patient size, use of iterative reconstruction technique) TECHNICAL DOCUMENTATION: JOB ID: [id number] [employer]- All Rights Reserved Reading location - IP/workstation name: [email or web address]
== END ==
LOC: RAD 15:23
PROVIDERS: ATTEND Family Medicine Geriatric Medicine
DX: K57.32 Diverticulitis of large intestine without perforation or abscess without bleeding (principal)
CPT/HCPCS: 74176

== ENCOUNTER → 2019-07-12 | Outpatient (CLI) | payer MEDICARE ==
[2019-07-12 07:57] LABS: ABSOLUTE EOSINOPHILS # (AUTO) 0.3 10^3/uL (0.0-0.6); ABSOLUTE LYMPHOCYTES (AUTO) 1.7 10^3/uL (0.5-4.7); ABSOLUTE MONOCYTES (AUTO) 0.5 10^3/uL (0.1-1.4); ABSOLUTE NEUT (AUTO) 3.6 10^3/uL (1.7-8.2); BASOPHILS % (AUTO) 0.8 % (0-2); EOSINOPHILS % (AUTO) 4.6 % (0-6); HEMATOCRIT 36.5 % (36.0-47.0); HEMOGLOBIN 11.9 g/dL (12.0-15.5); LYMPHOCYTES % (AUTO) 27.3 % (13-45); MEAN CORPUSCULAR HEMOGLOBIN 32.1 pg (27.0-33.4); MEAN CORPUSCULAR HGB CONC 32.5 g/dL (32.0-36.0); MEAN CORPUSCULAR VOLUME 99 fl (80-97); MONOCYTES % (AUTO) 8.5 % (3-13); PLATELET COUNT 195 10^3/uL (150-450); RED CELL DISTRIBUTION WIDTH 15.6 % (11.5-14.0); SEGMENTED NEUTROPHILS % (AUTO) 58.8 % (42-78); TOTAL CELLS COUNTED % (AUTO) 100 %; WHITE BLOOD COUNT 6.2 10^3/uL (4.0-10.5)
[2019-07-12 08:16] LABS: ANION GAP 7 (5-19); BLOOD UREA NITROGEN 30 mg/dL (7-20); CALCIUM 9.4 mg/dL (8.4-10.2); CARBON DIOXIDE 31 mmol/L (22-30); CHLORIDE 101 mmol/L (98-107); CHOLESTEROL 114.52 mg/dL (0-200); GLUCOSE 108 mg/dL (75-110); POTASSIUM 3.6 mmol/L (3.6-5.0); TRIGLYCERIDES 83 mg/dL (<150)
--- NOTE | 2019-07-12 08:25 | RADIOLOGY REPORT (SQ) ---
EXAM DESCRIPTION: HIP LEFT AP/LATERAL COMPLETED DATE/TIME: 07/12/2019 7:52 am REASON FOR STUDY: LT HIP PAIN I10 ESSENTIAL (PRIMARY) HYPERTENSION E78.5 HYPERLIPIDEMIA, UNSPECIFI ED I25.10 ATHSCL HEART DISEASE OF [place] CORONARY ARTERY W/O AN COMPARISON: None. NUMBER OF VIEWS: Two views. TECHNIQUE: AP pelvis and additional frog-leg view of the left hip. LIMITATIONS: None. FINDINGS: MINERALIZATION: Normal. LEFT HIP: No fracture or dislocation. No worrisome bone lesions. RIGHT HIP: No fracture or dislocation. No worrisome bone lesions. PUBIS AND ISCHIUM: No fracture. PELVIS: No fracture. SACRUM: No fracture or dislocation. No worrisome bone lesions. LOWER LUMBAR SPINE: No fracture or dislocation. No worrisome bone lesions. No significant disc disea se. SOFT TISSUES: No findings. OTHER: No other significant finding. IMPRESSION: NEGATIVE STUDY OF THE LEFT HIP AND PELVIS. NO RADIOGRAPHIC EVIDENCE OF ACUTE INJURY. TECHNICAL DOCUMENTATION: JOB ID: [id number] [employer]- All Rights Reserved Reading location - IP/workstation name: [email or web address]
[2019-07-12 08:27] LABS: DIRECT LDL 73 mg/dL (<100)
== END ==
LOC: OD 07:14
PROVIDERS: ATTEND Family Medicine Geriatric Medicine
DX: M25.552 Pain in left hip (principal); R19.7 Diarrhea, unspecified; I10 Essential (primary) hypertension; E78.5 Hyperlipidemia, unspecified; I25.10 Atherosclerotic heart disease of native coronary artery without angina pectoris; Z79.899 Other long term (current) drug therapy
CPT/HCPCS: 36415; 80048; 80061; 84460; 85025; 87493

== ENCOUNTER 2020-01-18 06:28 | Day surgery (SDC) | payer MEDICARE ==
[~2020-01-18 06:28] MED LIST changes: +DIAZEPAM 5 MG TABLET PO PRN; -DIAZEPAM 5 MG TABLET PO SCH; +OXYCODONE-ACETAMINOPHEN 5-325 MG TABLET PO PRN
[2020-01-18 07:11] LABS: HEMOGLOBIN 11.6 g/dL (12.0-15.5); MEAN CORPUSCULAR HEMOGLOBIN 32.4 pg (27.0-33.4); MEAN CORPUSCULAR HGB CONC 32.4 g/dL (32.0-36.0); MEAN CORPUSCULAR VOLUME 100 fl (80-97); PLATELET COUNT 208 10^3/uL (150-450); RED CELL DISTRIBUTION WIDTH 17.3 % (11.5-14.0); WHITE BLOOD COUNT 5.5 10^3/uL (4.0-10.5)
[2020-01-18 07:28] LABS: ANION GAP 10 (5-19); BLOOD UREA NITROGEN 30 mg/dL (7-20); CALCIUM 9.1 mg/dL (8.4-10.2); CARBON DIOXIDE 31 mmol/L (22-30); CHLORIDE 97 mmol/L (98-107); GLUCOSE 112 mg/dL (75-110); POTASSIUM 3.3 mmol/L (3.6-5.0)
[2020-01-18] MEDS ORDERED: LIDOCAINE 0.5% INJ-PF (5 MG/ML) 50 ML SDV ONE (07:59)
[2020-01-18] MEDS ORDERED: HEPARIN SOD (PORCINE) 5,000 UNIT/ML 1 ML VIAL ONE (08:29)
[2020-01-18] MEDS ORDERED: MIDAZOLAM 2 MG/2 ML INJ ONE (08:29)
[2020-01-18] MEDS ORDERED: FENTANYL CITRATE INJ/PF 100 MCG/2 ML AMPUL ONE (08:29)
--- NOTE | 2020-01-18 09:44 | RADIOLOGY REPORT (SQ) ---
EXAM DESCRIPTION: FISTULAGRAM W/PLASTY; ANGIOPLASTY BRACHIOCEPHALIC COMPLETED DATE/TIME: 01/18/2020 9:34 am REASON FOR STUDY: T82.858A T82.858A STENOSIS OF OTHER VASCULAR PROSTH DEV/GRFT, INIT COMPARISON: None. FLUOROSCOPY TIME: 2.6 minutes. 57 images saved to PACS. TECHNIQUE: Intra-operative images acquired during surgical procedure to evaluate progress. NUMBER OF IMAGES: 57 images. LIMITATIONS: None. FINDINGS: Imaging in fluoroscopy during left upper extremity dialysis access evaluation and plasty b y Dr. Hartmann . Please refer to the operative report for further details. IMPRESSION: INTRA PROCEDURAL IMAGING ABOVE . COMMENT: Quality ID 145: Final reports for procedures using fluoroscopy that document radiation exp osure indices, or exposure time and number of fluorographic images (if radiation exposure indices are not available) Please consult full operative report of the attending physician for description of the procedure. TECHNICAL DOCUMENTATION: JOB ID: [id number] 2010 [email or web address]- All Rights Reserved Reading location - IP/workstation name: [email or web address]
--- NOTE | 2020-01-18 09:44 | RADIOLOGY REPORT (SQ) ---
EXAM DESCRIPTION: FISTULAGRAM W/PLASTY; ANGIOPLASTY BRACHIOCEPHALIC COMPLETED DATE/TIME: 01/18/2020 9:34 am REASON FOR STUDY: T82.858A T82.858A STENOSIS OF OTHER VASCULAR PROSTH DEV/GRFT, INIT COMPARISON: None. FLUOROSCOPY TIME: 2.6 minutes. 57 images saved to PACS. TECHNIQUE: Intra-operative images acquired during surgical procedure to evaluate progress. NUMBER OF IMAGES: 57 images. LIMITATIONS: None. FINDINGS: Imaging in fluoroscopy during left upper extremity dialysis access evaluation and plasty b y Dr. Hartmann . Please refer to the operative report for further details. IMPRESSION: INTRA PROCEDURAL IMAGING ABOVE . COMMENT: Quality ID 145: Final reports for procedures using fluoroscopy that document radiation exp osure indices, or exposure time and number of fluorographic images (if radiation exposure indices are not available) Please consult full operative report of the attending physician for description of the procedure. TECHNICAL DOCUMENTATION: JOB ID: [id number] 2010 [employer]- All Rights Reserved Reading location - IP/workstation name: [email or web address]
--- NOTE | 2020-01-18 10:19 | PDOC H&P ---
General Chief Complaint: #1 malfunctioning AV fistula left brachiocephalic. 2. End-stage renal disease. 3. Multiple comorbidities. - Diagnosis (1) Dialysis AV fistula malfunction Is this a Current Diagnosis?: Yes (2) End-stage renal disease on hemodialysis Is this a Current Diagnosis?: Yes (3) COPD (chronic obstructive pulmonary disease) Is this a Current Diagnosis?: Yes (4) Coronary artery disease Is this a Current Diagnosis?: Yes (5) Tobacco dependence Is this a Current Diagnosis?: Yes (6) Hypertension Is this a Current Diagnosis?: Yes - Current Medications/Allergies Home Medications: Aspirin [Adult Low Dose Aspirin EC] 81 mg PO QHS 06/28/19 Carvedilol [Coreg] 25 mg PO Q12 06/28/19 Clonazepam [Klonopin] 0.25 mg PO Q8HP PRN 06/28/19 Clonidine HCl [Catapres 0.3 mg Tablet] 0.3 mg PO Q4 06/28/19 Doxazosin Mesylate [Cardura 2 mg Tablet] 2 mg PO Q12 06/28/19 Famotidine [Pepcid 20 mg Tablet] 20 mg PO DAILYP PRN 06/28/19 Hydralazine HCl 100 mg PO Q8 06/28/19 Levalbuterol HCl [Xopenex Neb 1.25 mg/3 ml Ampul] 1.25 mg NEB RTQ8 PRN 06/28/19 Loratadine [Claritin] 10 mg PO DAILYP PRN 06/28/19 Pravastatin Sodium [Pravachol] 40 mg PO QHS 06/28/19 Sennosides/Docusate Sodium [Senna Plus Tablet] 1 each PO DAILYP PRN 06/28/19 Sertraline HCl [Zoloft] 200 mg PO DAILY 06/28/19 Umeclidinium Brm/Vilanterol Tr [Anoro Ellipta 62.5-25 Mcg INH] 1 puff IH DAILY 06/28/19 Vit B Comp No.3/Folic/C/Biotin [Nephro-Bernard Rx Tablet] 1 each PO DAILY 06/28/19 Ondansetron HCl [Zofran] 4 mg PO PRN PRN 01/14/20 Allergies/Adverse Reactions: ASAD Inhibitors Allergy (Verified 01/18/20 06:53) "Red from chin to chest" Sulfa (Sulfonamide Antibiotics) Allergy (Verified 01/18/20 06:53) Hives Past Medical History Cardiac Medical History: Reports: Congestive Heart Failure - during renal failure, Coronary Artery Disease - CARDIAC STENT, Hypertension Denies: Myocardial Infarction Pulmonary Medical History: Reports: Chronic Obstructive Pulmonary Disease (COPD) - MILD, Pneumonia - "Years ago" Denies: Asthma, Bronchitis Neurological Medical History: Denies: Seizures Renal/ Medical History: Reports: End Stage Renal Disease GI Medical History: Reports: Diverticulitis Musculoskeltal Medical History: Denies: Arthritis Psychiatric Medical History: Reports: Depression Hematology: Reports: Anemia - HX Past Surgical History Past Surgical History: Reports: Cholecystectomy, Vascular Surgery, Other - Status post nephrectomy Family History Family History: Reviewed & Not Pertinent Parental Family History Reviewed: No Children Family History Reviewed: No Sibling(s) Family History Reviewed.: No Social History Smoking Status: Current Some Day Smoker Frequency of Alcohol Use: None Hx Recreational Drug Use: No Drugs: None Hx Prescription Drug Abuse: No Physical Exam Vital Signs: Temp Pulse Resp BP Pulse Ox 97.5 F 72 16 147/59 H 100 01/18/20 07:05 01/18/20 07:05 01/18/20 07:05 01/18/20 07:05 01/18/20 07:05 Intake & Output 01/17/20 01/18/20 01/19/20 06:59 06:59 06:59 Weight 37.195 kg Additional comments: Constitutional: Well-developed well-nourished lady. No apparent acute distress. Eyes: Mucous membranes pink and moist, pupils equal and reactive to light. Conjunctiva normal. Cornea normal. ENT: Hearing grossly normal. External pinna normal to inspection. Teeth mostly intact. Tongue normal to inspection. Cardiac: Heart sounds 1 and 2 normal. Respiratory: . Normal respiratory effort. Psychiatric: Memory, insight, judgment and affect normal. Extremities: Upper extremities show normal range of movement. Pulses present noted to the radial arteries. Capillary refill normal. No cyanosis noted. No muscle wasting noted. Left-sided brachiocephalic fistula, ectatic and very firm noted. Neurovascular: No apparent tremors, gait normal. Sensation grossly intact. Hearing grossly normal. Vison grossly intact. Impression/Plan Plan: In this patient with a forearm fistula suggesting cephalad stenosis angiogram and possibly angioplasty are recommended. The procedure, its risks, benefits, expected outcome and alternatives are familiar with the patient and she wishes to proceed.
--- NOTE | 2020-01-18 10:21 | Discharge Summary ---
Discharge Summary (SDC) - Discharge Final Diagnosis: #1 malfunctioning AV fistula left brachiocephalic. 2. End-stage renal disease. 3. Multiple comorbidities. Date of Surgery: 01/18/20 Discharge Date: 01/18/20 Condition: Fair Treatment or Instructions: Discharge home [after recovery per ASU criteria]. Diet , [renal],as tolerated, when fully awake advance as tolerated. Activities within moderation encouraged. Follow up in my office by appointment on of this week for suture removal. Call for appointment. Leave wounds [covered], [keep clean and dry, until hemodialysis. Meds per med rec. May shower [in 48 hrs], [try to keep operated area as dry as possible]. Referrals: ORTEGA LEWIS MD [Primary Care Provider] - Discharge Diet: Other (Comments) - Renal. Respiratory Treatments at Home: Deep Breathing/Coughing Discharge Activity: Activity As Tolerated Report the Following to Your Physician Immediately: Shortness of Breath, Unusual Bleeding
--- NOTE | 2020-01-18 10:27 | Operative Report ---
Operative Report DATE OF SURGERY: 01/18/20 PREOPERATIVE DIAGNOSIS: #1 malfunctioning AV fistula left brachiocephalic. 2. End-stage renal disease. 3. Multiple comorbidities. POSTOPERATIVE DIAGNOSIS: #1 malfunctioning AV fistula left brachiocephalic. 2. End-stage renal disease. 3. Multiple comorbidities. OPERATION: 1. Needle access into arteriovenous fistula, left brachiocephalic. 2. Angioplasty in AV fistula, left brachiocephalic. 3. Angioplasty and centra l system, innominate/superior vena cava. 4. Drug-eluting angioplasty in central system. 5. Angiogram and interpretation. SURGEON: MARGO FOY SLIVER LAP MACHINE TENDER: None. ANESTHESIA: Moderate Sedation TISSUE REMOVED OR ALTERED: Not applicable. COMPLICATIONS: None. ESTIMATED BLOOD LOSS: 2 mL. INTRAOPERATIVE FINDINGS: Of a very firm AV fistula, left arm, brachiocephalic. Culprit lesions identified as a tight stenosis about a centimeter long at the innominate, superior vena cava level, a second stenosis in the cephalad cephalic vein about 80% for about 0.5 cm in an existing stent and a third area in the cephalic vein in the upper arm. This was identified by difference in firmness and also by a waist about 80% stenosis. All of these lesions were eliminated, demonstrably, by comparing before and after angiograms. The fistula was also softer, appropriately after the procedure. A drug-eluting balloon was used in the central segment in the hopes of reducing the chance of recurrence. PROCEDURE: PROCEDURE: After verifying the procedure and having obtained informed consent, the patient's left arm was prepared with Chlorhexidine and draped out with sterile linen. Local anesthesia infiltrated. Percutaneous access into the fistula ,[ antegrade], obtained about [12 cm] from the arteriovenous anastomosis using a micro puncture needle followed by micro puncture wire and then a micro puncture catheter. A 0.035 [place] wire was inserted, and over this, a 9 Wolof short introducer was placed. Angiogram demonstrated the aforementioned findings. Angioplasty was elected. this was followed by a [8 -mm] angioplasty balloon . Angioplasty was Serially starting at the central lesion and sequentially at the cephalic and arm areas. Elimination of wasting noted.. Inflating using a 3 mils syringe for 1 to 2 minutes at a time .]. Completion angiogram demonstrated [satisfactory result]. A 10 mm angioplasty balloon was reinserted over the Glidewire and the central lesion subclavian's/innominate once again angioplastied. After angiogram demonstrated satisfactory outcome, a drug-eluting balloon was now inserted, 10 mm at the central area and inflated using an insufflator for 4 minutes. It was now deflated and the completion angiogram noted to be satisfactory. The instrumentation was now withdrawn over a short piece of catheter and a 5-0 Prolene suture. Dressings applied, procedure concluded. Exposure time: 2.6 minutes. Radiation: 6.04 Maria D quiros. Contrast: 25 mils of Isovue-300, low osmolality. DICTATING PHYSICIAN: MARGO HAQUE M.D. cc: MARGO HAQUE M.D. ([id number]) >>
[2020-01-18 11:13] VITALS: BP 106/44
== END 2020-01-18 11:05 | disposition home or self-care (01) ==
LOC: CCL 06:28
PROVIDERS: ATTEND Surgery
DX: T82.858A Stenosis of other vascular prosthetic devices, implants and grafts, initial encounter (principal); Y83.2 Surgical operation with anastomosis, bypass or graft as the cause of abnormal reaction of the patient, or of later complication, without mention of misadventure at the time of the procedure; J44.9 Chronic obstructive pulmonary disease, unspecified; I13.2 Hypertensive heart and chronic kidney disease with heart failure and with stage 5 chronic kidney disease, or end stage renal disease; I50.9 Heart failure, unspecified; N18.6 End stage renal disease; I25.10 Atherosclerotic heart disease of native coronary artery without angina pectoris; F17.210 Nicotine dependence, cigarettes, uncomplicated; Z79.82 Long term (current) use of aspirin; Z79.899 Other long term (current) drug therapy; Z88.2 Allergy status to sulfonamides; Z88.8 Allergy status to other drugs, medicaments and biological substances
CPT/HCPCS: 36415; 85027; 80048; 36907; 36902; C1725 ×2; C2623; C1752; C1769; J2250; J1644 ×2; A9270 ×2; J3010; J3490

== ENCOUNTER 2020-03-07 13:05 | Inpatient (IN) | payer MEDICARE ==
[2020-03-07 13:46] LABS: ABSOLUTE LYMPHOCYTES (AUTO) 1.2 10^3/uL (0.5-4.7); ABSOLUTE MONOCYTES (AUTO) 0.4 10^3/uL (0.1-1.4); ABSOLUTE NEUT (AUTO) 4.8 10^3/uL (1.7-8.2); BASOPHILS % (AUTO) 0.5 % (0-2); EOSINOPHILS % (AUTO) 0.7 % (0-6); HEMATOCRIT 33.7 % (36.0-47.0); HEMOGLOBIN 11.1 g/dL (12.0-15.5); MEAN CORPUSCULAR HEMOGLOBIN 32.7 pg (27.0-33.4); MEAN CORPUSCULAR HGB CONC 32.8 g/dL (32.0-36.0); MEAN CORPUSCULAR VOLUME 100 fl (80-97); MONOCYTES % (AUTO) 5.6 % (3-13); PLATELET COUNT 227 10^3/uL (150-450); RED BLOOD COUNT 3.39 10^6/uL (3.72-5.28); RED CELL DISTRIBUTION WIDTH 15.6 % (11.5-14.0); SEGMENTED NEUTROPHILS % (AUTO) 74.2 % (42-78); TOTAL CELLS COUNTED % (AUTO) 100 %; WHITE BLOOD COUNT 6.5 10^3/uL (4.0-10.5)
[2020-03-07 14:01] LABS: ANION GAP 7 (5-19); BLOOD UREA NITROGEN 55 mg/dL (7-20); CARBON DIOXIDE 25 mmol/L (22-30); CHLORIDE 103 mmol/L (98-107); GLUCOSE 102 mg/dL (75-110); POTASSIUM 4.6 mmol/L (3.6-5.0)
--- NOTE | 2020-03-07 14:21 | RADIOLOGY REPORT (SQ) ---
EXAM DESCRIPTION: CHEST SINGLE VIEW IMAGES COMPLETED DATE/TIME: 03/07/2020 2:11 pm REASON FOR STUDY: ESRD COMPARISON: 05/11/2019 EXAM PARAMETERS: NUMBER OF VIEWS: One view. TECHNIQUE: Single frontal radiographic view of the chest acquired. RADIATION DOSE: NA LIMITATIONS: None. FINDINGS: LUNGS AND PLEURA: Chronic bilateral interstitial changes and small bilateral pleural effus ions versus pleural thickening, right greater than left. Biapical pleural thickening, stable. There is increased patchy opacities within the right upper lobe and infrahilar region. No pneumothorax. MEDIASTINUM AND HILAR STRUCTURES: Stable. HEART AND VASCULAR STRUCTURES: Enlarged, stable. Vascular calcifications. BONES: No acute findings. HARDWARE: Vascular stents overlie left axillary, subclavian and innominate veins. OTHER: No other significant finding. IMPRESSION: Increased ill-defined right upper lobe and infrahilar opacities suspicious for superimpo sed pneumonia or asymmetric edema. Stable additional enlarged cardiac silhouette, chronic interstitial changes, small bilateral effusion s and pleural thickening. TECHNICAL DOCUMENTATION: JOB ID: [id number] 2010 [employer]- All Rights Reserved Reading location - IP/workstation name: [email or web address]
[2020-03-07] MEDS ORDERED: AZITHROMYCIN INJ 500 MG VIAL IV ONE (15:03)
--- NOTE | 2020-03-07 15:09 | ER Document Report ---
ED General - General Chief Complaint: General Weakness Stated Complaint: WEAKNESS Time Seen by Provider: 03/07/20 13:20 Primary Care Provider: ORTEGA MONTAGUE MD [Primary Care Provider] - Follow up as needed TRAVEL OUTSIDE OF THE [place] IN LAST 30 DAYS: No - HPI Notes: Chief complaint: Pain in sacral area, productive cough, nausea and generalized weakness HPI: Elderly female followed by Dr. Montague with history of end-stage renal disease on dialysis. Symptoms as above for 3 to 4 days. She was supposed to dialyze yesterday but did not feel well enough to go to dialysis. She has been largely bed confined for the past few days. She denies fever at home. She is producing thick green sputum. Smokes 1/2 pack of cigarettes per day. Does not use oxygen at home. Increasingly short of breath at rest. No known COVID exposure. No recent travel. - Related Data Allergies/Adverse Reactions: ASAD Inhibitors Allergy (Verified 03/07/20 13:09) "Red from chin to chest" Sulfa (Sulfonamide Antibiotics) Allergy (Verified 03/07/20 13:09) Hives Past Medical History - General Information source: Patient - Social History Smoking Status: Current Every Day Smoker Chew tobacco use (# tins/day): No Frequency of alcohol use: None Drug Abuse: None Family History: Reviewed & Not Pertinent Patient has suicidal ideation: No Patient has homicidal ideation: No - Past Medical History Cardiac Medical History: Reports: Hx Congestive Heart Failure - during renal failure, Hx Coronary Artery Disease - CARDIAC STENT, Hx Hypertension Denies: Hx Heart Attack Pulmonary Medical History: Reports: Hx COPD - MILD, Hx Pneumonia - "Years ago" Denies: Hx Asthma, Hx Bronchitis Neurological Medical History: Denies: Hx Cerebrovascular Accident, Hx Seizures Renal/ Medical History: Reports: Hx End Stage Renal Disease, Hx Hemodialysis, Hx Peritoneal Dialysis GI Medical History: Reports: Hx Diverticulitis Musculoskeletal Medical History: Denies Hx Arthritis Psychiatric Medical History: Reports: Hx Depression Past Surgical History: Reports: Hx Cholecystectomy, Hx Vascular Surgery, Other - Status post nephrectomy - Immunizations Hx Diphtheria, Pertussis, Tetanus Vaccination: Yes Hx Pneumococcal Vaccination: 11/17/14 Review of Systems - Review of Systems Notes: Constitutional: Negative for fever. HENT: Negative for sore throat. Eyes: Negative for visual changes. Cardiovascular: Negative for chest pain. Respiratory: As per HPI. Gastrointestinal: As per HPI. Genitourinary: Negative for dysuria. Musculoskeletal: As per HPI. Skin: Area of irritation over sacrum. Neurological: Negative for headaches, focal weakness or numbness. 10 point ROS negative except as marked above and in HPI. Physical Exam - Vital signs Vitals: Temp Pulse Resp BP Pulse Ox 98.1 F 81 18 169/67 H 99 03/07/20 13:17 03/07/20 13:17 03/07/20 13:17 03/07/20 13:17 03/07/20 13:17 - Notes Notes: GENERAL: Frail elderly female who appears very weak. SKIN: Decreased turgor. Stage I decubitus sacral area. HEAD: Normocephalic atraumatic. EYES: PERRLA. EOMI. Conjunctivae and sclerae clear. EARS: CANALS AND TMS CLEAR. NOSE: CLEAR. MOUTH: Dry mucosa. No stridor or edema. No drooling. NECK: Supple. No masses or thyromegaly. No adenopathy. Carotids 2+ without bruits. No JVD. BACK: Symmetrical without tenderness. CHEST: Respirations mildly. Scattered rhonchi bilaterally. HEART: Regular rhythm. No murmur gallop or rub. ABDOMEN: Soft nontender without masses, organomegaly or rebound. Bowel sounds normally active. No bruits. GENITALIA: Deferred. EXTREMITIES: AV fistula left upper extremity. Positive thrill and bruit. No edema. No calf tenderness. Cap refill less than 1.5 seconds. Dorsalis pedis and posterior tibial pulses 3+ and symmetrical. NEUROLOGICAL: GCS 15. Alert and oriented x3. Fluent speech. Cranial nerves II through XII intact. Sensorimotor and cerebellar normal. Normal tone. PSYCHIATRIC: Appropriate affect. Course - Re-evaluation Re-evalutation: 03/07/20 15:36 This lady looks dehydrated. She has what appears to be fairly dense consolidation of the right upper lobe with some scattered infiltrates versus vascular congestion elsewhere. I requested an influenza and COVID screen. I am empirically treating the patient as a community-acquired pneumonia with IV Rocephin and azithromycin. She has been accepted for floor admission by Dr. Cardoso. - Vital Signs Vital signs: Temp Pulse Resp BP Pulse Ox 98.1 F 81 18 169/67 H 99 03/07/20 13:17 03/07/20 13:17 03/07/20 13:17 03/07/20 13:17 03/07/20 13:17 - Laboratory Result Diagrams: 03/07/20 13:25 03/07/20 13:25 Laboratory results interpreted by me: 03/07/20 03/07/20 13:25 13:25 RBC 3.39 L Hgb 11.1 L Hct 33.7 L MCV 100 H RDW 15.6 H Sodium 134.5 L BUN 55 H Creatinine 3.88 H Est GFR ( Amer) 14 L Est GFR (MDRD) Non-Af 11 L Discharge - Discharge Clinical Impression: Pleural effusion, right, COPD exacerbation, End-stage renal disease on hemodialysis Pneumonia Qualifiers: Pneumonia type: due to unspecified organism Laterality: right Lung location: upper lobe of lung Qualified Code(s): J18.9 - Pneumonia, unspecified organism Condition: Fair Disposition: ADMITTED INPATIENT Admitting Provider: Janae (Hospitalist) Unit Admitted: Medical Floor Referrals: ORTEGA MONTAGUE MD [Primary Care Provider] - Follow up as needed
[2020-03-07] MEDS ORDERED: CEFTRIAXONE 1 GM/D5W RTU 1 GM/50 ML RTUPB IV ONE (16:00)
[2020-03-07 16:06] LABS: A TYPE INFLUENZA AG NEGATIVE (NEGATIVE); B INFLUENZA AG NEGATIVE (NEGATIVE)
[2020-03-07] MEDS ORDERED: ONDANSETRON HCL INJ/PF 4 MG/2 ML SDV IV ONE (16:38)
[2020-03-07] MEDS ORDERED: ACETAMINOPHEN 325 MG TABLET PO PRN (17:29)
[2020-03-07] MEDS ORDERED: ALBUTEROL SULFATE HFA (90 MCG/PUFF) 8 GM MDI (1 MDI/ER DISP) IH PRN (17:39)
--- NOTE | 2020-03-07 18:15 | PDOC H&P ---
History of Present Illness Admission Date/PCP: 03/07/20 16:26 ORTEGA LEWIS MD Patient complains of: fatigue, weakness History of Present Illness: JUSTINE CHRISTENSEN is a 69 year old female Past Medical History Cardiac Medical History: Reports: Congestive Heart Failure - during renal failure, Coronary Artery Disease - CARDIAC STENT, Hypertension Denies: Myocardial Infarction Pulmonary Medical History: Reports: Chronic Obstructive Pulmonary Disease (COPD) - MILD, Pneumonia - "Years ago" Denies: Asthma, Bronchitis Neurological Medical History: Denies: Seizures Renal/ Medical History: Reports: End Stage Renal Disease GI Medical History: Reports: Diverticulitis Musculoskeltal Medical History: Denies: Arthritis Psychiatric Medical History: Reports: Depression Hematology: Reports: Anemia - HX Past Surgical History Past Surgical History: Reports: Cholecystectomy, Vascular Surgery, Other - Statu s post nephrectomy Social History Information Source: Patient Smoking Status: Current Every Day Smoker Electronic Cigarette use?: No Frequency of Alcohol Use: None Hx Recreational Drug Use: No Drugs: None Hx Prescription Drug Abuse: No - Advance Directive Resuscitation Status: Do Not Resuscitate - dnr/dni Family History Family History: Hypertension Parental Family History Reviewed: Yes Children Family History Reviewed: NA Sibling(s) Family History Reviewed.: NA Medication/Allergy Home Medications: Carvedilol [Coreg] 25 mg PO Q12 06/28/19 Clonazepam [Klonopin] 0.25 mg PO Q6HP PRN 06/28/19 Clonidine HCl [Catapres 0.3 mg Tablet] 0.3 mg PO 6XD 06/28/19 Doxazosin Mesylate [Cardura 2 mg Tablet] 2 mg PO Q12 06/28/19 Hydralazine HCl 100 mg PO Q8 06/28/19 Sertraline HCl [Zoloft] 200 mg PO DAILY 06/28/19 Umeclidinium Brm/Vilanterol Tr [Anoro Ellipta 62.5-25 Mcg INH] 1 puff IH DAILY 06/28/19 Vit B Comp No.3/Folic/C/Biotin [Nephro-Bernard Rx Tablet] 1 each PO DAILY 06/28/19 Ondansetron HCl [Zofran] 4 mg PO Q6HP PRN 01/14/20 Cyproheptadine HCl [Periactin 4 mg Tablet] 4 mg PO QHS 04/21/20 Mag Hydrox/Aluminum Hyd/Simeth [Antacid Anti-Gas Liquid] 5 ml PO QIDP PRN 03/07/20 Megestrol Acetate [Megace Sara 400 mg/10 ml Udcup] 400 mg PO DAILY 03/07/20 Allergies/Adverse Reactions: ASAD Inhibitors Allergy (Verified 03/07/20 13:09) "Red from chin to chest" Sulfa (Sulfonamide Antibiotics) Allergy (Verified 03/07/20 13:09) Hives Review of Systems Constitutional: PRESENT: anorexia, fatigue. ABSENT: fever(s) Eyes: ABSENT: visual disturbances Nose, Mouth, and Throat: PRESENT: headache(s) Cardiovascular: ABSENT: chest pain Respiratory: PRESENT: dyspnea Gastrointestinal: ABSENT: abdominal pain, nausea, vomiting Genitourinary: ABSENT: dysuria Musculoskeletal: PRESENT: other - difficulty ambulatory Neurological: ABSENT: confusion, dizziness Psychiatric: PRESENT: depression. ABSENT: homidical ideation, suicidal ideation Allergic/Immunologic: PRESENT: other - denies rhinorrhea Physical Exam Vital Signs: Temp Pulse Resp BP Pulse Ox 98.1 F 81 21 H 142/62 H 99 03/07/20 13:17 03/07/20 13:17 03/07/20 17:01 03/07/20 17:00 03/07/20 17:01 Intake & Output 03/06/20 03/07/20 03/08/20 06:59 06:59 06:59 Intake Total 50 Balance 50 Weight 36.2 kg General appearance: PRESENT: no acute distress, cooperative Neck exam: ABSENT: JVD Respiratory exam: PRESENT: clear to auscultation irina, unlabored. ABSENT: tachypnea, wheezes Cardiovascular exam: PRESENT: RRR, +S1, +S2. ABSENT: tachycardia GI/Abdominal exam: PRESENT: soft. ABSENT: rebound, rigid, tenderness Extremities exam: ABSENT: calf tenderness, pedal edema Neurological exam: PRESENT: alert, awake, oriented to person, oriented to place, oriented to situation. ABSENT: oriented to time Psychiatric exam: PRESENT: depressed, flat affect, unusual affect. ABSENT: agitated, anxious, normal mood Focused psych exam: ABSENT: pressured speech Results Laboratory Results: 03/07/20 13:25 03/07/20 13:25 03/07/20 03/07/20 13:25 13:25 WBC 6.5 RBC 3.39 L Hgb 11.1 L Hct 33.7 L MCV 100 H MCH 32.7 MCHC 32.8 RDW 15.6 H Plt Count 227 Seg Neutrophils % 74.2 Sodium 134.5 L Potassium 4.6 Chloride 103 Carbon Dioxide 25 Anion Gap 7 BUN 55 H Creatinine 3.88 H Est GFR ( Amer) 14 L Glucose 102 Calcium 9.0 Impressions: Chest X-Ray 03/07/20 13:58 IMPRESSION: Increased ill-defined right upper lobe and infrahilar opacities younger spicious for superimposed pneumonia or asymmetric edema. Stable additional enlarged cardiac silhouette, chronic interstitial changes, small bilateral effusions and pleural thickening. Assessment and Plan - Diagnosis (1) Community acquired pneumonia Qualifiers: Laterality: unspecified laterality Qualified Code(s): J18.9 - Pneumonia, unspecified organism Is this a current diagnosis for this admission?: Yes Plan: Chest x-ray noting infiltrates in the right upper lobe as well as mild interstitial bilateral opacities. May be some evidence of chronic interstitial changes as well. We will treat empirically with ceftriaxone and azithromycin. Check sputum cultures and blood cultures. Patient has been tested for COVID-19 (2) End-stage renal disease on hemodialysis Is this a current diagnosis for this admission?: Yes Plan: Dialysis as scheduled. Nephrology consulted. States she was last dialyzed on Friday. He gets dialyzed Friday and Fridays. Renal diet. (3) COPD (chronic obstructive pulmonary disease) Qualifiers: COPD type: unspecified COPD Qualified Code(s): J44.9 - Chronic obstructive pulmonary disease, unspecified Is this a current diagnosis for this admission?: Yes Plan: Not acute exacerbated. LABA/ICS, Albuterol Inhaler as needed (4) Coronary artery disease Is this a current diagnosis for this admission?: Yes Plan: Documented hx of stenting. We will need to get more information from patient's son but he is not picking up his phone. Continue beta-carmelita. Patient does not seem to be on aspirin based of medication reconciliation but I will confirm with patient's son I will leave patient on baby aspirin in the meantime. (5) Generalized weakness Is this a current diagnosis for this admission?: Yes Plan: Patient significantly fatigued and very debilitated. She denies any history of malignancies. Continue Megace which she seems to have been on at home to help with appetite stimulation but will increase dose to 800 mg daily. Will start patient on physical occupational therapy once COVID-19 is ruled out. - Time Time Spent with patient: 25-34 minutes
[2020-03-07] MEDS ORDERED: ALBUTEROL SULFATE HFA (90 MCG/PUFF) 200 PUFF/8.5 GM MDI IH PRN (18:37)
[2020-03-07] MEDS: CLONAZEPAM 1 MG TABLET PO PRN (18:38)
--- NOTE | 2020-03-07 19:03 | ADVANCED CARE ---
- Diagnosis (1) Community acquired pneumonia Diagnosis Current: Yes (2) End-stage renal disease on hemodialysis Diagnosis Current: Yes (5) Generalized weakness Diagnosis Current: Yes Attendance: Patient and myself Resuscitation Status: Do Not Resuscitate - dnr/dni Discussion: We discussed patient's current conditions. Also discussed CODE STATUS elaborately. Explained to patient about the implications of the status. Patient states and makes it very clear after having some [id number] in conversation and explanation that she does not want to be resuscitated via Chest compressions/CPR and also does not want to be intubated in the setting of cardiac arrest for your wound just in the setting of worsening hypoxia. Wishes to proceed with dialysis and other forms of treatments. Her wishes will be respected. No documents were signed. Time Spent: 17mins
[2020-03-07] MEDS: MEGESTROL ACETATE SUSP 400 MG/10 ML UDCUP PO SCH (20:48)
[2020-03-07] MEDS: HEPARIN SOD (PORCINE) 5,000 UNIT/ML 1 ML VIAL SUBCUT SCH (21:31)
[2020-03-07] MEDS: CARVEDILOL 12.5 MG TABLET PO SCH (21:31)
[2020-03-07] MEDS: DOXAZOSIN MESYLATE 2 MG TABLET PO SCH (21:31)
[2020-03-07] MEDS: CLONIDINE HCL 0.2 MG TABLET PO SCH (21:31)
[2020-03-07] MEDS: HYDRALAZINE HCL 50 MG TABLET PO SCH (21:32)
[2020-03-07] MEDS: CYPROHEPTADINE HCL 4 MG TABLET PO SCH (21:33)
[2020-03-08] MEDS: HYDRALAZINE HCL 50 MG TABLET PO SCH ×3 (05:21→21:10)
[2020-03-08] MEDS: HEPARIN SOD (PORCINE) 5,000 UNIT/ML 1 ML VIAL SUBCUT SCH ×3 (05:22→21:11)
--- NOTE | 2020-03-08 07:20 | EKG REPORT ---
SEVERITY:- ABNORMAL ECG - SINUS RHYTHM FIRST DEGREE AV BLOCK PROBABLE LEFT ATRIAL ABNORMALITY RBBB AND LAFB : Confirmed by: Sameer Causey 08-Mar-2020 07:19:54
[2020-03-08 07:28] LABS: ABSOLUTE LYMPHOCYTES (AUTO) 1.6 10^3/uL (0.5-4.7); ABSOLUTE MONOCYTES (AUTO) 0.4 10^3/uL (0.1-1.4); ABSOLUTE NEUT (AUTO) 4.3 10^3/uL (1.7-8.2); BASOPHILS % (AUTO) 0.7 % (0-2); EOSINOPHILS % (AUTO) 0.6 % (0-6); HEMATOCRIT 31.7 % (36.0-47.0); HEMOGLOBIN 10.3 g/dL (12.0-15.5); LYMPHOCYTES % (AUTO) 25.3 % (13-45); MEAN CORPUSCULAR HEMOGLOBIN 32.2 pg (27.0-33.4); MEAN CORPUSCULAR HGB CONC 32.4 g/dL (32.0-36.0); MEAN CORPUSCULAR VOLUME 100 fl (80-97); MONOCYTES % (AUTO) 6.5 % (3-13); PLATELET COUNT 206 10^3/uL (150-450); RED BLOOD COUNT 3.18 10^6/uL (3.72-5.28); RED CELL DISTRIBUTION WIDTH 15.6 % (11.5-14.0); SEGMENTED NEUTROPHILS % (AUTO) 66.9 % (42-78); TOTAL CELLS COUNTED % (AUTO) 100 %; WHITE BLOOD COUNT 6.4 10^3/uL (4.0-10.5)
[2020-03-08 07:51] LABS: ANION GAP 5 (5-19); BLOOD UREA NITROGEN 58 mg/dL (7-20); CALCIUM 8.9 mg/dL (8.4-10.2); CARBON DIOXIDE 27 mmol/L (22-30); CHLORIDE 102 mmol/L (98-107); GLUCOSE 101 mg/dL (75-110); PHOSPHORUS 5.6 mg/dL (2.5-4.5); POTASSIUM 4.4 mmol/L (3.6-5.0)
[2020-03-08 08:04] LABS: FREE T3 2.26 pg/mL (2.77-5.27); FREE T4 (FREE THYROXINE) 0.76 ng/dL (0.78-2.19)
[2020-03-08 08:18] LABS: THYROID STIMULATING HORMONE 2.65 uIU/mL (0.47-4.68)
[2020-03-08] MEDS: SERTRALINE HCL 50 MG TABLET PO SCH (09:46)
[2020-03-08] MEDS: FLUTICASONE/VILANTEROL 200-25 MCG/DOSE IH SCH (09:46)
[2020-03-08] MEDS: ASPIRIN 81 MG TABLET, CHEWABLE PO SCH (09:48)
[2020-03-08] MEDS: CARVEDILOL 12.5 MG TABLET PO SCH ×2 (09:48→21:10)
[2020-03-08] MEDS: CLONIDINE HCL 0.2 MG TABLET PO SCH ×2 (09:48→21:10)
[2020-03-08] MEDS: DOXAZOSIN MESYLATE 2 MG TABLET PO SCH ×2 (09:49→21:09)
[2020-03-08] MEDS: CEFTRIAXONE 1 GM/D5W RTU 1 GM/50 ML RTUPB IV SCH (09:49)
[2020-03-08] MEDS ORDERED: MEGESTROL ACETATE SUSP 400 MG/10 ML UDCUP PO SCH (10:00)
[2020-03-08] MEDS ORDERED: AZITHROMYCIN INJ 500 MG VIAL IV SCH (10:00)
[2020-03-08] MEDS ORDERED: MAG HYDROX/AL HYDROX/SIMETH SUSP 30 ML UDCUP PO PRN (12:06)
[2020-03-08] MEDS: MEGESTROL ACETATE SUSP 400 MG/10 ML UDCUP PO SCH (12:18)
--- NOTE | 2020-03-08 13:42 | PDOC PROGRESS REPORT ---
Subjective Progress Note for:: 03/08/20 Subjective:: Patient denies any shortness of breath today. Denies much cough today. Denies fever or chills. States that she was just recently started on Megace but she has yet to actually take it. Once again she acknowledges that she does not have any history of malignancies. Reason For Visit: PNEUMONIA Physical Exam Vital Signs: Temp Pulse Resp BP Pulse Ox 98.4 F 66 19 132/44 H 100 03/08/20 07:39 03/08/20 07:39 03/08/20 07:39 03/08/20 07:39 03/08/20 07:39 Intake & Output 03/07/20 03/08/20 03/09/20 06:59 06:59 06:59 Intake Total 340 50 Balance 340 50 Weight 40.5 kg General appearance: PRESENT: no acute distress, cooperative, thin, other - Cachectic. ABSENT: well-nourished Eye exam: ABSENT: scleral icterus Mouth exam: ABSENT: neck supple Neck exam: ABSENT: JVD Respiratory exam: PRESENT: symmetrical, unlabored. ABSENT: accessory muscle use, retraction, tachypnea Cardiovascular exam: PRESENT: RRR. ABSENT: bradycardia, irregular rhythm, tachycardia GI/Abdominal exam: PRESENT: soft. ABSENT: rebound, rigid, tenderness Extremities exam: ABSENT: pedal edema Neurological exam: PRESENT: alert, awake, oriented to person, oriented to place, oriented to time, oriented to situation Skin exam: PRESENT: dry Results Laboratory Results: 03/08/20 07:04 03/08/20 07:04 03/07/20 03/07/20 03/08/20 13:25 13:25 07:04 WBC 6.5 6.4 RBC 3.39 L 3.18 L Hgb 11.1 L 10.3 L Hct 33.7 L 31.7 L MCV 100 H 100 H MCH 32.7 32.2 MCHC 32.8 32.4 RDW 15.6 H 15.6 H Plt Count 227 206 Seg Neutrophils % 74.2 66.9 Sodium 134.5 L Potassium 4.6 Chloride 103 Carbon Dioxide 25 Anion Gap 7 BUN 55 H Creatinine 3.88 H Est GFR ( Amer) 14 L Glucose 102 Calcium 9.0 Phosphorus Magnesium TSH Free T4 Free T3 pg/mL 03/08/20 03/08/20 07:04 07:04 WBC RBC Hgb Hct MCV MCH MCHC RDW Plt Count Seg Neutrophils % Sodium 134.2 L Potassium 4.4 Chloride 102 Carbon Dioxide 27 Anion Gap 5 BUN 58 H Creatinine 3.90 H Est GFR ( Amer) 14 L Glucose 101 Calcium 8.9 Phosphorus 5.6 H Magnesium 1.9 TSH 2.65 Free T4 0.76 L Free T3 pg/mL 2.26 L 03/07/20 15:30 Blood Blood Culture (PCR) - Final Streptococcus Species Impressions: Chest X-Ray 03/07/20 13:58 IMPRESSION: Increased ill-defined right upper lobe and infrahilar opacities suspicious for superimposed pneumonia or asymmetric edema. Stable additional enlarged cardiac silhouette, chronic interstitial changes, small bilateral effusions and pleural thickening. Assessment and Plan - Diagnosis (1) Community acquired pneumonia Qualifiers: Laterality: unspecified laterality Qualified Code(s): J18.9 - Pneumonia, unspecified organism Is this a current diagnosis for this admission?: Yes Plan: Chest x-ray noting infiltrates in the right upper lobe as well as what seems to be chronic bilateral interstitial changes. Continue ceftriaxone and azithromycin. Sputum culture not obtainable Patient has been tested for COVID-19 suspicion given pneumonia. Result pending. (2) Bacteremia due to Streptococcus Is this a current diagnosis for this admission?: Yes Plan: 1 set of blood cultures positive for Streptococcus species. Awaiting speciation. Possibly secondary to pneumonia if true bacteremia. Repeat blood cultures Continue ceftriaxone pending speciation. (3) End-stage renal disease on hemodialysis Is this a current diagnosis for this admission?: Yes Plan: Dialysis as scheduled MWF. Nephrology following. Renal diet. (4) COPD (chronic obstructive pulmonary disease) Qualifiers: COPD type: unspecified COPD Qualified Code(s): J44.9 - Chronic obstructive pulmonary disease, unspecified Is this a current diagnosis for this admission?: Yes Plan: Not acute exacerbated. LABA/ICS, Albuterol Inhaler as needed (5) Coronary artery disease Is this a current diagnosis for this admission?: Yes Plan: Documented hx of stenting. Continue beta-carmelita. Patient does not seem to be on aspirin based of medication reconciliation but I will confirm with patient's son I will leave patient on baby aspirin in the meantime. Unfortunately have not been able to reach patient's son just yet as he is still not picking up his phone. (6) Failure to thrive Qualifiers: Failure to thrive age range: in adult Qualified Code(s): R62.7 - Adult failure to thrive Is this a current diagnosis for this admission?: Yes Plan: Generalized weakness and cachexia with malnutrition. Check albumin and prealbumin levels. Wondering if any underlying malignancy but patient once again acknowledges that she does not have any history of malignancies. Reviewing patient's records, PET CT scan from base of skull to thighs performed in 10/2018 to evaluate abnormal lung findings was essentially normal and showed no abnormal activity suggestive of malignancy. Chest CT done in 06/2019 did show some pleural masslike lesion involving the right upper lobe with some surrounding mucus plugging. However I do not see any biopsies performed. I will investigate further regarding this issue. Continue Megace. Encourage nutritional intake. PT OT once COVID-19 has been ruled out. - Time Time Spent with patient: Less than 15 minutes
--- NOTE | 2020-03-08 16:25 | PDOC CONSULTATION ---
Consultation Consult Date: 03/08/20 Provider Consulted: Lenin POLANCO Consult reason:: ESRD for dialysis in the possibility of COVID pneumonia. History of Present Illness Admission Date/PCP: 03/07/20 16:26 ORTEGA LEWIS MD History of Present Illness: JUSTINE CHRISTENSEN is a 69 year old female with a past medical history significant for ESRD on hemodialysis in the background of hypertension, severe COPD, CAD status post PCI presented with history of progressive weakness and fatigue associated with persistent shortness of breath. She has also had a chronic cough for some time associated with her COPD and smoking. She denies any history of fever. No apparent history of any contact with covid patients. Currently being seen while undergoing dialysis. She is comfortable and in no distress. Labs and medications were reviewed. Dialysis orders were reviewed with the treating dialysis nurse. Past Medical History Cardiac Medical History: Reports: CHF-Diastolic, Coronary Artery Disease - CARDIAC STENT, Hypertension-primary Denies: Myocardial Infarction Pulmonary Medical History: Reports: Chronic Obstructive Pulmonary Disease (COPD) - MILD, Pneumonia - "Years ago" Denies: Asthma, Bronchitis Neurological Medical History: Denies: Seizures Renal/ Medical History: Reports: End Stage Renal Disease, Secondary Hyperparathyroidism GI Medical History: Reports: Diverticulitis Musculoskeltal Medical History: Denies: Arthritis Psychiatric Medical History: Reports: Depression Past Surgical History Past Surgical History: Reports: Cholecystectomy, Dialysis Access Surgery AVF, Nephrectomy - 2016, Vascular Surgery, Other - Status post nephrectomy Social History Smoking Status: Current Every Day Smoker Electronic Cigarette use?: No Frequency of Alcohol Use: None Hx Recreational Drug Use: No Drugs: None Hx Prescription Drug Abuse: No - Advance Directive Resuscitation Status: Do Not Resuscitate - dnr/dni Family History Parental Family History Reviewed: Yes - Negative for ESRD Children Family History Reviewed: No Sibling(s) Family History Reviewed.: No Medication/Allergy Home Medications: Carvedilol [Coreg] 25 mg PO Q12 06/28/19 Clonazepam [Klonopin] 0.25 mg PO Q6HP PRN 06/28/19 Clonidine HCl [Catapres 0.3 mg Tablet] 0.3 mg PO 6XD 06/28/19 Doxazosin Mesylate [Cardura 2 mg Tablet] 2 mg PO Q12 06/28/19 Hydralazine HCl 100 mg PO Q8 06/28/19 Sertraline HCl [Zoloft] 200 mg PO DAILY 06/28/19 Umeclidinium Brm/Vilanterol Tr [Anoro Ellipta 62.5-25 Mcg INH] 1 puff IH DAILY 06/28/19 Vit B Comp No.3/Folic/C/Biotin [Nephro-Bernard Rx Tablet] 1 each PO DAILY 06/28/19 Ondansetron HCl [Zofran] 4 mg PO Q6HP PRN 01/14/20 Cyproheptadine HCl [Periactin 4 mg Tablet] 4 mg PO QHS 03/07/20 Mag Hydrox/Aluminum Hyd/Simeth [Antacid Anti-Gas Liquid] 5 ml PO QIDP PRN 03/07/20 Megestrol Acetate [Megace Sara 400 mg/10 ml Udcup] 400 mg PO DAILY 03/07/20 Allergies/Adverse Reactions: ASAD Inhibitors Allergy (Verified 03/07/20 13:09) "Red from chin to chest" Sulfa (Sulfonamide Antibiotics) Allergy (Verified 03/07/20 13:09) Hives Review of Systems Constitutional: PRESENT: as per HPI. ABSENT: fever(s) Cardiovascular: PRESENT: dyspnea on exertion. ABSENT: chest pain Respiratory: PRESENT: dyspnea. ABSENT: hemoptysis Gastrointestinal: ABSENT: diarrhea, dysphagia, heartburn Genitourinary: ABSENT: dysuria, hematuria Musculoskeletal: ABSENT: deformity, joint swelling Integumentary: ABSENT: lesions, pruritus, rash Neurological: ABSENT: abnormal gait, abnormal movements, focal weakness, frequent falls Hematologic/Lymphatic: ABSENT: easy bruising Physical Exam Vital Signs: Temp Pulse Resp BP Pulse Ox 98.5 F 87 16 166/56 H 94 03/08/20 15:57 03/08/20 15:57 03/08/20 15:57 03/08/20 15:57 03/08/20 16:03 Intake & Output 03/07/20 03/08/20 03/09/20 06:59 06:59 06:59 Intake Total 340 50 Balance 340 50 Weight 40.5 kg General appearance: PRESENT: no acute distress Respiratory exam: PRESENT: clear to auscultation irina, decreased breath sounds. ABSENT: crackles Cardiovascular exam: PRESENT: +S1, +S2 GI/Abdominal exam: PRESENT: normal bowel sounds, soft. ABSENT: organomegaly, tenderness Neurological exam: PRESENT: awake, oriented to person, oriented to place Results Laboratory Results: 03/08/20 07:04 03/08/20 07:04 03/08/20 03/08/20 03/08/20 07:04 07:04 07:04 WBC 6.4 RBC 3.18 L Hgb 10.3 L Hct 31.7 L MCV 100 H MCH 32.2 MCHC 32.4 RDW 15.6 H Plt Count 206 Seg Neutrophils % 66.9 Sodium 134.2 L Potassium 4.4 Chloride 102 Carbon Dioxide 27 Anion Gap 5 BUN 58 H Creatinine 3.90 H Est GFR ( Amer) 14 L Glucose 101 Calcium 8.9 Phosphorus 5.6 H Magnesium 1.9 TSH 2.65 Free T4 0.76 L Free T3 pg/mL 2.26 L 03/07/20 15:30 Blood Blood Culture (PCR) - Final Streptococcus Species Impressions: Chest X-Ray 03/07/20 13:58 IMPRESSION: Increased ill-defined right upper lobe and infrahilar opacities suspicious for superimposed pneumonia or asymmetric edema. Stable additional enlarged cardiac silhouette, chronic interstitial changes, small bilateral effusions and pleural thickening. Assessment & Plan - Diagnosis (1) Suspected pneumonia Plan: Her x-rays shows groundglass/interstitial changes suggestive of likely covid pneumonia. Patient in isolation on the fifth floor and serologies pending. (2) End-stage renal disease on hemodialysis Is this a current diagnosis for this admission?: Yes Plan: Patient currently being seen while on under going dialysis. Vital signs are stable. Dialysis being supervised. Plan to remove no fluid off as she is dry. Dialysis orders were reviewed with the treating dialysis nurse. (3) Generalized weakness Is this a current diagnosis for this admission?: Yes Plan: She has failure to thrive. She almost looks rather cachectic. I will also check her ABG just to make sure she is not a CO2 retainer. Her hemoglobin is stable around 10-11. (4) Anemia in CKD (chronic kidney disease) Qualifiers: Chronic kidney disease stage: on chronic dialysis Qualified Code(s): N18.6 - End stage renal disease; D63.1 - Anemia in chronic kidney disease; Z99.2 - Dependence on renal dialysis Plan: Current hemoglobin 10.3. We will hold off on erythropoietin for this dialysis. Monitor (5) COPD (chronic obstructive pulmonary disease) Qualifiers: COPD type: unspecified COPD Qualified Code(s): J44.9 - Chronic obstructive pulmonary disease, unspecified Is this a current diagnosis for this admission?: Yes Plan: Severe. Unfortunately still continues to smoke.
[2020-03-08] MEDS ORDERED: CLONIDINE HCL 0.2 MG TABLET PO ONE (17:00)
[2020-03-08] MEDS: ONDANSETRON HCL INJ/PF 4 MG/2 ML SDV IV PRN (21:08)
[2020-03-08] MEDS: CYPROHEPTADINE HCL 4 MG TABLET PO SCH (21:09)
[2020-03-09 04:18] LABS: ALBUMIN 2.8 g/dL (3.5-5.0); ALKALINE PHOSPHATASE 82 U/L (38-126); ANION GAP 7 (5-19); ASPARTATE AMINO TRANSFERASE 16 U/L (14-36); BILIRUBIN,DIRECT 0.4 mg/dL (0.0-0.4); BILIRUBIN,TOTAL 0.6 mg/dL (0.2-1.3); CALCIUM 8.5 mg/dL (8.4-10.2); CARBON DIOXIDE 33 mmol/L (22-30); CHLORIDE 97 mmol/L (98-107); GLUCOSE 105 mg/dL (75-110); POTASSIUM 3.8 mmol/L (3.6-5.0); TOTAL PROTEIN 5.7 g/dL (6.3-8.2)
[2020-03-09 04:25] LABS: PREALBUMIN 9.8 mg/dL (17.6-36.0)
[2020-03-09 04:48] LABS: BLOOD UREA NITROGEN 28 mg/dL (7-20)
[2020-03-09] MEDS: HYDRALAZINE HCL 50 MG TABLET PO SCH ×3 (05:12→21:57)
[2020-03-09] MEDS: HEPARIN SOD (PORCINE) 5,000 UNIT/ML 1 ML VIAL SUBCUT SCH ×3 (05:13→21:58)
[2020-03-09] MEDS: ONDANSETRON HCL INJ/PF 4 MG/2 ML SDV IV PRN (05:13)
[2020-03-09] MEDS: AZITHROMYCIN 500 MG in DEXTROSE 5%-WATER 250 ML IV SCH ×2 (08:29→10:02)
[2020-03-09] MEDS: CLONIDINE HCL 0.2 MG TABLET PO SCH ×2 (09:10→21:56)
[2020-03-09] MEDS: DOXAZOSIN MESYLATE 2 MG TABLET PO SCH ×2 (09:10→21:56)
[2020-03-09] MEDS: ASPIRIN 81 MG TABLET, CHEWABLE PO SCH (09:10)
[2020-03-09] MEDS: CARVEDILOL 12.5 MG TABLET PO SCH ×2 (09:10→21:56)
[2020-03-09] MEDS: SERTRALINE HCL 50 MG TABLET PO SCH (09:11)
[2020-03-09] MEDS: MEGESTROL ACETATE SUSP 400 MG/10 ML UDCUP PO SCH (09:11)
[2020-03-09] MEDS: FLUTICASONE/VILANTEROL 200-25 MCG/DOSE IH SCH (09:12)
[2020-03-09] MEDS: CEFTRIAXONE 1 GM/D5W RTU 1 GM/50 ML RTUPB IV SCH (09:12)
[2020-03-09] MEDS: POLYETHYLENE GLYCOL 3350 POWDER 17 GM/1 PACKET PO SCH (10:02)
[2020-03-09] MEDS ORDERED: METOCLOPRAMIDE HCL INJ/PF 10 MG/2 ML SDV ONE (10:08)
[2020-03-09] MEDS ORDERED: METOCLOPRAMIDE HCL INJ/PF 10 MG/2 ML SDV IV ONE (10:30)
[2020-03-09] MEDS: CLONAZEPAM 1 MG TABLET PO PRN (13:45)
--- NOTE | 2020-03-09 16:09 | PDOC PROGRESS REPORT ---
Subjective Progress Note for:: 03/09/20 Subjective:: patient complains of feeling nauseous today. Reason For Visit: PNEUMONIA Physical Exam Vital Signs: Temp Pulse Resp BP Pulse Ox 97.7 F 69 16 101/40 L 100 03/09/20 11:31 03/09/20 14:00 03/09/20 11:31 03/09/20 11:31 03/09/20 11:31 Intake & Output 03/08/20 03/09/20 03/10/20 06:59 06:59 06:59 Intake Total 340 170 300 Output Total 100 Balance 340 70 300 Weight 40.5 kg 41.5 kg General appearance: PRESENT: no acute distress, cooperative, thin. ABSENT: well-nourished Cardiovascular exam: PRESENT: RRR. ABSENT: bradycardia, irregular rhythm, tachycardia Neurological exam: PRESENT: alert, awake. ABSENT: altered, aphasic Results Laboratory Results: 03/08/20 07:04 03/09/20 03:47 03/09/20 03:47 Sodium 137.3 Potassium 3.8 Chloride 97 L Carbon Dioxide 33 H Anion Gap 7 BUN 28 H D Creatinine 2.15 H Est GFR ( Amer) 27 L Glucose 105 Calcium 8.5 Total Bilirubin 0.6 AST 16 Alkaline Phosphatase 82 Total Protein 5.7 L Albumin 2.8 L Prealbumin 9.8 L 03/07/20 15:30 Blood Blood Culture (PCR) - Final Streptococcus Species Impressions: Chest X-Ray 03/07/20 13:58 IMPRESSION: Increased ill-defined right upper lobe and infrahilar opacities suspicious for superimposed pneumonia or asymmetric edema. Stable additional enlarged cardiac silhouette, chronic interstitial changes, small bilateral effusions and pleural thickening. Assessment and Plan - Diagnosis (1) Community acquired pneumonia Qualifiers: Laterality: unspecified laterality Qualified Code(s): J18.9 - Pneumonia, unspecified organism Is this a current diagnosis for this admission?: Yes Plan: Chest x-ray noting infiltrates in the right upper lobe as well as what seems to be chronic bilateral interstitial changes. Continue ceftriaxone and azithromycin. Sputum culture not obtainable Patient has been tested for COVID-19 suspicion given pneumonia. Result pending. (2) Bacteremia due to Streptococcus Is this a current diagnosis for this admission?: Yes Plan: 1 set of blood cultures positive for 2 different streptococcal species including Peptostreptococcus. Possibly secondary to pneumonia if true bacteremia or dental etiology. Follow-up repeat blood cultures Continue ceftriaxone (3) Failure to thrive Qualifiers: Failure to thrive age range: in adult Qualified Code(s): R62.7 - Adult john lure to thrive Is this a current diagnosis for this admission?: Yes Plan: Generalized weakness and cachexia with severe malnutrition. Discussed with patient's PCP who states that this is been going on since last year. BMI from last year was around 14 as well. Discussed with PCP and no evidence of malignancy detected so far. Still wonder if patient truly does have a malignancy Reviewing patient's records, PET CT scan from base of skull to thighs 10/2018 to evaluate abnormal lung findings was essentially normal and showed no abnormal activity suggestive of malignancy. Chest CT 09/2018 did show some pleural masslike lesion involving the right upper lobe with some surrounding mucus plugging. Monitor to verify if she has had any colonoscopies Continue Megace. Encourage nutritional intake. PT OT once COVID-19 has been ruled out. Check chest CT. Check HIV (4) End-stage renal disease on hemodialysis Is this a current diagnosis for this admission?: Yes Plan: Dialysis as scheduled MWF. Nephrology following. Renal diet. (5) COPD (chronic obstructive pulmonary disease) Qualifiers: COPD type: unspecified COPD Qualified Code(s): J44.9 - Chronic obstructive pulmonary disease, unspecified Is this a current diagnosis for this admission?: Yes Plan: Not acute exacerbated. LABA/ICS, Albuterol Inhaler as needed (6) Interstitial lung disease Is this a current diagnosis for this admission?: Yes Plan: Patient's PCP notes that patient has a history of interstitial lung disease. Prior smoker. Supportive care. Oxygen supplementation if needed. (7) Coronary artery disease Is this a current diagnosis for this admission?: Yes Plan: Documented hx of stenting. Continue beta-carmelita and aspirin. 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 She does have a history of complex left thyroid nodule with FNA-biopsy in 2018 and showed benign nodule. She is due for repeat thyroid ultrasound for periodic monitoring especially in light of low T3 and T4. - Time Time Spent with patient: Less than 15 minutes
[2020-03-09] MEDS: ACETAMINOPHEN 325 MG TABLET PO PRN (17:56)
[2020-03-09] MEDS ORDERED: BISACODYL 10 MG SUPP.RECT PR ONE (18:00)
--- NOTE | 2020-03-09 20:40 | RADIOLOGY REPORT (SQ) ---
CLINICAL INDICATION: RUL masslike on prior CT, pna, cachexia. . TECHNIQUE: Noncontrast spiral axial CT imaging was obtained of the chest with multiplanar reconstructions. This exam was performed according to our departmental dose-optimization program, which includes automated exposure control, adjustment of the mA and/or kV according to patient size and/or use of iterative reconstruction techniques. COMPARISON: October 16, 2018. No interval chest CT is available.. CORRELATION: None. FINDINGS: The heart is enlarged with coronary calcification this is similar to prior. No pericardial effusion. No bulky mediastinal adenopathy. Metallic stents within the left subclavian the brachiocephalic vein is also appear to be within the left cephalic vein. These are present previously. The lungs again demonstrates significant chronic emphysematous changes. The masslike area of consolidation right upper lobe is without interval change from prior, series 2 image 9. The other smaller areas of pleural-based nodule opacity are also similar. There is a mildly progressive area presumed subpleural parenchyma scarring right upper lobe series 4 image 23. Additionally the airspace consolidative change posterior segment right upper lobe is progressive/new when compared to prior. This is ill-defined, estimated at approximately 3 x 5 cm series 4 image 43. The right lower lobe atelectasis seen previously is improved but not resolved. Consolidative changes remain in this distribution with old granulomatous disease. Progressive sessile airspace disease identified left lower lobe, progressive from prior. No pneumothorax. Small pleural effusions, right greater than left. The right pleural effusion appears be partly loculated. No pneumothorax. Visualized abdominal contents demonstrate abdominal aortic aneurysm measuring 2.7 cm, not a surgical lesion.. Abdominal contents are not well seen due to cachexia and artifact Visualized bones are unremarkable. IMPRESSION: Artifact from the patient's arms. Chronic parenchymal lung changes identified. Progressive airspace consolidative change posterior segment right upper lobe suspicious for pneumonia. The areas of subpleural parenchymal scarring also appear to be mildly progressive. The large abnormality present previously right upper lobe is stable. Mildly progressive bilateral pleural effusions right greater than left. The dense atelectasis right lower lobe is improved although there is still dense consolidation in this distribution..
[2020-03-09] MEDS: CYPROHEPTADINE HCL 4 MG TABLET PO SCH (21:56)
[2020-03-10 04:55] LABS: HEMATOCRIT 30.9 % (36.0-47.0); HEMOGLOBIN 10.1 g/dL (12.0-15.5); MEAN CORPUSCULAR HEMOGLOBIN 32.3 pg (27.0-33.4); MEAN CORPUSCULAR HGB CONC 32.8 g/dL (32.0-36.0); MEAN CORPUSCULAR VOLUME 98 fl (80-97); PLATELET COUNT 207 10^3/uL (150-450); RED BLOOD COUNT 3.14 10^6/uL (3.72-5.28); RED CELL DISTRIBUTION WIDTH 15.4 % (11.5-14.0)
[2020-03-10 04:56] LABS: WHITE BLOOD COUNT 14.7 10^3/uL (4.0-10.5)
[2020-03-10 05:14] LABS: ANION GAP 8 (5-19); BLOOD UREA NITROGEN 40 mg/dL (7-20); CALCIUM 8.7 mg/dL (8.4-10.2); CARBON DIOXIDE 32 mmol/L (22-30); CHLORIDE 96 mmol/L (98-107); GLUCOSE 73 mg/dL (75-110); POTASSIUM 3.8 mmol/L (3.6-5.0)
[2020-03-10] MEDS: HYDRALAZINE HCL 50 MG TABLET PO SCH ×3 (05:29→22:44)
[2020-03-10] MEDS: HEPARIN SOD (PORCINE) 5,000 UNIT/ML 1 ML VIAL SUBCUT SCH ×3 (05:30→22:54)
--- NOTE | 2020-03-10 08:43 | RADIOLOGY REPORT (SQ) ---
EXAM DESCRIPTION: U/S THYROID/SFT TISS HD NECK IMAGES COMPLETED DATE/TIME: 03/09/2020 9:10 pm REASON FOR STUDY: monitoring of complex nodule, low t4,t3 COMPARISON: 12/18/2018 TECHNIQUE: Dynamic and static quiros-scale images acquired of the thyroid gland. Selected additional c olor/power Doppler images recorded. All images stored to PACS. LIMITATIONS: None. FINDINGS: RIGHT LOBE: Heterogeneous right lobe measuring 4.9 x 1.6 x 1.5 cm. Scattered small cystic lesions. There is a isoechoic solid nodule within the inferior right lobe measuring 4 x 4 x 3 mm wi th a smooth margin and no internal calcifications (TI rads 3). LEFT LOBE: Heterogeneous nodule measuring 6.1 x 2.7 x 2.6 cm. There is a large complex predominantly isoechoic nodule with some cystic components within the mid thyroid lobe measuring 4.3 x 2.4 x 2.5 c m, previously documented at 4.1 x 2.8 x 2.0 cm. This demonstrates ill-defined margin and no signific ant internal calcifications (TI rads 4). No other discrete nodules. ISTHMUS: Normal in size measuring 3 mm. No cystic or solid masses. OTHER: No other significant finding. IMPRESSION: Minimal interval change within the 4.3 x 2.4 x 2.5 cm TI rads 4 left lobe thyroid lobe n odule which meets criteria for biopsy. Additional follow-up recommendations as below. COMMENT: The [employer] ([employer]) Thyroid Imaging Reporting And Data System (TI-RADS ) is an ultrasound feature based summed scoring system of risk categorization and management recommen dations for thyroid nodules. TI-RADS assessment categories are as follows: 0 - Incomplete exam: Additional imaging or comparison to prior examinations recommended. 1. - Benign: Fine-needle aspiration or follow-up not routinely recommended in the absence of clinical change. 2. - Not suspicious: Fine-needle aspiration or follow-up not routinely recommended in the absence of clinical change. 3. - Mildly suspicious: Fine-needle aspiration recommended if greater than or equal to 2.5 cm in size . Ultrasound follow-up recommended if greater than or equal to 1.5 cm in size. 4. - Moderately suspicious: Fine-needle aspiration recommended if greater than or equal to 1.5 cm in size. Ultrasound follow-up recommended if greater than or equal to 1.0 cm in size. 5. - Highly suspicious: Fine-needle aspiration recommended if greater than or equal to 1.0 cm in size . Ultrasound follow-up recommended if greater than or equal to 0.5 cm in size. TECHNICAL DOCUMENTATION: JOB ID: [id number] 2010 [employer]- All Rights Reserved Reading location - IP/workstation name: [email or web address]
[2020-03-10] MEDS: CEFTRIAXONE 1 GM/D5W RTU 1 GM/50 ML RTUPB IV SCH (10:00)
[2020-03-10] MEDS: SERTRALINE HCL 50 MG TABLET PO SCH (10:01)
[2020-03-10] MEDS: MEGESTROL ACETATE SUSP 400 MG/10 ML UDCUP PO SCH (10:01)
[2020-03-10] MEDS: FLUTICASONE/VILANTEROL 200-25 MCG/DOSE IH SCH (10:01)
[2020-03-10] MEDS: ASPIRIN 81 MG TABLET, CHEWABLE PO SCH (10:01)
[2020-03-10] MEDS: POLYETHYLENE GLYCOL 3350 POWDER 17 GM/1 PACKET PO SCH (10:02)
[2020-03-10] MEDS: CLONAZEPAM 1 MG TABLET PO PRN (10:13)
[2020-03-10] MEDS: AZITHROMYCIN 500 MG in DEXTROSE 5%-WATER 250 ML IV SCH (10:13)
[2020-03-10] MEDS: DOXAZOSIN MESYLATE 2 MG TABLET PO SCH ×2 (10:21→22:49)
[2020-03-10] MEDS: CLONIDINE HCL 0.2 MG TABLET PO SCH ×2 (10:23→22:45)
[2020-03-10] MEDS: CARVEDILOL 12.5 MG TABLET PO SCH ×2 (10:24→22:44)
--- NOTE | 2020-03-10 14:45 | PDOC PROGRESS REPORT ---
Subjective Progress Note for:: 03/10/20 Subjective:: Discussed case with patient's son as well as patient. They are both agreeable to going to SNF when patient is ready for discharge. Patient states she had a little bit of a bowel movement but not much. Still evidently not eating much of anything yesterday. Reason For Visit: PNEUMONIA Physical Exam Vital Signs: Temp Pulse Resp BP Pulse Ox 98.5 F 81 16 126/49 H 98 03/10/20 11:05 03/10/20 11:05 03/10/20 11:05 03/10/20 11:05 03/10/20 11:05 Intake & Output 03/09/20 03/10/20 03/11/20 06:59 06:59 06:59 Intake Total 170 300 300 Output Total 100 Balance 70 300 300 Weight 41.5 kg 37.5 kg General appearance: PRESENT: no acute distress, cooperative, thin, other - Cachectic. ABSENT: well-nourished Neck exam: ABSENT: JVD Respiratory exam: PRESENT: clear to auscultation irina, unlabored. ABSENT: tachypnea, wheezes Cardiovascular exam: PRESENT: RRR, +S1, +S2. ABSENT: tachycardia Neurological exam: PRESENT: alert, awake, oriented to person, oriented to place, oriented to time, oriented to situation Psychiatric exam: ABSENT: agitated, anxious, flat affect Results Laboratory Results: 03/10/20 04:40 03/10/20 04:40 03/10/20 03/10/20 04:40 04:40 WBC 14.7 H D RBC 3.14 L Hgb 10.1 L Hct 30.9 L MCV 98 H MCH 32.3 MCHC 32.8 RDW 15.4 H Plt Count 207 Sodium 136.0 L Potassium 3.8 Chloride 96 L Carbon Dioxide 32 H Anion Gap 8 BUN 40 H Creatinine 2.90 H Est GFR ( Amer) 19 L Glucose 73 L Calcium 8.7 03/07/20 15:30 Blood Blood Culture (PCR) - Final Streptococcus Species 03/07/20 15:30 Blood Blood Culture - Final Streptococcus Mitis Peptostreptococcus Species Impressions: Chest X-Ray 03/07/20 13:58 IMPRESSION: Increased ill-defined right upper lobe and infrahilar opacities suspicious for superimposed pneumonia or asymmetric edema. Stable additional enlarged cardiac silhouette, chronic interstitial changes, small bilateral effusions and pleural thickening. Chest CT 03/09/20 00:00 IMPRESSION: Artifact from the patient's arms. Chronic parenchymal lung changes identified. Progressive airspace consolidative change posterior segment right upper lobe suspicious for pneumonia. The areas of subpleural parenchymal scarring also appear to be mildly progressive. The large abnormality present previously right upper lobe is stable. Mildly progressive bilateral pleural effusions right greater than left. The dense atelectasis right lower lobe is improved although there is still dense consolidation in this distribution.. Thyroid Ultrasound 03/09/20 00:00 IMPRESSION: Minimal interval change within the 4.3 x 2.4 x 2.5 cm TI rads 4 left lobe thyroid lobe nodule which meets criteria for biopsy. Additional follow-up recommendations as below. Assessment and Plan - Diagnosis (1) Community acquired pneumonia Qualifiers: Laterality: unspecified laterality Qualified Code(s): J18.9 - Pneumonia, unspecified organism Is this a current diagnosis for this admission?: Yes Plan: Continue ceftriaxone and azithromycin. COVID-19 ruled out with negative test. Low pretest suspicion. Uncertain why WBC jumped significantly from yesterday to today. As of now we will monitor and repeat test. (2) Bacteremia due to Streptococcus Is this a current diagnosis for this admission?: Yes Plan: 1 set of blood cultures positive for 2 different streptococcal species being strep mitis and Peptostreptococcus. Possibly secondary to pneumonia if true bacteremia or dental etiology. Repeat blood cultures are negative so far. Continue ceftriaxone (3) Failure to thrive Qualifiers: Failure to thrive age range: in adult Qualified Code(s): R62.7 - Adult failure to thrive Is this a current diagnosis for this admission?: Yes Plan: Generalized weakness and cachexia with severe malnutrition. This seems to be a chronic issue with recent worsening. Discussed with patient's PCP who states that this is been going on for well over a year. BMI from last year was around 14 as well. Discussed with PCP and no evidence of malignancy detected so far. Still wonder if patient truly does have a malignancy PET CT scan from base of skull to thighs 10/2018 to evaluate abnormal lung findings was essentially normal and showed no abnormal activity suggestive of malignancy. CT of the chest shows airspace disease suggestive of pneumonia but no clear evidence of new mass as compared to CT in 2018. Patient verifies that she had a colonoscopy done in 2016 which was negative for malignancy. HIV is negative. Continue Megace. Encourage nutritional intake. PT and OT Patient will be placed at SNF (4) End-stage renal disease on hemodialysis Is this a current diagnosis for this admission?: Yes Plan: Dialysis as scheduled MWF. Nephrology following. Renal diet. (5) COPD (chronic obstructive pulmonary disease) Qualifiers: COPD type: unspecified COPD Qualified Code(s): J44.9 - Chronic obstructive pulmonary disease, unspecified Is this a current diagnosis for this admission?: Yes Plan: Not acute exacerbated. LABA/ICS, Albuterol Inhaler as needed (6) Interstitial lung disease Is this a current diagnosis for this admission?: Yes Plan: Prior smoker. Supportive care. Oxygen supplementation if needed. (7) Coronary artery disease Is this a current diagnosis for this admission?: Yes Plan: Documented hx of stenting. Continue beta-carmelita and aspirin. 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 Repeat thyroid ultrasound shows only very minimal change in nodule from prior ultrasound. In light of patient's excessive fatigue, constipation and failure to thrive, I will start patient on Synthroid with weight-based dosing. - Time Time Spent with patient: 15-24 minutes
[2020-03-10] MEDS ORDERED: LEVOTHYROXINE SODIUM 0.075 MG TABLET PO ONE (15:00)
[2020-03-10] MEDS: ONDANSETRON HCL INJ/PF 4 MG/2 ML SDV IV PRN (16:25)
[2020-03-10] MEDS ORDERED: DOCUSATE SODIUM 100 MG CAPSULE PO ONE (17:15)
[2020-03-10] MEDS: FAMOTIDINE 20 MG TABLET PO SCH (22:44)
[2020-03-10] MEDS: CYPROHEPTADINE HCL 4 MG TABLET PO SCH (22:49)
[2020-03-11 05:35] LABS: HEMATOCRIT 31.3 % (36.0-47.0); HEMOGLOBIN 10.2 g/dL (12.0-15.5); MEAN CORPUSCULAR HEMOGLOBIN 32.2 pg (27.0-33.4); MEAN CORPUSCULAR HGB CONC 32.7 g/dL (32.0-36.0); MEAN CORPUSCULAR VOLUME 99 fl (80-97); PLATELET COUNT 237 10^3/uL (150-450); RED BLOOD COUNT 3.18 10^6/uL (3.72-5.28); RED CELL DISTRIBUTION WIDTH 15.7 % (11.5-14.0); WHITE BLOOD COUNT 19.7 10^3/uL (4.0-10.5)
[2020-03-11] MEDS: HYDRALAZINE HCL 50 MG TABLET PO SCH ×3 (05:42→22:27)
[2020-03-11] MEDS: HEPARIN SOD (PORCINE) 5,000 UNIT/ML 1 ML VIAL SUBCUT SCH ×3 (05:43→22:27)
[2020-03-11] MEDS: LEVOTHYROXINE SODIUM 0.075 MG TABLET PO SCH (05:45)
[2020-03-11 06:42] LABS: ABSOLUTE LYMPHOCYTES# (MANUAL) 0.4 10^3/uL (0.5-4.7); ABSOLUTE MONOCYTES # (MANUAL) 0.2 10^3/uL (0.1-1.4); BASOPHILS % (MANUAL) 0 % (0-2); EOSINOPHILS % (MANUAL) 0 % (0-6); LYMPHOCYTES % (MANUAL) 2 % (13-45); MONOCYTES % (MANUAL) 1 % (3-13); SEGMENTED NEUTROPHILS % (MAN) 97 % (42-78); TOTAL CELLS COUNTED 100
[2020-03-11 06:44] LABS: ANISOCYTOSIS 1+; OVALOCYTES SLIGHT; PLATELET COMMENT ADEQUATE; POIKILOCYTOSIS 1+; POLYCHROMASIA SLIGHT; SCHISTOCYTES 1+; TOXIC GRANULATION 1+; TOXIC VACUOLATION PRESENT
[2020-03-11] MEDS: METOCLOPRAMIDE HCL INJ/PF 10 MG/2 ML SDV IV SCH ×3 (08:03→15:50)
[2020-03-11] MEDS ORDERED: PIPERACILLIN/TAZOBACTAM 3.375 GM VIAL IV SCH (08:30)
[2020-03-11] MEDS: FAMOTIDINE 20 MG TABLET PO SCH ×2 (10:52→22:27)
[2020-03-11] MEDS: CARVEDILOL 12.5 MG TABLET PO SCH ×2 (10:52→22:26)
[2020-03-11] MEDS: CLONIDINE HCL 0.2 MG TABLET PO SCH ×2 (10:53→22:41)
[2020-03-11] MEDS: DOXAZOSIN MESYLATE 2 MG TABLET PO SCH ×2 (10:53→22:27)
[2020-03-11] MEDS: MEGESTROL ACETATE SUSP 400 MG/10 ML UDCUP PO SCH (10:53)
[2020-03-11] MEDS: SERTRALINE HCL 50 MG TABLET PO SCH (10:54)
[2020-03-11] MEDS: ASPIRIN 81 MG TABLET, CHEWABLE PO SCH (10:55)
[2020-03-11] MEDS: POLYETHYLENE GLYCOL 3350 POWDER 17 GM/1 PACKET PO SCH (10:56)
[2020-03-11] MEDS: FLUTICASONE/VILANTEROL 200-25 MCG/DOSE IH SCH (10:56)
[2020-03-11] MEDS: DOCUSATE SODIUM 100 MG CAPSULE PO SCH (10:56)
[2020-03-11] MEDS: PIPERACILLIN SODIUM/TAZOBACTAM 2.25 GM in NORMAL SALINE 50 ML IV SCH ×2 (11:12→17:40)
--- NOTE | 2020-03-11 13:33 | RADIOLOGY REPORT (SQ) ---
EXAM DESCRIPTION: ACUTE ABDOMEN SERIES IMAGES COMPLETED DATE/TIME: 03/11/2020 1:23 pm REASON FOR STUDY: Persistent nausea.. constipation COMPARISON: Chest x-ray dated 03/07/2020. NUMBER OF VIEWS: Three views. TECHNIQUE: Frontal chest, supine abdomen and upright/decubitus abdomen radiographic images acquired. LIMITATIONS: None. FINDINGS: CHEST: Hyperinflation. Pleural thickening and/or pleural effusions. Airspace disease in the right upper lobe slightly improved. FREE AIR: None. No abnormal gas collections. BOWEL GAS PATTERN: Nonobstructive pattern. No dilated loops or air fluid levels. CALCIFICATIONS: No suspicious calcifications. HARDWARE: Surgical clips. Vascular stents. SOFT TISSUES: No gross mass or suggestion of organomegaly. BONES: No acute fracture. Degenerative changes in the spine. No worrisome bone lesions. OTHER: No other significant finding. IMPRESSION: 1. NO RADIOGRAPHIC EVIDENCE FOR ACUTE ABDOMINAL DISEASE. 2. CHRONIC CHANGES IN THE LUNGS. SLIGHT IMPROVEMENT IN THE RIGHT UPPER LOBE AIRSPACE DISEASE. TECHNICAL DOCUMENTATION: JOB ID: [id number] 2010 [employer]- All Rights Reserved Reading location - IP/workstation name: [email or web address]
[2020-03-11] MEDS ORDERED: NORMAL SALINE 1000 ML 1,000 ML IV PRN (15:48)
[2020-03-11] MEDS: ONDANSETRON HCL INJ/PF 4 MG/2 ML SDV IV SCH (15:50)
--- NOTE | 2020-03-11 15:55 | PDOC PROGRESS REPORT ---
Subjective Progress Note for:: 03/11/20 Subjective:: Patient still complaining on nausea is still persistent. Feels that she is also constipated even though discussing with nurse patient did have a bowel movement yesterday. Feels very fatigued. Complains of pain in her rectum. Reason For Visit: PNEUMONIA Physical Exam Vital Signs: Temp Pulse Resp BP Pulse Ox 98.8 F 80 15 146/45 H 100 03/11/20 10:46 03/11/20 10:46 03/11/20 10:46 03/11/20 10:46 03/11/20 10:46 Intake & Output 03/10/20 03/11/20 03/12/20 06:59 06:59 06:59 Intake Total 300 1150 50 Output Total 1100 Balance 300 50 50 Weight 37.5 kg 39.6 kg General appearance: PRESENT: no acute distress, cooperative, thin. ABSENT: well-nourished Neck exam: ABSENT: JVD Respiratory exam: PRESENT: clear to auscultation irina, unlabored. ABSENT: tachypnea, wheezes Cardiovascular exam: PRESENT: RRR, +S1, +S2. ABSENT: tachycardia GI/Abdominal exam: PRESENT: soft. ABSENT: rebound, rigid, tenderness Neurological exam: PRESENT: alert, awake Psychiatric exam: ABSENT: agitated, anxious Skin exam: PRESENT: dry Results Laboratory Results: 03/11/20 05:07 03/10/20 04:40 03/11/20 05:07 WBC 19.7 H RBC 3.18 L Hgb 10.2 L Hct 31.3 L MCV 99 H MCH 32.2 MCHC 32.7 RDW 15.7 H Plt Count 237 Seg Neutrophils % Not Reportable Impressions: Chest X-Ray 03/07/20 13:58 IMPRESSION: Increased ill-defined right upper lobe and infrahilar opacities suspicious for superimposed pneumonia or asymmetric edema. Stable additional enlarged cardiac silhouette, chronic interstitial changes, small bilateral effusions and pleural thickening. Chest CT 03/09/20 00:00 IMPRESSION: Artifact from the patient's arms. Chronic parenchymal lung changes identified. Progressive airspace consolidative change posterior segment right upper lobe suspicious for pneumonia. The areas of subpleural parenchymal scarring also appear to be mildly progressive. The large abnormality present previously right upper lobe is stable. Mildly progressive bilateral pleural effusions right greater than left. The dense atelectasis right lower lobe is improved although there is still dense consolidation in this distribution.. Thyroid Ultrasound 03/09/20 00:00 IMPRESSION: Minimal interval change within the 4.3 x 2.4 x 2.5 cm TI rads 4 left lobe thyroid lobe nodule which meets criteria for biopsy. Additional follow-up recommendations as below. Acute Abdomen Series 03/11/20 00:00 IMPRESSION: 1. NO RADIOGRAPHIC EVIDENCE FOR ACUTE ABDOMINAL DISEASE. 2. CHRONIC CHANGES IN THE LUNGS. SLIGHT IMPROVEMENT IN THE RIGHT UPPER LOBE AIRSPACE DISEASE. Assessment and Plan - Diagnosis (1) Community acquired pneumonia Qualifiers: Laterality: unspecified laterality Qualified Code(s): J18.9 - Pneumonia, unspecified organism Is this a current diagnosis for this admission?: Yes Plan: COVID-19 ruled out with negative test. Low pretest suspicion. WBC count continues to worsen up to 19 today. Will change antibiotics from ceftriaxone and azithromycin to Zosyn (2) Bacteremia due to Streptococcus Is this a current diagnosis for this admission?: Yes Plan: 1 set of blood cultures positive for 2 different streptococcal species being strep mitis and Peptostreptococcus. Possibly secondary to pneumonia if true bacteremia or dental etiology. Repeat blood cultures are negative so far. Was on ceftriaxone which have changed to Zosyn for coverage of pneumonia as well. (3) Failure to thrive Qualifiers: Failure to thrive age range: in adult Qualified Code(s): R62.7 - Adult failure to thrive Is this a current diagnosis for this admission?: Yes Plan: Generalized weakness and cachexia with severe malnutrition. This seems to be a chronic issue with recent worsening. Discussed with patient's PCP who states that this is been going on for well over a year. BMI from last year was around 14 as well. Discussed with PCP and no evidence of malignancy detected so far. PET CT scan from base of skull to thighs 10/2018 to evaluate abnormal lung findings was essentially normal and showed no abnormal activity suggestive of malignancy. CT of the chest shows airspace disease suggestive of pneumonia but no clear evidence of new mass as compared to CT in 2018. Patient verifies that she had a colonoscopy done in 2016 which was negative for malignancy. HIV is negative. Continue Megace. Encourage nutritional intake. Add dietary supplements. PT and OT Patient will be placed at SNF Dietitian consulted for recommendations (4) Nausea Is this a current diagnosis for this admission?: Yes Plan: seems to have persistent chronic nausea and early satiety present for over a year now which seems to be contributing to patient's failure to thrive and poor p.o. intake. Abdominal series is unremarkable and shows no constipation. I have patient on Phenergan and Zofran, Pepcid. Patient may need to have endoscopic evaluation for this as there is no clear cause. 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 Repeat thyroid ultrasound shows only very minimal change in nodule from prior ultrasound. In light of patient's excessive fatigue, constipation and failure to thrive, I will start patient on Synthroid with weight-based dosing. (6) COPD (chronic obstructive pulmonary disease) Qualifiers: COPD type: unspecified COPD Qualified Code(s): J44.9 - Chronic obstructive pulmonary disease, unspecified Is this a current diagnosis for this admission?: Yes Plan: Not acute exacerbated. LABA/ICS, Albuterol Inhaler as needed (7) End-stage renal disease on hemodialysis Is this a current diagnosis for this admission?: Yes Plan: Dialysis as scheduled MWF. Nephrology following. Renal diet. (8) Interstitial lung disease Is this a current diagnosis for this admission?: Yes Plan: Prior smoker. Supportive care. Oxygen supplementation if needed. (9) Coronary artery disease Is this a current diagnosis for this admission?: Yes Plan: Documented hx of stenting. Continue beta-carmelita and aspirin. - Time Time Spent with patient: 15-24 minutes
[2020-03-11] MEDS: CYPROHEPTADINE HCL 4 MG TABLET PO SCH (22:27)
[2020-03-11] MEDS: CLONAZEPAM 1 MG TABLET PO PRN (22:37)
[2020-03-11] MEDS: ACETAMINOPHEN 325 MG TABLET PO PRN (23:33)
[2020-03-12] MEDS: PIPERACILLIN SODIUM/TAZOBACTAM 2.25 GM in NORMAL SALINE 50 ML IV SCH ×5 (00:28→23:38)
[2020-03-12] MEDS: HYDRALAZINE HCL 50 MG TABLET PO SCH ×3 (05:19→22:38)
[2020-03-12] MEDS: HEPARIN SOD (PORCINE) 5,000 UNIT/ML 1 ML VIAL SUBCUT SCH ×3 (05:20→22:37)
[2020-03-12] MEDS: LEVOTHYROXINE SODIUM 0.075 MG TABLET PO SCH (05:32)
[2020-03-12] MEDS: METOCLOPRAMIDE HCL INJ/PF 10 MG/2 ML SDV IV SCH ×3 (07:59→16:17)
[2020-03-12] MEDS: ONDANSETRON HCL INJ/PF 4 MG/2 ML SDV IV SCH ×3 (07:59→16:18)
[2020-03-12] MEDS: SERTRALINE HCL 50 MG TABLET PO SCH (09:32)
[2020-03-12] MEDS: POLYETHYLENE GLYCOL 3350 POWDER 17 GM/1 PACKET PO SCH (09:32)
[2020-03-12] MEDS: MEGESTROL ACETATE SUSP 400 MG/10 ML UDCUP PO SCH (09:33)
[2020-03-12] MEDS: ASPIRIN 81 MG TABLET, CHEWABLE PO SCH (09:33)
[2020-03-12] MEDS: DOCUSATE SODIUM 100 MG CAPSULE PO SCH (09:33)
[2020-03-12] MEDS: CARVEDILOL 12.5 MG TABLET PO SCH ×2 (09:33→22:38)
[2020-03-12] MEDS: ACETAMINOPHEN 325 MG TABLET PO PRN ×2 (09:33→22:36)
[2020-03-12] MEDS: FAMOTIDINE 20 MG TABLET PO SCH ×2 (09:33→22:37)
[2020-03-12] MEDS: FLUTICASONE/VILANTEROL 200-25 MCG/DOSE IH SCH (09:34)
[2020-03-12] MEDS: DOXAZOSIN MESYLATE 2 MG TABLET PO SCH ×2 (09:34→22:36)
[2020-03-12 09:57] LABS: HEMATOCRIT 28.5 % (36.0-47.0); HEMOGLOBIN 9.2 g/dL (12.0-15.5); MEAN CORPUSCULAR HEMOGLOBIN 31.8 pg (27.0-33.4); MEAN CORPUSCULAR HGB CONC 32.2 g/dL (32.0-36.0); MEAN CORPUSCULAR VOLUME 99 fl (80-97); PLATELET COUNT 210 10^3/uL (150-450); RED BLOOD COUNT 2.89 10^6/uL (3.72-5.28); RED CELL DISTRIBUTION WIDTH 15.4 % (11.5-14.0); WHITE BLOOD COUNT 17.1 10^3/uL (4.0-10.5)
[2020-03-12 10:02] LABS: ANION GAP 10 (5-19); BLOOD UREA NITROGEN 38 mg/dL (7-20); CALCIUM 8.5 mg/dL (8.4-10.2); CARBON DIOXIDE 26 mmol/L (22-30); CHLORIDE 97 mmol/L (98-107); GLUCOSE 90 mg/dL (75-110); PHOSPHORUS 4.5 mg/dL (2.5-4.5); POTASSIUM 3.5 mmol/L (3.6-5.0)
[2020-03-12 10:11] LABS: ABSOLUTE LYMPHOCYTES# (MANUAL) 0.3 10^3/uL (0.5-4.7); ABSOLUTE MONOCYTES # (MANUAL) 0.2 10^3/uL (0.1-1.4); BASOPHILS % (MANUAL) 0 % (0-2); EOSINOPHILS % (MANUAL) 0 % (0-6); LYMPHOCYTES % (MANUAL) 2 % (13-45); MONOCYTES % (MANUAL) 1 % (3-13); SEGMENTED NEUTROPHILS % (MAN) 97 % (42-78); TOTAL CELLS COUNTED 100
[2020-03-12 10:12] LABS: ANISOCYTOSIS SLIGHT; PLATELET COMMENT ADEQUATE; TOXIC GRANULATION 2+; TOXIC VACUOLATION PRESENT
[2020-03-12] MEDS: CLONIDINE HCL 0.2 MG TABLET PO SCH ×2 (12:19→22:38)
[2020-03-12] MEDS: NORMAL SALINE 1000 ML 1,000 ML IV PRN (16:22)
--- NOTE | 2020-03-12 16:27 | PDOC PROGRESS REPORT ---
Subjective Progress Note for:: 03/12/20 Reason For Visit: PNEUMONIA Physical Exam Vital Signs: Temp Pulse Resp BP Pulse Ox 97.9 F 68 14 111/41 L 98 03/12/20 11:33 03/12/20 11:33 03/12/20 11:33 03/12/20 11:33 03/12/20 11:33 Intake & Output 03/11/20 03/12/20 03/13/20 06:59 06:59 06:59 Intake Total 1150 260 50 Output Total 1100 Balance 50 260 50 Weight 39.6 kg 40.1 kg General appearance: PRESENT: no acute distress, cooperative, thin, other - appears very fatigued Head exam: PRESENT: other - Cachectic Mouth exam: PRESENT: dry mucosa, tongue midline. ABSENT: laceration Teeth exam: PRESENT: other - No teeth Respiratory exam: PRESENT: symmetrical, unlabored. ABSENT: tachypnea, wheezes Cardiovascular exam: PRESENT: RRR, +S1, +S2. ABSENT: tachycardia GI/Abdominal exam: PRESENT: soft. ABSENT: rebound, rigid, tenderness Extremities exam: ABSENT: pedal edema Neurological exam: PRESENT: alert, awake, oriented to person, oriented to place, oriented to time, oriented to situation Psychiatric exam: PRESENT: flat affect. ABSENT: agitated, anxious, homicidal ideation, manic, suicidal ideation Focused psych exam: ABSENT: pressured speech Skin exam: PRESENT: dry. ABSENT: jaundice Results Laboratory Results: 03/12/20 09:26 03/12/20 09:26 03/12/20 03/12/20 09:26 09:26 WBC 17.1 H RBC 2.89 L Hgb 9.2 L Hct 28.5 L MCV 99 H MCH 31.8 MCHC 32.2 RDW 15.4 H Plt Count 210 Seg Neutrophils % Not Reportable Sodium 132.7 L Potassium 3.5 L Chloride 97 L Carbon Dioxide 26 Anion Gap 10 BUN 38 H Creatinine 2.36 H Est GFR ( Amer) 25 L Glucose 90 Calcium 8.5 Phosphorus 4.5 Magnesium 1.8 Impressions: Chest X-Ray 03/07/20 13:58 IMPRESSION: Increased ill-defined right upper lobe and infrahilar opacities suspicious for superimposed pneumonia or asymmetric edema. Stable additional enlarged cardiac silhouette, chronic interstitial changes, small bilateral effusions and pleural thickening. Chest CT 03/09/20 00:00 IMPRESSION: Artifact from the patient's arms. Chronic parenchymal lung changes identified. Progressive airspace consolidative change posterior segment right upper lobe suspicious for pneumonia. The areas of subpleural parenchymal scarring also appear to be mildly progressive. The large abnormality present previously right upper lobe is stable. Mildly progressive bilateral pleural effusions right greater than left. The dense atelectasis right lower lobe is improved although there is still dense consolidation in this distribution.. Thyroid Ultrasound 03/09/20 00:00 IMPRESSION: Minimal interval change within the 4.3 x 2.4 x 2.5 cm TI rads 4 left lobe thyroid lobe nodule which meets criteria for biopsy. Additional follow-up recommendations as below. Acute Abdomen Series 03/11/20 00:00 IMPRESSION: 1. NO RADIOGRAPHIC EVIDENCE FOR ACUTE ABDOMINAL DISEASE. 2. CHRONIC CHANGES IN THE LUNGS. SLIGHT IMPROVEMENT IN THE RIGHT UPPER LOBE AIRSPACE DISEASE. Assessment and Plan - Diagnosis (1) Community acquired pneumonia Qualifiers: Laterality: unspecified laterality Qualified Code(s): J18.9 - Pneumonia, unspecified organism Is this a current diagnosis for this admission?: Yes Plan: COVID-19 ruled out with negative test. Low pretest suspicion. CBC down to 17 on Zosyn. (2) Failure to thrive Qualifiers: Failure to thrive age range: in adult Qualified Code(s): R62.7 - Adult failure to thrive Is this a current diagnosis for this admission?: Yes Plan: Discussed with patient's PCP who states that this is been going on for well over a year. BMI from last year was around 14 as well. Discussed with PCP and no evidence of malignancy detected so far. PET CT scan from base of skull to thighs 10/2018 to evaluate abnormal lung findings was essentially normal and showed no abnormal activity suggestive of m alignancy. CT of the chest shows airspace disease suggestive of pneumonia but no clear evidence of new mass as compared to CT in 2018. Patient verifies that she had a colonoscopy done in 2016 which was negative for malignancy. HIV is negative. Continue Megace. Encourage nutritional intake. dietary supplementation w/ ensure. Patient will be placed at SNF-discharge planning consulted Dietitian consulted for recommendations with severe malnutrition (3) Nausea Is this a current diagnosis for this admission?: Yes Plan: seems to have persistent chronic nausea and early satiety present for over 2 year now which seems to be contributing to patient's failure to thrive and poor p.o. intake. Abdominal series is unremarkable. I have patient on Phenergan and Zofran, Pepcid. Will check Upper GI series with SB follow through. Patient may need to have endoscopic evaluation for this as there is no clear cause. (4) Bacteremia due to Streptococcus Is this a current diagnosis for this admission?: Yes Plan: 1 set of blood cultures positive for 2 different streptococcal species being strep mitis and Peptostreptococcus. Possibly secondary to pneumonia if true astrid teremia or oral etiology. Repeat blood cultures are negative so far. Should be covered with Zosyn. 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 Repeat thyroid ultrasound shows only very minimal change in nodule from prior ultrasound. Likely underproductive/cold nodules but FNA in 2018 was benign. Started synthroid. (6) COPD (chronic obstructive pulmonary disease) Qualifiers: COPD type: unspecified COPD Qualified Code(s): J44.9 - Chronic obstructive pulmonary disease, unspecified Is this a current diagnosis for this admission?: Yes (7) End-stage renal disease on hemodialysis Is this a current diagnosis for this admission?: Yes (8) Interstitial lung disease Is this a current diagnosis for this admission?: Yes (9) Coronary artery disease Is this a current diagnosis for this admission?: Yes - Time Time Spent with patient: 15-24 minutes
[2020-03-12] MEDS: PROMETHAZINE HCL INJ 25 MG/1 ML VIAL IV PRN (19:20)
[2020-03-12] MEDS: CYPROHEPTADINE HCL 4 MG TABLET PO SCH (22:37)
[2020-03-13] MEDS: PROMETHAZINE HCL INJ 25 MG/1 ML VIAL IV PRN ×2 (01:46→20:24)
--- NOTE | 2020-03-13 01:57 | RADIOLOGY REPORT (SQ) ---
CT abdomen and pelvis without contrast on 03/12/2020 at 9:53 PM CLINICAL INDICATION: Intractable nausea, cachexia, question occult malignancy TECHNIQUE: Multiple axial images are obtained throughout the abdomen and pelvis without the administration of contrast. This exam was performed according to our departmental dose-optimization program, which includes automated exposure control, adjustment of the mA and/or kV according to patient size and/or use of iterative reconstruction technique. Total DLP is 245.34 mGy*cm. COMPARISON: 06/28/2019 FINDINGS: Abdomen: There are small right greater than left pleural effusions. There is adjacent rounded atelectasis in the right lower lobe along this chronic right pleural effusion. There is evidence of calcified granulomatous disease in the lung bases. There is minimal left basilar atelectasis. Coronary artery and other extensive vascular calcifications are noted. There is a suprarenal abdominal aortic aneurysm measuring 3.4 cm. Recommend follow-up imaging every three years. Right renal artery stent is noted. The patient is status post cholecystectomy. The patient appears to be status post a left nephrectomy. No right renal or ureteral stone or hydronephrosis is noted. The unenhanced solid abdominal organs are otherwise unremarkable. There is no abdominal adenopathy. Small amount of ascites is noted in the abdomen. There is no free air. The abdominal portion of the GI tract is unremarkable. Pelvis: Small amount of ascites is noted in the pelvis. There is anasarca of the subcutaneous tissues. There is no pelvic adenopathy. Pelvic portion of the GI tract is unremarkable. Pelvic organs appear unremarkable by CT. Degenerative changes are noted in the spine. IMPRESSION: 1. Small pleural effusions with ascites and anasarca suggesting some volume overload or third spacing. 2. 3.4 cm suprarenal abdominal aortic aneurysm, recommend follow-up imaging every three years. 3. Otherwise no acute abnormality noted by unenhanced imaging.
[2020-03-13] MEDS: LEVOTHYROXINE SODIUM 0.075 MG TABLET PO SCH (05:46)
[2020-03-13] MEDS: PIPERACILLIN SODIUM/TAZOBACTAM 2.25 GM in NORMAL SALINE 50 ML IV SCH ×3 (05:46→21:26)
[2020-03-13] MEDS: HEPARIN SOD (PORCINE) 5,000 UNIT/ML 1 ML VIAL SUBCUT SCH ×3 (05:47→21:27)
[2020-03-13] MEDS: HYDRALAZINE HCL 50 MG TABLET PO SCH (05:47)
[2020-03-13] MEDS: NORMAL SALINE 1000 ML 1,000 ML IV PRN (05:50)
[2020-03-13 06:49] LABS: HEMATOCRIT 30.4 % (36.0-47.0); HEMOGLOBIN 9.7 g/dL (12.0-15.5); MEAN CORPUSCULAR HGB CONC 31.8 g/dL (32.0-36.0); MEAN CORPUSCULAR VOLUME 101 fl (80-97); PLATELET COUNT 169 10^3/uL (150-450); RED BLOOD COUNT 3.02 10^6/uL (3.72-5.28); RED CELL DISTRIBUTION WIDTH 16.1 % (11.5-14.0); WHITE BLOOD COUNT 14.1 10^3/uL (4.0-10.5)
[2020-03-13 06:56] LABS: ANION GAP 10 (5-19); BLOOD UREA NITROGEN 42 mg/dL (7-20); CALCIUM 8.9 mg/dL (8.4-10.2); CARBON DIOXIDE 27 mmol/L (22-30); CHLORIDE 99 mmol/L (98-107); GLUCOSE 100 mg/dL (75-110)
[2020-03-13 07:16] LABS: ABSOLUTE LYMPHOCYTES# (MANUAL) 0.1 10^3/uL (0.5-4.7); ABSOLUTE MONOCYTES # (MANUAL) 0.3 10^3/uL (0.1-1.4); BASOPHILS % (MANUAL) 0 % (0-2); EOSINOPHILS % (MANUAL) 1 % (0-6); LYMPHOCYTES % (MANUAL) 1 % (13-45); MONOCYTES % (MANUAL) 2 % (3-13); SEGMENTED NEUTROPHILS % (MAN) 96 % (42-78); TOTAL CELLS COUNTED 100
[2020-03-13 07:18] LABS: ANISOCYTOSIS 1+; PLATELET COMMENT ADEQUATE; TOXIC GRANULATION SLIGHT; TOXIC VACUOLATION PRESENT
[2020-03-13] MEDS ORDERED: EPOETIN ALFA-EPBX 5,000 UNITS (ESRD) in SYRINGE IV PRN ×3 (09:06)
[2020-03-13] MEDS: ONDANSETRON HCL INJ/PF 4 MG/2 ML SDV IV SCH ×3 (09:52→17:14)
[2020-03-13] MEDS: METOCLOPRAMIDE HCL INJ/PF 10 MG/2 ML SDV IV SCH ×3 (09:52→17:14)
[2020-03-13] MEDS: DOCUSATE SODIUM 100 MG CAPSULE PO SCH (11:02)
[2020-03-13] MEDS: DOXAZOSIN MESYLATE 2 MG TABLET PO SCH ×2 (11:02→21:26)
[2020-03-13] MEDS: ASPIRIN 81 MG TABLET, CHEWABLE PO SCH (11:02)
[2020-03-13] MEDS: CARVEDILOL 12.5 MG TABLET PO SCH ×2 (11:02→21:27)
[2020-03-13] MEDS: FLUTICASONE/VILANTEROL 200-25 MCG/DOSE IH SCH (11:02)
[2020-03-13] MEDS: FAMOTIDINE 20 MG TABLET PO SCH ×2 (11:03→21:27)
[2020-03-13] MEDS: POLYETHYLENE GLYCOL 3350 POWDER 17 GM/1 PACKET PO SCH (11:03)
[2020-03-13] MEDS: SERTRALINE HCL 50 MG TABLET PO SCH (11:03)
[2020-03-13] MEDS: MEGESTROL ACETATE SUSP 400 MG/10 ML UDCUP PO SCH (11:03)
--- NOTE | 2020-03-13 11:42 | PDOC PROGRESS REPORT ---
Subjective Progress Note for:: 03/13/20 Subjective:: Patient history of ESRD, COPD and still smoking, coronary artery disease, chronic GI complains of nausea and noncompliance with dialysis treatment admitted presenting with weakness and generalized fatigue. Admitting diagnosis was community-acquired pneumonia and later on had 1 blood culture positive for Streptococcus mitis. Currently on IV Zosyn. Dr. Cardoso, hospitalist is working of the patient for possible malignancy and GI causes. PET scan in October 2018 was negative for malignancy. Chest CT scan 03/09 showed airspace consolidative changes in the right upper lobe suspicious for pneumonia. Mild progressive bilateral pleural effusion right greater than the left. Thyroid ultrasound on 03/09/2020 showed left lower lobe thyroid nodule. She had a FNAB in 2018 showing benign nodule. She had an abdominal CT without contrast which showed a small pleural effusion with some ascites, possible anasarca?, 3.4 cm suprarenal abdominal aortic aneurysm, otherwise no other abnormalities. She was COVID-19 negative. She is also HIV negative. I saw the patient during dialysis this morning. Patient has been complaining of nausea which again is chronic for this patient. She is also not eating very well although she told me it is morning that she is trying. She denies any vomiting. I tried to encourage her to try to eat a little bit more to boost her nutritional status. I started talking to her that if she does not have much nutrition in her body then her body will just continuously decline. I asked her if she wants to continue doing dialysis treatment since she has not really been doing her 3 times weekly dialysis and oftentimes missed treatments as an outpatient. She stated that she wants to continue at this point. Patient is being monitored closely during dialysis. Reason For Visit: PNEUMONIA Physical Exam Vital Signs: Temp Pulse Resp BP Pulse Ox 97.5 F 77 16 106/43 L 100 03/13/20 07:39 03/13/20 07:39 03/13/20 07:39 03/13/20 07:39 03/13/20 07:39 Intake & Output 03/12/20 03/13/20 03/14/20 06:59 06:59 06:59 Intake Total 260 958 50 Balance 260 958 50 Weight 41.5 kg 41.4 kg Vitals during dialysis: Blood pressure 124/61, pulse rate of 77, blood flow rate of 400 mL/min and dialysate flow rate of 800 mL/min. Exam: General appearance: PRESENT: no acute distress, cooperative, cachectic and fragile looking Head exam: PRESENT: atraumatic, normocephalic Eye exam: PRESENT: conjunctiva slightly pale, PERRLA. ABSENT: scleral icterus Neck exam: ABSENT: JVD Respiratory exam: PRESENT: Diminished breath sounds. ABSENT: crackles, rales, rhonchi, unlabored, wheezes Cardiovascular exam: PRESENT: Regular rate rhythm -+S1, +S2. ABSENT: diastolic murmur, systolic murmur GI/Abdominal exam: PRESENT: normal bowel sounds, soft. ABSENT: guarding, mass, tenderness Extremities exam: ABSENT: No edema Neurological exam: PRESENT: alert, awake, oriented to person, place and time. Skin exam: PRESENT: dry, warm, Cardiovascular exam: PRESENT: +S1, +S2 GI/Abdominal exam: PRESENT: normal bowel sounds, soft. ABSENT: organomegaly, tenderness Results Laboratory Results: 03/13/20 06:11 03/13/20 06:11 03/12/20 03/12/20 03/13/20 09:26 09:26 06:11 WBC 17.1 H 14.1 H RBC 2.89 L 3.02 L Hgb 9.2 L 9.7 L Hct 28.5 L 30.4 L MCV 99 H 101 H MCH 31.8 32.0 MCHC 32.2 31.8 L RDW 15.4 H 16.1 H Plt Count 210 169 Seg Neutrophils % Not Reportable Not Reportable Sodium 132.7 L Potassium 3.5 L Chloride 97 L Carbon Dioxide 26 Anion Gap 10 BUN 38 H Creatinine 2.36 H Est GFR ( Amer) 25 L Glucose 90 Calcium 8.5 Phosphorus 4.5 Magnesium 1.8 03/13/20 06:11 WBC RBC Hgb Hct MCV MCH MCHC RDW Plt Count Seg Neutrophils % Sodium 136.3 L Potassium 3.0 L* Chloride 99 Carbon Dioxide 27 Anion Gap 10 BUN 42 H Creatinine 3.02 H Est GFR ( Amer) 18 L Glucose 100 Calcium 8.9 Phosphorus Magnesium 03/07/20 13:25 Blood Blood Culture - Final NO GROWTH IN 5 DAYS Impressions: Chest X-Ray 03/07/20 13:58 IMPRESSION: Increased ill-defined right upper lobe and infrahilar opacities suspicious for superimposed pneumonia or asymmetric edema. Stable additional enlarged cardiac silhouette, chronic interstitial changes, small bilateral effusions and pleural thickening. Chest CT 03/09/20 00:00 IMPRESSION: Artifact from the patient's arms. Chronic parenchymal lung changes identified. Progressive airspace consolidative change posterior segment right upper lobe suspicious for pneumonia. The areas of subpleural parenchymal scarring also appear to be mildly progressive. The large abnormality present previously right upper lobe is stable. Mildly progressive bilateral pleural effusions right greater than left. The dense atelectasis right lower lobe is improved although there is still dense consolidation in this distribution.. Thyroid Ultrasound 03/09/20 00:00 IMPRESSION: Minimal interval change within the 4.3 x 2.4 x 2.5 cm TI rads 4 left lobe thyroid lobe nodule which meets criteria for biopsy. Additional follow-up recommendations as below. Acute Abdomen Series 03/11/20 00:00 IMPRESSION: 1. NO RADIOGRAPHIC EVIDENCE FOR ACUTE ABDOMINAL DISEASE. 2. CHRONIC CHANGES IN THE LUNGS. SLIGHT IMPROVEMENT IN THE RIGHT UPPER LOBE AIRSPACE DISEASE. Abdomen/Pelvis CT 03/12/20 00:00 IMPRESSION: 1. Small pleural effusions with ascites and anasarca suggesting some volume overload or third spacing. 2. 3.4 cm suprarenal abdominal aortic aneurysm, recommend follow-up imaging every three years. 3. Otherwise no acute abnormality noted by unenhanced imaging. Assessment & Plan - Diagnosis (1) End-stage renal disease on hemodialysis Is this a current diagnosis for this admission?: Yes Plan: We will do dialysis today for 3 hours, using the patient's AV fistula, with 4 potassium bath, blood flow rate of 400 mL per minute, dialysate flow rate of 800 mL per minute, ultrafiltration 0 to 0.5 L as tolerated, no heparin and Procrit with 5000 units during dialysis intravenously. Patient is continuously being monitored throughout dialysis treatment. Patient indicated that she wants to continue hemodialysis. (2) Hypokalemia Is this a current diagnosis for this admission?: Yes Plan: Higher potassium bath during dialysis treatment today. (3) Bacteremia due to Streptococcus Is this a current diagnosis for this admission?: Yes Plan: Patient on IV Zosyn per hospitalist service. (4) Failure to thrive Qualifiers: Failure to thrive age range: in adult Qualified Code(s): R62.7 - Adult failure to thrive Is this a current diagnosis for this admission?: Yes Plan: Patient's oral intake has been extremely poor despite the Megace. Discussed w ith Dr. Cardoso. He is consulting surgery for possible endoscopy. I encourage patient to try to eat a little bit more. CT scan of the chest and abdomen negative for any signs of malignancy. HIV negative. (5) Nausea Is this a current diagnosis for this admission?: Yes Plan: This is chronic. Being worked up by Dr. Cardoso, hospitalist service. (6) Pneumonia Qualifiers: Pneumonia type: due to unspecified organism Laterality: right Lung location: upper lobe of lung Qualified Code(s): J18.9 - Pneumonia, unspecified organism Is this a current diagnosis for this admission?: Yes Plan: On IV Zosyn. COVID-19 negative. (7) Anemia in CKD (chronic kidney disease) Qualifiers: Chronic kidney disease stage: on chronic dialysis Qualified Code(s): N18.6 - End stage renal disease; D63.1 - Anemia in chronic kidney disease; Z99.2 - Dependence on renal dialysis Is this a current diagnosis for this admission?: Yes Plan: Retacrit given during dialysis treatment. (8) Abnormal thyroid function test Is this a current diagnosis for this admission?: Yes Plan: Positive left thyroid nodule, status post FNAB in 2018 showing benign results. (9) COPD (chronic obstructive pulmonary disease) Qualifiers: COPD type: unspecified COPD Qualified Code(s): J44.9 - Chronic obstructive pulmonary disease, unspecified Is this a current diagnosis for this admission?: Yes Plan: Still smoking. - Notes Notes: Discussed with Dr. Cardoso today. - Time Time with patient: 15-25 minutes
--- NOTE | 2020-03-13 14:39 | RADIOLOGY REPORT (SQ) ---
EXAM DESCRIPTION: UGI W/ DOUBLE CONTRAST IMAGES COMPLETED DATE/TIME: 03/13/2020 2:29 pm REASON FOR STUDY: CHRONIC NAUSEA COMPARISON: None. TECHNIQUE: Under fluoroscopic guidance, patient ingested effervescent granules followed by katie hanna. Fluoroscopic spot images and routine radiographic images acquired and stored on PACS. LIMITATIONS: The patient was unable to ingest large amount of contrast which limited the study. FLUOROSCOPY TIME: FLUORO TIME: 6.1 minutes of fluoroscopy was used 33 images saved to PACS. FINDINGS: NEUROMUSCULAR COORDINATION OF SWALLOW: Normal. No aspiration. ESOPHAGEAL MOTILITY: Normal peristalsis. No esophageal spasm. ESOPHAGEAL MUCOSA: Normal mucosa without masses or ulceration. GASTRO-ESOPHAGEAL JUNCTION: Mild gastroesophageal reflux is noted. STOMACH: Poor distension of the stomach due to small amount of ingested barium. No obvious ulceratio ns or masses are seen. GASTRIC OUTLET: No delay in emptying. Thickened folds with small focal collections of barium with mi ld surrounding edema which may indicate small ulcers. DUODENAL BULB: Thickened folds of the duodenum bulb with a 5 to 8 mm collection of barium with surrou nding edema has the appearance of an ulcer crater. DUODENUM: Thickened folds throughout the duodenum. PROXIMAL SMALL BOWEL: Limited images of the jejunum shows thickened mucosal folds. NON-GI TRACT STRUCTURES: No significant finding. OTHER: No other significant finding. IMPRESSION: SOMEONE LIMITED UPPER GI DUE TO SMALL AMOUNT OF INGESTED BARIUM ALTHOUGH IMAGING DOES IN DICATE A DUODENAL BULB ULCER WITH DIFFUSE DUODENITIS. POSSIBLE SMALL ULCERATIONS THROUGH THE PYLORIC CHANNEL. RECOMMEND ENDOSCOPY FOR FURTHER EVALUATION. COMMENT: Quality ID [id number]: Final reports for procedures using fluoroscopy that document radiation exp osure indices, or exposure time and number of fluorographic images (if radiation exposure indices are not available) TECHNICAL DOCUMENTATION: JOB ID: [id number] 2010 [employer]- All Rights Reserved Reading location - IP/workstation name: [email or web address] [id number]
--- NOTE | 2020-03-13 15:13 | PDOC CONSULTATION ---
Consultation Consult Date: 03/13/20 Attending physician:: EUGENE AGUSTIN Provider Consulted: VEE COLLADO Consult reason:: failure to thrive, r/o gastric malignancy History of Present Illness Admission Date/PCP: 03/07/20 16:26 ORTEGA LEWIS MD History of Present Illness: JUSTINE CHRISTENSEN is a 69 year old female presented to the hospital for evaluation of generalized weakness and significant fatigue. Patient states that this is been going on for the past 2 weeks. Also endorses some shortness of breath but not so bad compared to baseline. Has chronic cough. From underlying COPD this seems to be constant. She does not use oxygen at home. She denies any chest pain fever chills or sick contacts. Patient had her last dialysis session on Friday last week. Her main concern is her weakness which has now even limited her ambulation. Denies history of malignancy. In the ER patient was noted to have pneumonia on chest x-ray as well as some interstitial changes. Patient was treated for pneumonia, influenza and COVID testing done. Subsequently referred for admission. pt has had an extensive w/u in hospital searching for etioil of wt loss and fatigue and refusal to eat. ct does not show obivious source, there is thickenged rugal folds and poss duodenal ulcer\\ have requested a upper endoscopy to r/o cancer and/or ulcer disease. Past Medical History Cardiac Medical History: Reports: Congestive Heart Failure - during renal failure, Coronary Artery Disease - CARDIAC STENT, Hypertension Denies: Myocardial Infarction Pulmonary Medical History: Reports: Chronic Obstructive Pulmonary Disease (COPD) - MILD, Pneumonia - "Years ago" Denies: Asthma, Bronchitis Neurological Medical History: Denies: Seizures Renal/ Medical History: Reports: End Stage Renal Disease GI Medical History: Reports: Diverticulitis Musculoskeltal Medical History: Denies: Arthritis Psychiatric Medical History: Reports: Depression Hematology: Reports: Anemia - HX Past Surgical History Past Surgical History: Reports: Cholecystectomy, Vascular Surgery, Other - Status post nephrectomy Social History Smoking Status: Current Every Day Smoker Electronic Cigarette use?: No Frequency of Alcohol Use: None Hx Recreational Drug Use: No Drugs: None Hx Prescription Drug Abuse: No - Advance Directive Resuscitation Status: Do Not Resuscitate - dnr/dni Family History Family History: Hypertension Parental Family History Reviewed: No Children Family History Reviewed: NA Sibling(s) Family History Reviewed.: NA Medication/Allergy Home Medications: Carvedilol [Coreg] 25 mg PO Q12 06/28/19 Clonazepam [Klonopin] 0.25 mg PO Q6HP PRN 06/28/19 Clonidine HCl [Catapres 0.3 mg Tablet] 0.3 mg PO 6XD 06/28/19 Doxazosin Mesylate [Cardura 2 mg Tablet] 2 mg PO Q12 06/28/19 Hydralazine HCl 100 mg PO Q8 06/28/19 Sertraline HCl [Zoloft] 200 mg PO DAILY 06/28/19 Umeclidinium Brm/Vilanterol Tr [Anoro Ellipta 62.5-25 Mcg INH] 1 puff IH DAILY 06/28/19 Vit B Comp No.3/Folic/C/Biotin [Nephro-Bernard Rx Tablet] 1 each PO DAILY 06/28/19 Ondansetron HCl [Zofran] 4 mg PO Q6HP PRN 01/14/20 Cyproheptadine HCl [Periactin 4 mg Tablet] 4 mg PO QHS 03/07/20 Mag Hydrox/Aluminum Hyd/Simeth [Antacid Anti-Gas Liquid] 5 ml PO QIDP PRN 03/07/20 Megestrol Acetate [Megace Sara 400 mg/10 ml Udcup] 400 mg PO DAILY 03/07/20 Allergies/Adverse Reactions: ASAD Inhibitors Allergy (Verified 03/07/20 13:09) "Red from chin to chest" Sulfa (Sulfonamide Antibiotics) Allergy (Verified 03/07/20 13:09) Hives Review of Systems Constitutional: PRESENT: anorexia, fatigue, weight loss Eyes: ABSENT: as per HPI, visual disturbances, other Ears: ABSENT: as per HPI, hearing changes, other Nose, Mouth, and Throat: ABSENT: as per HPI, headache(s), mouth pain, sore throat, vertigo, other Breasts: ABSENT: as per HPI, other Cardiovascular: ABSENT: as per HPI, chest pain, dyspnea on exertion, edema, orthropnea, palpitations, other Gastrointestinal: PRESENT: abdominal pain Musculoskeletal: PRESENT: muscle weakness Neurological: PRESENT: other - bedridden Psychiatric: PRESENT: depression Hematologic/Lymphatic: ABSENT: as per HPI, easy bleeding, easy bruising, lympha denopathy, other Allergic/Immunologic: ABSENT: as per HPI, seasonal rhinorrhea, other Physical Exam Vital Signs: Temp Pulse Resp BP Pulse Ox 97.4 F 84 14 136/54 H 99 03/13/20 11:34 03/13/20 14:00 03/13/20 11:34 03/13/20 11:34 03/13/20 11:34 Intake & Output 03/12/20 03/13/20 03/14/20 06:59 06:59 06:59 Intake Total 260 958 100 Balance 260 958 100 Weight 41.5 kg 41.4 kg General appearance: PRESENT: thin, other - cachexia, bedridden chronically ill female, minimially responsive Head exam: PRESENT: atraumatic Eye exam: PRESENT: EOMI Ear exam: PRESENT: normal external ear exam Mouth exam: PRESENT: dry mucosa Teeth exam: PRESENT: edentulous Neck exam: PRESENT: full ROM Respiratory exam: PRESENT: crackles Cardiovascular exam: PRESENT: RRR Pulses: PRESENT: normal radial pulses, normal femoral pulses Breast: PRESENT: Normal GI/Abdominal exam: PRESENT: soft Rectal exam: PRESENT: deferred Extremities exam: PRESENT: clubbing, joint swelling Musculoskeletal exam: PRESENT: normal inspection Neurological exam: PRESENT: alert, awake, oriented to person Psychiatric exam: PRESENT: depressed Skin exam: PRESENT: dry Results Laboratory Results: 03/13/20 06:11 03/13/20 06:11 03/13/20 03/13/20 06:11 06:11 WBC 14.1 H RBC 3.02 L Hgb 9.7 L Hct 30.4 L MCV 101 H MCH 32.0 MCHC 31.8 L RDW 16.1 H Plt Count 169 Seg Neutrophils % Not Reportable Sodium 136.3 L Potassium 3.0 L* Chloride 99 Carbon Dioxide 27 Anion Gap 10 BUN 42 H Creatinine 3.02 H Est GFR ( Amer) 18 L Glucose 100 Calcium 8.9 03/08/20 14:45 Blood Blood Culture - Final NO GROWTH IN 5 DAYS 03/07/20 13:25 Blood Blood Culture - Final NO GROWTH IN 5 DAYS Impressions: Chest X-Ray 03/07/20 13:58 IMPRESSION: Increased ill-defined right upper lobe and infrahilar opacities suspicious for superimposed pneumonia or asymmetric edema. Stable additional enlarged cardiac silhouette, chronic interstitial changes, small bilateral effusions and pleural thickening. Chest CT 03/09/20 00:00 IMPRESSION: Artifact from the patient's arms. Chronic parenchymal lung changes identified. Progressive airspace consolidative change posterior segment right upper lobe suspicious for pneumonia. The areas of subpleural parenchymal scarring also appear to be mildly progressive. The large abnormality present previously right upper lobe is stable. Mildly progressive bilateral pleural effusions right greater than left. The dense atelectasis right lower lobe is improved although there is still dense consolidation in this distribution.. Thyroid Ultrasound 03/09/20 00:00 IMPRESSION: Minimal interval change within the 4.3 x 2.4 x 2.5 cm TI rads 4 left lobe thyroid lobe nodule which meets criteria for biopsy. Additional follow-up recommendations as below. Acute Abdomen Series 03/11/20 00:00 IMPRESSION: 1. NO RADIOGRAPHIC EVIDENCE FOR ACUTE ABDOMINAL DISEASE. 2. CHRONIC CHANGES IN THE LUNGS. SLIGHT IMPROVEMENT IN THE RIGHT UPPER LOBE AIRSPACE DISEASE. Abdomen/Pelvis CT 03/12/20 00:00 IMPRESSION: 1. Small pleural effusions with ascites and anasarca suggesting some volume overload or third spacing. 2. 3.4 cm suprarenal abdominal aortic aneurysm, recommend follow-up imaging every three years. 3. Otherwise no acute abnormality noted by unenhanced imaging. Upper GI/Barium Swallow X-Ray 03/13/20 00:00 IMPRESSION: SOMEONE LIMITED UPPER GI DUE TO SMALL AMOUNT OF INGESTED BARIUM ALTHOUGH IMAGING DOES INDICATE A DUODENAL BULB ULCER WITH DIFFUSE DUODENITIS. POSSIBLE SMALL ULCERATIONS THROUGH THE PYLORIC CHANNEL. RECOMMEND ENDOSCOPY FOR FURTHER EVALUATION. Assessment & Plan - Plan Summary Plan Summary: Chronically ill appearing female appears moribund minimially responsive failure to thrive over the past yr. no appetite, refusing to eat has been in no nutritional support, now severly malnourished ct show possible duodenal ulcer, and thickened gastric folds surgery consulted for egd to r/o malignancy/ulcer pt appears at high risk for anesthesia and is dnr Hospitalist is contacting pt son and inform him of endoscopy plan
[2020-03-13] MEDS ORDERED: LIDOCAINE 2% INJ-PF (20 MG/ML) 10 ML AMPUL ONE (16:31)
[2020-03-13] MEDS ORDERED: PROPOFOL INJ 200 MG/20 ML VIAL IV ONE (16:31)
--- NOTE | 2020-03-13 17:13 | Operative Report ---
Nonrecallable Operative Report DATE OF SURGERY: 03/13/20 PREOPERATIVE DIAGNOSIS: r/o malignancy POSTOPERATIVE DIAGNOSIS: duodenitis, duodenal ulcer OPERATION: esophagogastroduodenoscopy with biopsy SURGEON: VEE COLLADO ANESTHESIA: Moderate Sedation TISSUE REMOVED OR ALTERED: Duodenal biopsy x3 COMPLICATIONS: None ESTIMATED BLOOD LOSS: 5 cc INTRAOPERATIVE FINDINGS: Extensive duodenitis with duodenal ulcer x2 PROCEDURE: Patient was brought to the operating room awake alert stable condition procedure was done on the transport gurney. Patient was given sedation by anesthesia and the procedure commenced after appropriate timeout site verification. The Olympus gastroscope was passed into the posterior pharynx and easily traversed the upper esophageal sphincter into the esophagus there was barium staining of the esophagus but no evidence of mucosal ulceration we reached the GE junction that appeared to be normal and the scope easily passed into the stomach the stomach appeared to be normal there was a moderate sized hiatal hernia as we traversed the antrum we identified the pylorus and the pylorus was intubated. Upon reaching the duodenum there was melanosis staining of the duodenum the first and second portion of the duodenum were visualized. As we slowly withdrew the scope in the duodenal bulb there was a number of ulcers bile-stained ulcers that appeared to be chronic there was one at the medial aspect which was biopsied and at the lateral aspect also biopsied. 1 also appeared to be blood-tinged and that was biopsied. The scope was then slowly withdrawn J maneuver was performed which showed a moderate sized hiatal hernia. The scope was then slowly withdrawn. Impression moderate to severe duodenitis with ulcer x2. Melanosis of the duodenum. No evidence of obstruction. Await pathology.
[2020-03-13] MEDS ORDERED: DEXTROSE 5%-NORMAL SALINE 1,000 ML IV PRN (18:17)
--- NOTE | 2020-03-13 18:21 | PDOC PROGRESS REPORT ---
Subjective Progress Note for:: 03/13/20 Subjective:: Patient continues to eat minimally. Only able to tolerate bites yesterday. At this point patient is clearly not meeting her nutritional goals. Discussed with surgery regarding performing an EGD especially given that patient's nausea seems to be a limiting factor and EGD was done today. Dietitian still has not seen patient. At this point, oral supplements have not been tolerated and patient will require parental nutrition. Reason For Visit: PNEUMONIA Physical Exam Vital Signs: Temp Pulse Resp BP Pulse Ox 97.3 F 87 17 124/65 97 03/13/20 15:18 03/13/20 15:18 03/13/20 15:18 03/13/20 15:18 03/13/20 15:18 Intake & Output 03/12/20 03/13/20 03/14/20 06:59 06:59 06:59 Intake Total 260 958 100 Output Total 700 Balance 260 958 -600 Weight 41.5 kg 41.4 kg 41.4 kg General appearance: PRESENT: no acute distress, cooperative, thin. ABSENT: hard of hearing Neck exam: ABSENT: JVD Respiratory exam: PRESENT: clear to auscultation irina, unlabored. ABSENT: tachypnea, wheezes Cardiovascular exam: PRESENT: RRR, +S1, +S2. ABSENT: tachycardia GI/Abdominal exam: PRESENT: soft. ABSENT: rebound, rigid, tenderness Neurological exam: PRESENT: alert, awake, oriented to person, oriented to place, oriented to time Results Laboratory Results: 03/13/20 06:11 03/13/20 06:11 03/13/20 03/13/20 06:11 06:11 WBC 14.1 H RBC 3.02 L Hgb 9.7 L Hct 30.4 L MCV 101 H MCH 32.0 MCHC 31.8 L RDW 16.1 H Plt Count 169 Seg Neutrophils % Not Reportable Sodium 136.3 L Potassium 3.0 L* Chloride 99 Carbon Dioxide 27 Anion Gap 10 BUN 42 H Creatinine 3.02 H Est GFR ( Amer) 18 L Glucose 100 Calcium 8.9 03/08/20 16:29 Blood Blood Culture - Final NO GROWTH IN 5 DAYS 03/08/20 14:45 Blood Blood Culture - Final NO GROWTH IN 5 DAYS 03/07/20 13:25 Blood Blood Culture - Final NO GROWTH IN 5 DAYS Impressions: Chest X-Ray 03/07/20 13:58 IMPRESSION: Increased ill-defined right upper lobe and infrahilar opacities suspicious for superimposed pneumonia or asymmetric edema. Stable additional enlarged cardiac silhouette, chronic interstitial changes, small bilateral effusions and pleural thickening. Chest CT 03/09/20 00:00 IMPRESSION: Artifact from the patient's arms. Chronic parenchymal lung changes identified. Progressive airspace consolidative change posterior segment right upper lobe suspicious for pneumonia. The areas of subpleural parenchymal scarring also appear to be mildly progressive. The large abnormality present previously right upper lobe is stable. Mildly progressive bilateral pleural effusions right greater than left. The dense atelectasis right lower lobe is improved although there is still dense consolidation in this distribution.. Thyroid Ultrasound 03/09/20 00:00 IMPRESSION: Minimal interval change within the 4.3 x 2.4 x 2.5 cm TI rads 4 left lobe thyroid lobe nodule which meets criteria for biopsy. Additional follow-up recommendations as below. Acute Abdomen Series 03/11/20 00:00 IMPRESSION: 1. NO RADIOGRAPHIC EVIDENCE FOR ACUTE ABDOMINAL DISEASE. 2. CHRONIC CHANGES IN THE LUNGS. SLIGHT IMPROVEMENT IN THE RIGHT UPPER LOBE AIRSPACE DISEASE. Abdomen/Pelvis CT 03/12/20 00:00 IMPRESSION: 1. Small pleural effusions with ascites and anasarca suggesting some volume overload or third spacing. 2. 3.4 cm suprarenal abdominal aortic aneurysm, recommend follow-up imaging every three years. 3. Otherwise no acute abnormality noted by unenhanced imaging. Upper GI/Barium Swallow X-Ray 03/13/20 00:00 IMPRESSION: SOMEONE LIMITED UPPER GI DUE TO SMALL AMOUNT OF INGESTED BARIUM ALTHOUGH IMAGING DOES INDICATE A DUODENAL BULB ULCER WITH DIFFUSE DUODENITIS. POSSIBLE SMALL ULCERATIONS THROUGH THE PYLORIC CHANNEL. RECOMMEND ENDOSCOPY FOR FURTHER EVALUATION. Assessment and Plan - Diagnosis (1) Community acquired pneumonia Qualifiers: Laterality: unspecified laterality Qualified Code(s): J18.9 - Pneumonia, unspecified organism Is this a current diagnosis for this admission?: Yes Plan: COVID-19 ruled out with negative test. Low pretest suspicion. CBC improving since abx was switched to zosyn. (2) Failure to thrive Qualifiers: Failure to thrive age range: in adult Qualified Code(s): R62.7 - Adult failure to thrive Is this a current diagnosis for this admission?: Yes Plan: Discussed with patient's PCP who states that this is been going on for well over a year. BMI from last year was around 14 as well. Discussed with PCP and no evidence of malignancy detected so far. PET CT scan from base of skull to thighs 10/2018 to evaluate abnormal lung findings was essentially normal and showed no abnormal activity suggestive of ma lignancy. CT of the chest shows airspace disease suggestive of pneumonia but no clear evidence of new mass as compared to CT in 2018. CT abd/pelvis w/ po&iv shows no evidence of malignancy Patient verifies that she had a colonoscopy done in 2016 which was negative for malignancy. HIV is negative. HCV pending Discussed TB screening with her PCP Dr. Montague who tells me patient gets PPD yearly at [facility] last of which was negative. She also has known exposures and has not traveled out of the country in the last 10 years. Megace and dietary supplements have been inadequate as patient is constantly too nauseous to eat. At this point, she will need parental nutrition supplementation and will order for PICC line for TPN to address severe malnutrition. Web Site Developer has already been consulted. Awaiting recs. Patient and son prefer placement at rehab/snf -discharge planning consulted (3) Nausea Is this a current diagnosis for this admission?: Yes Plan: seems to have persistent chronic nausea and early satiety present for over 2 year now which seems to be contributing to patient's failure to thrive and poor p.o. intake. Abdominal series is unremarkable. UGI performed. Phenergan, zofran and pepcid ineffective so far. EGD done today showing extensive duodenitis with duodenal ulcer x2 but no clear obstruction/masses. Biopsies taken. Starting protonix bid and carafate. (4) Bacteremia due to Streptococcus Is this a current diagnosis for this admission?: Yes Plan: 1 set of blood cultures positive for 2 different streptococcal species being strep mitis and Peptostreptococcus. Possibly secondary to pneumonia if true bacteremia or oral etiology. Repeat blood cultures are negative so far. Should be covered with Zosyn. 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 Repeat thyroid ultrasound shows only very minimal change in nodule from prior ultrasound. Likely underproductive/cold nodules but FNA in 2018 was benign. Started synthroid. (6) COPD (chronic obstructive pulmonary disease) Qualifiers: COPD type: unspecified COPD Qualified Code(s): J44.9 - Chronic obstructive pulmonary disease, unspecified Is this a current diagnosis for this admission?: Yes Plan: Not acute exacerbated. LABA/ICS, Albuterol Inhaler as needed (7) End-stage renal disease on hemodialysis Is this a current diagnosis for this admission?: Yes Plan: Dialysis as scheduled MWF. Nephrology following. Renal diet. (8) Interstitial lung disease Is this a current diagnosis for this admission?: Yes Plan: Prior smoker. Supportive care. Oxygen supplementation if needed. (9) Coronary artery disease Is this a current diagnosis for this admission?: Yes Plan: Documented hx of stenting. Continue beta-carmelita and aspirin. - Plan Summary Summary: discussed with son today - Time Time Spent with patient: 15-24 minutes
[2020-03-13] MEDS: CYPROHEPTADINE HCL 4 MG TABLET PO SCH (21:26)
[2020-03-13] MEDS: CLONAZEPAM 1 MG TABLET PO PRN (21:38)
[2020-03-14] MEDS: LEVOTHYROXINE SODIUM 0.075 MG TABLET PO SCH (05:25)
[2020-03-14] MEDS: HEPARIN SOD (PORCINE) 5,000 UNIT/ML 1 ML VIAL SUBCUT SCH ×3 (05:25→22:11)
[2020-03-14] MEDS: PIPERACILLIN SODIUM/TAZOBACTAM 2.25 GM in NORMAL SALINE 50 ML IV SCH ×3 (05:25→22:52)
[2020-03-14] MEDS: PANTOPRAZOLE SODIUM 40 MG TABLET.DR PO SCH ×2 (05:25→16:52)
[2020-03-14] MEDS: PROMETHAZINE HCL INJ 25 MG/1 ML VIAL IV PRN (05:35)
[2020-03-14 06:09] LABS: HEMATOCRIT 28.5 % (36.0-47.0); HEMOGLOBIN 9.3 g/dL (12.0-15.5); MEAN CORPUSCULAR HEMOGLOBIN 32.9 pg (27.0-33.4); MEAN CORPUSCULAR HGB CONC 32.6 g/dL (32.0-36.0); MEAN CORPUSCULAR VOLUME 101 fl (80-97); PLATELET COUNT 161 10^3/uL (150-450); RED BLOOD COUNT 2.82 10^6/uL (3.72-5.28); RED CELL DISTRIBUTION WIDTH 15.9 % (11.5-14.0); WHITE BLOOD COUNT 9.3 10^3/uL (4.0-10.5)
[2020-03-14 06:27] LABS: INTERNATIONAL RATION (INR) 1.84; PROTHROMBIN TIME 21.5 SEC (11.4-15.4)
[2020-03-14 06:28] LABS: PARTIAL THROMBOPLASTIN TIME 52.3 SEC (23.5-35.8)
[2020-03-14 06:31] LABS: ALBUMIN 2.7 g/dL (3.5-5.0); ALKALINE PHOSPHATASE 56 U/L (38-126); ANION GAP 9 (5-19); ASPARTATE AMINO TRANSFERASE 21 U/L (14-36); BILIRUBIN,DIRECT 0.5 mg/dL (0.0-0.4); BILIRUBIN,TOTAL 0.5 mg/dL (0.2-1.3); BLOOD UREA NITROGEN 24 mg/dL (7-20); CALCIUM 8.7 mg/dL (8.4-10.2); CARBON DIOXIDE 30 mmol/L (22-30); CHLORIDE 100 mmol/L (98-107); GLUCOSE 85 mg/dL (75-110); PHOSPHORUS 4.8 mg/dL (2.5-4.5); POTASSIUM 3.1 mmol/L (3.6-5.0); TOTAL PROTEIN 5.7 g/dL (6.3-8.2)
[2020-03-14 06:36] LABS: HEPATITIS C VIRUS AB <0.1 s/co ratio (0.0-0.9)
[2020-03-14 06:38] LABS: PREALBUMIN 6.9 mg/dL (17.6-36.0)
[2020-03-14 07:01] LABS: ABSOLUTE LYMPHOCYTES# (MANUAL) 0.6 10^3/uL (0.5-4.7); ABSOLUTE MONOCYTES # (MANUAL) 0.3 10^3/uL (0.1-1.4); BAND NEUTROPHILS % (MANUAL) 2 % (3-5); BASOPHILS % (MANUAL) 0 % (0-2); EOSINOPHILS % (MANUAL) 0 % (0-6); LYMPHOCYTES % (MANUAL) 6 % (13-45); MONOCYTES % (MANUAL) 3 % (3-13); SEGMENTED NEUTROPHILS % (MAN) 89 % (42-78); TOTAL CELLS COUNTED 100
[2020-03-14 07:02] LABS: TOXIC GRANULATION SLIGHT
[2020-03-14 07:03] LABS: ANISOCYTOSIS SLIGHT; OVALOCYTES SLIGHT; PLATELET COMMENT ADEQUATE; POIKILOCYTOSIS SLIGHT; SCHISTOCYTES SLIGHT
[2020-03-14] MEDS: ONDANSETRON HCL INJ/PF 4 MG/2 ML SDV IV SCH ×3 (09:58→16:52)
[2020-03-14] MEDS: METOCLOPRAMIDE HCL INJ/PF 10 MG/2 ML SDV IV SCH ×3 (09:58→16:52)
[2020-03-14] MEDS: SUCRALFATE 1 GM TABLET PO SCH ×3 (10:04→16:52)
[2020-03-14] MEDS: CARVEDILOL 12.5 MG TABLET PO SCH ×2 (10:04→22:12)
[2020-03-14] MEDS: FAMOTIDINE 20 MG TABLET PO SCH (10:04)
[2020-03-14] MEDS: ASPIRIN 81 MG TABLET, CHEWABLE PO SCH (10:04)
[2020-03-14] MEDS: DOXAZOSIN MESYLATE 2 MG TABLET PO SCH ×2 (10:04→22:11)
[2020-03-14] MEDS: SERTRALINE HCL 50 MG TABLET PO SCH (10:04)
[2020-03-14] MEDS: DOCUSATE SODIUM 100 MG CAPSULE PO SCH (10:05)
[2020-03-14] MEDS: MEGESTROL ACETATE SUSP 400 MG/10 ML UDCUP PO SCH (10:05)
[2020-03-14] MEDS: POLYETHYLENE GLYCOL 3350 POWDER 17 GM/1 PACKET PO SCH (10:05)
[2020-03-14] MEDS: FLUTICASONE/VILANTEROL 200-25 MCG/DOSE IH SCH (10:11)
[2020-03-14] MEDS ORDERED: DEXTROSE 10%-WATER 1,000 ML IV PRN (11:30)
[2020-03-14] MEDS ORDERED: DEXTROSE 50%-WATER SYRINGE 25 GM/50 ML DOSE IV PRN (12:00)
[2020-03-14] MEDS ORDERED: DEXTROSE 40% GEL 15 GM TUBE PO PRN (12:00)
[2020-03-14] MEDS ORDERED: GLUCAGON,HUMAN RECOMB 1 MG INJ IM PRN (12:00)
[2020-03-14] MEDS ORDERED: DEXTROSE 50%-WATER SYRINGE 12.5 GM/25 ML DOSE IV PRN (12:00)
[2020-03-14] MEDS ORDERED: DEXTROSE 40% GEL 15 GM TUBE X 2 PO PRN (12:00)
[2020-03-14] MEDS: INSULIN REG, HUMAN 100 UNIT/ML 3 ML VIAL (PYX) SUBCUT SCH ×2 (12:21→17:59)
--- NOTE | 2020-03-14 17:06 | PDOC PROGRESS REPORT ---
Subjective Progress Note for:: 03/14/20 Subjective:: No adverse events overnight. Patient is somnolent. Pretty much every question I asked, she answered with "no, not this morning." Radiology does not want to put a PICC line in her for TPA because she is on dialysis. She cannot give consent for a surgically-placed line like a Hanson catheter. Reason For Visit: PNEUMONIA Physical Exam Vital Signs: Temp Pulse Resp BP Pulse Ox 97.4 F 71 16 114/37 L 100 03/14/20 11:21 03/14/20 14:00 03/14/20 11:21 03/14/20 11:21 03/14/20 11:21 Intake & Output 03/13/20 03/14/20 03/15/20 06:59 06:59 06:59 Intake Total 958 1650 170 Output Total 700 Balance 958 950 170 Weight 41.4 kg 41.4 kg 41.4 kg General appearance: PRESENT: no acute distress, cooperative, disheveled, thin Respiratory exam: PRESENT: clear to auscultation irina, symmetrical, unlabored. ABSENT: accessory muscle use, chest wall tenderness, crackles, prolonged expiratory phas, rhonchi, tachypnea, wheezes Cardiovascular exam: PRESENT: RRR, +S1, +S2 Pulses: PRESENT: normal carotid pulses Vascular exam: PRESENT: normal capillary refill GI/Abdominal exam: PRESENT: hypoactive bowel sounds, soft. ABSENT: distended, guarding, rebound, tenderness Extremities exam: ABSENT: clubbing, pedal edema Musculoskeletal exam: PRESENT: normal inspection. ABSENT: deformity Neurological exam: PRESENT: awake, oriented to person. ABSENT: oriented to place, oriented to situation Psychiatric exam: PRESENT: flat affect Skin exam: PRESENT: dry, warm, other - Bruising Results Laboratory Results: 03/14/20 05:55 03/14/20 05:55 03/14/20 03/14/20 05:55 05:55 WBC 9.3 RBC 2.82 L Hgb 9.3 L Hct 28.5 L MCV 101 H MCH 32.9 MCHC 32.6 RDW 15.9 H Plt Count 161 Seg Neutrophils % Not Reportable Sodium 139.3 Potassium 3.1 L Chloride 100 Carbon Dioxide 30 Anion Gap 9 BUN 24 H Creatinine 2.08 H Est GFR ( Amer) 28 L Glucose 85 Calcium 8.7 Phosphorus 4.8 H Magnesium 1.9 Total Bilirubin 0.5 AST 21 Alkaline Phosphatase 56 Total Protein 5.7 L Albumin 2.7 L Prealbumin 6.9 L 03/08/20 16:29 Blood Blood Culture - Final NO GROWTH IN 5 DAYS 03/08/20 14:45 Blood Blood Culture - Final NO GROWTH IN 5 DAYS Impressions: Chest X-Ray 03/07/20 13:58 IMPRESSION: Increased ill-defined right upper lobe and infrahilar opacities suspicious for superimposed pneumonia or asymmetric edema. Stable additional enlarged cardiac silhouette, chronic interstitial changes, small bilateral effusions and pleural thickening. Chest CT 03/09/20 00:00 IMPRESSION: Artifact from the patient's arms. Chronic parenchymal lung changes identified. Progressive airspace consolidative change posterior segment right upper lobe suspicious for pneumonia. The areas of subpleural parenchymal scarring also appear to be mildly progressive. The large abnormality present previously right upper lobe is stable. Mildly progressive bilateral pleural effusions right greater than left. The dense atelectasis right lower lobe is improved although there is still dense consolidation in this distribution.. Thyroid Ultrasound 03/09/20 00:00 IMPRESSION: Minimal interval change within the 4.3 x 2.4 x 2.5 cm TI rads 4 left lobe thyroid lobe nodule which meets criteria for biopsy. Additional follow-up recommendations as below. Acute Abdomen Series 03/11/20 00:00 IMPRESSION: 1. NO RADIOGRAPHIC EVIDENCE FOR ACUTE ABDOMINAL DISEASE. 2. CHRONIC CHANGES IN THE LUNGS. SLIGHT IMPROVEMENT IN THE RIGHT UPPER LOBE AIRSPACE DISEASE. Abdomen/Pelvis CT 03/12/20 00:00 IMPRESSION: 1. Small pleural effusions with ascites and anasarca suggesting some volume overload or third spacing. 2. 3.4 cm suprarenal abdominal aortic aneurysm, recommend follow-up imaging every three years. 3. Otherwise no acute abnormality noted by unenhanced imaging. Upper GI/Barium Swallow X-Ray 03/13/20 00:00 IMPRESSION: SOMEONE LIMITED UPPER GI DUE TO SMALL AMOUNT OF INGESTED BARIUM ALTHOUGH IMAGING DOES INDICATE A DUODENAL BULB ULCER WITH DIFFUSE DUODENITIS. POSSIBLE SMALL ULCERATIONS THROUGH THE PYLORIC CHANNEL. RECOMMEND ENDOSCOPY FOR FURTHER EVALUATION. Assessment and Plan - Diagnosis (1) Bacteremia due to Streptococcus Is this a current diagnosis for this admission?: Yes Plan: 1 set of blood cultures positive for 2 different streptococcal species being strep mitis and Peptostreptococcus. Possibly secondary to pneumonia if true bacteremia or oral etiology. Repeat blood cultures are negative so far. Should be covered with Zosyn. (2) End-stage renal disease on hemodialysis Is this a current diagnosis for this admission?: Yes Plan: Dialysis as scheduled MWF. Nephrology following. Renal diet. (3) Failure to thrive Qualifiers: Failure to thrive age range: in adult Qualified Code(s): R62.7 - Adult failure to thrive Is this a current diagnosis for this admission?: Yes Plan: She has the physical capability to swallow, she just does not want to eat. There is a plan in place to start TPN. Radiology refuses to put in a PICC line because she has dialysis, I am not sure why because many dialysis patients in the past have received picklines for this purpose. If she does not get a PICC line, she would need a tunneled catheter. She is unable to make that decision on her own today. I need to contact her son Keshav and talk to him about whether or not she actually wants this done. (4) Community acquired pneumonia Qualifiers: Laterality: right Lung location: upper lobe of lung Qualified Code(s): J18.9 - Pneumonia, unspecified organism Is this a current diagnosis for this admission?: Yes Plan: [place] to be the source of the bacteremia, also covered with Zosyn - Plan Summary Summary: discussed with son today - Time Time Spent with patient: 25-34 minutes
[2020-03-14] MEDS ORDERED: AMINO ACIDS 5 %/DEXTROSE 20 % 1,000 ML IV PRN (18:00)
[2020-03-14] MEDS: CYPROHEPTADINE HCL 4 MG TABLET PO SCH (22:11)
[2020-03-15] MEDS: INSULIN REG, HUMAN 100 UNIT/ML 3 ML VIAL (PYX) SUBCUT SCH ×4 (01:04→18:11)
[2020-03-15] MEDS: PROMETHAZINE HCL INJ 25 MG/1 ML VIAL IV PRN (02:47)
[2020-03-15] MEDS ORDERED: EPOETIN ALFA-EPBX 20,000 UNIT in SYRINGE, DISPOSABLE, 1 EACH IV PRN (05:00)
[2020-03-15] MEDS ORDERED: NORMAL SALINE 1000 ML 1,000 ML IV PRN (05:00)
[2020-03-15] MEDS: LEVOTHYROXINE SODIUM 0.075 MG TABLET PO SCH (05:18)
[2020-03-15] MEDS: PIPERACILLIN SODIUM/TAZOBACTAM 2.25 GM in NORMAL SALINE 50 ML IV SCH ×3 (05:18→21:25)
[2020-03-15] MEDS: PANTOPRAZOLE SODIUM 40 MG TABLET.DR PO SCH ×2 (05:18→17:00)
[2020-03-15] MEDS: HEPARIN SOD (PORCINE) 5,000 UNIT/ML 1 ML VIAL SUBCUT SCH ×3 (05:18→22:23)
[2020-03-15 05:43] LABS: ABSOLUTE LYMPHOCYTES (AUTO) 0.6 10^3/uL (0.5-4.7); ABSOLUTE MONOCYTES (AUTO) 0.4 10^3/uL (0.1-1.4); ABSOLUTE NEUT (AUTO) 6.5 10^3/uL (1.7-8.2); BASOPHILS % (AUTO) 0.2 % (0-2); EOSINOPHILS % (AUTO) 0.1 % (0-6); HEMATOCRIT 28.5 % (36.0-47.0); HEMOGLOBIN 9.2 g/dL (12.0-15.5); LYMPHOCYTES % (AUTO) 7.9 % (13-45); MEAN CORPUSCULAR HEMOGLOBIN 32.5 pg (27.0-33.4); MEAN CORPUSCULAR HGB CONC 32.4 g/dL (32.0-36.0); MEAN CORPUSCULAR VOLUME 101 fl (80-97); MONOCYTES % (AUTO) 5.2 % (3-13); PLATELET COUNT 145 10^3/uL (150-450); RED BLOOD COUNT 2.83 10^6/uL (3.72-5.28); RED CELL DISTRIBUTION WIDTH 16.5 % (11.5-14.0); SEGMENTED NEUTROPHILS % (AUTO) 86.6 % (42-78); TOTAL CELLS COUNTED % (AUTO) 100 %; WHITE BLOOD COUNT 7.5 10^3/uL (4.0-10.5)
[2020-03-15 06:02] LABS: ALBUMIN 2.5 g/dL (3.5-5.0); ALKALINE PHOSPHATASE 53 U/L (38-126); ANION GAP 8 (5-19); ASPARTATE AMINO TRANSFERASE 17 U/L (14-36); BILIRUBIN,DIRECT 0.3 mg/dL (0.0-0.4); BILIRUBIN,TOTAL 0.4 mg/dL (0.2-1.3); BLOOD UREA NITROGEN 28 mg/dL (7-20); CALCIUM 8.8 mg/dL (8.4-10.2); CARBON DIOXIDE 30 mmol/L (22-30); CHLORIDE 103 mmol/L (98-107); GLUCOSE 111 mg/dL (75-110); PHOSPHORUS 4.1 mg/dL (2.5-4.5); TOTAL PROTEIN 5.5 g/dL (6.3-8.2)
[2020-03-15 06:09] LABS: PREALBUMIN 6.4 mg/dL (17.6-36.0)
[2020-03-15 06:13] LABS: POTASSIUM 2.9 mmol/L (3.6-5.0)
[2020-03-15] MEDS ORDERED: POTASSIUM CHLORIDE 20 MEQ/50 ML RTU IV ONE (06:30)
[2020-03-15] MEDS: ONDANSETRON HCL INJ/PF 4 MG/2 ML SDV IV SCH ×3 (08:30→16:40)
[2020-03-15] MEDS: POTASSIUM CHLORIDE 10 MEQ TABLET.ER PO SCH ×3 (08:30→16:58)
[2020-03-15] MEDS: METOCLOPRAMIDE HCL INJ/PF 10 MG/2 ML SDV IV SCH ×3 (10:48→16:40)
[2020-03-15] MEDS: ASPIRIN 81 MG TABLET, CHEWABLE PO SCH (11:00)
[2020-03-15] MEDS: SUCRALFATE 1 GM TABLET PO SCH ×3 (11:00→16:58)
[2020-03-15] MEDS: SERTRALINE HCL 50 MG TABLET PO SCH (11:00)
[2020-03-15] MEDS: CARVEDILOL 12.5 MG TABLET PO SCH ×2 (11:00→21:26)
[2020-03-15] MEDS: DOCUSATE SODIUM 100 MG CAPSULE PO SCH (11:00)
[2020-03-15] MEDS: POLYETHYLENE GLYCOL 3350 POWDER 17 GM/1 PACKET PO SCH (11:35)
[2020-03-15] MEDS: FLUTICASONE/VILANTEROL 200-25 MCG/DOSE IH SCH (12:02)
[2020-03-15] MEDS: MEGESTROL ACETATE SUSP 400 MG/10 ML UDCUP PO SCH (12:03)
[2020-03-15] MEDS: DOXAZOSIN MESYLATE 2 MG TABLET PO SCH ×2 (12:08→21:25)
[2020-03-15] MEDS: POTASSI CL 20 MEQ/50 ML RIDER 20 MEQ/50 ML RTUPB IV SCH ×2 (16:54→19:00)
--- NOTE | 2020-03-15 17:20 | PDOC PROGRESS REPORT ---
Subjective Progress Note for:: 03/15/20 Subjective:: No adverse events overnight. Appetite remains poor. Patient refused dialysis today. She initially refused any sort of central venous catheter, and she also refused a PEG tube, saying that she just wanted to go home and be left alone. Dr. Garza spoke with her later, and after the conversation the patient decided that she would be agreeable to a PEG tube. I had multiple conversations with her son today and he said he felt like if she wanted a PEG tube that we should try as long as she understands the risks of the procedure. Reason For Visit: PNEUMONIA Physical Exam Vital Signs: Temp Pulse Resp BP Pulse Ox 97.5 F 79 14 136/61 H 100 03/15/20 15:41 03/15/20 15:41 03/15/20 15:41 03/15/20 15:41 03/15/20 15:41 Intake & Output 03/14/20 03/15/20 03/16/20 06:59 06:59 06:59 Intake Total 1650 1270 50 Output Total 700 Balance 950 1270 50 Weight 41.4 kg 45.5 kg General appearance: PRESENT: no acute distress, cooperative, disheveled, thin Respiratory exam: PRESENT: clear to auscultation irina, symmetrical, unlabored. ABSENT: accessory muscle use, chest wall tenderness, crackles, prolonged expiratory phas, rhonchi, tachypnea, wheezes Cardiovascular exam: PRESENT: RRR, +S1, +S2 Pulses: PRESENT: normal carotid pulses Vascular exam: PRESENT: normal capillary refill GI/Abdominal exam: PRESENT: hypoactive bowel sounds, soft. ABSENT: distended, guarding, rebound, tenderness Extremities exam: ABSENT: clubbing, pedal edema Musculoskeletal exam: PRESENT: normal inspection. ABSENT: deformity Neurological exam: PRESENT: awake, oriented to person. ABSENT: oriented to place, oriented to situation Psychiatric exam: PRESENT: flat affect Skin exam: PRESENT: dry, warm, other - Bruising Results Laboratory Results: 03/15/20 04:55 03/15/20 04:55 03/15/20 03/15/20 04:55 04:55 WBC 7.5 RBC 2.83 L Hgb 9.2 L Hct 28.5 L MCV 101 H MCH 32.5 MCHC 32.4 RDW 16.5 H Plt Count 145 L Seg Neutrophils % 86.6 H Sodium 141.2 Potassium 2.9 L* Chloride 103 Carbon Dioxide 30 Anion Gap 8 BUN 28 H Creatinine 2.50 H Est GFR ( Amer) 23 L Glucose 111 H Calcium 8.8 Phosphorus 4.1 Total Bilirubin 0.4 AST 17 Alkaline Phosphatase 53 Total Protein 5.5 L Albumin 2.5 L Prealbumin 6.4 L Impressions: Chest X-Ray 03/07/20 13:58 IMPRESSION: Increased ill-defined right upper lobe and infrahilar opacities suspicious for superimposed pneumonia or asymmetric edema. Stable additional enlarged cardiac silhouette, chronic interstitial changes, small bilateral effusions and pleural thickening. Chest CT 03/09/20 00:00 IMPRESSION: Artifact from the patient's arms. Chronic parenchymal lung changes identified. Progressive airspace consolidative change posterior segment right upper lobe suspicious for pneumonia. The areas of subpleural parenchymal scarring also appear to be mildly progressive. The large abnormality present previously right upper lobe is stable. Mildly progressive bilateral pleural effusions right greater than left. The dense atelectasis right lower lobe is improved although there is still dense consolidation in this distribution.. Thyroid Ultrasound 03/09/20 00:00 IMPRESSION: Minimal interval change within the 4.3 x 2.4 x 2.5 cm TI rads 4 left lobe thyroid lobe nodule which meets criteria for biopsy. Additional follow-up recommendations as below. Acute Abdomen Series 03/11/20 00:00 IMPRESSION: 1. NO RADIOGRAPHIC EVIDENCE FOR ACUTE ABDOMINAL DISEASE. 2. CHRONIC CHANGES IN THE LUNGS. SLIGHT IMPROVEMENT IN THE RIGHT UPPER LOBE AIRSPACE DISEASE. Abdomen/Pelvis CT 03/12/20 00:00 IMPRESSION: 1. Small pleural effusions with ascites and anasarca suggesting some volume overload or third spacing. 2. 3.4 cm suprarenal abdominal aortic aneurysm, recommend follow-up imaging every three years. 3. Otherwise no acute abnormality noted by unenhanced imaging. Upper GI/Barium Swallow X-Ray 03/13/20 00:00 IMPRESSION: SOMEONE LIMITED UPPER GI DUE TO SMALL AMOUNT OF INGESTED BARIUM ALTHOUGH IMAGING DOES INDICATE A DUODENAL BULB ULCER WITH DIFFUSE DUODENITIS. POSSIBLE SMALL ULCERATIONS THROUGH THE PYLORIC CHANNEL. RECOMMEND ENDOSCOPY FOR FURTHER EVALUATION. Assessment and Plan - Diagnosis (1) Bacteremia due to Streptococcus Is this a current diagnosis for this admission?: Yes Plan: 1 set of blood cultures positive for 2 different streptococcal species being strep mitis and Peptostreptococcus. Possibly secondary to pneumonia if true bacteremia or oral etiology. Repeat blood cultures are negative so far. Should be covered with Zosyn. (2) End-stage renal disease on hemodialysis Is this a current diagnosis for this admission?: Yes Plan: Dialysis as scheduled MWF. Nephrology following. Renal diet. (3) Failure to thrive Qualifiers: Failure to thrive age range: in adult Qualified Code(s): R62.7 - Adult failure to thrive Is this a current diagnosis for this admission?: Yes Plan: She has the physical capability to swallow, she just does not want to eat. After conversations with the patient and her son today, I am going to make sure that she once again understands the risks of having a PEG tube placed, and if she decides she still wants to proceed, will consult surgery for PEG tube placement. (4) Community acquired pneumonia Qualifiers: Laterality: right Lung location: upper lobe of lung Qualified Code(s): J18.9 - Pneumonia, unspecified organism Is this a current diagnosis for this admission?: Yes Plan: [place] to be the source of the bacteremia, also covered with Zosyn - Plan Summary Summary: discussed with son today - Time Time Spent with patient: 25-34 minutes
--- NOTE | 2020-03-15 21:05 | PDOC PROGRESS REPORT ---
Subjective Progress Note for:: 03/15/20 Subjective:: Patient refused dialysis today. When I went to the floor, her nurse also reports that she refused to eat, she refused to take medications, and she refused to have any parenteral nutrition. So I went to the room and talk to the patient. She confirmed all of the above. So I started talking to her about being comfort care and considering hospice since she is refusing all treatments. She indicated that she is not ready for that. So I asked her again about dialysis if she wants to continue and explained to her that it is either she keeps up with her dialysis treatment schedules or just quit dialysis and she indicated that she wants to continue. I also told her that without a good nutritional status, dialysis alone will not sustain her. So I discussed her options for nutritional support including PEG tube feeding and somehow she indicated that she would want to try that. So I went ahead and called Dr. Smith to inform him of what patient has decided. Dr. Smith also indicated that he has been talking to the patient's son as well. Reason For Visit: PNEUMONIA Physical Exam Vital Signs: Temp Pulse Resp BP Pulse Ox 97.5 F 74 16 127/54 H 100 03/15/20 11:17 03/15/20 11:17 03/15/20 11:17 03/15/20 11:17 03/15/20 11:17 Intake & Output 03/14/20 03/15/20 03/16/20 06:59 06:59 06:59 Intake Total 1650 1270 Output Total 700 Balance 950 1270 Weight 41.4 kg 45.5 kg Exam: General appearance: PRESENT: no acute distress, cooperative, cachectic and fragile looking Head exam: PRESENT: atraumatic, normocephalic Eye exam: PRESENT: conjunctiva pale, PERRLA. ABSENT: scleral icterus Neck exam: ABSENT: JVD Respiratory exam: PRESENT: Diminished breath sounds. ABSENT: crackles, rales, rhonchi, unlabored, wheezes Cardiovascular exam: PRESENT: Regular rate rhythm -+S1, +S2. ABSENT: diastolic murmur, systolic murmur GI/Abdominal exam: PRESENT: normal bowel sounds, soft. ABSENT: guarding, mass, tenderness Extremities exam: ABSENT: No edema Neurological exam: PRESENT: alert, awake, oriented to person, place and time. Skin exam: PRESENT: dry, warm, Cardiovascular exam: PRESENT: +S1, +S2 GI/Abdominal exam: PRESENT: normal bowel sounds, soft. ABSENT: organomegaly, tenderness Results Laboratory Results: 03/15/20 04:55 03/15/20 04:55 03/15/20 03/15/20 04:55 04:55 WBC 7.5 RBC 2.83 L Hgb 9.2 L Hct 28.5 L MCV 101 H MCH 32.5 MCHC 32.4 RDW 16.5 H Plt Count 145 L Seg Neutrophils % 86.6 H Sodium 141.2 Potassium 2.9 L* Chloride 103 Carbon Dioxide 30 Anion Gap 8 BUN 28 H Creatinine 2.50 H Est GFR ( Amer) 23 L Glucose 111 H Calcium 8.8 Phosphorus 4.1 Total Bilirubin 0.4 AST 17 Alkaline Phosphatase 53 Total Protein 5.5 L Albumin 2.5 L Prealbumin 6.4 L Impressions: Chest X-Ray 03/07/20 13:58 IMPRESSION: Increased ill-defined right upper lobe and infrahilar opacities suspicious for superimposed pneumonia or asymmetric edema. Stable additional enlarged cardiac silhouette, chronic interstitial changes, small bilateral effusions and pleural thickening. Chest CT 03/09/20 00:00 IMPRESSION: Artifact from the patient's arms. Chronic parenchymal lung changes identified. Progressive airspace consolidative change posterior segment right upper lobe suspicious for pneumonia. The areas of subpleural parenchymal scarring also appear to be mildly progressive. The large abnormality present previously right upper lobe is stable. Mildly progressive bilateral pleural effusions right greater than left. The dense atelectasis right lower lobe is improved although there is still dense consolidation in this distribution.. Thyroid Ultrasound 03/09/20 00:00 IMPRESSION: Minimal interval change within the 4.3 x 2.4 x 2.5 cm TI rads 4 left lobe thyroid lobe nodule which meets criteria for biopsy. Additional follow-up recommendations as below. Acute Abdomen Series 03/11/20 00:00 IMPRESSION: 1. NO RADIOGRAPHIC EVIDENCE FOR ACUTE ABDOMINAL DISEASE. 2. CHRONIC CHANGES IN THE LUNGS. SLIGHT IMPROVEMENT IN THE RIGHT UPPER LOBE AIRSPACE DISEASE. Abdomen/Pelvis CT 03/12/20 00:00 IMPRESSION: 1. Small pleural effusions with ascites and anasarca suggesting some volume overload or third spacing. 2. 3.4 cm suprarenal abdominal aortic aneurysm, recommend follow-up imaging every three years. 3. Otherwise no acute abnormality noted by unenhanced imaging. Upper GI/Barium Swallow X-Ray 03/13/20 00:00 IMPRESSION: SOMEONE LIMITED UPPER GI DUE TO SMALL AMOUNT OF INGESTED BARIUM ALTHOUGH IMAGING DOES INDICATE A DUODENAL BULB ULCER WITH DIFFUSE DUODENITIS. POSSIBLE SMALL ULCERATIONS THROUGH THE PYLORIC CHANNEL. RECOMMEND ENDOSCOPY FOR FURTHER EVALUATION. Assessment & Plan - Diagnosis (1) End-stage renal disease on hemodialysis Is this a current diagnosis for this admission?: Yes Plan: Patient refused dialysis today. She is not fluid overloaded. Her electrolytes are not concerning except for anemia which actually needs replacement rather than dialysis. Patient elected to continue dialysis treatment. So we will plan to do dialysis on her on Friday she wished. (2) Hypokalemia Is this a current diagnosis for this admission?: Yes Plan: Potassium replacement. (3) Bacteremia due to Streptococcus Is this a current diagnosis for this admission?: Yes Plan: Patient on IV Zosyn per hospitalist service. (4) Failure to thrive Qualifiers: Failure to thrive age range: in adult Qualified Code(s): R62.7 - Adult failure to thrive Is this a current diagnosis for this admission?: Yes Plan: Patient's oral intake has been extremely poor despite the Megace. CT scan of the chest and abdomen negative for any signs of malignancy. HIV negative. Upper endoscopy showed duodenal ulcer. Patient agreed to have a PEG tube for tube feeding. (5) Duodenal ulcer Is this a current diagnosis for this admission?: Yes Plan: Started on sucralfate. (6) Nausea Is this a current diagnosis for this admission?: Yes Plan: This is chronic. (7) Pneumonia Qualifiers: Pneumonia type: due to unspecified organism Laterality: right Lung location: upper lobe of lung Qualified Code(s): J18.9 - Pneumonia, unspecified organism Is this a current diagnosis for this admission?: Yes Plan: On IV Zosyn. COVID-19 negative. (8) Anemia in CKD (chronic kidney disease) Qualifiers: Chronic kidney disease stage: on chronic dialysis Qualified Code(s): N18.6 - End stage renal disease; D63.1 - Anemia in chronic kidney disease; Z99.2 - Dependence on renal dialysis Is this a current diagnosis for this admission?: Yes Plan: Retacrit to be given as needed during dialysis treatment. (9) Abnormal thyroid function test Is this a current diagnosis for this admission?: Yes Plan: Positive left thyroid nodule, status post FNAB in 2018 showing benign results. (10) COPD (chronic obstructive pulmonary disease) Qualifiers: COPD type: unspecified COPD Qualified Code(s): J44.9 - Chronic obstructive pulmonary disease, unspecified Is this a current diagnosis for this admission?: Yes Plan: Still smoking. - Time Time with patient: Greater than 35 minutes
[2020-03-15] MEDS: CYPROHEPTADINE HCL 4 MG TABLET PO SCH (21:26)
[2020-03-16] MEDS: INSULIN REG, HUMAN 100 UNIT/ML 3 ML VIAL (PYX) SUBCUT SCH ×4 (01:44→19:07)
[2020-03-16] MEDS: HEPARIN SOD (PORCINE) 5,000 UNIT/ML 1 ML VIAL SUBCUT SCH ×2 (05:27→13:31)
[2020-03-16] MEDS: PANTOPRAZOLE SODIUM 40 MG TABLET.DR PO SCH ×2 (05:31→18:00)
[2020-03-16] MEDS: LEVOTHYROXINE SODIUM 0.075 MG TABLET PO SCH (05:31)
[2020-03-16] MEDS: PIPERACILLIN SODIUM/TAZOBACTAM 2.25 GM in NORMAL SALINE 50 ML IV SCH ×3 (05:31→21:48)
[2020-03-16 06:49] LABS: ALBUMIN 2.6 g/dL (3.5-5.0); ALKALINE PHOSPHATASE 59 U/L (38-126); ANION GAP 8 (5-19); ASPARTATE AMINO TRANSFERASE 18 U/L (14-36); BILIRUBIN,DIRECT 0.3 mg/dL (0.0-0.4); BILIRUBIN,TOTAL 0.5 mg/dL (0.2-1.3); BLOOD UREA NITROGEN 37 mg/dL (7-20); CALCIUM 9.1 mg/dL (8.4-10.2); CARBON DIOXIDE 26 mmol/L (22-30); CHLORIDE 107 mmol/L (98-107); GLUCOSE 71 mg/dL (75-110); PHOSPHORUS 3.7 mg/dL (2.5-4.5); POTASSIUM 3.7 mmol/L (3.6-5.0); TOTAL PROTEIN 5.6 g/dL (6.3-8.2)
[2020-03-16 06:56] LABS: PREALBUMIN 8.2 mg/dL (17.6-36.0)
[2020-03-16] MEDS: METOCLOPRAMIDE HCL INJ/PF 10 MG/2 ML SDV IV SCH ×3 (08:30→16:55)
[2020-03-16] MEDS: ONDANSETRON HCL INJ/PF 4 MG/2 ML SDV IV SCH ×3 (08:30→16:55)
[2020-03-16] MEDS: POTASSIUM CHLORIDE 10 MEQ TABLET.ER PO SCH ×3 (08:35→18:00)
[2020-03-16] MEDS: SUCRALFATE 1 GM TABLET PO SCH ×3 (08:45→17:15)
[2020-03-16] MEDS ORDERED: FAT EMULSIONS 250 ML IV SCH (10:00)
[2020-03-16] MEDS: SERTRALINE HCL 50 MG TABLET PO SCH (10:41)
[2020-03-16] MEDS: CARVEDILOL 12.5 MG TABLET PO SCH ×2 (10:42→21:47)
[2020-03-16] MEDS: POLYETHYLENE GLYCOL 3350 POWDER 17 GM/1 PACKET PO SCH (10:42)
[2020-03-16] MEDS: DOCUSATE SODIUM 100 MG CAPSULE PO SCH (10:43)
[2020-03-16] MEDS: MEGESTROL ACETATE SUSP 400 MG/10 ML UDCUP PO SCH (10:45)
[2020-03-16] MEDS: FLUTICASONE/VILANTEROL 200-25 MCG/DOSE IH SCH (10:48)
[2020-03-16] MEDS: ASPIRIN 81 MG TABLET, CHEWABLE PO SCH (10:48)
[2020-03-16] MEDS: DOXAZOSIN MESYLATE 2 MG TABLET PO SCH ×2 (10:51→21:47)
[2020-03-16] MEDS ORDERED: DEXTROSE 50%-WATER 25 GM/50 ML DISP.SYRIN IV PRN ×2 (12:02)
[2020-03-16] MEDS ORDERED: GLUCAGON,HUMAN RECOMB 1 MG INJ SUBCUT PRN (12:02)
[2020-03-16] MEDS ORDERED: DEXTROSE 40% GEL 15 GM TUBE PO PRN ×2 (12:02)
[2020-03-16 14:06] LABS: HEMATOCRIT 25.9 % (36.0-47.0); HEMOGLOBIN 8.3 g/dL (12.0-15.5); MEAN CORPUSCULAR HEMOGLOBIN 32.3 pg (27.0-33.4); MEAN CORPUSCULAR HGB CONC 32.2 g/dL (32.0-36.0); MEAN CORPUSCULAR VOLUME 101 fl (80-97); PLATELET COUNT 132 10^3/uL (150-450); RED BLOOD COUNT 2.57 10^6/uL (3.72-5.28); RED CELL DISTRIBUTION WIDTH 16.2 % (11.5-14.0); WHITE BLOOD COUNT 5.9 10^3/uL (4.0-10.5)
[2020-03-16 14:30] LABS: ABSOLUTE LYMPHOCYTES# (MANUAL) 0.5 10^3/uL (0.5-4.7); ABSOLUTE MONOCYTES # (MANUAL) 0.3 10^3/uL (0.1-1.4); BASOPHILS % (MANUAL) 0 % (0-2); EOSINOPHILS % (MANUAL) 0 % (0-6); LYMPHOCYTES % (MANUAL) 8 % (13-45); MONOCYTES % (MANUAL) 5 % (3-13); SEGMENTED NEUTROPHILS % (MAN) 87 % (42-78); TOTAL CELLS COUNTED 100
[2020-03-16 14:31] LABS: ANISOCYTOSIS 1+
[2020-03-16 14:32] LABS: PLATELET COMMENT DECREASED
[2020-03-16 14:34] LABS: OVALOCYTES SLIGHT
--- NOTE | 2020-03-16 15:01 | Progress Note ---
Provider Note Provider Note: Called by Dr. Smith this morning about patient plans for a percutaneous endoscopic gastrostomy tube. Patient was scheduled for surgery this afternoon. However upon the nurse going to the room to inform the patient had a consent signed she is now currently refusing PEG tube placement. Patient states she wants to try to eat. Please reconsult surgery if patient decides to change her mind and proceed with PEG tube.
--- NOTE | 2020-03-16 18:15 | PDOC PROGRESS REPORT ---
Subjective Progress Note for:: 03/16/20 Subjective:: No adverse events overnight. Patient has recently diagnosed duodenitis with a duodenal ulcer found on EGD 03/13/2020. She has not had a bowel movement in a while, but she had blood in her stool today. Hemoglobin came down a little bit but not a large amount. She had agreed to getting a PEG tube yesterday, and when it was brought up to her that she would be having it today, she refused again to have it. I spoke to her son and explained the situation to him and he asked if we could have her evaluated for capacity. Reason For Visit: PNEUMONIA Physical Exam Vital Signs: Temp Pulse Resp BP Pulse Ox 97.4 F 74 16 134/52 H 98 03/16/20 15:05 03/16/20 15:05 03/16/20 15:05 03/16/20 15:05 03/16/20 15:05 Intake & Output 03/15/20 03/16/20 03/17/20 06:59 06:59 06:59 Intake Total 1270 592 50 Balance 1270 592 50 Weight 45.5 kg 47.1 kg 47.1 kg General appearance: PRESENT: no acute distress, cooperative, disheveled, thin Respiratory exam: PRESENT: clear to auscultation irina, symmetrical, unlabored. ABSENT: accessory muscle use, chest wall tenderness, crackles, prolonged expiratory phas, rhonchi, tachypnea, wheezes Cardiovascular exam: PRESENT: RRR, +S1, +S2 Pulses: PRESENT: normal carotid pulses Vascular exam: PRESENT: normal capillary refill GI/Abdominal exam: PRESENT: hypoactive bowel sounds, soft. ABSENT: distended, guarding, rebound, tenderness Extremities exam: ABSENT: clubbing, pedal edema Musculoskeletal exam: PRESENT: normal inspection. ABSENT: deformity Neurological exam: PRESENT: awake, oriented to person. ABSENT: oriented to place, oriented to situation Psychiatric exam: PRESENT: flat affect Skin exam: PRESENT: dry, warm, other - Bruising Results Laboratory Results: 03/16/20 13:54 03/16/20 06:00 03/16/20 03/16/20 06:00 13:54 WBC 5.9 RBC 2.57 L Hgb 8.3 L Hct 25.9 L MCV 101 H MCH 32.3 MCHC 32.2 RDW 16.2 H Plt Count 132 L Seg Neutrophils % Not Reportable Sodium 141.4 Potassium 3.7 Chloride 107 Carbon Dioxide 26 Anion Gap 8 BUN 37 H Creatinine 3.02 H Est GFR ( Amer) 18 L Glucose 71 L Calcium 9.1 Phosphorus 3.7 Total Bilirubin 0.5 AST 18 Alkaline Phosphatase 59 Total Protein 5.6 L Albumin 2.6 L Prealbumin 8.2 L Impressions: Chest X-Ray 03/07/20 13:58 IMPRESSION: Increased ill-defined right upper lobe and infrahilar opacities suspicious for superimposed pneumonia or asymmetric edema. Stable additional enlarged cardiac silhouette, chronic interstitial changes, small bilateral effusions and pleural thickening. Chest CT 03/09/20 00:00 IMPRESSION: Artifact from the patient's arms. Chronic parenchymal lung changes identified. Progressive airspace consolidative change posterior segment right upper lobe suspicious for pneumonia. The areas of subpleural parenchymal scarring also appear to be mildly progressive. The large abnormality present previously right upper lobe is stable. Mildly progressive bilateral pleural effusions right greater than left. The dense atelectasis right lower lobe is improved although there is still dense consolidation in this distribution.. Thyroid Ultrasound 03/09/20 00:00 IMPRESSION: Minimal interval change within the 4.3 x 2.4 x 2.5 cm TI rads 4 left lobe thyroid lobe nodule which meets criteria for biopsy. Additional follow-up recommendations as below. Acute Abdomen Series 03/11/20 00:00 IMPRESSION: 1. NO RADIOGRAPHIC EVIDENCE FOR ACUTE ABDOMINAL DISEASE. 2. CHRONIC CHANGES IN THE LUNGS. SLIGHT IMPROVEMENT IN THE RIGHT UPPER LOBE AIRSPACE DISEASE. Abdomen/Pelvis CT 03/12/20 00:00 IMPRESSION: 1. Small pleural effusions with ascites and anasarca suggesting some volume overload or third spacing. 2. 3.4 cm suprarenal abdominal aortic aneurysm, recommend follow-up imaging every three years. 3. Otherwise no acute abnormality noted by unenhanced imaging. Upper GI/Barium Swallow X-Ray 03/13/20 00:00 IMPRESSION: SOMEONE LIMITED UPPER GI DUE TO SMALL AMOUNT OF INGESTED BARIUM ALTHOUGH IMAGING DOES INDICATE A DUODENAL BULB ULCER WITH DIFFUSE DUODENITIS. POSSIBLE SMALL ULCERATIONS THROUGH THE PYLORIC CHANNEL. RECOMMEND ENDOSCOPY FOR FURTHER EVALUATION. Assessment and Plan - Diagnosis (1) Bacteremia due to Streptococcus Is this a current diagnosis for this admission?: Yes Plan: 1 set of blood cultures positive for 2 different streptococcal species being strep mitis and Peptostreptococcus. Possibly secondary to pneumonia if true bacteremia or oral etiology. Repeat blood cultures are negative so far. Should be covered with Zosyn. (2) End-stage renal disease on hemodialysis Is this a current diagnosis for this admission?: Yes Plan: Dialysis as scheduled MWF. Nephrology following. Renal diet. (3) Failure to thrive Qualifiers: Failure to thrive age range: in adult Qualified Code(s): R62.7 - Adult failure to thrive Is this a current diagnosis for this admission?: Yes Plan: She has the physical capability to swallow, she just does not want to eat. We had ultimately decided that she would get a PEG tube, and she agreed to this yesterday after initially refusing. Today after it was set up for her to have the procedure, she again refused. As noted above, her son wants her to have a capacity evaluation. I have ordered 1. (4) Community acquired pneumonia Qualifiers: Laterality: right Lung location: upper lobe of lung Qualified Code(s): J18.9 - Pneumonia, unspecified organism Is this a current diagnosis for this admission?: Yes Plan: [place] to be the source of the bacteremia, also covered with Zosyn - Plan Summary Summary: discussed with son today - Time Time Spent with patient: 25-34 minutes
[2020-03-16] MEDS: CYPROHEPTADINE HCL 4 MG TABLET PO SCH (21:47)
[2020-03-17] MEDS: INSULIN REG, HUMAN 100 UNIT/ML 3 ML VIAL (PYX) SUBCUT SCH ×4 (01:56→17:27)
[2020-03-17] MEDS ORDERED: EPOETIN ALFA-EPBX 20,000 UNIT in SYRINGE, DISPOSABLE, 1 EACH IV PRN (05:00)
[2020-03-17] MEDS ORDERED: NORMAL SALINE 1000 ML 1,000 ML IV PRN (05:00)
[2020-03-17 05:20] LABS: HEMATOCRIT 24.6 % (36.0-47.0); MEAN CORPUSCULAR HEMOGLOBIN 32.6 pg (27.0-33.4); MEAN CORPUSCULAR HGB CONC 32.4 g/dL (32.0-36.0); MEAN CORPUSCULAR VOLUME 101 fl (80-97); PLATELET COUNT 121 10^3/uL (150-450); RED BLOOD COUNT 2.45 10^6/uL (3.72-5.28); RED CELL DISTRIBUTION WIDTH 16.1 % (11.5-14.0); WHITE BLOOD COUNT 5.4 10^3/uL (4.0-10.5)
[2020-03-17 05:38] LABS: ANION GAP 8 (5-19); BLOOD UREA NITROGEN 44 mg/dL (7-20); CALCIUM 9.1 mg/dL (8.4-10.2); CARBON DIOXIDE 26 mmol/L (22-30); CHLORIDE 109 mmol/L (98-107); GLUCOSE 70 mg/dL (75-110); POTASSIUM 3.7 mmol/L (3.6-5.0)
[2020-03-17 05:53] LABS: ABSOLUTE LYMPHOCYTES# (MANUAL) 0.6 10^3/uL (0.5-4.7); ABSOLUTE MONOCYTES # (MANUAL) 0.2 10^3/uL (0.1-1.4); BASOPHILS % (MANUAL) 0 % (0-2); EOSINOPHILS % (MANUAL) 0 % (0-6); LYMPHOCYTES % (MANUAL) 12 % (13-45); MONOCYTES % (MANUAL) 3 % (3-13); SEGMENTED NEUTROPHILS % (MAN) 85 % (42-78); TOTAL CELLS COUNTED 100
[2020-03-17 05:54] LABS: ANISOCYTOSIS 1+; PLATELET COMMENT DECREASED; TOXIC GRANULATION SLIGHT
[2020-03-17] MEDS: PIPERACILLIN SODIUM/TAZOBACTAM 2.25 GM in NORMAL SALINE 50 ML IV SCH ×3 (06:09→22:19)
[2020-03-17] MEDS: LEVOTHYROXINE SODIUM 0.075 MG TABLET PO SCH (06:10)
[2020-03-17] MEDS: PANTOPRAZOLE SODIUM 40 MG TABLET.DR PO SCH ×2 (06:10→16:36)
[2020-03-17] MEDS: METOCLOPRAMIDE HCL INJ/PF 10 MG/2 ML SDV IV SCH ×3 (08:38→16:36)
[2020-03-17] MEDS: ONDANSETRON HCL INJ/PF 4 MG/2 ML SDV IV SCH ×3 (08:39→16:36)
[2020-03-17] MEDS: SUCRALFATE 1 GM TABLET PO SCH ×3 (08:41→16:35)
[2020-03-17] MEDS: POTASSIUM CHLORIDE 10 MEQ TABLET.ER PO SCH ×4 (08:41→16:51)
[2020-03-17] MEDS: DOCUSATE SODIUM 100 MG CAPSULE PO SCH (10:07)
[2020-03-17] MEDS: POLYETHYLENE GLYCOL 3350 POWDER 17 GM/1 PACKET PO SCH (10:08)
[2020-03-17] MEDS: CARVEDILOL 12.5 MG TABLET PO SCH ×2 (10:11→22:19)
[2020-03-17] MEDS: SERTRALINE HCL 50 MG TABLET PO SCH (10:11)
[2020-03-17] MEDS: MEGESTROL ACETATE SUSP 400 MG/10 ML UDCUP PO SCH (10:12)
[2020-03-17] MEDS: DOXAZOSIN MESYLATE 2 MG TABLET PO SCH ×2 (10:13→22:20)
[2020-03-17] MEDS: FLUTICASONE/VILANTEROL 200-25 MCG/DOSE IH SCH (10:13)
--- NOTE | 2020-03-17 14:03 | PDOC PROGRESS REPORT ---
Subjective Progress Note for:: 03/17/20 Reason For Visit: Patient seen today. She looks extremely sickly and very moribund. She however is able to recognize me and respond to my questions appropriately. She is aware of her surroundings at time and place. She admits to the fact that she feels that she is not going to get better and she is almost feeling hopeless. She has come to a point that she is considering stopping dialysis but not right now. However she refuses to undergo dialysis today. We discussed that implications. Labs and medications were reviewed. Physical Exam Vital Signs: Temp Pulse Resp BP Pulse Ox 97.4 F 62 16 96/38 L 96 03/17/20 11:27 03/17/20 11:27 03/17/20 11:27 03/17/20 11:27 03/17/20 11:27 Intake & Output 03/16/20 03/17/20 03/18/20 06:59 06:59 06:59 Intake Total 592 100 50 Balance 592 100 50 Weight 47.1 kg 47.5 kg General appearance: PRESENT: disheveled Exam: Looks almost cachectic and very moribund. Respiratory exam: PRESENT: clear to auscultation irina, decreased breath sounds. ABSENT: crackles Cardiovascular exam: PRESENT: +S1, +S2 GI/Abdominal exam: PRESENT: normal bowel sounds, soft. ABSENT: organomegaly, tenderness Extremities exam: ABSENT: pedal edema Neurological exam: PRESENT: alert, awake, oriented to person Psychiatric exam: PRESENT: depressed Results Laboratory Results: 03/17/20 04:55 03/17/20 04:55 03/16/20 03/17/20 03/17/20 13:54 04:55 04:55 WBC 5.9 5.4 RBC 2.57 L 2.45 L Hgb 8.3 L 8.0 L Hct 25.9 L 24.6 L MCV 101 H 101 H MCH 32.3 32.6 MCHC 32.2 32.4 RDW 16.2 H 16.1 H Plt Count 132 L 121 L Seg Neutrophils % Not Reportable Not Reportable Sodium 142.5 Potassium 3.7 Chloride 109 H Carbon Dioxide 26 Anion Gap 8 BUN 44 H Creatinine 3.71 H Est GFR ( Amer) 15 L Glucose 70 L Calcium 9.1 Impressions: Chest X-Ray 03/07/20 13:58 IMPRESSION: Increased ill-defined right upper lobe and infrahilar opacities suspicious for superimposed pneumonia or asymmetric edema. Stable additional enlarged cardiac silhouette, chronic interstitial changes, sma ll bilateral effusions and pleural thickening. Chest CT 03/09/20 00:00 IMPRESSION: Artifact from the patient's arms. Chronic parenchymal lung changes identified. Progressive airspace consolidative change posterior segment right upper lobe suspicious for pneumonia. The areas of subpleural parenchymal scarring also appear to be mildly progressive. The large abnormality present previously right upper lobe is stable. Mildly progressive bilateral pleural effusions right greater than left. The dense atelectasis right lower lobe is improved although there is still dense consolidation in this distribution.. Thyroid Ultrasound 03/09/20 00:00 IMPRESSION: Minimal interval change within the 4.3 x 2.4 x 2.5 cm TI rads 4 left lobe thyroid lobe nodule which meets criteria for biopsy. Additional follow-up recommendations as below. Acute Abdomen Series 03/11/20 00:00 IMPRESSION: 1. NO RADIOGRAPHIC EVIDENCE FOR ACUTE ABDOMINAL DISEASE. 2. CHRONIC CHANGES IN THE LUNGS. SLIGHT IMPROVEMENT IN THE RIGHT UPPER LOBE AIRSPACE DISEASE. Abdomen/Pelvis CT 03/12/20 00:00 IMPRESSION: 1. Small pleural effusions with ascites and anasarca suggesting some volume overload or third spacing. 2. 3.4 cm suprarenal abdominal aortic aneurysm, recommend follow-up imaging every three years. 3. Otherwise no acute abnormality noted by unenhanced imaging. Upper GI/Barium Swallow X-Ray 03/13/20 00:00 IMPRESSION: SOMEONE LIMITED UPPER GI DUE TO SMALL AMOUNT OF INGESTED BARIUM ALTHOUGH IMAGING DOES INDICATE A DUODENAL BULB ULCER WITH DIFFUSE DUODENITIS. POSSIBLE SMALL ULCERATIONS THROUGH THE PYLORIC CHANNEL. RECOMMEND ENDOSCOPY FOR FURTHER EVALUATION. Assessment & Plan - Diagnosis (1) Suspected pneumonia Plan: Covid negative. She is on antibiotics. (2) End-stage renal disease on hemodialysis Is this a current diagnosis for this admission?: Yes Plan: She is refusing dialysis. Discussed implications. Patient well aware of surroundings and situations and prognosis. (3) Generalized weakness Is this a current diagnosis for this admission?: Yes Plan: Almost cachectic. She is hardly eating or drinking. She looks depressed. She is currently on Zoloft. (4) Anemia in CKD (chronic kidney disease) Qualifiers: Chronic kidney disease stage: on chronic dialysis Qualified Code(s): N18.6 - End stage renal disease; D63.1 - Anemia in chronic kidney disease; Z99.2 - Dependence on renal dialysis Is this a current diagnosis for this admission?: Yes Plan: Adjust erythropoietin. (5) COPD (chronic obstructive pulmonary disease) Qualifiers: COPD type: unspecified COPD Qualified Code(s): J44.9 - Chronic obstructive pulmonary disease, unspecified Is this a current diagnosis for this admission?: Yes Plan: End-stage on oxygen dependency.
--- NOTE | 2020-03-17 15:57 | PDOC PROGRESS REPORT ---
Subjective Progress Note for:: 03/17/20 Subjective:: Today when I went in to see the patient she said that she would be willing to get the PEG tube. I left the room and performed a couple of other tasks and was able to talk to her son. He said that when he talked to her last night she did not seem interested in it but he tried to encourage her. He asked me that if she refused would hospice be the next step. I told him that that would be reasonable. I told him that she had agreed this morning to have the PEG tube. Before I called the surgeon and they got the operating room set up, I went back into her room just to confirm with her that she indeed wanted to proceed. She then said no she did not want to do it. She refused dialysis this morning. That is the second dialysis treatment in a row that she has refused. With Dr. Abdullahi talk to her about dialysis this morning it was his opinion that at that t kat[place] she understood what she was doing. When I talked to her this morning, she seemed to respond appropriately and seemed to understand what it means for her to refuse treatment. Reason For Visit: PNEUMONIA Physical Exam Vital Signs: Temp Pulse Resp BP Pulse Ox 97.4 F 62 16 96/38 L 96 03/17/20 11:27 03/17/20 11:27 03/17/20 11:27 03/17/20 11:27 03/17/20 11:27 Intake & Output 03/16/20 03/17/20 03/18/20 06:59 06:59 06:59 Intake Total 592 100 50 Balance 592 100 50 Weight 47.1 kg 47.5 kg General appearance: PRESENT: no acute distress, cooperative, disheveled, thin Respiratory exam: PRESENT: clear to auscultation irina, symmetrical, unlabored. ABSENT: accessory muscle use, chest wall tenderness, crackles, prolonged expiratory phas, rhonchi, tachypnea, wheezes Cardiovascular exam: PRESENT: RRR, +S1, +S2 Pulses: PRESENT: normal carotid pulses Vascular exam: PRESENT: normal capillary refill GI/Abdominal exam: PRESENT: hypoactive bowel sounds, soft. ABSENT: distended, guarding, rebound, tenderness Extremities exam: ABSENT: clubbing, pedal edema Musculoskeletal exam: PRESENT: normal inspection. ABSENT: deformity Neurological exam: PRESENT: awake, oriented to person. ABSENT: oriented to place, oriented to situation Psychiatric exam: PRESENT: flat affect Skin exam: PRESENT: dry, warm, other - Bruising Results Laboratory Results: 03/17/20 04:55 03/17/20 04:55 03/17/20 03/17/20 04:55 04:55 WBC 5.4 RBC 2.45 L Hgb 8.0 L Hct 24.6 L MCV 101 H MCH 32.6 MCHC 32.4 RDW 16.1 H Plt Count 121 L Seg Neutrophils % Not Reportable Sodium 142.5 Potassium 3.7 Chloride 109 H Carbon Dioxide 26 Anion Gap 8 BUN 44 H Creatinine 3.71 H Est GFR ( Amer) 15 L Glucose 70 L Calcium 9.1 Impressions: Chest X-Ray 03/07/20 13:58 IMPRESSION: Increased ill-defined right upper lobe and infrahilar opacities suspicious for superimposed pneumonia or asymmetric edema. Stable additional enlarged cardiac silhouette, chronic interstitial changes, small bilateral effusions and pleural thickening. Chest CT 03/09/20 00:00 IMPRESSION: Artifact from the patient's arms. Chronic parenchymal lung changes identified. Progressive airspace consolidative change posterior segment right upper lobe suspicious for pneumonia. The areas of subpleural parenchymal scarring also appear to be mildly progressive. The large abnormality present previously right upper lobe is stable. Mildly progressive bilateral pleural effusions right greater than left. The dense atelectasis right lower lobe is improved although there is still dense consolidation in this distribution.. Thyroid Ultrasound 03/09/20 00:00 IMPRESSION: Minimal interval change within the 4.3 x 2.4 x 2.5 cm TI rads 4 left lobe thyroid lobe nodule which meets criteria for biopsy. Additional follow-up recommendations as below. Acute Abdomen Series 03/11/20 00:00 IMPRESSION: 1. NO RADIOGRAPHIC EVIDENCE FOR ACUTE ABDOMINAL DISEASE. 2. CHRONIC CHANGES IN THE LUNGS. SLIGHT IMPROVEMENT IN THE RIGHT UPPER LOBE AIRSPACE DISEASE. Abdomen/Pelvis CT 03/12/20 00:00 IMPRESSION: 1. Small pleural effusions with ascites and anasarca suggesting some volume overload or third spacing. 2. 3.4 cm suprarenal abdominal aortic aneurysm, recommend follow-up imaging every three years. 3. Otherwise no acute abnormality noted by unenhanced imaging. Upper GI/Barium Swallow X-Ray 03/13/20 00:00 IMPRESSION: SOMEONE LIMITED UPPER GI DUE TO SMALL AMOUNT OF INGESTED BARIUM ALTHOUGH IMAGING DOES INDICATE A DUODENAL BULB ULCER WITH DIFFUSE DUODENITIS. POSSIBLE SMALL ULCERATIONS THROUGH THE PYLORIC CHANNEL. RECOMMEND ENDOSCOPY FOR FURTHER EVALUATION. Assessment and Plan - Diagnosis (1) Bacteremia due to Streptococcus Is this a current diagnosis for this admission?: Yes Plan: 1 set of blood cultures positive for 2 different streptococcal species being strep mitis and Peptostreptococcus. Possibly secondary to pneumonia if true bacteremia or oral etiology. Repeat blood cultures are negative so far. Should be covered with Zosyn. (2) End-stage renal disease on hemodialysis Is this a current diagnosis for this admission?: Yes Plan: Dialysis as scheduled MWF. Nephrology following. Renal diet. She has been refusing dialysis the past 2 treatments and apparently does this quite often as an outpatient as well. (3) Failure to thrive Qualifiers: Failure to thrive age range: in adult Qualified Code(s): R62.7 - Adult failure to thrive Is this a current diagnosis for this admission?: Yes Plan: She has the physical capability to swallow, she just does not want to eat. We had ultimately decided that she would get a PEG tube, and she agreed to this after initially refusing. After it was set up for her to have the procedure, she again refused. This morning she initially agreed to have it done, and then later reversed course yet again and refused. I am going to talk to her son later on today to discuss how to proceed. I am going to recommend inpatient hospice for her, because if she does not have dialysis she will likely not live very long. (4) Community acquired pneumonia Qualifiers: Laterality: right Lung location: upper lobe of lung Qualified Code(s): J18.9 - Pneumonia, unspecified organism Is this a current diagnosis for this admission?: Yes Plan: [place] to be the source of the bacteremia, also covered with Zosyn - Plan Summary Summary: discussed with son today - Time Time Spent with patient: 25-34 minutes
[2020-03-17] MEDS: CYPROHEPTADINE HCL 4 MG TABLET PO SCH (22:20)
[2020-03-18] MEDS: INSULIN REG, HUMAN 100 UNIT/ML 3 ML VIAL (PYX) SUBCUT SCH ×5 (00:55→23:09)
[2020-03-18] MEDS: PIPERACILLIN SODIUM/TAZOBACTAM 2.25 GM in NORMAL SALINE 50 ML IV SCH ×2 (06:35→14:53)
[2020-03-18] MEDS: PANTOPRAZOLE SODIUM 40 MG TABLET.DR PO SCH ×2 (06:35→17:54)
[2020-03-18] MEDS: LEVOTHYROXINE SODIUM 0.075 MG TABLET PO SCH (06:35)
[2020-03-18] MEDS: ONDANSETRON HCL INJ/PF 4 MG/2 ML SDV IV SCH ×3 (09:37→17:53)
[2020-03-18] MEDS: METOCLOPRAMIDE HCL INJ/PF 10 MG/2 ML SDV IV SCH ×3 (09:37→17:53)
[2020-03-18] MEDS: DOXAZOSIN MESYLATE 2 MG TABLET PO SCH ×2 (09:37→21:42)
[2020-03-18] MEDS: CARVEDILOL 12.5 MG TABLET PO SCH ×2 (09:38→21:42)
[2020-03-18] MEDS: FLUTICASONE/VILANTEROL 200-25 MCG/DOSE IH SCH (09:38)
[2020-03-18] MEDS: MEGESTROL ACETATE SUSP 400 MG/10 ML UDCUP PO SCH (09:39)
[2020-03-18] MEDS: SERTRALINE HCL 50 MG TABLET PO SCH (09:39)
[2020-03-18] MEDS: POTASSIUM CHLORIDE 10 MEQ TABLET.ER PO SCH ×3 (10:57→17:54)
[2020-03-18] MEDS: SUCRALFATE 1 GM TABLET PO SCH ×3 (10:57→17:54)
[2020-03-18] MEDS: DOCUSATE SODIUM 100 MG CAPSULE PO SCH (11:07)
[2020-03-18] MEDS: POLYETHYLENE GLYCOL 3350 POWDER 17 GM/1 PACKET PO SCH (11:08)
--- NOTE | 2020-03-18 12:35 | PDOC PROGRESS REPORT ---
Subjective Progress Note for:: 03/18/20 Subjective:: No adverse events overnight. The patient's nurse reports that the patient has once again reiterated her desire to not have a PEG tube. She keeps telling everyone she wants to go home. I have not spoken with the patient's son today but plan to do so later. We have changed her diet so that she can have an easier time finding something she might will want to eat. She was being tested again for coronavirus because apparently she had been exposed to a patient who tested positive outside the hospital. Her initial test was negative. Reason For Visit: PNEUMONIA Physical Exam Vital Signs: Temp Pulse Resp BP Pulse Ox 97.4 F 74 20 121/50 L 97 03/18/20 08:00 03/18/20 08:00 03/18/20 08:00 03/18/20 08:00 03/18/20 08:00 Intake & Output 03/17/20 03/18/20 03/19/20 06:59 06:59 06:59 Intake Total 100 200 50 Balance 100 200 50 Weight 47.5 kg 46.5 kg 46.5 kg General appearance: PRESENT: no acute distress, cooperative, disheveled, thin Respiratory exam: PRESENT: clear to auscultation irina, symmetrical, unlabored. ABSENT: accessory muscle use, chest wall tenderness, crackles, prolonged expiratory phas, rhonchi, tachypnea, wheezes Cardiovascular exam: PRESENT: RRR, +S1, +S2 Pulses: PRESENT: normal carotid pulses Vascular exam: PRESENT: normal capillary refill GI/Abdominal exam: PRESENT: hypoactive bowel sounds, soft. ABSENT: distended, guarding, rebound, tenderness Extremities exam: ABSENT: clubbing, pedal edema Musculoskeletal exam: PRESENT: normal inspection. ABSENT: deformity Neurological exam: PRESENT: awake, oriented to person, oriented to place, oriented to situation Psychiatric exam: PRESENT: flat affect Skin exam: PRESENT: dry, warm, other - Bruising Results Laboratory Results: 03/17/20 04:55 03/17/20 04:55 Impressions: Chest X-Ray 03/07/20 13:58 IMPRESSION: Increased ill-defined right upper lobe and infrahilar opacities suspicious for superimposed pneumonia or asymmetric edema. Stable additional enlarged cardiac silhouette, chronic interstitial changes, small bilateral effusions and pleural thickening. Chest CT 03/09/20 00:00 IMPRESSION: Artifact from the patient's arms. Chronic parenchymal lung changes identified. Progressive airspace consolidative change posterior segment right upper lobe suspicious for pneumonia. The areas of subpleural parenchymal scarring also appear to be mildly progressive. The large abnormality present previously right upper lobe is stable. Mildly progressive bilateral pleural effusions right greater than left. The dense atelectasis right lower lobe is improved although there is still dense consolidation in this distribution.. Thyroid Ultrasound 03/09/20 00:00 IMPRESSION: Minimal interval change within the 4.3 x 2.4 x 2.5 cm TI rads 4 left lobe thyroid lobe nodule which meets criteria for biopsy. Additional follow-up recommendations as below. Acute Abdomen Series 03/11/20 00:00 IMPRESSION: 1. NO RADIOGRAPHIC EVIDENCE FOR ACUTE ABDOMINAL DISEASE. 2. CHRONIC CHANGES IN THE LUNGS. SLIGHT IMPROVEMENT IN THE RIGHT UPPER LOBE AIR SPACE DISEASE. Abdomen/Pelvis CT 03/12/20 00:00 IMPRESSION: 1. Small pleural effusions with ascites and anasarca suggesting some volume overload or third spacing. 2. 3.4 cm suprarenal abdominal aortic aneurysm, recommend follow-up imaging every three years. 3. Otherwise no acute abnormality noted by unenhanced imaging. Upper GI/Barium Swallow X-Ray 03/13/20 00:00 IMPRESSION: SOMEONE LIMITED UPPER GI DUE TO SMALL AMOUNT OF INGESTED BARIUM ALTHOUGH IMAGING DOES INDICATE A DUODENAL BULB ULCER WITH DIFFUSE DUODENITIS. POSSIBLE SMALL ULCERATIONS THROUGH THE PYLORIC CHANNEL. RECOMMEND ENDOSCOPY FOR FURTHER EVALUATION. Assessment and Plan - Diagnosis (1) Bacteremia due to Streptococcus Is this a current diagnosis for this admission?: Yes Plan: 1 set of blood cultures positive for 2 different streptococcal species being strep mitis and Peptostreptococcus. Possibly secondary to pneumonia if true bacteremia or oral etiology. Repeat blood cultures are negative so far. Should be covered with Zosyn. She has had 11 days since her last negative blood cultures, so she needs 3 more days of IV antibiotics. (2) End-stage renal disease on hemodialysis Is this a current diagnosis for this admission?: Yes Plan: Dialysis as scheduled MWF. Nephrology following. Renal diet. She has been refusing dialysis the past 2 treatments and apparently does this quite often as an outpatient as well. Because she keeps refusing hemodialysis and feeding tube placement, will consult hospice. I think that she would be appropriate for inpatient hospice if she is not getting hemodialysis. (3) Failure to thrive Qualifiers: Failure to thrive age range: in adult Qualified Code(s): R62.7 - Adult failure to thrive Is this a current diagnosis for this admission?: Yes Plan: She has the physical capability to swallow, she just does not want to eat. We had ultimately decided that she would get a PEG tube, and she agreed to this after initially refusing. After it was set up for her to have the procedure, she again refused. Friday morning she initially agreed to have it done, and then later reversed course yet again and refused. I am going to talk to her son later on today, but I am going to go ahead and order a hospice consult. Her son inquired about it when we spoke yesterday. (4) Community acquired pneumonia Qualifiers: Laterality: right Lung location: upper lobe of lung Qualified Code(s): J18.9 - Pneumonia, unspecified organism Is this a current diagnosis for this admission?: Yes Plan: [place] to be the source of the bacteremia, also covered with Zosyn. Now resolved. - Plan Summary Summary: discussed with son today - Time Time Spent with patient: 25-34 minutes
[2020-03-18] MEDS: CYPROHEPTADINE HCL 4 MG TABLET PO SCH (21:42)
[2020-03-19] MEDS: LEVOTHYROXINE SODIUM 0.075 MG TABLET PO SCH (07:40)
[2020-03-19] MEDS: PANTOPRAZOLE SODIUM 40 MG TABLET.DR PO SCH ×2 (07:40→16:51)
[2020-03-19] MEDS: INSULIN REG, HUMAN 100 UNIT/ML 3 ML VIAL (PYX) SUBCUT SCH ×3 (07:47→17:26)
[2020-03-19] MEDS ORDERED: ALBUMIN HUMAN 12.5 GM/50 ML RTUINJ IV SCH ×3 (08:15→22:00)
--- NOTE | 2020-03-19 09:46 | PDOC PROGRESS REPORT ---
Subjective Progress Note for:: 03/19/20 Subjective:: I was called to the patient's bedside urgently. Her systolic blood pressure was in the 70s and her temperature was 94.7 rectally. When I arrived at the bedside with the patient's nurse she was lethargic. She did respond to her name and she did attempt to answer questions by shaking her head yes and no. It was perceptible but not pronounced. Reason For Visit: PNEUMONIA Physical Exam Vital Signs: Temp Pulse Resp BP Pulse Ox 94.7 F L 66 15 78/42 L 90 L 03/19/20 07:28 03/19/20 07:28 03/19/20 07:28 03/19/20 07:28 03/19/20 07:28 Intake & Output 03/18/20 03/19/20 03/20/20 06:59 06:59 06:59 Intake Total 200 320 Balance 200 320 Weight 46.5 kg 46.5 kg General appearance: PRESENT: thin, other - Very lethargic Head exam: PRESENT: atraumatic, other - Temporal wasting Eye exam: PRESENT: conjunctiva pale, scleral icterus Ear exam: PRESENT: normal external ear exam. ABSENT: bleeding, drainage Mouth exam: PRESENT: dry mucosa, tongue midline Neck exam: PRESENT: JVD. ABSENT: lymphadenopathy, tracheostomy Respiratory exam: PRESENT: rhonchi - Very coarse breath sounds audible at the bedside bilaterally, other - Limited inspiratory phase. ABSENT: clear to auscultation irina, tachypnea - Surprisingly her breathing rate is normal to slow, wheezes Cardiovascular exam: PRESENT: RRR, +S1, +S2, other GI/Abdominal exam: PRESENT: diminished bowel sounds, soft. ABSENT: distended, guarding, tenderness Rectal exam: PRESENT: deferred Extremities exam: PRESENT: other - Edematous areas especially right arm Musculoskeletal exam: ABSENT: ambulatory - Extremely weak Neurological exam: PRESENT: altered - Lethargic, awake. ABSENT: alert Psychiatric exam: PRESENT: flat affect. ABSENT: agitated, anxious Focused psych exam: PRESENT: other - Difficult to assess due to current mental status Skin exam: PRESENT: dry - Very dry skin., warm, other - Sporadic ecchymotic areas. AV shunt in left arm. Results Laboratory Results: 03/17/20 04:55 03/17/20 04:55 Impressions: Chest X-Ray 03/07/20 13:58 IMPRESSION: Increased ill-defined right upper lobe and infrahilar opacities suspicious for superimposed pneumonia or asymmetric edema. Stable additional enlarged cardiac silhouette, chronic interstitial changes, small bilateral effusions and pleural thickening. Chest CT 03/09/20 00:00 IMPRESSION: Artifact from the patient's arms. Chronic parenchymal lung changes identified. Progressive airspace consolidative change posterior segment right upper lobe suspicious for pneumonia. The areas of subpleural parenchymal scarring also appear to be mildly progressive. The large abnormality present previously right upper lobe is stable. Mildly progressive bilateral pleural effusions right greater than left. The dense atelectasis right lower lobe is improved although there is still dense consolidation in this distribution.. Thyroid Ultrasound 03/09/20 00:00 IMPRESSION: Minimal interval change within the 4.3 x 2.4 x 2.5 cm TI rads 4 left lobe thyroid lobe nodule which meets criteria for biopsy. Additional follo w-up recommendations as below. Acute Abdomen Series 03/11/20 00:00 IMPRESSION: 1. NO RADIOGRAPHIC EVIDENCE FOR ACUTE ABDOMINAL DISEASE. 2. CHRONIC CHANGES IN THE LUNGS. SLIGHT IMPROVEMENT IN THE RIGHT UPPER LOBE AIRSPACE DISEASE. Abdomen/Pelvis CT 03/12/20 00:00 IMPRESSION: 1. Small pleural effusions with ascites and anasarca suggesting some volume overload or third spacing. 2. 3.4 cm suprarenal abdominal aortic aneurysm, recommend follow-up imaging every three years. 3. Otherwise no acute abnormality noted by unenhanced imaging. Upper GI/Barium Swallow X-Ray 03/13/20 00:00 IMPRESSION: SOMEONE LIMITED UPPER GI DUE TO SMALL AMOUNT OF INGESTED BARIUM ALTHOUGH IMAGING DOES INDICATE A DUODENAL BULB ULCER WITH DIFFUSE DUODENITIS. POSSIBLE SMALL ULCERATIONS THROUGH THE PYLORIC CHANNEL. RECOMMEND ENDOSCOPY FOR FURTHER EVALUATION. Assessment and Plan - Diagnosis (1) Hypotension Qualifiers: Hypotension type: other hypotension type Qualified Code(s): I95.89 - Other hypotension Is this a current diagnosis for this admission?: Yes Plan: The patient became markedly hypotensive today. She was also hypothermic. Several antihypertensive medications have been on hold due to her dropping blood pressure. She had a normal echocardiogram in April 2019. Her hemoglobin was down to 8.0 yesterday. She was diagnosed with multiple duodenal ulcers during this admission. None were actively bleeding. Her hypotension is multifactorial. The more likely causes would be anemia with global ischemia weakening the heart, end-stage kidney disease and overall decline including severe protein calorie malnutrition. My first discussion with the patient's son, Twin, was to review her DNR status. We discussed her poor oral intake over the last month as well as her refusal to eat and recently refusal of some medications and refusal of a PEG tube to aid with nutrition. She also refused dialysis on Friday. He has noticed a steady decline. I explained to him that with a systolic blood pressure of 74 her prognosis was extremely poor. Our options were to attempt a central line in start with dopamine to try and improve her pressure as well as holding antihypertensive medications and utilization of albumin to try and improve her oncotic pressure and perfusion. She is DO NOT RESUSCITATE. We did discuss the fact that she would not want intervention unless it was felt that it would make a meaningful difference in recovery and quality of life. He was going to call his sister and brother but in the meantime he asked that I attempt central line placement as we had discussed. Giving fluids was not realistic since it has been 4 days since her last dialysis treatment and we would not be able to diurese her and dialysis is not available until tomorrow. If her pressure remains low she would not tolerate dialysis either. He would get back to me as quickly as possible after contacting his siblings. (2) Bacteremia due to Streptococcus Is this a current diagnosis for this admission?: Yes Plan: 03/19/2020 The patient completed her course of IV antibiotics. Blood cultures have been negative as of March 08. (3) End-stage renal disease on hemodialysis Is this a current diagnosis for this admission?: Yes Plan: 03/19/2020 The patient declined dialysis on Friday. Dr. Abdullahi's note indicates that the patient is considering discontinuing dialysis. She is doing quite poorly. She is an uric. Her breath sounds are very congested/rhonchorous. She is likely volume overloaded as she declined dialysis. (4) Community acquired pneumonia Qualifiers: Laterality: right Lung location: upper lobe of lung Qualified Code(s): J18.9 - Pneumonia, unspecified organism Is this a current diagnosis for this admission?: Yes Plan: 03/19/2020 Antibiotics completed yesterday. (5) Failure to thrive Qualifiers: Failure to thrive age range: in adult Qualified Code(s): R62.7 - Adult john lure to thrive Is this a current diagnosis for this admission?: Yes Plan: 03/19/2020 The patient has been in a steady decline for the last 3 to 4 weeks as noted by her son and. Her appetite has been extremely poor. She has declined medications and declined dialysis on Friday. We will continue supportive measures as best we can. (6) Protein-calorie malnutrition, severe Is this a current diagnosis for this admission?: Yes Plan: 03/19/2020 The patient's BMI is only 16.5. She has been refusing meals and has had extremely poor appetite including complete refusal of meals for the last 4 days. She exhibits extreme muscle wasting. Her malnutrition has become clinically si gnificant at this time. (7) Duodenal ulcer Is this a current diagnosis for this admission?: Yes Plan: 03/19/2020 Multiple duodenal ulcers were noted on endoscopy. Carafate and proton pump inhibitors are ordered. She has been refusing multiple medications. (8) Hypokalemia Is this a current diagnosis for this admission?: Yes Plan: 03/19/2020 The patient's serum potassium dropped to 2.9. Her serum potassium yesterday was normal on oral supplementation. Continue oral potassium if the patient agrees. (9) Anemia in CKD (chronic kidney disease) Qualifiers: Chronic kidney disease stage: on chronic dialysis Qualified Code(s): N18.6 - End stage renal disease; D63.1 - Anemia in chronic kidney disease; Z99.2 - Dependence on renal dialysis Is this a current diagnosis for this admission?: Yes Plan: 03/19/2020 The patient declined hemodialysis on Friday. - Plan Summary Summary: discussed with son today 03/19/2020 I had 2 discussions with the patient son. Unfortunately, most likely due to severe hypotension, was unable to place a central line. I believe it was due to vein collapse as I thought I accessed the vein on several occasions but other than the flash of blood it was nonsustained. The attempt was made after the initial discussion with the patient son who wanted to try this intervention until he was able to talk to his siblings. I called the son back after the procedure. In light of her general decline, refusal to eat for the last several days, refusal of medications and refusal of hemodialysis on Friday I felt that her prognosis was grave. Her blood pressure remains in the low 70s systolic. She is lethargic and moribund. We discussed the fact that her survivability is extremely limited and if she did her quality of life would be poor at best. He had had a chance to speak with his siblings. They are in agreement with a conservative approach and considering her cons istent decline over the last several weeks and the fact that I did not have success placing her central line it was felt that keeping her comfortable would be the best measure. We will leave certain medications on board. I told him that we would treat her for any pain or air hunger that will develop as her breathing declines. I told him that I did not think she would survive the day. He will call his siblings back and then come to the hospital to be with her. - Time Total Critical Time (Minutes): 95 Medications reviewed and adjusted accordingly: Yes
[2020-03-19] MEDS ORDERED: HYDROMORPHONE HCL INJ/PF 2 MG/ML AMPULE IV PRN (09:48)
[2020-03-19] MEDS ORDERED: CARVEDILOL 12.5 MG TABLET PO SCH (10:00)
[2020-03-19] MEDS ORDERED: DOXAZOSIN MESYLATE 2 MG TABLET PO SCH (10:00)
[2020-03-19] MEDS: POTASSIUM CHLORIDE 10 MEQ TABLET.ER PO SCH ×3 (10:15→16:51)
[2020-03-19] MEDS: FLUTICASONE/VILANTEROL 200-25 MCG/DOSE IH SCH (10:15)
[2020-03-19] MEDS: POLYETHYLENE GLYCOL 3350 POWDER 17 GM/1 PACKET PO SCH (10:16)
[2020-03-19] MEDS: SUCRALFATE 1 GM TABLET PO SCH ×3 (10:16→16:51)
[2020-03-19] MEDS: SERTRALINE HCL 50 MG TABLET PO SCH (10:16)
[2020-03-19] MEDS: DOCUSATE SODIUM 100 MG CAPSULE PO SCH (10:16)
[2020-03-19] MEDS: ONDANSETRON HCL INJ/PF 4 MG/2 ML SDV IV SCH ×3 (10:22→17:21)
[2020-03-19] MEDS: METOCLOPRAMIDE HCL INJ/PF 10 MG/2 ML SDV IV SCH ×3 (10:22→17:21)
--- NOTE | 2020-03-19 10:33 | Operative Report ---
Bedside Procedure - History of Present Illness Indication for Procedure: Severe hypotension with extremely limited access. AV fistula left arm Date: 03/19/20 Provider: ROLY LIMA - Central Line Right Subclavian Consent obtained: Yes - The patient did indicate her agreement with the procedure with the nurse at Central line pre-insertion: Sterile PPE donned, Chloraprep applied, Sterile drapes applied Central line lumen type: Triple Anesthetic type: 1% Lidocaine w/epi Ultrasound guided: No Complications: Yes Notes: 03/19/20 10:29 Placement of the central line was unsuccessful. After PPE was donned and the patient was prepped and draped in a sterile fashion attempted to access the right subclavian vein. She does have a fistula for dialysis in the left arm. Her blood pressure was systolic 72. I did experience a flash of blood on several occasions but it was nonsustained. I believe that with her very low systolic blood pressure her veins are collapsing. And lowered the head of the bed and still was not able to successfully access and maintain access to the subclavian vein. The patient appeared to be experiencing some discomfort despite several injections of lidocaine. I then discontinued efforts. I called the patient son back and explained the events. The son agreed that due to her overall decline, refusal of hemodialysis on Friday, refusal of all meals over the last 4 to 5 days and refusal of medications it was best to keep the patient comfortable. Her prognosis is grave and even if a line was established, I did not believe that it would improve her prognosis and that her prognosis is still grave. He was in agreement. He was going to notify his siblings and then come to the hospital.
[2020-03-19 16:29] VITALS: BP 79/33
--- NOTE | 2020-03-19 20:28 | PSYCHOLOGICAL NOTE ---
<ZEINAB FLORES - Last Filed: 03/19/20 20:08> Psych Note - Psych Note Date seen by psych provider: 03/18/20 Time seen by psych provider: 19:20 Psych Note: Reason for Consult: Capacity Patient arrived to [facility] 03/07/2020 and was admitted for: (1) Community acquired pneumonia (2) Bacteremia due to Streptococcus (3) End-stage renal disease on hemodialysis (4) COPD (chronic obstructive pulmonary disease) (5) Coronary artery disease (6) Failure to thrive Patient has a reported medical history of: Cardiac Medical History: Hx Congestive Heart Failure - during renal failure, Hx Coronary Artery Disease - CARDIAC STENT, Hx Hypertension Pulmonary Medical History: Hx COPD - MILD, Hx Pneumonia - "Years ago" Renal/ Medical History: Hx End Stage Renal Disease, Hx Hemodialysis, Hx Peritoneal Dialysis GI Medical History: Hx Diverticulitis Psychiatric Medical History: Hx Depression Past Surgical History: Hx Cholecystectomy, Hx Vascular Surgery, Other - Status post nephrectomy Patient has refused dialysis multiple days in a row and has refused a PEG tube. Upon entering the room the patient is laying in bed. Clinician is introduced to the patient by attending nurse. Patient consents to speak with clinician and is very polite. It is noted the patient is very difficult to understand at times and appears to be having difficulties breathing. Patient is yellow in coloring and looks ill. She is fully orientated to person, place, time and circumstance. She was able to briefly discuss her history to include talking about getting her GED, where she was born etc. Patient was able to discuss her current medical condition and confirmed she had been refusing dialysis and the PEG tube. Patient then stated she changed her mind about dialysis. Clinician asked for the patient to repeat her stated request; she again stated she wanted dialysis but no PEG tube. She was agreeable to allow the clinician at ask the attending nurse so her desires could be heard. Upon the attending nurses joining patient and clinician patient cleared stated she changed her mind about dialysis and would do it but still did not want a PEG tube. Clinician ended evaluation at this point as patient appeared to be physically struggling to breath and was falling asleep. <MALGORZATA GERBER - Last Filed: 03/19/20 21:41> Psych Note - Psych Note Psych Note: Advised Clinician to speak with Physician about allowing son to visit since it appeared the Patient was near end of life. Clinician spoke with treatment and they did indeed allow the son to visit his mother. I was contacted by Clinician on 03.19.2020 at 21.00 that Patient had and the son was able to be present with her throughout the day.
--- NOTE | 2020-03-19 21:00 | Death Summary ---
Summary Date : 03/19/20 Time of :: 18:48 Resuscitation Status: Do Not Resuscitate - Final Diagnosis (1) Hypotension Is this a current diagnosis for this admission?: Yes (2) Bacteremia due to Streptococcus Is this a current diagnosis for this admission?: Yes (3) End-stage renal disease on hemodialysis Is this a current diagnosis for this admission?: Yes (4) Community acquired pneumonia Is this a current diagnosis for this admission?: Yes (5) Failure to thrive Is this a current diagnosis for this admission?: Yes (6) Protein-calorie malnutrition, severe Is this a current diagnosis for this admission?: Yes (7) Duodenal ulcer Is this a current diagnosis for this admission?: Yes (8) Hypokalemia Is this a current diagnosis for this admission?: Yes (9) Anemia in CKD (chronic kidney disease) Is this a current diagnosis for this admission?: Yes Hospital Course:: Complicated hospital course. She completed antibiotics for pneumonia and strep bacteremia. Multiple duodenal ulcers were detected. She exhibited very poor appetite with no intake over the last 4-5 days. She refused HD on friday. She continued to decline and her BP dropped into the 70's today. I spoke to her son and we reviewed the prognosis. While they were deciding how aggressive to be within the DNR parameters, I attempted a central line placement that was unsuccessful. By then the family had decided to pull back and pursue a less aggressive plan. I explained to the patient's son how gra ve her prognosis was. Over the next 6 to 8 hrs she slowly declined but was in no discomfort. She at 18:48 with her son at the bedside.
[2020-03-20] MEDS ORDERED: ALBUMIN HUMAN 12.5 GM/50 ML RTUINJ IV SCH ×2 (10:00→22:00)
== END 2020-03-19 20:19 | DRG 193 ==
LOC: ER 13:05 → EH 16:26 → 5 18:09 → 4S 03-10 10:56
PROVIDERS: ADMIT Internal Medicine; ATTEND Family Medicine
PROC: 5A1D70Z Performance of Urinary Filtration, Intermittent, Less than 6 Hours Per Day (ICD-10-PCS; 2020-03-08)
PROC: 3E0336Z Introduction of Nutritional Substance into Peripheral Vein, Percutaneous Approach (ICD-10-PCS; 2020-03-10)
PROC: 0DB98ZX Excision of Duodenum, Via Natural or Artificial Opening Endoscopic, Diagnostic (ICD-10-PCS; 2020-03-13)
PROC: 02HV33Z Insertion of Infusion Device into Superior Vena Cava, Percutaneous Approach (ICD-10-PCS; principal; 2020-03-19)
DX: J18.9 Pneumonia, unspecified organism (principal); N18.6 End stage renal disease; E43 Unspecified severe protein-calorie malnutrition; K29.81 Duodenitis with bleeding; K26.4 Chronic or unspecified duodenal ulcer with hemorrhage; R78.81 Bacteremia; J44.0 Chronic obstructive pulmonary disease with (acute) lower respiratory infection; I13.2 Hypertensive heart and chronic kidney disease with heart failure and with stage 5 chronic kidney disease, or end stage renal disease; I50.30 Unspecified diastolic (congestive) heart failure; N25.81 Secondary hyperparathyroidism of renal origin; J84.9 Interstitial pulmonary disease, unspecified; Z68.1 Body mass index [BMI] 19.9 or less, adult; Z99.2 Dependence on renal dialysis; Z20.828 Contact with and (suspected) exposure to other viral communicable diseases; R62.7 Adult failure to thrive; E87.6 Hypokalemia; D63.1 Anemia in chronic kidney disease; Z53.29 Procedure and treatment not carried out because of patient's decision for other reasons; B95.5 Unspecified streptococcus as the cause of diseases classified elsewhere; F32.9 Major depressive disorder, single episode, unspecified; F17.210 Nicotine dependence, cigarettes, uncomplicated; I25.10 Atherosclerotic heart disease of native coronary artery without angina pectoris; K44.9 Diaphragmatic hernia without obstruction or gangrene; R94.6 Abnormal results of thyroid function studies; Z95.5 Presence of coronary angioplasty implant and graft; K59.00 Constipation, unspecified; I95.89 Other hypotension; T68.XXXA Hypothermia, initial encounter; L89.151 Pressure ulcer of sacral region, stage 1; I25.2 Old myocardial infarction; Z91.14 Patient's other noncompliance with medication regimen; Z66 Do not resuscitate; Z90.5 Acquired absence of kidney; Z79.899 Other long term (current) drug therapy; Z74.01 Bed confinement status; Z88.2 Allergy status to sulfonamides; Z88.8 Allergy status to other drugs, medicaments and biological substances; Z91.15 Patient's noncompliance with renal dialysis
CPT/HCPCS: 00731; 36415; 43239; 71045; 71250; 74022; 74176; 74240; 74246; 76536; 80048; 80053; 82962; 83735; 84100; 84134; 84439; 84443; 84481; 85025; 85027; 85610; 85730; 86701; 86803; 86804; 87040; 87077; 87150; 87186; 87635; 87804; 88305; 93005; 93010; 96365; 96375; 99140; 99285; J0456; J0696; J1170; J1644; J2405; J2543; J2550; J2704; J2765; J3480; J3490; J7030; J7042; J7060; P9047; Q5105